=== PATIENT | female | born 1995 | race Caucasian/White ===

== ENCOUNTER 2022-04-22 07:28 | Outpatient (CLI) | payer BC, SELFPAY | END 2022-04-22 07:29 | disposition home or self-care (01) | LOC: AMB 04-24 06:51 | PROVIDERS: PCP Family Medicine; Visit Provider Internal Medicine | DX: R10.9 Unspecified abdominal pain (principal); R11.2 Nausea with vomiting, unspecified | CPT/HCPCS: A0425; A0427 ==

== ENCOUNTER 2022-04-22 07:54 | Emergency (ER) | payer BC, SELFPAY ==
[2022-04-22] VITALS (20 sets, daily range): BP systolic 95–123; BP diastolic 62–88; PULSE 72–111; RESP 16–22; TEMP 36.3; O2SAT 91–99; BMI 21.9
[2022-04-22 08:48] LABS: Basophils Absolute Auto 0.03 K/uL (0.00-0.30); Basophils Percent Auto 0.4 % (0.0-3.0); Eosinophils Absolute Auto 0.03 K/uL (0.00-0.50); Eosinophils Percent Auto 0.4 % (0.0-7.0); Hemoglobin* 12.5 gm/dL (12.0-16.0); Lactate* 0.9 mmol/L (0.5-1.9); Lymphocytes Percent Auto 16.3 % (20-44); Mean Corpuscular HGB Conc 35 gm/dL (32-36); Mean Corpuscular Hemoglobin 33 pg (26-34); Mean Corpuscular Volume 96 fL (80-100); Monocytes Percent Auto 4.1 % (0.0-11.0); Neutrophils Percent Auto 78.8 % (42.0-72.0); Platelet Count* 215 K/uL (140-440); RDW Coefficient of Variation % 12.8 % (11.5-15.5); Red Blood Count 3.76 m/uL (4.00-5.20); White Blood Count* 6.99 K/uL (4.50-11.00)
[2022-04-22] MEDS: 0.9 % SODIUM CHLORIDE 1000 ml 1,000 ML IV (08:50)
[2022-04-22] MEDS: LORazepam 2 MG/ML inj 0.5 MG IVP (08:51)
[2022-04-22] MEDS: SUCRALFATE 1 GM TABLET PO (08:51)
[2022-04-22 08:53] LABS: Slide Review Reflex No
--- NOTE | 2022-04-22 09:04 | ED_ITS ---
HPI - General Adult General Chief complaint: Alcohol/Intoxication Stated complaint: Abdominal pain Time Seen by Provider: 04/22/22 08:04 Source: patient Mode of arrival: EMS Limitations: no limitations History of Present Illness HPI narrative: Patient is a 26-year-old female coming in today complaining of abdominal pain. Tells me that she does have a history of pancreatitis. Also states that she has a history of alcoholism has been binge drinking on a daily basis for quite some time. Last night had multiple drinks and then stopped around 6:00 p.m.. Tells me that she woke up the middle of the night and started vomiting and has not stop vomiting since. Also started having diarrhea at the same time. Denies blood in her stool or vomitus. States that she feels weak, lightheaded, and has diffuse abdominal discomfort. She states that she does feel better after getting fluid in the ambulance. She also received Zofran. She tells me that she has stopped drinking in the past and tells me that she had multiple seizures and was in a coma for 2 weeks. Patient currently is not on any medications and does not see a therapist. She is living at home with her mother. She denies any sick contacts. Related Data Home Medications Medication Instructions Recorded Confirmed levonorgestrel-ethinyl estradiol 1 tab PO DAILY 04/22/22 04/22/22 0.1 mg-20 mcg tablet (Vienva) Allergies Allergy/AdvReac Type Severity Reaction Status Date / Time No Known Drug Allergies Allergy Verified 04/22/22 08:05 Review of Systems Status of ROS: Reports: 10 or more systems reviewed and unremarkable except as noted in History and below PFSH PFS Social History Smoking Status: Current some day smoker What tobacco products do you use: cigarettes Do you use any of these nicotine containing products: None Second hand tobacco smoke exposure: No How often do you have a drink containing alcohol: 4 or more times a week How many standard drinks containing alcohol do you have on a typical day: 5 or 6 How often do you have six or more drinks on one occasion: Daily or almost daily AUDIT-C Alcohol total score: 10 Non-prescribed substance use: denies use Exam Narrative: Exam Narrative: Well-nourished well-developed patient, Tearful. Alert and oriented. Answers questions appropriately. Thoughts are goal oriented and rational. No tangential or magical thinking noted. Patient speaks in full sentences without needing to catch her breath. speech is not slurred or pressured. She is not tremulous. HEENT: Normocephalic atraumatic. Pupils are equally round reactive to light. Extraocular muscles are intact. Conjunctivae are moist without any icterus noted. Moist mucous membranes. Posterior pharynx is normal. Neck is soft without any lymphadenopathy or thyromegaly. No masses are appreciated. Cardiovascular: Heart is regular rate and rhythm S1 and S2 are present without any murmurs. Lungs: Clear to auscultation bilaterally no wheezes rhonchi or rales are appreciated. Patient takes deep breaths without any discomfort. Abdomen: Soft and nondistended with normal bowel sounds. No guarding or rebound. No masses or organomegaly appreciated. She has minimal diffuse abdominal discomfort. Extremities: Bilateral lower extremities are without edema. Normal DP and PT pulses. Skin: Well perfused without any obvious rashes. Const: Vital Signs, click to edit/add: Vital Signs - 24 hr 04/22/22 07:57 04/22/22 09:04 04/22/22 08:12 Temperature 97.4 F L Pulse Rate 108 H Pulse Rate [Pulse Oximeter] 86 Respiratory Rate 22 Blood Pressure 123/88 Blood Pressure [Ri ght Upper Arm] 121/81 Pulse Oximetry 99 99 97 [facility] 04/22/22 08:13 04/22/22 08:15 04/22/22 08:35 Temperature Pulse Rate 96 87 83 Pulse Rate [Pulse Oximeter] Respiratory Rate Blood Pressure 118/78 Blood Pressure [Ri ght Upper Arm] Pulse Oximetry 98 97 95 [facility] 04/22/22 08:36 04/22/22 09:16 04/22/22 09:20 Temperature Pulse Rate 111 H 78 Pulse Rate [Pulse Oximeter] Respiratory Rate Blood Pressure 103/62 Blood Pressure [Ri ght Upper Arm] Pulse Oximetry 98 93 97 [facility] 04/22/22 09:30 04/22/22 09:32 04/22/22 09:45 Temperature Pulse Rate 72 101 H 83 Pulse Rate [Pulse Oximeter] Respiratory Rate Blood Pressure 95/67 Blood Pressure [Ri ght Upper Arm] Pulse Oximetry 97 99 97 Oxygen Delivery Me thod 04/22/22 10:00 04/22/22 10:01 04/22/22 10:15 Temperature Pulse Rate 85 76 74 Pulse Rate [Pulse Oximeter] Respiratory Rate Blood Pressure 113/69 Blood Pressure [Ri ght Upper Arm] Pulse Oximetry 97 98 98 Oxygen Delivery Me thod 04/22/22 10:30 04/22/22 10:31 04/22/22 10:45 Temperature Pulse Rate 87 85 87 Pulse Rate [Pulse Oximeter] Respiratory Rate Blood Pressure 105/69 Blood Pressure [Ri ght Upper Arm] Pulse Oximetry 91 98 98 Oxygen Delivery Me thod Course Course Hospital Course: Patient received L of normal saline, Carafate, Ativan. She did feel much better afterwards although she still had some abdominal discomfort. Her labs were unremarkable, but did show slightly low potassium, elevated total bilirubin of 3.1, lipase just slightly elevated at 334. Urine drug screen positive for benzodiazepines (after receiving Ativan here), and marijuana. Vital Signs Vital signs: Initial Vital Signs Temperature 97.4 F L 04/22/22 07:57 Temperature Source Temporal Artery Scan 04/22/22 07:57 Pulse Rate 86 04/22/22 07:57 Pulse Rhythm 04/22/22 07:57 Respiratory Rate 22 04/22/22 07:57 Blood Pressure 121/81 04/22/22 07:57 Blood Pressure Mean 94 04/22/22 07:57 Blood Pressure Position Supine 04/22/22 07:57 Pulse Oximetry 99 04/22/22 07:57 Oxygen Delivery Method 04/22/22 07:57 Vital Signs Temperature 97.4 F L 04/22/22 07:57 Pulse Rate 86 04/22/22 07:57 Respiratory Rate 22 04/22/22 07:57 Blood Pressure 121/81 04/22/22 07:57 Pulse Oximetry 99 04/22/22 07:57 Oxygen Delivery Method 04/22/22 07:57 Temperature 97.4 F L 04/22/22 07:57 Pulse Rate 87 04/22/22 10:45 Respiratory Rate 22 04/22/22 07:57 Blood Pressure 105/69 04/22/22 10:31 Pulse Oximetry 98 04/22/22 10:45 Oxygen Delivery Method 04/22/22 07:57 Medical Decision Making MDM Narrative Medical decision making narrative: 26-year-old female with vomiting and diarrhea for about 10 hours. She had no episodes of vomiting or diarrhea while she was in our ER today for approximately 4 hours. She has already started looking at alcohol treatment facilities and therapists with her mom. She plans to stay with her mom for a while. We did give her handouts for other facilities to contact as well. Given her history of alcohol withdrawal and seizures, return to the ER if she is not feeling well. Patient states that she is committed to stopping her alcohol use. States that she has a 4-year-old daughter at home that she needs to be present for. Will also send her home with 10 tablets of Ativan. Lab Data Lab results reviewed: Yes I reviewed the patient's lab results Labs: Lab Results 04/22/22 04/22/22 04/22/22 Range/Units 08:30 08:30 08:30 WBC 6.99 (4.50-11.00) K/uL RBC 3.76 L (4.00-5.20) m/uL Hgb 12.5 (12.0-16.0) gm/dL Hct 36.0 (33.0-51.0) % MCV 96 (80-100) fL MCH 33 (26-34) pg MCHC 35 (32-36) gm/dL RDW Coeff of [place] 12.8 (11.5-15.5) % Plt Count 215 (140-440) K/uL Neut % (Auto) 78.8 H (42.0-72.0) % Lymph % (Auto) 16.3 L (20-44) % [place] % (Auto) 4.1 (0.0-11.0) % Eos % (Auto) 0.4 (0.0-7.0) % Baso % (Auto) 0.4 (0.0-3.0) % Neut # (Auto) 5.50 (1.7-7.0) K/uL Lymph # (Auto) 1.10 (0.90-2.90) K/uL [place] # (Auto) 0.30 (0.00-0.90) K/UL Eos # (Auto) 0.03 (0.00-0.50) K/uL Baso # (Auto) 0.03 (0.00-0.30) K/uL Sodium 138 (135-149) mmol/L Potassium 3.3 L (3.6-5.1) mmol/L Chloride 107 (96-114) mmol/L Carbon Dioxide 21 (20-32) mmol/L BUN 5 (5-24) mg/dL Creatinine 0.5 (0.5-1.5) mg/dL Estimated Creat Clear 168.72 Estimated GFR 134 ml/min Glucose 110 (60-115) mg/dL Lactate 0.9 (0.5-1.9) mmol/L Calcium 8.7 (8.4-10.6) mg/dL Total Bilirubin 3.1 H (0.1-1.5) mg/dL Direct Bilirubin 0.0 (0.0-0.5) mg/dL AST 37 H (12-35) U/L ALT 23 (4-35) U/L Alkaline Phosphatase 63 (40-150) U/L C-Reactive Protein < 0.5 L (0.5-1.0) mg/dL Total Protein 7.1 (6.0-8.3) g/dL Albumin 4.3 (3.3-5.0) g/dL Lipase 334 H (23-300) U/L HCG, Qual (Negative) Salicylates < 1.0 L (1.0-10) mg/dL Urine Opiates Screen (Negative) Ur Oxycodone Screen (Negative) Urine Methadone Screen (Negative) Ur Propoxyphene Screen (Negative) Acetaminophen < 10.0 L (10.0-30.0) ug/mL Ur Barbiturates Screen (Negative) U Tricyclic Antidepress (Negative) Ur Phencyclidine Scrn (Negative) Ur Amphetamines Screen (Negative) U Methamphetamines Scrn (Negative) U Benzodiazepines Scrn (Negative) Urine Cocaine Screen (Negative) U Marijuana (THC) Screen (Negative) Ur Drug Screen Comment Ethyl Alcohol < 0.01 L (0.01-0.03) % SARS-CoV-2 (PCR) (Negative) Influenza Type A (PCR) (Negative) Influenza Type B (PCR) (Negative) 04/22/22 04/22/22 04/22/22 Range/Units 08:35 10:37 10:37 WBC (4.50-11.00) K/uL RBC (4.00-5.20) m/uL Hgb (12.0-16.0) gm/dL Hct (33.0-51.0) % MCV (80-100) fL MCH (26-34) pg MCHC (32-36) gm/dL RDW Coeff of [place] (11.5-15.5) % Plt Count (140-440) K/uL Neut % (Auto) (42.0-72.0) % Lymph % (Auto) (20-44) % [place] % (Auto) (0.0-11.0) % Eos % (Auto) (0.0-7.0) % Baso % (Auto) (0.0-3.0) % Neut # (Auto) (1.7-7.0) K/uL Lymph # (Auto) (0.90-2.90) K/uL [place] # (Auto) (0.00-0.90) K/UL Eos # (Auto) (0.00-0.50) K/uL Baso # (Auto) (0.00-0.30) K/uL Sodium (135-149) mmol/L Potassium (3.6-5.1) mmol/L Chloride (96-114) mmol/L Carbon Dioxide (20-32) mmol/L BUN (5-24) mg/dL Creatinine (0.5-1.5) mg/dL Estimated Creat Clear Estimated GFR ml/min Glucose (60-115) mg/dL Lactate (0.5-1.9) mmol/L Calcium (8.4-10.6) mg/dL Total Bilirubin (0.1-1.5) mg/dL Direct Bilirubin (0.0-0.5) mg/dL AST (12-35) U/L ALT (4-35) U/L Alkaline Phosphatase (40-150) U/L C-Reactive Protein (0.5-1.0) mg/dL Total Protein (6.0-8.3) g/dL Albumin (3.3-5.0) g/dL Lipase (23-300) U/L HCG, Qual Negative (Negative) Salicylates (1.0-10) mg/dL Urine Opiates Screen Negative (Negative) Ur Oxycodone Screen Negative (Negative) Urine Methadone Screen Negative (Negative) Ur Propoxyphene Screen Negative (Negative) Acetaminophen (10.0-30.0) ug/mL Ur Barbiturates Screen Negative (Negative) U Tricyclic Antidepress Negative (Negative) Ur Phencyclidine Scrn Negative (Negative) Ur Amphetamines Screen Negative (Negative) U Methamphetamines Scrn Negative (Negative) U Benzodiazepines Scrn POSITIVE A* (Negative) Urine Cocaine Screen Negative (Negative) U Marijuana (THC) Screen POSITIVE A* (Negative) Ur Drug Screen Comment See Note Ethyl Alcohol (0.01-0.03) % SARS-CoV-2 (PCR) Negative SARS-CoV-2 (Negative) Influenza Type A (PCR) Negative PCR FLU A (Negative) Influenza Type B (PCR) Negative PCR FLU B (Negative) ECG Data Attestation: I personally reviewed and interpreted this ECG as follows: (Normal sinus rhythm, pulse 82) Discharge Plan Discharge Clinical Impression: Alcohol use disorder, Diarrhea, Vomiting Patient Disposition: Home w/ Parent or Adult Condition: Improved Additional Instructions: You have been given a prescription for Ativan tablets to take for symptoms of alcohol withdrawal. If you feel like your symptoms are worsening despite these tablets, you should return to the emergency room. Ativan sent to [facility] Prescriptions: No Action levonorgestrel-ethinyl estrad [Vienva] 0.1-20 mg-mcg tablet 1 tab PO DAILY Label Comments: TAKE ONE TABLET BY MOUTH ONE TIME DAILY Follow Up/Referrals: Ashwini Zhang MD [Primary Care Provider] - Stand Alone Forms: [employer] Info Instructions
[2022-04-22 09:10] LABS: Albumin* 4.3 g/dL (3.3-5.0); Chloride* 107 mmol/L (96-114); Sodium* 138 mmol/L (135-149)
[2022-04-22 09:11] LABS: Potassium* 3.3 mmol/L (3.6-5.1)
[2022-04-22 09:13] LABS: Creatinine* 0.5 mg/dL (0.5-1.5); Est. Creatinine Clearance* 168.72; Estimated Glomerular Filt Rate 134 ml/min
[2022-04-22 09:14] LABS: Alanine Aminotransferase* 23 U/L (4-35); Alkaline Phosphatase* 63 U/L (40-150); Aspartate Amino Transferase* 37 U/L (12-35); Bilirubin Total* 3.1 mg/dL (0.1-1.5); Blood Urea Nitrogen* 5 mg/dL (5-24); Calcium* 8.7 mg/dL (8.4-10.6); Carbon Dioxide* 21 mmol/L (20-32); Glucose* 110 mg/dL (60-115); Lipase* 334 U/L (23-300); Total Protein* 7.1 g/dL (6.0-8.3)
[2022-04-22 09:15] LABS: Acetaminophen* < 10.0 ug/mL (10.0-30.0); Ethanol* < 0.01 % (0.01-0.03); Salicylate* < 1.0 mg/dL (1.0-10)
[2022-04-22 09:22] LABS: PCR FLU A Negative PCR FLU A (Negative); PCR FLU B Negative PCR FLU B (Negative)
[2022-04-22 09:39] LABS: SARS PCR* Negative SARS-CoV-2 (Negative)
[2022-04-22 09:39] LABS: C Reactive Protein* < 0.5 mg/dL (0.5-1.0)
[2022-04-22 10:46] LABS: HCG Qualitative* Negative (Negative)
[2022-04-22 10:51] LABS: Amphetamine Screen Urine Negative (Negative); Barbiturate Screen Urine Negative (Negative); Cocaine Screen Urine Negative (Negative); Methadone Screen Urine Negative (Negative); Methamphetamines Screen Urine Negative (Negative); Opiate Screen Urine Negative (Negative); Oxycodone Screen Urine Negative (Negative); Phencyclidine Screen Urine Negative (Negative); Tricyclic Antidepressant Urine Negative (Negative)
[2022-04-22 10:53] LABS: Benzodiazepines Screen Urine POSITIVE (Negative); Cannabinoid Screen Urine POSITIVE (Negative)
--- NOTE | 2022-04-22 10:53 | ED.NURSE ---
note to dr gibson with positive benzos and THC.
== END 2022-04-22 12:04 | disposition home or self-care (01) ==
PROVIDERS: Emergency Provider Family Medicine; PCP Family Medicine
DX: F10.90 Alcohol use, unspecified, uncomplicated (principal); R19.7 Diarrhea, unspecified; R11.10 Vomiting, unspecified
CPT/HCPCS: 36415; 80048; 80076; 80143; 80179; 80306; 82077; 83605; 83690; 84703; 85025; 86140; 87631; 93005; 94761; 96361; 96374; 99284; A9270; J2060; J7030

== ENCOUNTER 2022-07-08 21:02 | Outpatient (CLI) | payer BC, SELFPAY ==
--- OUTSIDE RECORDS SUMMARY | 2022-07-21 04:47 | XMS_ITS | Continuity of Care Document ---
Author Name Unknown Organization [facility] Address [address] [address] [place] [address] Phone Care Team Providers Care Supervisor Fruit Grading Name Role Phone Armando eLzama MD Unavailable Unavailable Allergies, Adverse Reactions, Alerts Substance Reaction Status Criticality No Known Allergies Active No Inform ation Medications Medication Instructions Dosage Effective Dates (start - stop) Status Comments Control Pill ORAL TABLET Take one tablet by mouth daily - Active albuterol sulfate HFA 90 mcg/actuation aerosol inhaler Inhale 1 puff as needed - Active Procedures Procedure Date Office Cons New/estab Mod Advance Directives Directive Yes / No Effective Date File Name No Information Encounters Encounter Description Practice Location Reason(s) For Visit Diagnoses Date Provider Providers Copied on Encounter Office Cons New/estab Mod [facility], [address] [address], [place], [place], [id number], [place] tel:[phone] [facility] GI Symptoms or Concerns (chief complaint) Epigastric pain Lise Roberts. [address] [facility], [facility] [address], [place], [place], [id number], [place]. tel:[phone] Referring Provider: Ashwini Zhang MD, [address] [facility], [place], [address]. tel:[phone] [facility], [address] [address], [place], [place], [id number], [place] tel:[phone] [facility] No Information Nayan Flores. [address] [facility], [facility] [address], [place], [place], [id number], [place]. tel:[phone] Family History Family Member Type Diagnosis Age At Onset Mother Problem (finding) Colon polyps Father Problem (finding) Alcoholism Son Problem (finding) Asthma Mother Problem (finding) Irritable bowel syndrom e Mother Problem (finding) Pancreatitis Mother Problem (finding) Asthma Immunizations Vaccine Date Status Comments SARS-COV-2 (COVID-19) vaccin e, mRNA, spike protein, LNP, preservative free, 30 mcg/0.3mL dose administered Note: [facility] bi-direct ional interface ; Source: Other Registry SARS-COV-2 (COVID-19) vaccin e, mRNA, spike protein, LNP, preservative free, 30 mcg/0.3mL dose administered Note: [facility] bi-direct ional interface ; Source: Other Registry tetanus toxoid, reduced diphtheria toxoid, and acellular pertussis vaccine, adsorbed administered Note: [facility] b i-directional interface ; Source: Other Registry Afluria Qd administered Note: [facility] bi-directional interface ; Source: Other Registry human papilloma virus vaccin e, quadrivalent administered Note: [facility] bi-direct ional interface ; Source: Other Registry varicella virus vaccine administered Note : [facility] bi-directional interface ; Source: Other Registry human papilloma virus vaccin e, quadrivalent administered Note: [facility] bi-direct ional interface ; Source: Other Registry human papilloma virus vaccin e, quadrivalent administered Note: [facility] bi-direct ional interface ; Source: Other Registry tetanus toxoid, reduced diphtheria toxoid, and acellular pertussis vaccine, adsorbed administered Note: [facility] b i-directional interface ; Source: Other Registry Influenza, seasonal, injectable administe red Note: [facility] bi- directional interface ; Source: Other Registry poliovirus vaccine, inactivated administe red Note: [facility] bi- directional interface ; Source: Other Registry measles, mumps and rubella v irus vaccine administered Note: [facility] bi-direct ional interface ; Source: Other Registry diphtheria, tetanus toxoids and acellular pertussis vaccine administered Note: [facility] b i-directional interface ; Source: Other Registry Payers Payer name Insurance type Covered green party ID Authorsondra weiner(s) Ra Gallego [facility] [id number] Social History Type Description Quantity Date Captured Comments Alcohol Use Details No Caffeine Use Details Unknown Tobacco Use Status undefined Smoking Status Former smoker Non-Smoking Tobacco Use Details : No Details Available : No Details Available Sex Female Vital Signs Date / Time: Height Weight BMI Pulse Rate Blood Pressure Temperature Respiratory Rate Body Surface Area Head Circumference Head Circ. Percentile Wt./Ramon. Percentile BMI percentile Pulse Ox Inhaled Ox 8:08 AM 67.00 in 75.659 kg (166.80 lbs) 26.1 2 kg/m eter (2) 83 /min 115/64 mm[Hg] Chief Complaint And Reason For Visit From encounter dated '07/13/2022 08:30'. GI Symptoms or Concerns (chief complaint). Description: Ms. Cano is here at the request of Dr. Jiang discuss recurrent epigastric pain. She has a history of alcohol abuse the pain seems to correlate with binge drinking. She has been hospitalized 3 times with what sounds like alcoholic pancreatitis. She is unsure if she is had CT scans during this time. She said sometimes when she goes to the ER for this pain the lipase is elevated and sometimes not. She is been told that the pain episodes are both alcoholic gastritis and alcoholic pancreatitis. This discomfort has been going on for severalyears. She had an episode in April and then this past weekend. These episodes are much worse pain that is associated with uncontrollable nausea and vomiting. The vomiting will not stop unless she gets to the emergency room. There, it seems that IV fluids are most beneficial. GI cocktail does notseem to help. She was sober for 2 months from sometime in April until the beginning of July. During this period, she had no episodes of pain. It sounds like her mom pancreatitis and had an ERCP at some point. She also notes that she has problems with morning vomiting and diarrhea if she eats verylate at night. She has never had an upper endoscopy. She quit smoking a year ago. Looking at her most recent labs from the emergency room, lipase was elevated minimally in April and normal in July. Reason For Referral Reason For Referral No Information Plan Of Treatment Date Type Action Status Referral Ordered: MRI Pancreas WITH Contrast Appointment date/timeframe: First Available ordered History Of Present Illness Encounter Date Complaint History Of Prese nt Illness GI Symptoms or Concerns Ms. Rula chong is here at the request of Dr. Jiang discuss recurrent epigastric pain. She has a history of alcohol abuse the pain seems to correlate with binge drinking. She has been hospitalized 3 times with what sounds like alcoholic pancreatitis. She is unsure if she is had CT scans during this time. She said sometimes when she goes to the ER for this pain the lipase is elevated and sometimes not. She is been told that the pain episodes are both alcoholic gastritis and alcoholic pancreatitis. This discomfort has been going on for several years. She had an episode in April and then this past weekend. These episodes are much worse pain that is associated with uncontrollable nausea and vomiting. The vomiting will not stop unless she gets to the emergency room. There, it seems that IV fluids are most beneficial. GI cocktail does not seem to help. She was sober for 2 months from sometime in April until the beginning of July. During this period, she had no episodes of pain. It Functional Status Date Functional Assessmen t No Information Instructions Date Instruction Additional Infor mation No Information Assessments Type Assessment Date assessment Epigastric pain Mental Status Date Cognitive Assessment Orientation - [place] ed to time, place, person, situation. Patient Care Teams Name Effective Dates (start - stop) Status Members No Information
== END 2022-07-08 21:03 | disposition home or self-care (01) ==
LOC: AMB 07-21 04:45
PROVIDERS: PCP Family Medicine; Visit Provider Emergency Medicine Emergency Medical Services
DX: F10.129 Alcohol abuse with intoxication, unspecified (principal)
CPT/HCPCS: A0425; A0429

== ENCOUNTER 2022-07-08 21:27 | Emergency (ER) | payer BC, SELFPAY ==
[2022-07-08] MEDS: 0.9 % SODIUM CHLORIDE 500 ML 500 ML IV (21:48)
[2022-07-08] MEDS: ONDANSETRON 2 MG/ML inj 4 MG IVP ×2 (21:48→23:25)
[2022-07-08 21:50] VITALS: BP 108/71; PULSE 98; RESP 18; TEMP 36.7; O2SAT 99; BMI 26.6
--- NOTE | 2022-07-08 21:53 | ED_ITS ---
HPI - Abdominal Pain General Chief Complaint: Abdominal Pain Stated Complaint: ETOH Time Seen by Provider: 07/08/22 21:38 History of Present Illness HPI narrative: This 27-year-old female comes in by ambulance reporting upper epigastric abdominal pain. She has a history of alcohol abuse and pancreatitis. She did have lots of alcohol recently and states that her last drink was this afternoon. She arrives with normal vital signs. Related Data Home Medications Medication Instructions Recorded Confirmed levonorgestrel-ethinyl estradiol 1 tab PO DAILY 07/08/22 07/08/22 0.1 mg-20 mcg tablet (Vienva) Previous Rx's Medication Instructions Recorded amoxicillin 875 mg-potassium 1 tab PO BID 5 days #10 tabs 07/06/22 clavulanate 125 mg tablet polymyxin B sulfate 10,000 1 drp ophthalmic (eye) Q3H #10 mL 07/06/22 unit-trimethoprim 1 mg/mL eye drops (Polytrim) Allergies Allergy/AdvReac Type Severity Reaction Status Date / Time No Known Drug Allergies Allergy Verified 07/08/22 22:02 Review of Systems Status of ROS Reports: 10 or more systems reviewed and unremarkable except as noted in History and below Narrative Constitutional: No fevers, no weight gain or loss. Eyes: No discharge. No vision changes. HENT: No congestion, no sore throat, no ear pain. Cardiovascular: No chest pain, no palpitations. Respiratory: No shortness of breath, no wheezes, no cough. Gastrointestinal: Upper epigastric abdominal pain with nausea and vomiting. Genitourinary: No dysuria, no hematuria. Musculoskeletal: Normal range of motion. Skin: No rashes, no pruritis. Neurological: No dizziness, weakness, sensory change, speech change. Endo/Heme/Allergies: No bruising or bleeding. No polydipsia. Pysch: no suicidality, no anxiety, no insomnia. Alcohol abuse and intoxication. All other systems reviewed and are negative. [facility] PFS Social History Smoking Status: Former smoker What tobacco products do you use: cigarettes Smoking quit date/years: <= 15 years ago Do you use any of these nicotine containing products: None Second hand tobacco smoke exposure: No How often do you have a drink containing alcohol: 4 or more times a week How many standard drinks containing alcohol do you have on a typical day: 5 or 6 How often do you have six or more drinks on one occasion: Daily or almost daily AUDIT-C Alcohol total score: 10 Non-prescribed substance use: marijuana (any form) service: No Exam Narrative: Exam Narrative: Constitutional: Well-developed, well-nourished, no acute distress. HEENT: Normocephalic, atraumatic. Neck: Normal range of motion. Nontender. Supple. Heart: Regular. No murmurs. Normal rate. Intact distal pulses. Lungs: Clear to auscultation. No chest discomfort. No wheezes, rhonchi, or rales. Abdomen: Normal bowel sounds. Tenderness in the upper epigastric region. No rebound tenderness. Genitalia: Deferred. Back: No midline tenderness. Normal range of motion. Extremities: Normal range of motion. No injury. Skin: Intact. No rash. Warm. No erythema or pallor. Neurologic: No altered sensation. No weakness. Alert and oriented. Psychiatric: No suicidality. No anxiety or depression. No insomnia. Nursing notes and vitals signs are reviewed. Const: Vital Signs, click to edit/add: Vital Signs - 24 hr 07/08/22 21:50 07/08/22 22:00 07/08/22 22:01 Temperature 98.0 F Pulse Rate 102 H Pulse Rate [Right Pulse Oximeter] 98 Respiratory Rate 18 16 Blood Pressure 113/49 L Blood Pressure [Ri ght Upper Arm] 108/71 Pulse Oximetry 99 97 99 Oxygen Delivery Me thod Room Air 07/08/22 22:31 07/08/22 23:01 Temperature Pulse Rate 99 95 Pulse Rate [Right Pulse Oximeter] Respiratory Rate 16 16 Blood Pressure 105/66 115/67 Blood Pressure [Ri ght Upper Arm] Pulse Oximetry 100 96 Oxygen Delivery Me thod Course Vital Signs Vital signs: Initial Vital Signs Temperature 98.0 F 07/08/22 21:50 Temperature Source Temporal Artery Scan 07/08/22 21:50 Pulse Rate 98 07/08/22 21:50 Respiratory Rate 18 07/08/22 21:50 Blood Pressure 108/71 07/08/22 21:50 Blood Pressure Mean 83 07/08/22 21:50 Blood Pressure Position Supine 07/08/22 21:50 Pulse Oximetry 99 07/08/22 21:50 Oxygen Delivery Method Room Air 07/08/22 21:50 Vital Signs Temperature 98.0 F 07/08/22 21:50 Pulse Rate 98 07/08/22 21:50 Respiratory Rate 18 07/08/22 21:50 Blood Pressure 108/71 07/08/22 21:50 Pulse Oximetry 99 07/08/22 21:50 Oxygen Delivery Method Room Air 07/08/22 21:50 Temperature 98.0 F 07/08/22 21:50 Pulse Rate 95 07/08/22 23:01 Respiratory Rate 16 07/08/22 23:01 Blood Pressure 115/67 07/08/22 23:01 Pulse Oximetry 96 07/08/22 23:01 Oxygen Delivery Method Room Air 07/08/22 21:50 MDM - Abdominal Pain MDM Narrative Medical decision making narrative: This patient comes in reporting severe upper epigastric abdominal pain. She had alcohol recently and reports similar symptoms in the past after taking alcohol. An IV was established where she received 4 mg of Zofran. Lab results returned with blood alcohol level 0.02. Other lab results are also in normal range. Patient then received a GI cocktail which did not bring much relief of her symptoms. Following this she received 30 mg of Toradol which brought some relief. I did use bedside ultrasound to evaluate her gallbladder and found normal anatomy in the right upper quadrant. The patient then received an IV dose of Dilaudid 0.5 mg and another dose of Zofran. She is okay to return home and encouraged to discontinue use of alcohol as this does not sit well with her. Lab Data Labs: Lab Results 07/08/22 Range/Units 21:45 WBC 12.80 H (4.50-11.00) K/uL RBC 4.22 (4.00-5.20) m/uL Hgb 13.4 (12.0-16.0) gm/dL Hct 39.2 (33.0-51.0) % MCV 93 (80-100) fL MCH 32 (26-34) pg MCHC 34 (32-36) gm/dL RDW Coeff of [place] 11.9 (11.5-15.5) % Plt Count 375 (140-440) K/uL Neut % (Auto) 82.5 H (42.0-72.0) % Lymph % (Auto) 15.6 L (20-44) % [place] % (Auto) 1.2 (0.0-11.0) % Eos % (Auto) 0.1 (0.0-7.0) % Baso % (Auto) 0.3 (0.0-3.0) % Neut # (Auto) 10.60 H (1.7-7.0) K/uL Lymph # (Auto) 2.00 (0.90-2.90) K/uL [place] # (Auto) 0.20 (0.00-0.90) K/UL Eos # (Auto) 0.00 (0.00-0.50) K/uL Baso # (Auto) 0.00 (0.00-0.30) K/uL Sodium 139 (135-149) mmol/L Potassium 3.6 (3.6-5.1) mmol/L Chloride 103 (96-114) mmol/L Carbon Dioxide 15 L (20-32) mmol/L BUN 16 (5-24) mg/dL Creatinine 0.6 (0.5-1.5) mg/dL Estimated Creat Clear 139.38 Estimated GFR 128 ml/min Glucose 117 H (60-115) mg/dL Calcium 9.6 (8.4-10.6) mg/dL Total Bilirubin 0.8 (0.1-1.5) mg/dL Direct Bilirubin 0.2 (0.0-0.5) mg/dL AST 25 (12-35) U/L ALT 22 (4-35) U/L Alkaline Phosphatase 97 (40-150) U/L Total Protein 8.4 H (6.0-8.3) g/dL Albumin 5.2 H (3.3-5.0) g/dL Lipase 36 (23-300) U/L Ethyl Alcohol 0.02 (0.01-0.03) % Discharge Plan Discharge Clinical Impression: Gastritis Patient Disposition: Home w/ Parent or Adult Condition: Stable Additional Instructions: Take medication as needed and directed. Increase diet as tolerated. Avoid alcohol. Follow up with MD or return if worsening. Prescriptions: No Action polymyxin B sulf-trimethoprim [Polytrim] 10,000 unit- 1 mg/mL drops 1 drp ophthalmic (eye) Q3H Qty: 10 0RF Rx Instructions: while awake; do not exceed 6 doses in 24 hours amoxicillin-pot clavulanate 875-125 mg tablet 1 tab PO BID 5 Days Qty: 10 0RF levonorgestrel-ethinyl estrad [Vienva] 0.1-20 mg-mcg tablet 1 tab PO DAILY Follow Up/Referrals: Ashwini Zhang MD [Primary Care Provider] - Stand Alone Forms: [facility] Info Instructions Procedures Ultrasound Biliary exam #1: Anatomical areas examined: gallbladder, long and short axis and common bile duct Indications: RUQ/epigastric pain Exam type: limited abdominal ultrasound; RUQ Description/Findings: Normal exam. No sign of stones or sludge in the gallbladder.
[2022-07-08 21:54] LABS: Basophils Percent Auto 0.3 % (0.0-3.0); Eosinophils Percent Auto 0.1 % (0.0-7.0); Hematocrit 39.2 % (33.0-51.0); Hemoglobin* 13.4 gm/dL (12.0-16.0); Immature Granulocytes Pct Auto 0.3 %; Lymphocytes Percent Auto 15.6 % (20-44); Mean Corpuscular HGB Conc 34 gm/dL (32-36); Mean Corpuscular Hemoglobin 32 pg (26-34); Mean Corpuscular Volume 93 fL (80-100); Monocytes Percent Auto 1.2 % (0.0-11.0); Neutrophils Percent Auto 82.5 % (42.0-72.0); Platelet Count* 375 K/uL (140-440); RDW Coefficient of Variation % 11.9 % (11.5-15.5); Red Blood Count 4.22 m/uL (4.00-5.20)
[2022-07-08 21:59] LABS: Slide Review Reflex No
[2022-07-08 22:00] VITALS: O2SAT 97
[2022-07-08 22:01] VITALS: BP 113/49; PULSE 102; RESP 16; O2SAT 99
--- OUTSIDE RECORDS SUMMARY | 2022-07-08 22:02 | XMS_ITS | Continuity of Care Document ---
Author Name Unknown Organization [facility] Address [address] [address] [place] [address] Phone Care Team Providers Care Soda Fountain Clerk Name Role Phone Mark Escobar MD Unavailabl e Advance Directives Directive Yes / No Effective Date File Name No Information Encounters Encounter Description Practice Location Reason(s) For Visit Diagnoses Date Provider Providers Copied on Encounter [facility], [address] [address], [place], [place], [id number], [place] tel:[phone] [facility] No Information Nayan Flores. [address] [address], [place], [place], [id number], [place]. tel:[phone] Family History Family Member Type Diagnosis Age At Onset No Information Payers Payer name Insurance type Covered democrat ID Authoriza tion(s) No Information Social History Type Description Quantity Date Captured Comments Sex Female Smoking Status No Information Chief Complaint And Reason For Visit No Information Reason For Referral Reason For Referral No Information Plan Of Treatment Date Type Action Status No Information History Of Present Illness Encounter Date Complaint History Of Prese nt Illness No Information Functional Status Date Functional Assessmen t No Information Instructions Date Instruction Additional Infor mation No Information Assessments Type Assessment Date No Information Patient Care Teams Name Effective Dates (start - stop) Status Members No Information
[2022-07-08 22:07] LABS: Albumin* 5.2 g/dL (3.3-5.0); Chloride* 103 mmol/L (96-114); Potassium* 3.6 mmol/L (3.6-5.1); Sodium* 139 mmol/L (135-149)
[2022-07-08 22:09] LABS: Creatinine* 0.6 mg/dL (0.5-1.5); Est. Creatinine Clearance* 139.38; Estimated Glomerular Filt Rate 128 ml/min
[2022-07-08 22:10] LABS: Alanine Aminotransferase* 22 U/L (4-35); Alkaline Phosphatase* 97 U/L (40-150); Aspartate Amino Transferase* 25 U/L (12-35); Bilirubin Direct* 0.2 mg/dL (0.0-0.5); Bilirubin Total* 0.8 mg/dL (0.1-1.5); Blood Urea Nitrogen* 16 mg/dL (5-24); Calcium* 9.6 mg/dL (8.4-10.6); Carbon Dioxide* 15 mmol/L (20-32); Glucose* 117 mg/dL (60-115); Lipase* 36 U/L (23-300); Total Protein* 8.4 g/dL (6.0-8.3)
[2022-07-08 22:11] LABS: Ethanol* 0.02 % (0.01-0.03)
[2022-07-08 22:31] VITALS: BP 105/66; PULSE 99; RESP 16; O2SAT 100
[2022-07-08] MEDS: GI COCKTAIL (VISC LIDO/ANTACID) 30 ML PO (22:31)
[2022-07-08] MEDS: KETOROLAC 30 MG/ML inj IVP (22:45)
[2022-07-08 23:01] VITALS: BP 115/67; PULSE 95; RESP 16; O2SAT 96
[2022-07-08] MEDS: HYDROmorphone 0.5 mg/0.5 ml inj IVP (23:26)
--- NOTE | 2022-07-08 23:40 | ED.NURSE ---
Pt vomited approximately 250 cc of white emesis. Pt had GI cocktail earlier and was unable to tolerate it. Dr. Holman aware and additional zofran given IV.
[2022-07-08 23:51] VITALS: BP 115/74; PULSE 92; O2SAT 92
== END 2022-07-09 00:04 | disposition home or self-care (01) ==
PROVIDERS: Emergency Provider Emergency Medicine Emergency Medical Services; PCP Family Medicine
DX: K29.70 Gastritis, unspecified, without bleeding (principal); F10.10 Alcohol abuse, uncomplicated
CPT/HCPCS: 36415; 80048; 80076; 82077; 83690; 85025; 94761; 96374; 96375; 99283; 99284; A9270; J1170; J1885; J2405; J7120

== ENCOUNTER 2022-08-11 07:56 | Outpatient (CLI) | payer BC, SELFPAY ==
--- NOTE | 2022-08-11 08:15 | CRLHL7_ITS ---
For Patients: As a result of the Century Cures Act, medical imaging exams and procedure reports are released immediately into your electronic medical record. You may view this report before your referring provider. If you have questions, please contact your health care provider. Indication: Epigastric abdominal pain. Technique: MRI of the abdomen without and with intravenous gadolinium. Three plane localizer, 3 plane SSFP, axial T1 weighted in out of phase, axial T2 weighted haste without and with fat suppression, axial diffusion-weighted imaging and ADC map, and pre and post contrast axial and coronal T1 weighted fat-suppressed vibe pulse sequences were obtained. 15 cc of IV dotarem. Comparison: CT of the abdomen and pelvis, 03/19/2021. Findings: There is no pancreatic duct dilation or glandular atrophy. The anterior pararenal space is clear. The liver morphology is non cirrhotic. There is no solid hepatic mass. The hepatic veins, IVC, main portal vein, splenic vein, and SMV are patent. The nephrograms are symmetric. There is no solid renal mass or perinephric fluid. No adrenal mass. Normal marrow signal intensity. No abdominal lymphadenopathy. Biliary tree is normal in caliber. There are no inflammatory changes adjacent to the gallbladder. There is no evidence for steatosis or iron deposition on chemical shift imaging. No arterial phase enhancing liver lesion. There is no washout on the portal venous or equilibrium phases. Impression: 1. No imaging findings are seen to explain epigastric abdominal pain. 2. Normal caliber biliary tree. 3. Non cirrhotic liver morphology. 4. No abdominal lymphadenopathy or ascites. Dictated by Branden Bejarano MD @ 08/14/2022 11:29:47 AM (Electronically Signed)
== END 2022-08-11 07:57 | disposition home or self-care (01) ==
LOC: MRI 07:56
PROVIDERS: PCP Family Medicine; Visit Provider Internal Medicine Gastroenterology
DX: R10.13 Epigastric pain (principal)
CPT/HCPCS: 74183; A9575

== ENCOUNTER 2022-08-22 08:57 | Outpatient (CLI) | payer BC, SELFPAY | END 2022-08-22 08:58 | disposition home or self-care (01) | LOC: AMB 08-24 11:58 | PROVIDERS: PCP Family Medicine; Visit Provider Family Medicine | DX: R10.9 Unspecified abdominal pain (principal); R11.10 Vomiting, unspecified | CPT/HCPCS: A0425; A0429; A0433 ==

== ENCOUNTER 2022-08-22 17:35 | Outpatient (CLI) | payer BC, SELFPAY | END 2022-08-22 17:36 | disposition home or self-care (01) | LOC: AMB 08-24 12:06 | PROVIDERS: PCP Family Medicine; Visit Provider Family Medicine | DX: R25.1 Tremor, unspecified (principal) | CPT/HCPCS: A0425; A0429 ==

== ENCOUNTER 2022-08-22 17:44 | Emergency (ER) | payer BC, SELFPAY ==
[2022-08-22 17:52] VITALS: BP 119/85; PULSE 89; RESP 18; TEMP 36.7; O2SAT 98
--- NOTE | 2022-08-22 18:23 | ED_ITS ---
HPI - General Adult General Chief complaint: Anxiety Stated complaint: Shaking Time Seen by Provider: 08/22/22 18:16 History of Present Illness HPI narrative: This 27-year-old female comes in reporting feeling shaky and anxious. She states she feels like she is going through some kind withdrawal like she had when she was abusing alcohol. She has not had any alcohol for the past 4 months. She did go to [facility] [place] [place] this morning because of abdominal pain and did receive IV doses of narcotic and Zofran. She was discharged at about noon, about 6 hours prior to arrival here. She states that she began feeling shaky as she was being discharged. The abdominal pain is currently not present. She does have follow-up appointment with a GI specialist. She arrives here with normal vital signs. When I came into the room she began to hyperventilate and become more shaky. The nurse noted that she is able to calm down. The patient denies taking any street drugs or other medications. Related Data Home Medications Medication Instructions Recorded Confirmed levonorgestrel-ethinyl estradiol 1 tab PO DAILY 07/08/22 07/08/22 0.1 mg-20 mcg tablet (Vienva) Previous Rx's Medication Instructions Recorded polymyxin B sulfate 10,000 1 drp ophthalmic (eye) Q3H #10 mL 07/06/22 unit-trimethoprim 1 mg/mL eye drops (Polytrim) escitalopram oxalate 10 mg tablet 10 mg PO DAILY #30 tabs 08/22/22 (Lexapro) Allergies Allergy/AdvReac Type Severity Reaction Status Date / Time No Known Drug Allergies Allergy Verified 07/08/22 22:02 Review of Systems Status of ROS: Reports: 10 or more systems reviewed and unremarkable except as noted in History and below Narrative: Constitutional: No fevers, no weight gain or loss. Eyes: No discharge. No vision changes. HENT: No congestion, no sore throat, no ear pain. Cardiovascular: No chest pain, no palpitations. Respiratory: No shortness of breath, no wheezes, no cough. Gastrointestinal: No abdominal pain, no vomiting, no diarrhea. Genitourinary: No dysuria, no hematuria. Musculoskeletal: Normal range of motion. Skin: No rashes, no pruritis. Neurological: No dizziness, weakness, sensory change, speech change. Endo/Heme/Allergies: No bruising or bleeding. No polydipsia. Pysch: no suicidality, no insomnia. She reports anxiety. All other systems reviewed and are negative. [facility] Social History (Updated 07/08/22 @ 23:47 by Lai Holman MD) Smoking Status: Former smoker What tobacco products do you use: cigarettes Smoking quit date/years: <= 15 years ago Do you use any of these nicotine containing products: None Second hand tobacco smoke exposure: No How often do you have a drink containing alcohol: 4 or more times a week How many standard drinks containing alcohol do you have on a typical day: 5 or 6 How often do you have six or more drinks on one occasion: Daily or almost daily AUDIT-C Alcohol total score: 10 Non-prescribed substance use: marijuana (any form) service: No Exam Narrative: Exam Narrative: Constitutional: Well-developed, well-nourished. HEENT: Normocephalic, atraumatic. Neck: Normal range of motion. Nontender. Supple. Heart: Regular. No murmurs. Normal rate. Intact distal pulses. Lungs: Clear to auscultation. No chest discomfort. No wheezes, rhonchi, or rales. Abdomen: Normal bowel sounds. Nontender. No rebound tenderness. Genitalia: Deferred. Back: No midline tenderness. Normal range of motion. Extremities: Normal range of motion. No injury. Skin: Intact. No rash. Warm. No erythema or pallor. Neurologic: No altered sensation. No weakness. Alert and oriented. She is tremulous. Psychiatric: No suicidality. No insomnia. She appears very anxious. Nursing notes and vitals signs are reviewed. Const: Vital Signs, click to edit/add: Vital Signs - 24 hr 08/22/22 17:52 Temperature 98.0 F Pulse Rate [Right Pulse Oximeter] 89 Respiratory Rate 18 Blood Pressure [Ri ght Upper Arm] 119/85 Pulse Oximetry 98 Oxygen Delivery Me thod Room Air Course Vital Signs Vital signs: Initial Vital Signs Temperature 98.0 F 08/22/22 17:52 Temperature Source Temporal Artery Scan 08/22/22 17:52 Pulse Rate 89 08/22/22 17:52 Respiratory Rate 18 08/22/22 17:52 Blood Pressure 119/85 08/22/22 17:52 Blood Pressure Mean 96 08/22/22 17:52 Blood Pressure Position Sitting 08/22/22 17:52 Pulse Oximetry 98 08/22/22 17:52 Oxygen Delivery Method Room Air 08/22/22 17:52 Vital Signs Temperature 98.0 F 08/22/22 17:52 Pulse Rate 89 08/22/22 17:52 Respiratory Rate 18 08/22/22 17:52 Blood Pressure 119/85 08/22/22 17:52 Pulse Oximetry 98 08/22/22 17:52 Oxygen Delivery Method Room Air 08/22/22 17:52 Temperature 98.0 F 08/22/22 17:52 Pulse Rate 89 08/22/22 17:52 Respiratory Rate 18 08/22/22 17:52 Blood Pressure 119/85 08/22/22 17:52 Pulse Oximetry 98 08/22/22 17:52 Oxygen Delivery Method Room Air 08/22/22 17:52 Medical Decision Making MDM Narrative Medical decision making narrative: This patient comes in displaying lots of anxiety with tremors and hyperventilating. She just had a thorough workup this morning at a different facility. I was able to see those records and review those lab results. She had abdominal pain this morning which now is completely gone. Her primary reason for visiting is because of the shaking episodes and hyperventilating which seems to be clear manifestation of anxiety. The patient did receive an oral dose of Ativan 1 mg which brought great relief to her symptoms. She is not taking any medications and is going through therapy and outpatient treatment for alcohol addiction. She has maintain sobriety for 4 months and seems to be doing well in that regard. I did offer a antidepressant antianxiety medicine which may help her as she does admit that she has frequent anxiety symptoms. She is agreeable to give a trial to Lexapro. I encouraged her to follow-up with her primary physician in 2-3 weeks for review. Discharge Plan Discharge Clinical Impression: Acute anxiety Patient Disposition: Home w/ Parent or Adult Condition: Improved Additional Instructions: Take medication as prescribed. Follow up with primary physician in 2-3 weeks to review. Return if worsening. Prescriptions: New escitalopram oxalate [Lexapro] 10 mg tablet 10 mg PO DAILY Qty: 30 2RF No Action polymyxin B sulf-trimethoprim [Polytrim] 10,000 unit- 1 mg/mL drops 1 drp ophthalmic (eye) Q3H Qty: 10 0RF Rx Instructions: while awake; do not exceed 6 doses in 24 hours levonorgestrel-ethinyl estrad [Vienva] 0.1-20 mg-mcg tablet 1 tab PO DAILY Follow Up/Referrals: Ashwini Zhang MD [Primary Care Provider] - Stand Alone Forms: [employer] Gear Info Instructions
[2022-08-22] MEDS: LORazepam 1 MG TABLET PO (18:44)
[2022-08-22 18:45] VITALS: BP 117/83; PULSE 86; RESP 18; O2SAT 99
--- OUTSIDE RECORDS SUMMARY | 2022-08-22 19:03 | XMS_ITS | Continuity of Care Document ---
Author Name Unknown Organization [facility] Address [address] [address] [place] [address] Phone Care Team Providers Care Newsstand Vendor Name Role Phone Mark Escobar MD Unavailable Unavailabl e Allergies, Adverse Reactions, Alerts Substance Reaction Status [...] Diagnoses Date Provider Providers Copied on Encounter [facility], [address] [address], [place], [place], [id number], [place] tel:[phone] [facility] No Information Nayan Flores. [address] [address], [place], [place], [id number], [place]. tel:[phone] Office Cons New/estab Mod [facility], [address] [address], [place], [place], [id number], [place] tel:[phone] [facility] GI Symptoms or Concerns (chief complaint) Epigastric pain Lise Roberts. [address] [facility] [address], [place], [place], [address], [place]. tel:[phone] Referring Provider: Ashwini Zhang MD, [address] [facility], [place], [address]. tel:[phone] [facility], [address] [address], [place], [place], [address], [place] tel:[phone] [facility] No Information Nayan Flores. [address] [facility], [place], [place], [address], [place]. tel:[phone] Family History Family Member Type Diagnosis Age [...] Registry Payers Payer name Insurance type Covered constitution party ID Authoriza tion(s) No Information Social History Type Description Quantity Date Captured Comments Sex Female Smoking Status No Information Chief Complaint And Reason For Visit No Information Reason For Referral Reason For Referral No Information Plan Of Treatment Date Type Action Status Referral Ordered: MRI Pancreas WITH Contrast Appointment date/timeframe: 08/15/2022 ordered Appointment Celia Cano BOOKED Appointment Celia aCno BOOKED History Of Present Illness Encounter Date Complaint [...]
== END 2022-08-22 19:23 | disposition home or self-care (01) ==
PROVIDERS: Emergency Provider Emergency Medicine Emergency Medical Services; PCP Family Medicine
DX: F41.9 Anxiety disorder, unspecified (principal)
CPT/HCPCS: 99283; 99284; A9270

== ENCOUNTER 2022-08-23 07:32 | Emergency (ER) | payer BC, SELFPAY ==
[2022-08-23 07:47] VITALS: BP 118/80; PULSE 102; RESP 22; TEMP 36.4; O2SAT 99; BMI 25.8
[2022-08-23 08:53] LABS: Lactate* 1.7 mmol/L (0.5-1.9)
[2022-08-23 08:56] LABS: Basophils Absolute Auto 0.03 K/uL (0.00-0.30); Basophils Percent Auto 0.3 % (0.0-3.0); Eosinophils Absolute Auto 0.04 K/uL (0.00-0.50); Eosinophils Percent Auto 0.4 % (0.0-7.0); Immature Granulocytes Abs Auto 0.02 K/uL (0.00-0.30); Immature Granulocytes Pct Auto 0.2 %; Mean Corpuscular HGB Conc 34 gm/dL (32-36); Mean Corpuscular Hemoglobin 31 pg (26-34); Mean Corpuscular Volume 92 fL (80-100); Neutrophils Percent Auto 83.1 % (42.0-72.0); Platelet Count* 321 K/uL (140-440); Red Blood Count 4.14 m/uL (4.00-5.20); White Blood Count* 10.82 K/uL (4.50-11.00)
[2022-08-23 08:57] LABS: Slide Review Reflex No
[2022-08-23 09:08] LABS: Albumin* 4.9 g/dL (3.3-5.0); Chloride* 103 mmol/L (96-114)
[2022-08-23 09:09] LABS: Sodium* 136 mmol/L (135-149)
[2022-08-23] MEDS: 0.9 % SODIUM CHLORIDE 1000 ml 1,000 ML IV (09:09)
[2022-08-23] MEDS: ONDANSETRON 2 MG/ML inj 4 MG IVP (09:09)
[2022-08-23 09:11] LABS: Alanine Aminotransferase* 23 U/L (4-35); Alkaline Phosphatase* 75 U/L (40-150); Aspartate Amino Transferase* 28 U/L (12-35); Bilirubin Direct* 0.2 mg/dL (0.0-0.5); Creatinine* 0.6 mg/dL (0.5-1.5); Est. Creatinine Clearance* 139.38; Estimated Glomerular Filt Rate 128 ml/min; Total Protein* 7.7 g/dL (6.0-8.3)
[2022-08-23 09:12] LABS: Blood Urea Nitrogen* 10 mg/dL (5-24); Calcium* 9.6 mg/dL (8.4-10.6); Carbon Dioxide* 20 mmol/L (20-32); Glucose* 135 mg/dL (60-115); Lipase* 33 U/L (23-300)
--- NOTE | 2022-08-23 09:14 | ED_ITS ---
HPI - General Adult General Date Seen: 08/23/22 Chief complaint: Nausea/Vomiting Stated complaint: non stop vomiting Time Seen by Provider: 08/23/22 08:06 Source: patient Mode of arrival: ambulatory Limitations: no limitations History of Present Illness HPI narrative: Patient is a 27-year-old woman with a history of alcohol abuse, reporting for evaluation of nausea and vomiting. She has been having difficulty for several days, she says she was initially seen in [place] day before yesterday, then [facility] [place], then here yesterday afternoon. She has been diagnosed with gastritis and has been given several medications to take but she says she has not been taking them because she has not been able to eat, she was not sure of the timing, essentially several different reasons for why she has not started the medicines that have been prescribed. She does have Zofran at home, but it looks like also was given Reglan and she took Reglan this morning when she woke up and was feeling nauseated with dry heaves again. She received morphine at [facility] yesterday morning and then was given Ativan for anxiety here yesterday. She says she is not currently drinking, she does acknowledges that she uses marijuana although she says it is sporadic. She has been using for the past couple of weeks, as recently as yesterday. She denies a prior diagnosis of cyclic vomiting. She was feeling shaky earlier but has not had a fever. She is not vomiting blood. She has started seeing a counselor at [facility], she says she has an appointment with someone who can prescribe medications at the end of September. She has not pursued any kind of alcohol treatment. Related Data Home Medications Medication Instructions Recorded Confirmed levonorgestrel-ethinyl estradiol 1 tab PO DAILY 07/08/22 07/08/22 0.1 mg-20 mcg tablet (Vienva) lorazepam 1 mg tablet 1 mg PO BID 08/23/22 08/23/22 metoclopramide HCl 10 mg tablet 10 mg PO Q6H PRN nausea/vomiting 08/23/22 08/23/22 ondansetron 4 mg disintegrating 4 mg PO Q8H PRN 08/23/22 08/23/22 tablet sucralfate 1 gram tablet 1 g PO 5XD 08/23/22 08/23/22 Previous Rx's Medication Instructions Recorded polymyxin B sulfate 10,000 1 drp ophthalmic (eye) Q3H #10 mL 07/06/22 unit-trimethoprim 1 mg/mL eye drops (Polytrim) escitalopram oxalate 10 mg tablet 10 mg PO DAILY #30 tabs 08/22/22 (Lexapro) potassium chloride 20 mEq 20 meq PO DAILY #7 tabs 08/23/22 tablet,extended release Allergies Allergy/AdvReac Type Severity Reaction Status Date / Time No Known Drug Allergies Allergy Verified 08/23/22 07:50 Review of Systems Status of ROS: Reports: 10 or more systems reviewed and unremarkable except as noted in History and below [facility] Social History Smoking Status: Former smoker What tobacco products do you use: cigarettes Smoking quit date/years: <= 15 years ago Do you use any of these nicotine containing products: None Second hand tobacco smoke exposure: No How often do you have a drink containing alcohol: never AUDIT-C Alcohol total score: 0 Non-prescribed substance use: marijuana (any form) Non-prescribed substance use details: last marijuana 08/22/22 service: No Exam Narrative: Exam Narrative: Vital signs as noted above. In general, an alert nontoxic woman. She is spitting occasionally into an emesis bag, no vomiting while here. Head: Normocephalic, atraumatic. Eyes: Pupils are equal reactive. Extraocular movements are full. Conjunctivae are normal. ENT: Mucous membranes are moist. Throat is normal. Neck: Supple without lymphadenopathy. Heart: Regular rate and rhythm. No murmur or rub. Lungs: Clear bilaterally. No increased work of breathing, crackles or wheezes. Abdomen: Soft and nontender. No organomegaly. Extremities: Well perfused. No edema. No calf tenderness. Pulses intact. Neurologic: Patient is alert and oriented to person and place. Speech is fluent. Face is symmetric. Moves all extremities equally. Affect: Anxious Skin: Warm and dry. Well perfused. Const: Vital Signs, click to edit/add: Vital Signs - 24 hr 08/23/22 07:47 08/23/22 10:36 Temperature 97.6 F 98.9 F Pulse Rate [Left P ulse Oximeter] 102 H 91 Respiratory Rate 22 22 Blood Pressure [Ri ght Upper Arm] 118/80 130/92 H Pulse Oximetry 99 100 Oxygen Delivery Me thod Room Air Documenting provider has reviewed patient's vital signs: yes Course Course Hospital Course: I elected to recheck some labs and give her some fluids. I do wonder about a possible contribution from marijuana she is using. Other diagnostic considerations include pancreatitis, gastritis, peptic ulcer disease, cholecystitis or biliary colic, bowel obstruction, withdrawal. Labs are notable for a normal white blood cell count and hemoglobin. Her potassium is low at 3, other electrolytes are normal and BUN is 10, creatinine 0.6. Blood sugar is 135. Her total bilirubin is elevated at 2, direct is normal, other LFTs are normal. Alk-phos is 75. Lipase is normal at 33. test is negative. Right upper quadrant ultrasound read as normal by Radiology. She continues to feel bloated and nauseated, but she has not had any vomiting while here. Symptoms may be related to gastritis, plus or minus a component of cyclic vomiting. I have stressed to her that it is extremely important that she take the medications that have been prescribed and recommended to her. She is unsure whether not she has been told to take Prilosec, I suspect that she has, but in any case she is not taking it. I have recommended addition of this medication in addition to the nausea medicines and Carafate that have been previously prescribed. Primary care follow-up next week, GI follow-up/endoscopy would be a consideration if not improving. Strongly advise avoidance of alcohol as well as marijuana. Vital Signs Vital signs: Initial Vital Signs Temperature 97.6 F 08/23/22 07:47 Temperature Source Temporal Artery Scan 08/23/22 07:47 Pulse Rate 102 H 08/23/22 07:47 Respiratory Rate 22 08/23/22 07:47 Blood Pressure 118/80 08/23/22 07:47 Blood Pressure Mean 92 08/23/22 07:47 Blood Pressure Position Sitting 08/23/22 07:47 Pulse Oximetry 99 08/23/22 07:47 Oxygen Delivery Method Room Air 08/23/22 07:47 Vital Signs Temperature 97.6 F 08/23/22 07:47 Pulse Rate 102 H 08/23/22 07:47 Respiratory Rate 22 08/23/22 07:47 Blood Pressure 118/80 08/23/22 07:47 Pulse Oximetry 99 08/23/22 07:47 Oxygen Delivery Method Room Air 08/23/22 07:47 Temperature 98.9 F 08/23/22 10:36 Pulse Rate 91 08/23/22 10:36 Respiratory Rate 22 08/23/22 10:36 Blood Pressure 130/92 H 08/23/22 10:36 Pulse Oximetry 100 08/23/22 10:36 Oxygen Delivery Method Room Air 08/23/22 07:47 Medical Decision Making Lab Data Labs: Lab Results 08/23/22 08/23/22 Range/Units 08:45 10:15 WBC 10.82 (4.50-11.00) K/uL RBC 4.14 (4.00-5.20) m/uL Hgb 13.0 (12.0-16.0) gm/dL Hct 38.0 (33.0-51.0) % MCV 92 (80-100) fL MCH 31 (26-34) pg MCHC 34 (32-36) gm/dL RDW Coeff of [place] 12.0 (11.5-15.5) % Plt Count 321 (140-440) K/uL Neut % (Auto) 83.1 H (42.0-72.0) % Lymph % (Auto) 13.0 L (20-44) % [place] % (Auto) 3.0 (0.0-11.0) % Eos % (Auto) 0.4 (0.0-7.0) % Baso % (Auto) 0.3 (0.0-3.0) % Neut # (Auto) 9.00 H (1.7-7.0) K/uL Lymph # (Auto) 1.40 (0.90-2.90) K/uL [place] # (Auto) 0.30 (0.00-0.90) K/UL Eos # (Auto) 0.04 (0.00-0.50) K/uL Baso # (Auto) 0.03 (0.00-0.30) K/uL Sodium 136 (135-149) mmol/L Potassium 3.0 L (3.6-5.1) mmol/L Chloride 103 (96-114) mmol/L Carbon Dioxide 20 (20-32) mmol/L BUN 10 (5-24) mg/dL Creatinine 0.6 (0.5-1.5) mg/dL Estimated Creat Clear 139.38 Estimated GFR 128 ml/min Glucose 135 H (60-115) mg/dL Lactate 1.7 (0.5-1.9) mmol/L Calcium 9.6 (8.4-10.6) mg/dL Total Bilirubin 2.0 H (0.1-1.5) mg/dL Direct Bilirubin 0.2 (0.0-0.5) mg/dL AST 28 (12-35) U/L ALT 23 (4-35) U/L Alkaline Phosphatase 75 (40-150) U/L Total Protein 7.7 (6.0-8.3) g/dL Albumin 4.9 (3.3-5.0) g/dL Lipase 33 (23-300) U/L HCG, Qual Negative (Negative) Discharge Plan Discharge Clinical Impression: Anxiety, Gastritis, Nausea Patient Disposition: Home, Self-Care Condition: Stable Instructions: Gastritis (DC) Additional Instructions: Take medications as prescribed by previous physicians. I would recommend that you be on a proton pump inhibitor such as Prilosec (omeprazole), which he can buy [id number], if this has not previously been recommended. Use Reglan or Zofran if needed for nausea, Carafate is useful for nausea and abdominal pain as well. Your workup here today is normal including right upper quadrant ultrasound. I would recommend primary care follow-up next week for re- evaluation and consideration of GI follow-up if not improving. Avoid alcohol, avoid marijuana as this can contribute to vomiting. Your potassium is slightly low today so I have prescribed potassium supplement for the next few days. Increase potassium rich foods such as potatoes, spinach, bananas, as able. Prescriptions: New potassium chloride 20 mEq tablet extended release 20 meq PO DAILY Qty: 7 2RF No Action polymyxin B sulf-trimethoprim [Polytrim] 10,000 unit- 1 mg/mL drops 1 drp ophthalmic (eye) Q3H Qty: 10 0RF Rx Instructions: while awake; do not exceed 6 doses in 24 hours levonorgestrel-ethinyl estrad [Vienva] 0.1-20 mg-mcg tablet 1 tab PO DAILY escitalopram oxalate [Lexapro] 10 mg tablet 10 mg PO DAILY Qty: 30 2RF sucralfate 1 gram tablet 1 g PO 5XD lorazepam 1 mg tablet 1 mg PO BID ondansetron 4 mg tablet,disintegrating 4 mg PO Q8H PRN metoclopramide HCl 10 mg tablet 10 mg PO Q6H PRN (Reason: nausea/vomiting) Follow Up/Referrals: Ashwini Zhang MD [Primary Care Provider] - Stand Alone Forms: [facility] Info Instructions
--- NOTE | 2022-08-23 09:22 | CRLHL7_ITS ---
For Patients: As a result of the Century Cures Act, medical imaging exams and procedure reports are released immediately into your electronic medical record. You may view this report before your referring provider. If you have questions, please contact your health care provider. INDICATION: Epigastric abdominal pain. Alcohol abuse. COMPARISON: Correlation is made with an MRI of the abdomen August 11, 2022. Correlation is made with an abdominal pelvic CT March 19, 2021. TECHNIQUE: Real time bull scale imaging was performed of the right upper quadrant. FINDINGS: The patient`s liver is of normal size and has uniform echogenicity. There is a normal appearance of the hepatic IVC and proximal abdominal aorta. There is no evidence of ascites. The gallbladder is of normal size and there is no evidence of intraluminal stones or sludge. The gallbladder wall measures 2.0 mm in thickness. The common bile duct is of normal size and measures 3.0 mm in diameter at the level of the blair hepatis. The pancreas appears normal. There is no evidence of a stone or hydronephrosis within the right kidney. The right kidney measures 11.1 x 4.8 x 4.4 cm. The right renal cortex measures up to 1.3 cm. The proximal abdominal aorta measures 1.9 cm in AP dimension. IMPRESSION: Normal right upper quadrant ultrasound. Dictated by Bsail Staton MD @ 08/23/2022 10:27:09 AM (Electronically Signed)
--- NOTE | 2022-08-23 10:30 | ED.NURSE ---
Pt continues to be nauseated. Uncomfortable. Pressure in her abd. Dr Gates updated.
[2022-08-23 10:31] LABS: HCG Qualitative* Negative (Negative)
[2022-08-23 10:36] VITALS: BP 130/92; PULSE 91; RESP 22; TEMP 37.2; O2SAT 100
[2022-08-23 11:14] VITALS: BP 130/92; PULSE 91; RESP 22; TEMP 37.2
== END 2022-08-23 11:15 | disposition home or self-care (01) ==
PROVIDERS: Emergency Provider Emergency Medicine; PCP Family Medicine
DX: F41.9 Anxiety disorder, unspecified (principal); K29.70 Gastritis, unspecified, without bleeding; R11.0 Nausea
CPT/HCPCS: 36415; 76705; 80048; 80076; 83605; 83690; 84703; 85025; 96374; 99284; A9270; J1630; J2405; J7030

== ENCOUNTER 2022-08-23 15:13 | Emergency (ER) | payer BC, SELFPAY ==
[2022-08-23 15:23] VITALS: BP 120/79; PULSE 100; RESP 22; TEMP 35.9; O2SAT 100; BMI 25.8
[2022-08-23] MEDS: MAG HYDROX/ALUMINUM HYD/SIMETH 30 ML ORAL.SUSP PO ×2 (16:20→17:01)
--- NOTE | 2022-08-23 16:20 | ED_ITS ---
HPI - Abdominal Pain General Chief Complaint: Abdominal Pain Stated Complaint: Abdominal pain again Time Seen by Provider: 08/23/22 15:36 History of Present Illness HPI narrative: This 27-year-old female comes in with severe upper epigastric abdominal pain. She was in [facility] Room yesterday morning with the same complaint. She received fentanyl and morphine in 2 different dosings at that time. She was discharged and then presented here to this emergency department or I saw her because of tremors and shaking with lots of anxiety. She benefited from a tablet of Ativan and was prescribed Lexapro. She returned again this morning with abdominal pain. She had labs done again along with ultrasound which returned normal results. She had had an MRI of her abdomen last month and is set up for a follow-up appointment with GI. She returns again now because of severe upper epigastric abdominal pain. She attempted to take her medicines but vomited and then had lots of pain. Related Data Home Medications Medication Instructions Recorded Confirmed levonorgestrel-ethinyl estradiol 1 tab PO DAILY 07/08/22 07/08/22 0.1 mg-20 mcg tablet (Vienva) lorazepam 1 mg tablet 1 mg PO BID 08/23/22 08/23/22 metoclopramide HCl 10 mg tablet 10 mg PO Q6H PRN nausea/vomiting 08/23/22 08/23/22 ondansetron 4 mg disintegrating 4 mg PO Q8H PRN 08/23/22 08/23/22 tablet sucralfate 1 gram tablet 1 g PO 5XD 08/23/22 08/23/22 Previous Rx's Medication Instructions Recorded polymyxin B sulfate 10,000 1 drp ophthalmic (eye) Q3H #10 mL 07/06/22 unit-trimethoprim 1 mg/mL eye drops (Polytrim) escitalopram oxalate 10 mg tablet 10 mg PO DAILY #30 tabs 08/22/22 (Lexapro) lorazepam 0.5 mg tablet (Ativan) 0.5 mg PO BID PRN #15 tabs 08/23/22 potassium chloride 20 mEq 20 meq PO DAILY #7 tabs 08/23/22 tablet,extended release Allergies Allergy/AdvReac Type Severity Reaction Status Date / Time No Known Drug Allergies Allergy Verified 08/23/22 07:50 Review of Systems Status of ROS Reports: 10 or more systems reviewed and unremarkable except as noted in History and below Narrative Constitutional: No fevers, no weight gain or loss. Eyes: No discharge. No vision changes. HENT: No congestion, no sore throat, no ear pain. Cardiovascular: No chest pain, no palpitations. Respiratory: No shortness of breath, no wheezes, no cough. Gastrointestinal: Upper epigastric abdominal pain. A vomiting episode. Genitourinary: No dysuria, no hematuria. Musculoskeletal: Normal range of motion. Skin: No rashes, no pruritis. Neurological: No dizziness, weakness, sensory change, speech change. Endo/Heme/Allergies: No bruising or bleeding. No polydipsia. Pysch: no suicidality, no insomnia. All other systems reviewed and are negative. [facility] Social History Smoking Status: Former smoker What tobacco products do you use: cigarettes Smoking quit date/years: <= 15 years ago Do you use any of these nicotine containing products: None Second hand tobacco smoke exposure: No How often do you have a drink containing alcohol: never AUDIT-C Alcohol total score: 0 Non-prescribed substance use: marijuana (any form) Non-prescribed substance use details: last marijuana 08/22/22 service: No Exam Narrative: Exam Narrative: Constitutional: Well-developed, well-nourished, no acute distress. HEENT: Normocephalic, atraumatic. Neck: Normal range of motion. Nontender. Supple. Heart: Regular. No murmurs. Normal rate. Intact distal pulses. Lungs: Clear to auscultation. No chest discomfort. No wheezes, rhonchi, or rales. Abdomen: Normal bowel sounds. Tenderness in the upper epigastric region. No rebound tenderness. Genitalia: Deferred. Back: No midline tenderness. Normal range of motion. Extremities: Normal range of motion. No injury. Skin: Intact. No rash. Warm. No erythema or pallor. Neurologic: No altered sensation. No weakness. Alert and oriented. Psychiatric: No suicidality. No anxiety or depression. No insomnia. Nursing notes and vitals signs are reviewed. Const: Vital Signs, click to edit/add: Vital Signs - 24 hr 08/23/22 15:23 Temperature 96.7 F L Pulse Rate [Pulse Oximeter] 100 Respiratory Rate 22 Blood Pressure [Le ft Upper Arm] 120/79 Pulse Oximetry 100 Oxygen Delivery Me thod Room Air Course Vital Signs Vital signs: Initial Vital Signs Temperature 96.7 F L 08/23/22 15:23 Temperature Source Temporal Artery Scan 08/23/22 15:23 Pulse Rate 100 08/23/22 15:23 Pulse Rhythm Regular 08/23/22 15:23 Pulse Strength 0+ Absent 08/23/22 15:23 Respiratory Rate 22 08/23/22 15:23 Blood Pressure 120/79 08/23/22 15:23 Blood Pressure Mean 92 08/23/22 15:23 Blood Pressure Position Supine 08/23/22 15:23 Pulse Oximetry 100 08/23/22 15:23 Oxygen Delivery Method Room Air 08/23/22 15:23 Vital Signs Temperature 96.7 F L 08/23/22 15:23 Pulse Rate 100 08/23/22 15:23 Respiratory Rate 22 08/23/22 15:23 Blood Pressure 120/79 08/23/22 15:23 Pulse Oximetry 100 08/23/22 15:23 Oxygen Delivery Method Room Air 08/23/22 15:23 Temperature 96.7 F L 08/23/22 15:23 Pulse Rate 100 08/23/22 15:23 Respiratory Rate 22 08/23/22 15:23 Blood Pressure 120/79 08/23/22 15:23 Pulse Oximetry 100 08/23/22 15:23 Oxygen Delivery Method Room Air 08/23/22 15:23 MDM - Abdominal Pain MDM Narrative Medical decision making narrative: This patient comes in with significant discomfort in the upper epigastric region. She received an oral dose of Maalox which brought rather significant relief to her symptoms in fiber 10 minutes. I did discuss repeating lab and imaging options with the patient and these were declined in a process of shared decision making. There is clearly an anxiety component related to these symptoms. It seems also that she has a gastritis as the Maalox did bring significant relief. She does have a proton pump inhibitor and has nausea medicine. I did provide prescription for some tablets of Ativan as there is an anxiety component. These can help bridge her symptoms hopefully till the prescription she started for Lexapro hopefully takes affect. This is an ag reeable plan to the patient. At the time of discharge the patient appears safe for outpatient management. The treatment plan is reviewed along with written and verbal return precautions. Reasons to return and the importance of close followup were also reviewed. Discharge Plan Discharge Clinical Impression: Anxiety, Gastritis Patient Disposition: Home w/ Parent or Adult Condition: Improved Additional Instructions: Take medications as needed and directed. Follow up with MD. Return if symptoms are recurrent. Prescriptions: New lorazepam [Ativan] 0.5 mg tablet 0.5 mg PO BID PRNQty: 15 0RF No Action polymyxin B sulf-trimethoprim [Polytrim] 10,000 unit- 1 mg/mL drops 1 drp ophthalmic (eye) Q3H Qty: 10 0RF Rx Instructions: while awake; do not exceed 6 doses in 24 hours levonorgestrel-ethinyl estrad [Vienva] 0.1-20 mg-mcg tablet 1 tab PO DAILY escitalopram oxalate [Lexapro] 10 mg tablet 10 mg PO DAILY Qty: 30 2RF sucralfate 1 gram tablet 1 g PO 5XD lorazepam 1 mg tablet 1 mg PO BID ondansetron 4 mg tablet,disintegrating 4 mg PO Q8H PRN metoclopramide HCl 10 mg tablet 10 mg PO Q6H PRN (Reason: nausea/vomiting) potassium chloride 20 mEq tablet extended release 20 meq PO DAILY Qty: 7 2RF Follow Up/Referrals: Ashwini Zhang MD [Primary Care Provider] - Stand Alone Forms: [facility] Info Instructions
[2022-08-23] MEDS: LORazepam 1 MG TABLET PO (16:29)
[2022-08-23] MEDS: HALOPERIDOL 5 MG/ML INJ IM (17:01)
[2022-08-23 17:04] VITALS: RESP 88; O2SAT 98
--- NOTE | 2022-08-23 17:09 | ED.NURSE ---
Patient has verbalized that she has had some relief from Maalox. She has been up several times walking to the bathroom without difficulty.
== END 2022-08-23 17:34 | disposition home or self-care (01) ==
PROVIDERS: Emergency Provider Emergency Medicine Emergency Medical Services; PCP Family Medicine
DX: F41.9 Anxiety disorder, unspecified (principal)
CPT/HCPCS: 99284; A9270; J1630

== ENCOUNTER 2022-08-25 10:27 | Emergency (ER) | payer BC, SELFPAY ==
[2022-08-25 10:48] VITALS: BP 140/50; PULSE 84; RESP 22; TEMP 37.1; O2SAT 99; BMI 25.8
--- NOTE | 2022-08-25 11:49 | ED_ITS ---
HPI - General Adult General Chief complaint: Abdominal Pain Stated complaint: nonstop vomiting Time Seen by Provider: 08/25/22 11:43 History of Present Illness HPI narrative: Upper abd pain. Has had since Sunday. Has been seen multiple times in the ED. Had an upper GI done today at [facility]. was told to come to the hospital due to the pain. [facility] was going to call and ambulance to take her to the nearest but pt and mom wanted to come fahad to [facility]\. Upper GI showed normal esophagus. Biopsies were taken. Suggested that she be checked for appendicitis. 27-year-old woman presenting to the emergency department with abdominal pain and retching. She has been having recurrent episodes of this near constantly outside of hospital visits over the last 6 days. Underlying history of chronic abdominal issues. Unclear diagnosis though with a history of anxiety and marijuana use. Marijuana use has been regular and last maybe 2 or 3 days ago. Mom notes history of problems with alcohol it sounds as though is sober from this now; I believe the least a year. Abdominal pain and vomiting has been flaring over this last week. This morning was at [facility] to receive upper endoscopy. He knee she had been having these symptoms going in but decision was made to proceed with procedure. No complications were noted. Thought to have gastritis which is not a new diagnosis. Biopsies are pending. Pain and and retching as awoke. Mom says that as soon as the medicines wear off from hospital visit, this starts up again. Pain is in the upper mid abdomen essentially epigastrium as demonstrated. Last visit was hypokalemic. As long as retching has less abdominal pain. Related Data Home Medications Medication Instructions Recorded Confirmed levonorgestrel-ethinyl estradiol 1 tab PO DAILY 07/08/22 08/27/22 0.1 mg-20 mcg tablet (Vienva) lorazepam 1 mg tablet 1 mg PO BID 08/23/22 08/25/22 metoclopramide HCl 10 mg tablet 10 mg PO Q6H PRN nausea/vomiting 08/23/22 08/27/22 ondansetron 4 mg disintegrating 4 mg PO Q8H PRN 08/23/22 08/27/22 tablet sucralfate 1 gram tablet 1 g PO 5XD 08/23/22 08/27/22 Previous Rx's Medication Instructions Recorded escitalopram oxalate 10 mg tablet 10 mg PO DAILY #30 tabs 08/22/22 (Lexapro) lorazepam 0.5 mg tablet (Ativan) 0.5 mg PO BID PRN #15 tabs 08/23/22 potassium chloride 20 mEq 20 meq PO DAILY #7 tabs 08/23/22 tablet,extended release lidocaine HCl 2 % mucosal solution 1 applic mucous membrane BID PRN 08/25/22 #100 mL lorazepam 1 mg tablet 0.5 - 1 mg (0.5 - 1 x 1 mg) PO TID 08/25/22 PRN #12 tabs omeprazole 40 mg capsule,delayed 40 mg PO DAILY #30 caps 08/25/22 release Allergies Allergy/AdvReac Type Severity Reaction Status Date / Time No Known Drug Allergies Allergy Verified 08/27/22 13:34 Review of Systems Status of ROS: Reports: 6 or more systems reviewed and unremarkable except as noted in History and below [facility] Social History Smoking Status: Former smoker What tobacco products do you use: cigarettes Smoking quit date/years: <= 15 years ago Do you use any of these nicotine containing products: None Second hand tobacco smoke exposure: No How often do you have a drink containing alcohol: never AUDIT-C Alcohol total score: 0 Non-prescribed substance use: marijuana (any form) Non-prescribed substance use details: last marijuana 08/26/22 service: No Exam Narrative: Exam Narrative: Turned over to her left side retching regularly into an emesis bag. Not producing anything anymore. Begins to whimpering in apparent pain when the retching begins to subside. [employer] earrings. Skin is warm and dry. Well perfused peripherally. Abdomen is soft with some mild discomfort palpated in the midst of retching in the epigastrium. Mom is sitting by in tears. Const: Vital Signs, click to edit/add: Vital Signs - 24 hr 08/25/22 10:48 Temperature 98.7 F Pulse Rate [Pulse Oximeter] 84 Respiratory Rate 22 Blood Pressure [Ri ght Upper Arm] 140/50 H Pulse Oximetry 99 Oxygen Delivery Me thod Room Air Documenting provider has reviewed patient's vital signs: yes Course Vital Signs Vital signs: Initial Vital Signs Temperature 98.7 F 08/25/22 10:48 Temperature Source Temporal Artery Scan 08/25/22 10:48 Pulse Rate 84 08/25/22 10:48 Respiratory Rate 22 08/25/22 10:48 Blood Pressure 140/50 H 08/25/22 10:48 Blood Pressure Mean 80 08/25/22 10:48 Blood Pressure Position Supine 08/25/22 10:48 Pulse Oximetry 99 08/25/22 10:48 Oxygen Delivery Method Room Air 08/25/22 10:48 Vital Signs Temperature 98.7 F 08/25/22 10:48 Pulse Rate 84 08/25/22 10:48 Respiratory Rate 22 08/25/22 10:48 Blood Pressure 140/50 H 08/25/22 10:48 Pulse Oximetry 99 08/25/22 10:48 Oxygen Delivery Method Room Air 08/25/22 10:48 Temperature 98.7 F 08/25/22 10:48 Pulse Rate 75 08/25/22 13:25 Respiratory Rate 16 08/25/22 13:25 Blood Pressure 134/91 H 08/25/22 13:25 Pulse Oximetry 100 08/25/22 13:25 Oxygen Delivery Method Room Air 08/25/22 13:25 Medical Decision Making MDM Narrative Medical decision making narrative: IV is initiated. I think a lot of this is probably due to anxiety and possibly marijuana use. Has had electrolyte instability/abnormalities before. Would warrant rechecking. Likely dehydrated. Diagnosis today of gastritis. IV is established. Receives normal saline. Given IV lorazepam and improved. Ultimately dosed with droperidol due to further pain complaints. Received a GI cocktail. Was overall improved. Had managed to stop vomiting and was sleeping. See patient discharge plan Medical Records Medical records reviewed: Yes I reviewed the patient's medical records Lab Data Lab results reviewed: Yes I reviewed the patient's lab results Labs: Lab Results 08/25/22 08/25/22 Range/Units 12:25 13:10 WBC 11.99 H (4.50-11.00) K/uL RBC 4.13 (4.00-5.20) m/uL Hgb 12.9 (12.0-16.0) gm/dL Hct 37.7 (33.0-51.0) % MCV 91 (80-100) fL MCH 31 (26-34) pg MCHC 34 (32-36) gm/dL RDW Coeff of [place] 11.8 (11.5-15.5) % Plt Count 301 (140-440) K/uL Neut % (Auto) 83.7 H (42.0-72.0) % Lymph % (Auto) 11.3 L (20-44) % [place] % (Auto) 3.9 (0.0-11.0) % Eos % (Auto) 0.5 (0.0-7.0) % Baso % (Auto) 0.3 (0.0-3.0) % Neut # (Auto) 10.00 H (1.7-7.0) K/uL Lymph # (Auto) 1.40 (0.90-2.90) K/uL [place] # (Auto) 0.50 (0.00-0.90) K/UL Eos # (Auto) 0.10 (0.00-0.50) K/uL Baso # (Auto) 0.00 (0.00-0.30) K/uL Sodium 137 (135-149) mmol/L Potassium 4.3 (3.6-5.1) mmol/L Chloride 104 (96-114) mmol/L Carbon Dioxide 22 (20-32) mmol/L BUN 10 (5-24) mg/dL Creatinine 0.6 (0.5-1.5) mg/dL Estimated Creat Clear 139.38 Estimated GFR 128 ml/min Glucose 130 H (60-115) mg/dL Calcium 9.3 (8.4-10.6) mg/dL Total Bilirubin 1.7 H (0.1-1.5) mg/dL Direct Bilirubin 0.3 (0.0-0.5) mg/dL AST 42 H (12-35) U/L ALT 25 (4-35) U/L Alkaline Phosphatase 61 (40-150) U/L C-Reactive Protein < 0.5 L (0.5-1.0) mg/dL Total Protein 7.8 (6.0-8.3) g/dL Albumin 4.8 (3.3-5.0) g/dL Urine Color Yellow (Yellow) Urine Appearance Clear (Clear) Urine pH 8.0 (5.0-8.5) Ur Specific [place] 1.025 (1.000-1.030) Urine Protein Negative (Negative) Urine Glucose (UA) Negative (Negative) Urine Ketones 1+ A (Negative) Urine Blood Negative (Negative) Urine Nitrite Negative (Negative) Urine Bilirubin Negative (Negative) Urine Urobilinogen 0.2 (0.2-1.0) Ur Leukocyte Esterase Negative (Negative) Urine RBC 0-2 (0-2) Urine WBC 0-2 (0-5) Ur Squamous Epith Cells Few (None-Few) Urine Bacteria None (None) Urine Opiates Screen Negative (Negative) Ur Oxycodone Screen Negative (Negative) Urine Methadone Screen Negative (Negative) Ur Propoxyphene Screen Negative (Negative) Ur Barbiturates Screen Negative (Negative) U Tricyclic Antidepress Negative (Negative) Ur Phencyclidine Scrn Negative (Negative) Ur Amphetamines Screen Negative (Negative) U Methamphetamines Scrn Negative (Negative) U Benzodiazepines Scrn POSITIVE A* (Negative) Urine Cocaine Screen Negative (Negative) U Marijuana (THC) Screen POSITIVE A* (Negative) Ur Drug Screen Comment See Note Ethyl Alcohol < 0.01 L (0.01-0.03) % Discharge Plan Discharge Clinical Impression: Anxiety, Cyclical vomiting Patient Disposition: Home w/ Parent or Adult Condition: Improved Additional Instructions: If you get a flare of this, before things get out of hand, would need to take a Zofran and probably take a lorazepam. Unfortunately this is also similar to having a drink of alcohol. This is a potential problem as you are well aware. Alternatively could try hydroxyzine. For more discomfort with flares, can take liquid antacid/anti-gas which may or may not be combined with the viscous lidocaine that I have sent in for you. You decide. I see that you have Sucralfate on your medication list --do try to take this regularly as prescribed. In addition if you are not already taking it, I have sent in some omeprazole for you. I would take this for 2 weeks and reassess. This is to decrease the acid and is indicated with your diagnosis as (you) report of gastritis as seen on the scope today. Unfortunately marijuana or derivatives, can precipitate further nausea and vomiting, especially when used regularly or chronically. Continue to focus on hydration. Popsicles and Jell-O count. Slow advance of diet over the next 24-36 hours. No straight water on an empty or recently vomited stomach. Diluted juices, soup broths, crackers, rice, toast. 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 Instructions: Can mix 15 mL with equal amount of liquid antacid/anti-gas for stomach pain No Action lorazepam [Ativan] 0.5 mg tablet 0.5 mg PO BID PRNQty: 15 0RF levonorgestrel-ethinyl estrad [Vienva] 0.1-20 mg-mcg tablet 1 tab PO DAILY escitalopram oxalate [Lexapro] 10 mg tablet 10 mg PO DAILY Qty: 30 2RF sucralfate 1 gram tablet 1 g PO 5XD lorazepam 1 mg tablet 1 mg PO BID ondansetron 4 mg tablet,disintegrating 4 mg PO Q8H PRN metoclopramide HCl 10 mg tablet 10 mg PO Q6H PRN (Reason: nausea/vomiting) potassium chloride 20 mEq tablet extended release 20 meq PO DAILY Qty: 7 2RF Hold Instructions: Pt not taking Follow Up/Referrals: Ashwini Zhang MD [Primary Care Provider] - Stand Alone Forms: [id number] Info Instructions
[2022-08-25] MEDS: LORazepam 2 MG/ML inj 1 MG IVP (12:19)
[2022-08-25] MEDS: 0.9 % SODIUM CHLORIDE 1000 ml 1,000 ML IV (12:19)
[2022-08-25 12:31] LABS: Basophils Percent Auto 0.3 % (0.0-3.0); Eosinophils Percent Auto 0.5 % (0.0-7.0); Hematocrit 37.7 % (33.0-51.0); Hemoglobin* 12.9 gm/dL (12.0-16.0); Immature Granulocytes Pct Auto 0.3 %; Lymphocytes Percent Auto 11.3 % (20-44); Mean Corpuscular HGB Conc 34 gm/dL (32-36); Mean Corpuscular Hemoglobin 31 pg (26-34); Mean Corpuscular Volume 91 fL (80-100); Monocytes Percent Auto 3.9 % (0.0-11.0); Neutrophils Percent Auto 83.7 % (42.0-72.0); Platelet Count* 301 K/uL (140-440); RDW Coefficient of Variation % 11.8 % (11.5-15.5); Red Blood Count 4.13 m/uL (4.00-5.20); White Blood Count* 11.99 K/uL (4.50-11.00)
[2022-08-25 12:35] LABS: Slide Review Reflex No
[2022-08-25 12:53] LABS: Albumin* 4.8 g/dL (3.3-5.0); Chloride* 104 mmol/L (96-114)
[2022-08-25 12:54] LABS: Potassium* 4.3 mmol/L (3.6-5.1); Sodium* 137 mmol/L (135-149)
[2022-08-25 12:56] LABS: Bilirubin Direct* 0.3 mg/dL (0.0-0.5); Bilirubin Total* 1.7 mg/dL (0.1-1.5); Carbon Dioxide* 22 mmol/L (20-32); Creatinine* 0.6 mg/dL (0.5-1.5); Est. Creatinine Clearance* 139.38; Estimated Glomerular Filt Rate 128 ml/min; Total Protein* 7.8 g/dL (6.0-8.3)
[2022-08-25 12:57] LABS: Alanine Aminotransferase* 25 U/L (4-35); Alkaline Phosphatase* 61 U/L (40-150); Aspartate Amino Transferase* 42 U/L (12-35); Blood Urea Nitrogen* 10 mg/dL (5-24); Calcium* 9.3 mg/dL (8.4-10.6); Glucose* 130 mg/dL (60-115)
[2022-08-25 13:02] LABS: C Reactive Protein* < 0.5 mg/dL (0.5-1.0); Ethanol* < 0.01 % (0.01-0.03)
[2022-08-25] MEDS: droperidoL 2.5 MG/ML inj 1.25 MG IV (13:21)
[2022-08-25 13:25] VITALS: BP 134/91; PULSE 75; RESP 16; O2SAT 100
[2022-08-25 13:35] LABS: Appearance Urine Clear (Clear); Bilirubin Urine Negative (Negative); Blood Urine Negative (Negative); Color Urine Yellow (Yellow); Glucose Urine Negative (Negative); Ketones Urine 1+ (Negative); Leukocyte Esterase Urine Negative (Negative); Nitrite Urine Negative (Negative); Protein Urine Negative (Negative); Specific Gravity Urine 1.025 (1.000-1.030); Urobilinogen Urine 0.2 (0.2-1.0)
[2022-08-25 13:46] LABS: Amphetamine Screen Urine Negative (Negative); Barbiturate Screen Urine Negative (Negative); Cocaine Screen Urine Negative (Negative); Methadone Screen Urine Negative (Negative); Methamphetamines Screen Urine Negative (Negative); Opiate Screen Urine Negative (Negative); Oxycodone Screen Urine Negative (Negative); Phencyclidine Screen Urine Negative (Negative); Tricyclic Antidepressant Urine Negative (Negative)
[2022-08-25 13:51] LABS: Benzodiazepines Screen Urine POSITIVE (Negative); Cannabinoid Screen Urine POSITIVE (Negative)
[2022-08-25] MEDS: KETOROLAC 30 MG/ML inj IVP (13:59)
[2022-08-25 14:04] LABS: RBC Urine 0-2 (0-2); Squamous Epithelial Cell Urine Few (None-Few); WBC Urine 0-2 (0-5)
[2022-08-25] MEDS: 0.9 % SODIUM CHLORIDE 1000 ml 1,000 ML 6000 ML IV (14:37)
[2022-08-25] MEDS: MAG HYDROX/ALUMINUM HYD/SIMETH 30 ML ORAL.SUSP PO (15:59)
== END 2022-08-25 16:39 | disposition home or self-care (01) ==
PROVIDERS: Emergency Provider Family Medicine; PCP Family Medicine
DX: F41.9 Anxiety disorder, unspecified (principal); R11.15 Cyclical vomiting syndrome unrelated to migraine
CPT/HCPCS: 36415; 80048; 80076; 80306; 81001; 82077; 85025; 86140; 96374; 96375; 99284; A9270; J1790; J1885; J2060; J7030

== ENCOUNTER 2022-08-27 13:21 | Emergency (ER) | payer BC, SELFPAY ==
[2022-08-27 13:29] VITALS: BP 134/84; PULSE 89; RESP 20; TEMP 36.4; O2SAT 98; BMI 25.8
--- NOTE | 2022-08-27 13:53 | ED_ITS ---
HPI - General Adult General Chief complaint: Abdominal Pain Stated complaint: Stomach Pain Time Seen by Provider: 08/27/22 13:29 Source: patient and family Mode of arrival: ambulatory Limitations: no limitations History of Present Illness HPI narrative: 27-year-old female coming in today complaining of abdominal pain. Patient has been seen in our ER for out of the last 5 days with the same complaints. She was also evaluated [facility] [place] well as [facility]. She states that she has had an ultrasound, which was normal, and about 3 weeks ago had an abdominal MRI which was also unremarkable. Repeat lab work shows an elevated bilirubin but no other source that could be causing her pain. There is no evidence of infection or inflammation. She also recently had, 3 days ago, and upper GI which she states biopsies were taken and she is waiting the results. She states that she vomited this morning. She denies fevers. No diarrhea constipation. She finished her period 2 days ago denies . Today she states that she would just wants some pain relief, does not want another workup done and does not want an IV placed. She does have a history of alcohol use disorder, smokes marijuana regularly, last use was yesterday. States that she has several medications at home for gastritis, can not name what they are but states that she has been taking them without much help. Related Data Home Medications Medication Instructions Recorded Confirmed levonorgestrel-ethinyl estradiol 1 tab PO DAILY 07/08/22 08/27/22 0.1 mg-20 mcg tablet (Vienva) lorazepam 1 mg tablet 1 mg PO BID 08/23/22 08/25/22 metoclopramide HCl 10 mg tablet 10 mg PO Q6H PRN nausea/vomiting 08/23/22 08/27/22 ondansetron 4 mg disintegrating 4 mg PO Q8H PRN 08/23/22 08/27/22 tablet sucralfate 1 gram tablet 1 g PO 5XD 08/23/22 08/27/22 Previous Rx's Medication Instructions Recorded escitalopram oxalate 10 mg tablet 10 mg PO DAILY #30 tabs 08/22/22 (Lexapro) lorazepam 0.5 mg tablet (Ativan) 0.5 mg PO BID PRN #15 tabs 08/23/22 potassium chloride 20 mEq 20 meq PO DAILY #7 tabs 08/23/22 tablet,extended release lidocaine HCl 2 % mucosal solution 1 applic mucous membrane BID PRN 08/25/22 #100 mL lorazepam 1 mg tablet 0.5 - 1 mg (0.5 - 1 x 1 mg) PO TID 08/25/22 PRN #12 tabs omeprazole 40 mg capsule,delayed 40 mg PO DAILY #30 caps 08/25/22 release Allergies Allergy/AdvReac Type Severity Reaction Status Date / Time No Known Drug Allergies Allergy Verified 08/27/22 13:34 Review of Systems Status of ROS: Reports: 10 or more systems reviewed and unremarkable except as noted in History and below [facility] Social History Smoking Status: Former smoker What tobacco products do you use: cigarettes Smoking quit date/years: <= 15 years ago Do you use any of these nicotine containing products: None Second hand tobacco smoke exposure: No How often do you have a drink containing alcohol: never AUDIT-C Alcohol total score: 0 Non-prescribed substance use: marijuana (any form) Non-prescribed substance use details: last marijuana 08/26/22 service: No Exam Narrative: Exam Narrative: Well-nourished well-developed patient, acutely anxious and hyperventilating. Alert and oriented x3. Is cooperative. HEENT: Normocephalic atraumatic. Pupils are equally round reactive to light. Extraocular muscles are intact. Conjunctivae are moist without any icterus noted. Moist mucous membranes. Posterior pharynx is normal. Neck is soft without any lymphadenopathy or thyromegaly. No masses are appreciated. Cardiovascular: Heart is regular rate and rhythm S1 and S2 are present without any murmurs. Lungs: Clear to auscultation bilaterally no wheezes rhonchi or rales are appreciated. Patient takes deep breaths without any discomfort. Abdomen: Soft and nondistended with normal bowel sounds. No guarding or rebound. No masses or organomegaly appreciated. She has minimal epigastric tenderness. Negative [place] sign. Extremities: Bilateral lower extremities are without edema. Normal DP and PT pulses. Skin: Well perfused without any obvious rashes. Const: Vital Signs, click to edit/add: Vital Signs - 24 hr 08/27/22 13:29 Temperature 97.6 F Pulse Rate [Pulse Oximeter] 89 Respiratory Rate 20 Blood Pressure [Ri ght Upper Arm] 134/84 Pulse Oximetry 98 Oxygen Delivery Me thod Room Air Course Course Hospital Course: Patient given IM Toradol and Phenergan. Patient stated that this helped her pain and she was feeling much better. State d that she felt tired and was requesting to go home at this time. Vital Signs Vital signs: Initial Vital Signs Temperature 97.6 F 08/27/22 13:29 Temperature Source Temporal Artery Scan 08/27/22 13:29 Pulse Rate 89 08/27/22 13:29 Respiratory Rate 20 08/27/22 13:29 Blood Pressure 134/84 08/27/22 13:29 Blood Pressure Mean 100 08/27/22 13:29 Blood Pressure Position Sitting 08/27/22 13:29 Pulse Oximetry 98 08/27/22 13:29 Oxygen Delivery Method Room Air 08/27/22 13:29 Vital Signs Temperature 97.6 F 08/27/22 13:29 Pulse Rate 89 08/27/22 13:29 Respiratory Rate 20 08/27/22 13:29 Blood Pressure 134/84 08/27/22 13:29 Pulse Oximetry 98 08/27/22 13:29 Oxygen Delivery Method Room Air 08/27/22 13:29 Temperature 97.6 F 08/27/22 13:29 Pulse Rate 89 08/27/22 13:29 Respiratory Rate 20 08/27/22 13:29 Blood Pressure 134/84 08/27/22 13:29 Pulse Oximetry 98 08/27/22 13:29 Oxygen Delivery Method Room Air 08/27/22 13:29 Medical Decision Making MDM Narrative Medical decision making narrative: 27-year-old female chronic abdominal pain, unclear etiology. Patient will be discharged home with time. She already has follow-up scheduled with GI and PCP. Discharge Plan Discharge Clinical Impression: Abdominal pain Patient Disposition: Home w/ Parent or Adult Condition: Improved Additional Instructions: Follow-up with GI for further management. 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 Rx Instructions: Can mix 15 mL with equal amount of liquid antacid/anti-gas for stomach pain levonorgestrel-ethinyl estrad [Vienva] 0.1-20 mg-mcg tablet 1 tab PO DAILY escitalopram oxalate [Lexapro] 10 mg tablet 10 mg PO DAILY Qty: 30 2RF sucralfate 1 gram tablet 1 g PO 5XD lorazepam 1 mg tablet 1 mg PO BID ondansetron 4 mg tablet,disintegrating 4 mg PO Q8H PRN metoclopramide HCl 10 mg tablet 10 mg PO Q6H PRN (Reason: nausea/vomiting) potassium chloride 20 mEq tablet extended release 20 meq PO DAILY Qty: 7 2RF Hold Instructions: Pt not taking Follow Up/Referrals: Ashwini Zhang MD [Primary Care Provider] - Stand Alone [facility] Info Instructions
--- OUTSIDE RECORDS SUMMARY | 2022-08-27 13:56 | XMS_ITS | Continuity of Care Document ---
Author Name Unknown Organization [facility] Address [address] [address] [place] [address] Phone Care Team Providers Care Administration Dean Name Role Phone Rafaela Carrion CRNA Unavailable Unavailable Allergies, Adverse Reactions, Alerts Substance Reaction Status Criticality No Known Allergies Active No Inform ation Medications Medication Instructions Dosage Effective Dates (start - stop) Status Comments sucralfate 1 gram tablet take 1 tablet by oral route 4 times every day on an empty stomach 1 hour before meals and at bedtime 1 G - Active metoclopramide 10 mg tablet take 2 tablet by crushed per J tube route 4 times every day 30 minutes before meals and at bedtime 20 MG - Active lorazepam 0.5 mg tablet take 1 Tablet by oral route 3 times every day as needed 0.5 MG - Active pantoprazole 40 mg tablet,delayed release take 1 tablet by oral route 2 times every day 40 MG - Active albuterol sulfate HFA 90 mcg/actuation aerosol inhaler Inhale 1 puff as needed - Active Control Pill ORAL TABLET Take one tablet by mouth daily - Active ONDANSETRON HCL (unknown strength) take 2 tablet by oral route every 8 hours for 2 days as needed Not Available - No Longer Active albuterol sulfate HFA 90 mcg/actuation aerosol inhaler Inhale 1 puff as needed - No Longer Active Procedures Procedure Date Office Cons New/estab Mod Advance Directives Directive Yes / No Effective Date File Name No Information Encounters Encounter Description Practice Location Reason(s) For Visit Diagnoses Date Provider Providers Copied on Encounter [facility], [address] [address], [place], [place], [id number], [place] tel:[phone] [facility] No Information matthew JAIME Rafaela. [address], [place], [place], [id number], [place]. tel:[phone] Referring Provider: Ronnie Jordan MD, [address], [place], [address] . tel:[phone] [facility], [address] [address], [place], [place], [id number], [place] tel:[phone] [facility] GI Symptoms or Concerns (chief complaint) Gastropathy Nikki Trujillo. [address], [place], [place], [id number], [place]. tel:[phone] Referring Provider: Referral Self. [facility], [address] [address], [place], [place], [id number], [place] tel:[phone] [facility] Epigastric pain Lise Roberts. [address], [place], [place], [address], [place]. tel:[phone] Office Cons New/estab Mod [facility], [address] [address], [place], [place], [id number], [place] tel:[phone] [facility] GI Symptoms or Concerns (chief complaint) Epigastric pain Lise Roberts. [address], [place], [place], [id number], [place]. tel:[phone] Referring Provider: Ashwini Zhang MD, [address] [place] [address], [address]. tel:[phone] [facility], [address] [address], [place], [place], [id number], [place] tel:[phone] [facility] No Information Nayan Flores. [address], [place], [place], [id number], [place]. tel:[phone] Family History Family Member Type Diagnosis Age [...] and rubella v irus vaccine administered Note: [employer] bi-direct ional interface ; Source: Other Registry diphtheria, tetanus toxoids and acellular pertussis vaccine administered Note: [facility] b i-directional interface ; Source: Other Registry Payers Payer name Insurance type Covered constitution party ID Authoriza tiholli(s) Blue Plus [facility] [id number] Social History Type Description Quantity Date Captured Comments Sex Female Smoking Status No Information Chief Complaint And Reason For Visit No Information Reason For Referral Reason For Referral No Information Plan Of Treatment Date Type Action Status Referral Ordered: EGD Appointment date/timeframe: 08/25/2022 ordered Referral Ordered: MRI Pancreas WITH Contrast Appointment date/timeframe: 08/15/2022 ordered Appointment Celia Cano BOOKED History Of Present Illness Encounter Date Complaint History Of Prese nt Illness GI Symptoms or Concerns GI Symptoms or Concerns Ms. Rula chong [...] Information Instructions Date Instruction Additional Infor mation H pylori Related to Gastr opathy NSAIDS List Related to Gastr opathy Assessments Type Assessment Date No Information Patient Care Teams Name Effective Dates (start - stop) Status Members No Information
[2022-08-27] MEDS: PROMETHAZINE 25 MG/ML INJ IM (14:02)
[2022-08-27] MEDS: KETOROLAC 60 MG/2 ML inj IM (14:02)
== END 2022-08-27 14:36 | disposition home or self-care (01) ==
PROVIDERS: Emergency Provider Family Medicine; PCP Family Medicine
DX: R10.9 Unspecified abdominal pain (principal)
CPT/HCPCS: 96372; 99284; J1885; J2550

== ENCOUNTER 2022-08-29 09:49 | Emergency (ER) | payer BC, SELFPAY ==
[2022-08-29 09:53] VITALS: BP 153/95; PULSE 90; RESP 24; TEMP 36.4; O2SAT 100; BMI 25.1
--- NOTE | 2022-08-29 10:04 | ED_ITS ---
HPI - General Adult General Time Seen by Provider: 10:04 Date Seen: 08/29/22 Chief complaint: Abdominal Pain Stated complaint: Abdominal pain Time Seen by Provider: 08/29/22 09:52 Source: patient Mode of arrival: ambulatory Limitations: no limitations History of Present Illness HPI narrative: Celia is a 27-year-old female past medical history includes alcohol abuse, anxiety, chronic abdominal pain presents emergency department via private car with abdominal pain. Patient has been seen at [facility] 4 times for the same, she has also been seen in [address] and [facility], on 08/25 she had an upper endoscopy done at [facility] for ongoing symptoms, on 08/11 she had an MR abdomen which showed no acute abnormalities to explain her p ain, US right upper quadrant ultrasound on 08/23 showed no abnormalities. Patient is currently on omeprazole, Reglan, sucralfate, as well as Lexapro for her medications, patient states she had been doing relatively well until last evening after dinner, she developed some abdominal discomfort similar to previous, pain is like her abdomen is swelling, she took her medications this morning and had 1 episode of nonbloody nonbilious vomitus, she has not vomited since then, however she has had increased pain. She is scheduled to see her primary care provider today at noon. She has not had any fevers or chills, no chest pain or shortness of breath, she denies any urinary or bowel complaints. Patient does have a history of marijuana use, she has not used over the last week, she denies any alcohol use, no other illicit drug use. She was able to get herself to her grandfather's who drove her here. Patient had been doing well prior to this morning. Related Data Home Medications Medication Instructions Recorded Confirmed levonorgestrel-ethinyl estradiol 1 tab PO DAILY 07/08/22 08/27/22 0.1 mg-20 mcg tablet (Vienva) lorazepam 1 mg tablet 1 mg PO BID 08/23/22 08/25/22 metoclopramide HCl 10 mg tablet 10 mg PO Q6H PRN nausea/vomiting 08/23/22 08/27/22 ondansetron 4 mg disintegrating 4 mg PO Q8H PRN 08/23/22 08/27/22 tablet sucralfate 1 gram tablet 1 g PO 5XD 08/23/22 08/27/22 Previous Rx's Medication Instructions Recorded escitalopram oxalate 10 mg tablet 10 mg PO DAILY #30 tabs 08/22/22 (Lexapro) lorazepam 0.5 mg tablet (Ativan) 0.5 mg PO BID PRN #15 tabs 08/23/22 potassium chloride 20 mEq 20 meq PO DAILY #7 tabs 08/23/22 tablet,extended release lidocaine HCl 2 % mucosal solution 1 applic mucous membrane BID PRN 08/25/22 #100 mL lorazepam 1 mg tablet 0.5 - 1 mg (0.5 - 1 x 1 mg) PO TID 08/25/22 PRN #12 tabs omeprazole 40 mg capsule,delayed 40 mg PO DAILY #30 caps 08/25/22 release Allergies Allergy/AdvReac Type Severity Reaction Status Date / Time No Known Drug Allergies Allergy Verified 08/27/22 13:34 Review of Systems Status of ROS: Reports: 10 or more systems reviewed and unremarkable except as noted in History and below PFSH PFSH Social History Smoking Status: Former smoker What tobacco products do you use: cigarettes Smoking quit date/years: <= 15 years ago Do you use any of these nicotine containing products: None Second hand tobacco smoke exposure: No How often do you have a drink containing alcohol: never AUDIT-C Alcohol total score: 0 Non-prescribed substance use: marijuana (any form) Non-prescribed substance use details: last marijuana 08/26/22 service: No Exam Narrative: Exam Narrative: General: Obvious distress, lying on her right side holding her abdomen. HEENT: Pupils equal round reactive to light, extraocular muscles intact Abdomen: Tender to palpation the epigastric region, soft, bowel sounds present Heart: Normal sinus rhythm S1-S2 Muscle skeletal: No extremity weakness Neuro; alert awake and oriented x3 Const: Vital Signs, click to edit/add: Vital Signs - 24 hr 08/29/22 09:53 08/29/22 13:00 Temperature 97.5 F L 96.6 F L Pulse Rate [Right Pulse Oximeter] 90 73 Respiratory Rate 24 20 Blood Pressure [15 3/95] 153/95 H 139/94 H Pulse Oximetry 100 97 Oxygen Delivery Me thod Room Air Room Air Course Course Hospital Course: 10:00 AM: AIDET performed, vitals are normal at this time, did review recent imaging including MR, ultrasound which were normal, patient had recent lab work which showed no abnormalities, symptoms started this morning, patient wishes to make her appointment in 1 hours time, discussed IV versus IM, patient prefers IM at this time, she responded well to droperidol 1.25 mg, plan to repeat lab any labs at this time. Differential diagnosis include but not limited to gastritis, bowel obstruction, appendicitis, aneurysm, ectopic , volvulus, other considerations are PUD, GERD, diverticulitis, UTI, urolithiasis, ovarian cyst torsion as well as other etiologies. Patient states this is similar symptoms from previous no new changes, will treat her symptomatically. Reevaluation(s) Time of Reevaluation #1: 11:00 Reevaluation #1: CBC showed no leukocytosis, neutrophil % is similar to previous, serum test negative, metabolic panel showed a normal renal function potassium mildly low at 3.2, plan to replace potassium chloride tablet 40 mEq, patient continues to have nausea, IM dose Reglan 10 mg. Will plan to get EKG make sure no QT prolongation prior to giving additional medications. 11:30 AM: IV placed since IM dose is not working, 40 mg IV Protonix, given 0.9 normal saline bolus for IV fluids, currently out of GI cocktail, plan to give her 4% lidocaine topical solution orally 7.5 mL since she responded to GI cocktails in the past. ECG shows a sinus rhythm with short MN, no ectopy or acute ST changes, no QT prolongation, BPM of 92, Reevaluation #2: 12:30 PM: Patient was given the above care, she finally settled down, pain improved after the Protonix and GI cocktail, vitals remained stable, pain is controlled significantly, she still wishes to make her appointment primary care provider today, plan with the be discharge, she will continue her current medications, no new changes at this time, return precautions given. Vital Signs Vital signs: Initial Vital Signs Temperature 97.5 F L 08/29/22 09:53 Temperature Source Temporal Artery Scan 08/29/22 09:53 Pulse Rate 90 08/29/22 09:53 Respiratory Rate 24 08/29/22 09:53 Blood Pressure 153/95 H 08/29/22 09:53 Blood Pressure Mean 114 H 08/29/22 09:53 Blood Pressure Position Sitting 08/29/22 09:53 Pulse Oximetry 100 08/29/22 09:53 Oxygen Delivery Method Room Air 08/29/22 09:53 Vital Signs Temperature 97.5 F L 08/29/22 09:53 Pulse Rate 90 08/29/22 09:53 Respiratory Rate 24 08/29/22 09:53 Blood Pressure 153/95 H 08/29/22 09:53 Pulse Oximetry 100 08/29/22 09:53 Oxygen Delivery Method Room Air 08/29/22 09:53 Temperature 96.6 F L 08/29/22 13:00 Pulse Rate 73 08/29/22 13:00 Respiratory Rate 20 08/29/22 13:00 Blood Pressure 139/94 H 08/29/22 13:00 Pulse Oximetry 97 08/29/22 13:00 Oxygen Delivery Method Room Air 08/29/22 13:00 Medical Decision Making Lab Data Labs: Lab Results 08/29/22 Range/Units 10:45 WBC 10.29 (4.50-11.00) K/uL RBC 4.28 (4.00-5.20) m/uL Hgb 13.2 (12.0-16.0) gm/dL Hct 39.1 (33.0-51.0) % MCV 91 (80-100) fL MCH 31 (26-34) pg MCHC 34 (32-36) gm/dL RDW Coeff of [place] 12.3 (11.5-15.5) % Plt Count 279 (140-440) K/uL Neut % (Auto) 78.8 H (42.0-72.0) % Lymph % (Auto) 16.7 L (20-44) % [place] % (Auto) 2.7 (0.0-11.0) % Eos % (Auto) 0.9 (0.0-7.0) % Baso % (Auto) 0.5 (0.0-3.0) % Neut # (Auto) 8.10 H (1.7-7.0) K/uL Lymph # (Auto) 1.70 (0.90-2.90) K/uL [place] # (Auto) 0.30 (0.00-0.90) K/UL Eos # (Auto) 0.09 (0.00-0.50) K/uL Baso # (Auto) 0.05 (0.00-0.30) K/uL Sodium 137 (135-149) mmol/L Potassium 3.2 L (3.6-5.1) mmol/L Chloride 102 (96-114) mmol/L Carbon Dioxide 21 (20-32) mmol/L BUN 16 (5-24) mg/dL Creatinine 0.6 (0.5-1.5) mg/dL Estimated Creat Clear 139.38 Estimated GFR 128 ml/min Glucose 156 H (60-115) mg/dL Calcium 9.4 (8.4-10.6) mg/dL Total Bilirubin 0.9 (0.1-1.5) mg/dL AST 30 (12-35) U/L ALT 23 (4-35) U/L Alkaline Phosphatase 84 (40-150) U/L Total Protein 7.6 (6.0-8.3) g/dL Albumin 5.0 (3.3-5.0) g/dL HCG, Qual Negative (Negative) Discharge Plan Discharge Clinical Impression: Chronic abdominal pain, Vomiting, Chronic hypokalemia Patient Disposition: Home, Self-Care Condition: Improved Instructions: Hypokalemia (ED), Acute Nausea and Vomiting (ED), Abdominal Pain (ED) Additional Instructions: To follow up with primary care provider today as scheduled. To continue with current medications, return if worsening symptoms. 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: Can mix 15 mL with equal amount of liquid antacid/anti-gas for stomach pain levonorgestrel-ethinyl estrad [Vienva] 0.1-20 mg-mcg tablet 1 tab PO DAILY escitalopram oxalate [Lexapro] 10 mg tablet 10 mg PO DAILY Qty: 30 2RF sucralfate 1 gram tablet 1 g PO 5XD lorazepam 1 mg tablet 1 mg PO BID ondansetron 4 mg tablet,disintegrating 4 mg PO Q8H PRN metoclopramide HCl 10 mg tablet 10 mg PO Q6H PRN (Reason: nausea/vomiting) potassium chloride 20 mEq tablet extended release 20 meq PO DAILY Qty: 7 2RF Hold Instructions: Pt not taking Follow Up/Referrals: Ashwini Zhang MD [Primary Care Provider] - Stand [facility]one [facility]
[2022-08-29] MEDS: droperidoL 2.5 MG/ML inj 1.25 MG IM (10:29)
[2022-08-29 10:55] LABS: Basophils Absolute Auto 0.05 K/uL (0.00-0.30); Basophils Percent Auto 0.5 % (0.0-3.0); Eosinophils Absolute Auto 0.09 K/uL (0.00-0.50); Eosinophils Percent Auto 0.9 % (0.0-7.0); Hematocrit 39.1 % (33.0-51.0); Hemoglobin* 13.2 gm/dL (12.0-16.0); Immature Granulocytes Abs Auto 0.04 K/uL (0.00-0.30); Immature Granulocytes Pct Auto 0.4 %; Lymphocytes Percent Auto 16.7 % (20-44); Mean Corpuscular HGB Conc 34 gm/dL (32-36); Mean Corpuscular Hemoglobin 31 pg (26-34); Mean Corpuscular Volume 91 fL (80-100); Monocytes Percent Auto 2.7 % (0.0-11.0); Neutrophils Percent Auto 78.8 % (42.0-72.0); Platelet Count* 279 K/uL (140-440); RDW Coefficient of Variation % 12.3 % (11.5-15.5); Red Blood Count 4.28 m/uL (4.00-5.20); White Blood Count* 10.29 K/uL (4.50-11.00)
[2022-08-29 10:57] LABS: Slide Review Reflex No
[2022-08-29 11:04] LABS: Chloride* 102 mmol/L (96-114)
[2022-08-29 11:05] LABS: Potassium* 3.2 mmol/L (3.6-5.1); Sodium* 137 mmol/L (135-149)
[2022-08-29 11:07] LABS: Aspartate Amino Transferase* 30 U/L (12-35); Bilirubin Total* 0.9 mg/dL (0.1-1.5); Carbon Dioxide* 21 mmol/L (20-32); Creatinine* 0.6 mg/dL (0.5-1.5); Est. Creatinine Clearance* 139.38; Estimated Glomerular Filt Rate 128 ml/min; Total Protein* 7.6 g/dL (6.0-8.3)
[2022-08-29 11:08] LABS: Alanine Aminotransferase* 23 U/L (4-35); Alkaline Phosphatase* 84 U/L (40-150); Blood Urea Nitrogen* 16 mg/dL (5-24); Calcium* 9.4 mg/dL (8.4-10.6); Glucose* 156 mg/dL (60-115)
--- NOTE | 2022-08-29 11:15 | ED.NURSE ---
is wretching. asking for pain meds.
[2022-08-29] MEDS: METOCLOPRAMIDE HCL 5 MG/ML INJ 10 MG IM (11:25)
--- NOTE | 2022-08-29 11:42 | ED.NURSE ---
rocking in the bed. will not take kcl due to gastritis. dr daniel in to talk.
[2022-08-29] MEDS: 0.9 % SODIUM CHLORIDE 1000 ml 1,000 ML IV (11:59)
[2022-08-29] MEDS: PANTOPRAZOLE SODIUM 40 MG INJ IVP (12:07)
[2022-08-29 12:27] LABS: HCG Qualitative Serum* Negative (Negative)
[2022-08-29] MEDS: lidocaine HCL 4 % TOP SOLN 50 ML BOTTLE 7.5 ML PO (12:46)
[2022-08-29] MEDS: MAG HYDROX/ALUMINUM HYD/SIMETH 30 ML ORAL.SUSP 15 ML PO (12:47)
[2022-08-29 13:00] VITALS: BP 139/94; PULSE 73; RESP 20; TEMP 35.9; O2SAT 97
--- NOTE | 2022-08-29 13:12 | ED.NURSE ---
pt prescribed potassium while here, pt refused. Dr mullen with pt not taking potassium.
== END 2022-08-29 13:37 | disposition home or self-care (01) ==
PROVIDERS: Emergency Provider Student in an Organized Health Care Education/Training Program; PCP Family Medicine
DX: R10.9 Unspecified abdominal pain (principal); G89.29 Other chronic pain; R11.10 Vomiting, unspecified; E87.6 Hypokalemia
CPT/HCPCS: 36415; 80053; 84703; 85025; 93005; 96361; 96372; 99283; 99284; A9270; C9113; J1790; J2765; J7030

== ENCOUNTER 2022-08-30 08:39 | Outpatient (CLI) | payer BC, SELFPAY ==
--- OUTSIDE RECORDS SUMMARY | 2022-09-05 10:23 | XMS_ITS | Continuity of Care Document ---
Author Name Unknown Organization [facility] Address [address] [address] [place] [address] Phone Care Team Providers Care Tax Representative Name Role Phone Allyson Hawthorne CRNA Unavailable [...] Diagnoses Date Provider Providers Copied on Encounter [facility], [address] [address], [place], [id number], [place] tel:[phone] [facility] No Information 3 Christoph Valadez. [address] [facility], [place], [place], [address] , [place]. tel: [phone] Referring Provider: Ronnie Jordan MD, [address] [facility] [address], [place], [address] . tel:[phone] [facility], [address] [address], [place], [id number], [place] tel:[phone] [facility] GI Symptoms or Concerns (chief complaint) GastropathyNausea with vomiting, unspecifiedEpigastr ic painDisease of stomach and duodenum, unspecified 3 Nikki Trujillo. [address] [facility], [place], [place], [address] , [place]. tel: [phone] Referring Provider: Referral Self. [facility], [address] [address], [place], [address], [place] tel:[phone] [facility] Epigastric pain 3 Lise Roberts. [address] [facility], [place], [place], [address] , [place]. tel: [phone] Office Cons New/estab Mod [facility], [address] [address], [place], [address], [place] tel:[phone] [facility] GI Symptoms or Concerns (chief complaint) Epigastric pain 3 Lise Roberts. [address] [facility], [place], [id number] , [place]. tel:[phone] Referring Provider: Ashwini Zhang MD, [address] [facility], [place], [address]. tel:[phone] [facility], [address] [address], [place], [address], [place] tel:[phone] [facility] No Information 3 Nayan Flores. [address] [facility], [place], [id number] , [place]. tel:[phone] Family History Family Member Type Diagnosis Age [...] Registry Payers Payer name Insurance type Covered alliance party ID Authoriza tiholli(s) [place] [facility] [id number] Social History Type Description Quantity Date Captured [...]
== END 2022-08-30 08:40 | disposition home or self-care (01) ==
LOC: AMB 09-05 10:22
PROVIDERS: PCP Family Medicine; Visit Provider Family Medicine
DX: R10.9 Unspecified abdominal pain (principal)
CPT/HCPCS: A0425; A0427

== ENCOUNTER 2022-08-30 09:08 | Emergency (ER) | payer BC, SELFPAY ==
[2022-08-30 09:20] VITALS: BP 139/84; PULSE 100; RESP 22; TEMP 36.2; O2SAT 100; BMI 25.8
--- NOTE | 2022-08-30 09:31 | ED.GENADULT ---
HPI - General Adult General Chief complaint: Abdominal Pain Stated complaint: Abdominal pain Time Seen by Provider: 08/30/22 09:24 History of Present Illness HPI narrative: Patient is a 27-year-old female has had chronic abdominal pain, chronic anxiety, marijuana use, cyclic vomiting who presents by ambulance with abdominal pain and episode of vomiting. She was here yesterday and had a workup including negative lab studies, she has had a recent negative MRI scan of her abdomen, negative ultrasound of her abdomen. She denies . She denies fevers, chills, or chest pain or shortness of breath. Patient does say she has intermittent nausea. She reports she has not been doing marijuana recently as she has been told that can cause recurrent abdominal pain. Related Data Home Medications Medication Instructions Recorded Confirmed levonorgestrel-ethinyl estradiol 1 tab PO DAILY 07/08/22 08/30/22 0.1 mg-20 mcg tablet (Vienva) lorazepam 1 mg tablet 1 mg PO BID 08/23/22 08/30/22 metoclopramide HCl 10 mg tablet 10 mg PO Q6H PRN nausea/vomiting 08/23/22 08/30/22 ondansetron 4 mg disintegrating 4 mg PO Q8H PRN 08/23/22 08/30/22 tablet sucralfate 1 gram tablet 1 g PO 5XD 08/23/22 08/30/22 Previous Rx's Medication Instructions Recorded escitalopram oxalate 10 mg tablet 10 mg PO DAILY #30 tabs 08/22/22 (Lexapro) lorazepam 0.5 mg tablet (Ativan) 0.5 mg PO BID PRN #15 tabs 08/23/22 potassium chloride 20 mEq 20 meq PO DAILY #7 tabs 08/23/22 tablet,extended release lidocaine HCl 2 % mucosal solution 1 applic mucous membrane BID PRN 08/25/22 #100 mL lorazepam 1 mg tablet 0.5 - 1 mg (0.5 - 1 x 1 mg) PO TID 08/25/22 PRN #12 tabs omeprazole 40 mg capsule,delayed 40 mg PO DAILY #30 caps 08/25/22 release ketorolac 10 mg tablet 10 mg PO Q8H PRN pain #7 tabs 08/30/22 Allergies Allergy/AdvReac Type Severity Reaction Status Date / Time No Known Drug Allergies Allergy Verified 08/30/22 09:25 Review of Systems Status of ROS: Reports: 10 or more systems reviewed and unremarkable except as noted in History and below PFS PFS Social History Smoking Status: Former smoker What tobacco products do you use: cigarettes Smoking quit date/years: <= 15 years ago Do you use any of these nicotine containing products: None Second hand tobacco smoke exposure: No How often do you have a drink containing alcohol: never AUDIT-C Alcohol total score: 0 Non-prescribed substance use: marijuana (any form) Non-prescribed substance use details: last marijuana 08/26/22 service: No Exam Narrative: Exam Narrative: Objective: Patient appears anxious, alert orient x3, does not appear in lot of pain Vital signs unremarkable afebrile Abdomen is benign soft nontender Pulse regular Lungs clear Extremities without edema neurologic nonfocal Good peripheral perfusion noted Const: Vital Signs, click to edit/add: Vital Signs - 24 hr 08/30/22 09:20 08/30/22 10:09 08/30/22 10:15 Temperature 97.1 F L Pulse Rate 89 86 Pulse Rate [Right Pulse Oximeter] 100 Respiratory Rate 22 Blood Pressure Blood Pressure [Ri ght Upper Arm] 139/84 Pulse Oximetry 100 100 96 Oxygen Delivery Me thod Room Air 08/30/22 11:13 08/30/22 11:14 08/30/22 11:15 Temperature Pulse Rate 85 98 101 H Pulse Rate [Right Pulse Oximeter] Respiratory Rate Blood Pressure 140/102 H Blood Pressure [Ri ght Upper Arm] Pulse Oximetry 99 99 100 Oxygen Delivery Me thod Course Vital Signs Vital signs: Initial Vital Signs Temperature 97.1 F L 08/30/22 09:20 Temperature Source Temporal Artery Scan 08/30/22 09:20 Pulse Rate 100 08/30/22 09:20 Respiratory Rate 22 08/30/22 09:20 Blood Pressure 139/84 08/30/22 09:20 Blood Pressure Mean 102 08/30/22 09:20 Blood Pressure Position Sitting 08/30/22 09:20 Pulse Oximetry 100 08/30/22 09:20 Oxygen Delivery Method Room Air 08/30/22 09:20 Vital Signs Temperature 97.1 F L 08/30/22 09:20 Pulse Rate 100 08/30/22 09:20 Respiratory Rate 22 08/30/22 09:20 Blood Pressure 139/84 08/30/22 09:20 Pulse Oximetry 100 08/30/22 09:20 Oxygen Delivery Method Room Air 08/30/22 09:20 Temperature 97.1 F L 08/30/22 09:20 Pulse Rate 101 H 08/30/22 11:15 Respiratory Rate 22 08/30/22 09:20 Blood Pressure 140/102 H 08/30/22 11:13 Pulse Oximetry 100 08/30/22 11:15 Oxygen Delivery Method Room Air 08/30/22 09:20 Medical Decision Making MDM Narrative Medical decision making narrative: [age] year white female with a history of anxiety, chronic abdominal pain, history of marijuana use in the past, presents with vomiting and stomach pain. She has had a fairly full workup including recent MRI, ultrasound, lab studies. At this time I think it be reasonable to not do additional imaging but would give her IV fluid, will give her IV Zyprexa for hopefully helping her nausea and the pain in her abdomen, and I think it will help with her anxiety as well. She denies . Will check her laboratory studies to make sure these are reassuring. Disposition pending her findings. Addendum: Patient's lab studies are reassuring, she described immune earlier she had stop marijuana but in further questioning she has been using it up until yesterday. I believe she falls into the category of cyclic vomiting syndrome as been chronic cold in her chart in the past. She has had a full workup of her abdomen I think the gil at this point is to stop marijuana in its entirety, and no further use of this. I think it is contributing to her mental health issues as well as her physical health problems. She has appointment to see her regular doctor this afternoon will give her an injection of Toradol to see if that will ease some of her abdominal discomfort and I will send her home with 3 Toradol tablets. Her test was negative her lab studies are all normal including her CRP which is negative. Lab Data Labs: Lab Results 08/30/22 08/30/22 08/30/22 Range/Units 09:29 10:08 10:08 WBC 7.48 (4.50-11.00) K/uL RBC 4.03 (4.00-5.20) m/uL Hgb 12.5 (12.0-16.0) gm/dL Hct 37.1 (33.0-51.0) % MCV 92 (80-100) fL MCH 31 (26-34) pg MCHC 34 (32-36) gm/dL RDW Coeff of [place] 12.2 (11.5-15.5) % Plt Count 242 (140-440) K/uL Neut % (Auto) 73.7 H (42.0-72.0) % Lymph % (Auto) 21.1 (20-44) % [place] % (Auto) 3.9 (0.0-11.0) % Eos % (Auto) 0.5 (0.0-7.0) % Baso % (Auto) 0.4 (0.0-3.0) % Neut # (Auto) 5.50 (1.7-7.0) K/uL Lymph # (Auto) 1.58 (0.90-2.90) K/uL [place] # (Auto) 0.30 (0.00-0.90) K/UL Eos # (Auto) 0.04 (0.00-0.50) K/uL Baso # (Auto) 0.03 (0.00-0.30) K/uL Sodium 135 (135-149) mmol/L Potassium 3.5 L (3.6-5.1) mmol/L Chloride 104 (96-114) mmol/L Carbon Dioxide 21 (20-32) mmol/L BUN 10 (5-24) mg/dL Creatinine 0.6 (0.5-1.5) mg/dL Estimated Creat Clear 128.98 Estimated GFR 128 ml/min Glucose 121 H (60-115) mg/dL Calcium 8.8 (8.4-10.6) mg/dL Total Bilirubin 1.6 H (0.1-1.5) mg/dL Direct Bilirubin 0.0 (0.0-0.5) mg/dL AST 25 (12-35) U/L ALT 21 (4-35) U/L Alkaline Phosphatase 69 (40-150) U/L C-Reactive Protein < 0.5 L (0.5-1.0) mg/dL Total Protein 6.9 (6.0-8.3) g/dL Albumin 4.5 (3.3-5.0) g/dL Amylase 53 Cancelled (18-89) U/L HCG, Qual Negative (Negative) Urine Color (Yellow) Urine Appearance (Clear) Urine pH (5.0-8.5) Ur Specific [place] (1.000-1.030) Urine Protein (Negative) Urine Glucose (UA) (Negative) Urine Ketones (Negative) Urine Blood (Negative) Urine Nitrite (Negative) Urine Bilirubin (Negative) Urine Urobilinogen (0.2-1.0) Ur Leukocyte Esterase (Negative) Urine RBC (0-2) Urine WBC (0-5) Ur Squamous Epith Cells (None-Few) Urine Bacteria (None) Urine Opiates Screen Negative (Negative) Ur Oxycodone Screen Negative (Negative) Urine Methadone Screen Negative (Negative) Ur Propoxyphene Screen Negative (Negative) Ur Barbiturates Screen Negative (Negative) U Tricyclic Antidepress Negative (Negative) Ur Phencyclidine Scrn Negative (Negative) Ur Amphetamines Screen Negative (Negative) U Methamphetamines Scrn Negative (Negative) U Benzodiazepines Scrn POSITIVE A* (Negative) Urine Cocaine Screen Negative (Negative) U Marijuana (THC) Screen POSITIVE A* (Negative) Ur Drug Screen Comment See Note Ethyl Alcohol < 0.01 L (0.01-0.03) % 08/30/22 Range/Units 11:10 WBC (4.50-11.00) K/uL RBC (4.00-5.20) m/uL Hgb (12.0-16.0) gm/dL Hct (33.0-51.0) % MCV (80-100) fL MCH (26-34) pg MCHC (32-36) gm/dL RDW Coeff of [place] (11.5-15.5) % Plt Count (140-440) K/uL Neut % (Auto) (42.0-72.0) % Lymph % (Auto) (20-44) % [place] % (Auto) (0.0-11.0) % Eos % (Auto) (0.0-7.0) % Baso % (Auto) (0.0-3.0) % Neut # (Auto) (1.7-7.0) K/uL Lymph # (Auto) (0.90-2.90) K/uL [place] # (Auto) (0.00-0.90) K/UL Eos # (Auto) (0.00-0.50) K/uL Baso # (Auto) (0.00-0.30) K/uL Sodium (135-149) mmol/L Potassium (3.6-5.1) mmol/L Chloride (96-114) mmol/L Carbon Dioxide (20-32) mmol/L BUN (5-24) mg/dL Creatinine (0.5-1.5) mg/dL Estimated Creat Clear Estimated GFR ml/min Glucose (60-115) mg/dL Calcium (8.4-10.6) mg/dL Total Bilirubin (0.1-1.5) mg/dL Direct Bilirubin (0.0-0.5) mg/dL AST (12-35) U/L ALT (4-35) U/L Alkaline Phosphatase (40-150) U/L C-Reactive Protein (0.5-1.0) mg/dL Total Protein (6.0-8.3) g/dL Albumin (3.3-5.0) g/dL Amylase (18-89) U/L HCG, Qual (Negative) Urine Color Yellow (Yellow) Urine Appearance Clear (Clear) Urine pH 8.0 (5.0-8.5) Ur Specific [place] 1.015 (1.000-1.030) Urine Protein Negative (Negative) Urine Glucose (UA) Negative (Negative) Urine Ketones Trace A (Negative) Urine Blood Negative (Negative) Urine Nitrite Negative (Negative) Urine Bilirubin Negative (Negative) Urine Urobilinogen 0.2 (0.2-1.0) Ur Leukocyte Esterase 1+ A (Negative) Urine RBC 0-2 (0-2) Urine WBC 2-5 (0-5) Ur Squamous Epith Cells Few (None-Few) Urine Bacteria Few A (None) Urine Opiates Screen (Negative) Ur Oxycodone Screen (Negative) Urine Methadone Screen (Negative) Ur Propoxyphene Screen (Negative) Ur Barbiturates Screen (Negative) U Tricyclic Antidepress (Negative) Ur Phencyclidine Scrn (Negative) Ur Amphetamines Screen (Negative) U Methamphetamines Scrn (Negative) U Benzodiazepines Scrn (Negative) Urine Cocaine Screen (Negative) U Marijuana (THC) Screen (Negative) Ur Drug Screen Comment Ethyl Alcohol (0.01-0.03) % Discharge Plan Discharge Clinical Impression: Anxiety, Chronic abdominal pain, Cyclical vomiting, Abdominal pain Patient Disposition: Home w/ Parent or Adult Condition: Stable Additional Instructions: Impaired of that he stop marijuana use, as this may be contributing to her nausea and cyclic vomiting syndrome, and abdominal pain. Recommend you keep your appointment with your doctor this afternoon. Will send home with a few Toradol tablets for stomach pain. Your labs today look reassuring. 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 Instructions: Can mix 15 mL with equal amount of liquid antacid/anti-gas for stomach pain levonorgestrel-ethinyl estrad [Vienva] 0.1-20 mg-mcg tablet 1 tab PO DAILY escitalopram oxalate [Lexapro] 10 mg tablet 10 mg PO DAILY Qty: 30 2RF sucralfate 1 gram tablet 1 g PO 5XD lorazepam 1 mg tablet 1 mg PO BID ondansetron 4 mg tablet,disintegrating 4 mg PO Q8H PRN metoclopramide HCl 10 mg tablet 10 mg PO Q6H PRN (Reason: nausea/vomiting) potassium chloride 20 mEq tablet extended release 20 meq PO DAILY Qty: 7 2RF Hold Instructions: Pt not taking Follow Up/Referrals: Ashwini Zhang MD [Primary Care Provider] - Stand Alone Forms: [facility] Info Instructions
[2022-08-30] MEDS: 0.9 % SODIUM CHLORIDE 1000 ml 1,000 ML 6000 ML IV (09:54)
[2022-08-30] MEDS: OLANZapine 5 MG/ML inj IVP (09:54)
[2022-08-30 10:09] VITALS: PULSE 89; O2SAT 100
[2022-08-30 10:15] VITALS: PULSE 86; O2SAT 96
[2022-08-30 10:23] LABS: Basophils Absolute Auto 0.03 K/uL (0.00-0.30); Basophils Percent Auto 0.4 % (0.0-3.0); Eosinophils Absolute Auto 0.04 K/uL (0.00-0.50); Eosinophils Percent Auto 0.5 % (0.0-7.0); Hematocrit 37.1 % (33.0-51.0); Hemoglobin* 12.5 gm/dL (12.0-16.0); Immature Granulocytes Abs Auto 0.03 K/uL (0.00-0.30); Immature Granulocytes Pct Auto 0.4 %; Lymphocytes Absolute Auto 1.58 K/uL (0.90-2.90); Lymphocytes Percent Auto 21.1 % (20-44); Mean Corpuscular HGB Conc 34 gm/dL (32-36); Mean Corpuscular Hemoglobin 31 pg (26-34); Mean Corpuscular Volume 92 fL (80-100); Monocytes Percent Auto 3.9 % (0.0-11.0); Neutrophils Percent Auto 73.7 % (42.0-72.0); Platelet Count* 242 K/uL (140-440); RDW Coefficient of Variation % 12.2 % (11.5-15.5); Red Blood Count 4.03 m/uL (4.00-5.20); White Blood Count* 7.48 K/uL (4.50-11.00)
[2022-08-30 10:25] LABS: Slide Review Reflex No
[2022-08-30 10:36] LABS: Chloride* 104 mmol/L (96-114)
[2022-08-30 10:37] LABS: Albumin* 4.5 g/dL (3.3-5.0); Sodium* 135 mmol/L (135-149)
[2022-08-30 10:38] LABS: Potassium* 3.5 mmol/L (3.6-5.1)
[2022-08-30 10:40] LABS: Amylase* 53 U/L (18-89); Aspartate Amino Transferase* 25 U/L (12-35); Bilirubin Total* 1.6 mg/dL (0.1-1.5); Blood Urea Nitrogen* 10 mg/dL (5-24); Carbon Dioxide* 21 mmol/L (20-32); Creatinine* 0.6 mg/dL (0.5-1.5); Est. Creatinine Clearance* 128.98; Estimated Glomerular Filt Rate 128 ml/min; Total Protein* 6.9 g/dL (6.0-8.3)
[2022-08-30 10:41] LABS: Alanine Aminotransferase* 21 U/L (4-35); Alkaline Phosphatase* 69 U/L (40-150); Calcium* 8.8 mg/dL (8.4-10.6); Glucose* 121 mg/dL (60-115)
[2022-08-30 10:44] LABS: C Reactive Protein* < 0.5 mg/dL (0.5-1.0); Ethanol* < 0.01 % (0.01-0.03)
[2022-08-30 10:50] LABS: HCG Qualitative Serum* Negative (Negative)
[2022-08-30 11:13] VITALS: BP 140/102; PULSE 85; O2SAT 99
[2022-08-30 11:14] VITALS: PULSE 98; O2SAT 99
[2022-08-30 11:15] VITALS: PULSE 101; O2SAT 100
[2022-08-30] MEDS: KETOROLAC 30 MG/ML inj 60 MG IM (11:22)
[2022-08-30 11:41] LABS: Amphetamine Screen Urine Negative (Negative); Barbiturate Screen Urine Negative (Negative); Cocaine Screen Urine Negative (Negative); Methadone Screen Urine Negative (Negative); Methamphetamines Screen Urine Negative (Negative); Opiate Screen Urine Negative (Negative); Oxycodone Screen Urine Negative (Negative); Phencyclidine Screen Urine Negative (Negative); Tricyclic Antidepressant Urine Negative (Negative)
[2022-08-30 11:43] LABS: Appearance Urine Clear (Clear); Bilirubin Urine Negative (Negative); Blood Urine Negative (Negative); Color Urine Yellow (Yellow); Glucose Urine Negative (Negative); Ketones Urine Trace (Negative); Leukocyte Esterase Urine 1+ (Negative); Nitrite Urine Negative (Negative); Protein Urine Negative (Negative); Specific Gravity Urine 1.015 (1.000-1.030); Urobilinogen Urine 0.2 (0.2-1.0)
[2022-08-30 11:51] LABS: Benzodiazepines Screen Urine POSITIVE (Negative); Cannabinoid Screen Urine POSITIVE (Negative)
[2022-08-30 11:56] LABS: Bacteria Urine Few; RBC Urine 0-2 (0-2); Squamous Epithelial Cell Urine Few (None-Few)
== END 2022-08-30 11:31 | disposition home or self-care (01) ==
PROVIDERS: Emergency Provider Family Medicine; PCP Family Medicine
DX: R10.9 Unspecified abdominal pain (principal); G89.29 Other chronic pain; R11.15 Cyclical vomiting syndrome unrelated to migraine; F41.9 Anxiety disorder, unspecified
CPT/HCPCS: 36415; 80048; 80076; 80306; 81001; 82077; 82150; 84703; 85025; 86140; 87086; 96361; 96372; 96374; 99284; J1885; J7030; S0166

== ENCOUNTER 2022-08-31 09:22 | Outpatient (CLI) | payer BC, SELFPAY ==
--- OUTSIDE RECORDS SUMMARY | 2022-09-05 11:29 | XMS_ITS | Continuity of Care Document ---
Author Name Unknown Organization [facility] Address [address] [address] [place] [address] Phone Care Team Providers Care Software Development Manager Name Role Phone Allyson Hawthorne CRNA Unavailable [...] Diagnoses Date Provider Providers Copied on Encounter [facility], [address] [address], [place], [id number], [place] tel:[phone] [facility] No Information [address] [facility] [address], [place], [place], [address] , [place]. tel: [phone] Referring Provider: Ronnie Jordan MD, [address] [facility] [address], [place], [address] . tel:[phone] [facility], [address] [address], [place], [address], [place] tel:[phone] [facility] GI Symptoms or Concerns (chief complaint) GastropathyNausea with vomiting, unspecifiedEpigastr ic painDisease of stomach and duodenum, unspecified 3 Nik[address] Tru[address]. [address] [facility], [address], [place], [place], [address] , [place]. tel: [phone] Referring Provider: Referral Self. [facility], [address] [address], [place], [address], [place] tel:[phone] [facility] Epigastric pain [address] [facility], [address], [place], [address] , [place]. tel: [phone] Office Cons New/estab Mod [facility], [address] [address], [place], [address], [place] tel:[phone] [facility] GI Symptoms or Concerns (chief complaint) Epigastric pain [address] [facility], [place], [id number] , [place]. tel:[phone] Referring Provider: Ashwini Zhang MD, [address] [facility], [place], [address]. tel:[phone] [facility], [address] [address], [place], [address], [place] tel:[phone] [facility] No Information [address] [facility], [address], [place], [id number] , [place]. tel:[phone] Family History Family Member Type Diagnosis Age [...] type Covered alliance party ID Authoriza tiholli(s) [place] [facility] [id number] Social History Type Description Quantity Date Captured [...]
== END 2022-08-31 09:23 | disposition home or self-care (01) ==
LOC: AMB 09-05 11:27
PROVIDERS: PCP Family Medicine; Visit Provider Family Medicine
DX: R10.9 Unspecified abdominal pain (principal)
CPT/HCPCS: A0425; A0433

== ENCOUNTER 2022-09-01 09:03 | Outpatient (CLI) | payer BC, SELFPAY ==
--- OUTSIDE RECORDS SUMMARY | 2022-09-05 12:03 | XMS_ITS | Continuity of Care Document ---
Author Name Unknown Organization [facility] Address [address] [address] [place] [address] Phone Care Team Providers Care Facilities Specialist Name Role Phone Allyson Hawthorne CRNA Unavailable [...] Diagnoses Date Provider Providers Copied on Encounter [facility], [address] [address], [place], [address], [place] tel:[phone] [facility] No Information 3 Christoph Valadez. [address] [facility], [place], [place], [address] , [place]. tel: [phone] Referring Provider: Ronnie Jordan MD, [address] [facility] [address], [place], [address] . tel:[phone] [facility], [address] [address], [place], [address], [place] tel:[phone] [facility] GI Symptoms or Concerns (chief complaint) GastropathyNausea with vomiting, unspecifiedEpigastr ic painDisease of stomach and duodenum, unspecified 3 Nikki Trujillo. [address] [facility], [place], [place], [address] , [place]. tel: [phone] Referring Provider: Referral Self. [facility], [address] [address], [place], [address], [place] tel:[phone] [facility] Epigastric pain 3 Lise Roberts. [address] [facility], [address], [place], [place], [address] , [place]. tel: [phone] Office Cons New/estab Mod [facility], [address] [address], [place], [address], [place] tel:[phone] [facility] GI Symptoms or Concerns (chief complaint) Epigastric pain 3 Lise Roberts. [address] [facility], [place], [id number] , [place]. tel:[phone] Referring Provider: Ashwini Zhang MD, [address] [facility], [place], [address]. tel:[phone] [facility], [address] [address], [place], [address], [place] tel:[phone] [facility] No Information 3 Nayan Flores. [address] [facility], [address], [place], [address] , [place]. tel:[phone] Family History Family Member Type Diagnosis Age [...] type Covered alliance party ID Authoriza tiholli(s) [place] [facility] [id number] Social History Type Description Quantity Date Captured [...]
== END 2022-09-01 09:04 | disposition home or self-care (01) ==
LOC: AMB 09-05 12:01
PROVIDERS: PCP Family Medicine; Visit Provider Family Medicine
DX: R10.9 Unspecified abdominal pain (principal)
CPT/HCPCS: A0425; A0429

== ENCOUNTER 2022-09-04 09:08 | Outpatient (CLI) | payer BC, SELFPAY | END 2022-09-04 09:09 | disposition home or self-care (01) | LOC: AMB 09-06 11:13 | PROVIDERS: PCP Family Medicine; Visit Provider Emergency Medicine Emergency Medical Services | DX: R10.9 Unspecified abdominal pain (principal) | CPT/HCPCS: A0425; A0433 ==

== ENCOUNTER 2022-09-04 19:02 | Emergency (ER) | payer BC, SELFPAY ==
[2022-09-04 19:07] VITALS: BP 145/92; PULSE 99; RESP 18; TEMP 36.6; O2SAT 100; BMI 25.1
--- NOTE | 2022-09-04 19:44 | ED_ITS ---
HPI - Abdominal Pain General Chief Complaint: Abdominal Pain Stated Complaint: Stomach pain Time Seen by Provider: 09/04/22 19:18 History of Present Illness HPI narrative: This 27-year-old female has recurrent severe abdominal pain that is been present over the past 2-3 weeks. She has had 7 visits to this emergency department in the past 2 weeks. She has been to other emergency department with similar complaints. This morning she was at [facility] and had her labs drawn and was discharged home. She has had repeated tests and labs but no findings to explain her recurrent pain. She has had an ultrasound and an MRI of her abdomen. She was using marijuana but has quit that now in the past week. She is scheduled for a HIDA scan. She states that the pain is reproducible any time she takes food. Related Data Home Medications Medication Instructions Recorded Confirmed levonorgestrel-ethinyl estradiol 1 tab PO DAILY 07/08/22 08/30/22 0.1 mg-20 mcg tablet (Vienva) lorazepam 1 mg tablet 1 mg PO BID 08/23/22 08/30/22 metoclopramide HCl 10 mg tablet 10 mg PO Q6H PRN nausea/vomiting 08/23/22 08/30/22 ondansetron 4 mg disintegrating 4 mg PO Q8H PRN 08/23/22 08/30/22 tablet sucralfate 1 gram tablet 1 g PO 5XD 08/23/22 08/30/22 Previous Rx's Medication Instructions Recorded escitalopram oxalate 10 mg tablet 10 mg PO DAILY #30 tabs 08/22/22 (Lexapro) lorazepam 0.5 mg tablet (Ativan) 0.5 mg PO BID PRN #15 tabs 08/23/22 potassium chloride 20 mEq 20 meq PO DAILY #7 tabs 08/23/22 tablet,extended release lidocaine HCl 2 % mucosal solution 1 applic mucous membrane BID PRN 08/25/22 #100 mL lorazepam 1 mg tablet 0.5 - 1 mg (0.5 - 1 x 1 mg) PO TID 08/25/22 PRN #12 tabs omeprazole 40 mg capsule,delayed 40 mg PO DAILY #30 caps 08/25/22 release ketorolac 10 mg tablet 10 mg PO Q8H PRN pain #7 tabs 08/30/22 hydrocodone 5 mg-acetaminophen 325 1 tab PO Q4-6H PRN pain #20 tabs 07/03/23 mg tablet Allergies Allergy/AdvReac Type Severity Reaction Status Date / Time No Known Drug Allergies Allergy Verified 08/30/22 09:25 Review of Systems Status of ROS Reports: 10 or more systems reviewed and unremarkable except as noted in History and below Narrative Constitutional: No fevers, no weight gain or loss. Eyes: No discharge. No vision changes. HENT: No congestion, no sore throat, no ear pain. Cardiovascular: No chest pain, no palpitations. Respiratory: No shortness of breath, no wheezes, no cough. Gastrointestinal: Upper epigastric abdominal pain that is worse when taking food. Nausea with vomiting. Genitourinary: No dysuria, no hematuria. Musculoskeletal: Normal range of motion. Skin: No rashes, no pruritis. Neurological: No dizziness, weakness, sensory change, speech change. Endo/Heme/Allergies: No bruising or bleeding. No polydipsia. Pysch: no suicidality, no anxiety, no insomnia. All other systems reviewed and are negative. PFSH [facility] Social History Smoking Status: Former smoker What tobacco products do you use: cigarettes Smoking quit date/years: <= 15 years ago Do you use any of these nicotine containing products: None Second hand tobacco smoke exposure: No How often do you have a drink containing alcohol: never AUDIT-C Alcohol total score: 0 Non-prescribed substance use: marijuana (any form) Non-prescribed substance use details: last marijuana 08/26/22 service: No Exam Narrative: Exam Narrative: Constitutional: Well-developed, well-nourished. HEENT: Normocephalic, atraumatic. Neck: Normal range of motion. Nontender. Supple. Heart: Regular. No murmurs. Normal rate. Intact distal pulses. Lungs: Clear to auscultation. No chest discomfort. No wheezes, rhonchi, or rales. Abdomen: Tenderness in the upper epigastric region. No rebound tenderness. Genitalia: Deferred. Back: No midline tenderness. Normal range of motion. Extremities: Normal range of motion. No injury. Skin: Intact. No rash. Warm. No erythema or pallor. Neurologic: No altered sensation. No weakness. Alert and oriented. Psychiatric: No suicidality. No anxiety or depression. No insomnia. Nursing notes and vitals signs are reviewed. Const: Vital Signs, click to edit/add: Vital Signs - 24 hr 09/04/22 19:07 Temperature 97.8 F Pulse Rate [Pulse Oximeter] 99 Respiratory Rate 18 Blood Pressure [Ri ght Upper Arm] 145/92 H Pulse Oximetry 100 Oxygen Delivery Me thod Room Air Course Vital Signs Vital signs: Initial Vital Signs Temperature 97.8 F 09/04/22 19:07 Temperature Source Temporal Artery Scan 09/04/22 19:07 Pulse Rate 99 09/04/22 19:07 Respiratory Rate 18 09/04/22 19:07 Blood Pressure 145/92 H 09/04/22 19:07 Blood Pressure Mean 109 H 09/04/22 19:07 Blood Pressure Position Sitting 09/04/22 19:07 Pulse Oximetry 100 09/04/22 19:07 Oxygen Delivery Method Room Air 09/04/22 19:07 Vital Signs Temperature 97.8 F 09/04/22 19:07 Pulse Rate 99 09/04/22 19:07 Respiratory Rate 18 09/04/22 19:07 Blood Pressure 145/92 H 09/04/22 19:07 Pulse Oximetry 100 09/04/22 19:07 Oxygen Delivery Method Room Air 09/04/22 19:07 Temperature 97.8 F 09/04/22 19:07 Pulse Rate 99 09/04/22 19:07 Respiratory Rate 18 09/04/22 19:07 Blood Pressure 145/92 H 09/04/22 19:07 Pulse Oximetry 100 09/04/22 19:07 Oxygen Delivery Method Room Air 09/04/22 19:07 MDM - Abdominal Pain MDM Narrative Medical decision making narrative: This patient comes back again with recurrent abdominal pain similar to her previous visits. She arrives with normal vital signs but appears to be in significant distress with nausea and abdominal pain. She is scheduled for a HIDA scan. So far there are no findings to explain her recurrent pain. This patient is making sometimes 2 visits a day to emergency department for these same symptoms. I decided to give her an intramuscular injection of Dilaudid 1 mg. She also received a prescription for [place]. She understands that we will not repeat these treatments. This was done giving the benefit of the doubt that the HIDA scan may in fact show some abnormalities that explain why she has postprandial pain. Discharge Plan Discharge Clinical Impression: Abdominal pain Patient Disposition: Home w/ Parent or Adult Condition: Stable Additional Instructions: Take medication as prescribed. Follow up with MD as scheduled. Return if worsening. Prescriptions: New hydrocodone-acetaminophen 5-325 mg tablet 1 tab PO Q4-6H PRN (Reason: pain) Qty: 20 0RF No Action lorazepam [Ativan] 0.5 mg tablet 0.5 mg PO BID PRNQty: 15 0RF omeprazole 40 mg capsule,delayed release(DR/EC) 40 mg PO DAILY Qty: 30 0RF lorazepam 1 mg tablet 0.5 - 1 mg PO TID PRNQty: 12 0RF lidocaine HCl 2 % solution 1 applic mucous membrane BID PRNQty: 100 0RF Hold Instructions: Pt did not picker Rx Instructions: Can mix 15 mL with equal amount of liquid antacid/anti-gas for stomach pain levonorgestrel-ethinyl estrad [Vienva] 0.1-20 mg-mcg tablet 1 tab PO DAILY escitalopram oxalate [Lexapro] 10 mg tablet 10 mg PO DAILY Qty: 30 2RF sucralfate 1 gram tablet 1 g PO 5XD lorazepam 1 mg tablet 1 mg PO BID ondansetron 4 mg tablet,disintegrating 4 mg PO Q8H PRN metoclopramide HCl 10 mg tablet 10 mg PO Q6H PRN (Reason: nausea/vomiting) potassium chloride 20 mEq tablet extended release 20 meq PO DAILY Qty: 7 2RF Hold Instructions: Pt not taking ketorolac 10 mg tablet 10 mg PO Q8H PRN (Reason: pain) Qty: 7 0RF Follow Up/Referrals: Ashwini Zhang MD [Primary Care Provider] - Stand Alone Forms: [facility] Info Instructions
[2022-09-04] MEDS: HYDROmorphone 0.5 mg/0.5 ml inj 1 MG IM (19:46)
--- OUTSIDE RECORDS SUMMARY | 2022-09-04 19:49 | XMS_ITS | Continuity of Care Document ---
Author Name Unknown Organization [facility] Address [address] [address] [place] [address] Phone Care Team Providers Care Biochemical Engineer Name Role Phone Allyson Hawthorne CRNA Unavailable Unavailable Allergies, Adverse Reactions, Alerts [...] - No Longer Active Procedures Procedure Date Ugi Endo; W/bx 1/mx Level Iv-surg Path Gross/micro Office Cons New/estab Mod Advance Directives Directive Yes / No Effective Date File Name No Information Encounters Encounter Description Practice Location Reason(s) For Visit Diagnoses Date Provider Providers Copied on Encounter [facility], [address] [address], [place], [id number], [place] tel:[phone] [facility] No Information 3 Christoph Valadez. [address], [place], [place], [address] , [place]. tel: [phone] Referring Provider: Ronnie Jordan MD, [address], [place], [address] . tel:[phone] [facility], [address] [address], [place], [id number], [place] tel:[phone] [facility] GI Symptoms or Concerns (chief complaint) GastropathyNausea with vomiting, unspecifiedEpigastr ic painDisease of stomach and duodenum, unspecified 3 Nikki Trujillo. [address], [place], [place], [id number] , [place]. tel: [phone] Referring Provider: Referral Self. [facility], [address] [address], [place], [place], [address], [place] tel:[phone] [facility] Epigastric pain 3 Lise Roberts. [address], [place], [place], [address] , [place]. tel: [phone] Office Cons New/estab Mod [facility], [address] [address], [place], [address], [place] tel:[phone] [facility] GI Symptoms or Concerns (chief complaint) Epigastric pain 3 Lise Roberts. [address], [place], [id number] , [place]. tel:[phone] Referring Provider: Ashwini Zhang MD, [address] [facility], [place], [address]. tel:[phone] [facility], [address] [address], [place], [address], [place] tel:[phone] [facility] No Information 3 Nayan Flores. [address], [place], [id number] , [place]. tel:[phone] Family History Family Member Type Diagnosis Age [...] Registry Payers Payer name Insurance type Covered republican ID Authoriza tiholli(s) [place] [facility] [id number] Social History Type Description Quantity Date Captured [...] No Information Instructions Date Instruction Additional Infor aranza H pylori Related to Gastr opathy NSAIDS List Related to Gastr opathy Assessments Type Assessment Date No Information Patient Care Teams Name Effective Dates (start - stop) Status Members No Information
--- NOTE | 2022-09-04 20:23 | PC.NURSE ---
patient DC, instructions give to patient w/o further questions.
--- NOTE | 2022-09-04 20:24 | PC.NURSE ---
patients mom able to drive patient home
== END 2022-09-04 20:17 | disposition home or self-care (01) ==
PROVIDERS: Emergency Provider Emergency Medicine Emergency Medical Services; PCP Family Medicine
DX: R10.9 Unspecified abdominal pain (principal)
CPT/HCPCS: 96372; 99283; 99284; J1170

== ENCOUNTER 2022-11-02 08:48 | Outpatient (CLI) | payer BC, SELFPAY | END 2022-11-02 08:49 | disposition home or self-care (01) | LOC: AMB 11-03 15:22 | PROVIDERS: PCP Family Medicine; Visit Provider Internal Medicine | DX: R10.9 Unspecified abdominal pain (principal) | CPT/HCPCS: A0425; A0427 ==

== ENCOUNTER 2022-11-02 09:10 | Emergency (ER) | payer BC, SELFPAY ==
[2022-11-02 09:20] VITALS: BP 139/94; PULSE 94; RESP 18; TEMP 35.8; O2SAT 100; BMI 25.1
--- NOTE | 2022-11-02 09:34 | CRLHL7_ITS ---
For Patients: As a result of the Century Cures Act, medical imaging exams and procedure reports are released immediately into your electronic medical record. You may view this report before your referring provider. If you have questions, please contact your health care provider. INDICATION: Epigastric pain TECHNIQUE: Axial images were obtained from the diaphragm to the pubic symphysis. Reformats were obtained in the coronal and sagittal plane. IV Contrast: 79 cc Isovue 370 Oral Contrast: None COMPARISON: Abdomen and pelvis CT 03/19/2021 FINDINGS: Lower chest: Unremarkable. Liver: Unremarkable. Normal in size and attenuation. No masses. Gallbladder and bile ducts: Unremarkable. No stones or inflammation. No biliary dilatation. Spleen: Unremarkable. Normal in size without mass. Pancreas: Unremarkable. No mass or inflammation. Adrenal glands: Unremarkable. No nodules. Kidneys: Unremarkable. No masses, stones, or hydronephrosis. Vasculature: Unremarkable. GI tract: The stomach is unremarkable. No dilated loops of large or small intestine. Appendix unremarkable. Colon is decompressed although there is some slight prominence of the colonic wall, especially at the level of hepatic flexure. Pelvis: Unremarkable. Bones: Unremarkable for age. IMPRESSION: 1. Mild prominence of the colonic wall involving the ascending colon and hepatic flexure. This may be due to incomplete distention although the differential diagnosis would include a mild colitis. 2. Otherwise unremarkable abdomen and pelvis CT. Please note that all CT scans at this facility use dose modulation, iterative reconstruction, and/or weight-based dosing when appropriate to reduce radiation dose to as low as reasonably achievable. Dictated by Arcadio Chacon MD @ 11/02/2022 10:53:00 AM (Electronically Signed)
--- NOTE | 2022-11-02 09:41 | ED_ITS ---
HPI - Abdominal Pain General Chief Complaint: Abdominal Pain Stated Complaint: abdominal pain Time Seen by Provider: 11/02/22 09:15 History of Present Illness HPI narrative: Patient is a 27-year-old woman who has made numerous visits to the emergency room both here and in the area for abdominal pain. The abdominal pain generally is left-sided and often in the left upper quadrant. She has had extensive workup including ultrasound CT scans lab work and even a MRI of the abdomen all of which have been nondiagnostic for her etiology. She states she has been feeling actually fairly well eating and drinking normally. She woke this morning with severe 10 out 10 pain in the superior aspect of the left side of her abdomen. She is nauseous but has not thrown up. She has developed diaphoresis. She states that she is not and has had no change in her bowel or bladder. She has had no other recent changes in states her only home medication is Lexapro. Related Data Home Medications Medication Instructions Recorded Confirmed levonorgestrel-ethinyl estradiol 1 tab PO DAILY 07/08/22 08/30/22 0.1 mg-20 mcg tablet (Vienva) lorazepam 1 mg tablet 1 mg PO BID 08/23/22 08/30/22 metoclopramide HCl 10 mg tablet 10 mg PO Q6H PRN nausea/vomiting 08/23/22 08/30/22 ondansetron 4 mg disintegrating 4 mg PO Q8H PRN 08/23/22 08/30/22 tablet sucralfate 1 gram tablet 1 g PO 5XD 08/23/22 08/30/22 Previous Rx's Medication Instructions Recorded escitalopram oxalate 10 mg tablet 10 mg PO DAILY #30 tabs 08/22/22 (Lexapro) lorazepam 0.5 mg tablet (Ativan) 0.5 mg PO BID PRN #15 tabs 08/23/22 potassium chloride 20 mEq 20 meq PO DAILY #7 tabs 08/23/22 tablet,extended release lidocaine HCl 2 % mucosal solution 1 applic mucous membrane BID PRN 08/25/22 #100 mL lorazepam 1 mg tablet 0.5 - 1 mg (0.5 - 1 x 1 mg) PO TID 08/25/22 PRN #12 tabs omeprazole 40 mg capsule,delayed 40 mg PO DAILY #30 caps 08/25/22 release ketorolac 10 mg tablet 10 mg PO Q8H PRN pain #7 tabs 08/30/22 hydrocodone 5 mg-acetaminophen 325 1 tab PO Q4-6H PRN pain #20 tabs 09/04/22 mg tablet Allergies Allergy/AdvReac Type Severity Reaction Status Date / Time No Known Drug Allergies Allergy Verified 11/02/22 10:51 Review of Systems Status of ROS Reports: 10 or more systems reviewed and unremarkable except as noted in History and below PFSH PFS Social History Smoking Status: Former smoker What tobacco products do you use: cigarettes Smoking quit date/years: <= 15 years ago Do you use any of these nicotine containing products: None Second hand tobacco smoke exposure: No How often do you have a drink containing alcohol: never AUDIT-C Alcohol total score: 0 Non-prescribed substance use: marijuana (any form) Non-prescribed substance use details: last marijuana 08/26/22 service: No Exam Narrative: Exam Narrative: EXAM GENERAL: Patient appears diaphoretic in retching EYES: No scleral icterus. THYROID: no thyroid nodules or thyromegaly. LYMPH: No supraclavicular or cervical lymphadenopathy. SKIN: Visible skin seen during exam normal or with benign process only. EXT: No dependent lower extremity pedal edema. HEART: Regular rate and rhythm with no murmurs, rubs, or gallops. LUNGS: Clear to auscultation bilaterally with no crackles or wheezes. ABD: Limited exam as patient refuses to leave the position. Abdomen is generally soft my palpation with hypoactive but present bowel sounds. PSYCH: Good eye contact, speech is not pressured. Neurologic cranial nerves 2-12 were grossly intact no focal defects. Const: Vital Signs, click to edit/add: Vital Signs - 24 hr 11/02/22 09:20 11/02/22 10:17 Temperature 96.5 F L Pulse Rate [Left P ulse Oximeter] 94 87 Respiratory Rate 18 20 Blood Pressure [Ri ght Upper Arm] 139/94 H 121/86 Pulse Oximetry 100 100 Oxygen Delivery Me thod Room Air Room Air Course Course Hospital Course: This time I did review her previous evaluations. CBC urinalysis test comprehensive metabolic panel amylase urinalysis CT abdomen pelvis ordered. Will be starting her with a bolus of normal saline 4 mg of Zofran and 30 mg of IV Toradol. Vital Signs Vital signs: Initial Vital Signs Temperature 96.5 F L 11/02/22 09:20 Temperature Source Temporal Artery Scan 11/02/22 09:20 Pulse Rate 94 11/02/22 09:20 Respiratory Rate 18 11/02/22 09:20 Blood Pressure 139/94 H 11/02/22 09:20 Blood Pressure Mean 109 H 11/02/22 09:20 Blood Pressure Position Sitting 11/02/22 09:20 Pulse Oximetry 100 11/02/22 09:20 Oxygen Delivery Method Room Air 11/02/22 09:20 Vital Signs Temperature 96.5 F L 11/02/22 09:20 Pulse Rate 94 11/02/22 09:20 Respiratory Rate 18 11/02/22 09:20 Blood Pressure 139/94 H 11/02/22 09:20 Pulse Oximetry 100 11/02/22 09:20 Oxygen Delivery Method Room Air 11/02/22 09:20 Temperature 96.5 F L 11/02/22 09:20 Pulse Rate 87 11/02/22 10:17 Respiratory Rate 20 11/02/22 10:17 Blood Pressure 121/86 11/02/22 10:17 Pulse Oximetry 100 11/02/22 10:17 Oxygen Delivery Method Room Air 11/02/22 10:17 MDM - Abdominal Pain MDM Narrative Medical decision making narrative: Patient is a 27-year-old woman with recurrent abdominal pain who presents to the emergency room with abdominal pain. Evaluation does show colitis as well as an elevated white blood cell count. We did treated with normal saline Toradol and Zofran with mild improvement. I did recommend repeatedly that we should admit her for further evaluation and treatment with continued IV fluids and NPO status. She adamantly states that she will not stay in the hospital and would like to go home. I did express my concern with regards to this plan. Ultimately will respect her wishes and discharge home to advance her diet activity as tolerated Tylenol Motrin rest and fluids. I did provide Zofran 0 DT in in [facility] meds. I did recommend close outpatient follow-up with her As well. Differential Diagnosis Differential diagnosis: Likely abdominal pain, acute appendicitis, calculus of kidney, constipation, diverticulitis, endometriosis, gastroenteritis, pancreatitis and small bowel obstruction Lab Data Labs: Lab Results 11/02/22 11/02/22 Range/Units 09:45 10:15 WBC 14.69 H (4.50-11.00) K/uL RBC 3.92 L (4.00-5.20) m/uL Hgb 12.3 (12.0-16.0) gm/dL Hct 36.6 (33.0-51.0) % MCV 93 (80-100) fL MCH 31 (26-34) pg MCHC 34 (32-36) gm/dL RDW Coeff of [place] 13.3 (11.5-15.5) % Plt Count 311 (140-440) K/uL Neut % (Auto) 83.9 H (42.0-72.0) % Lymph % (Auto) 12.9 L (20-44) % [place] % (Auto) 2.5 (0.0-11.0) % Eos % (Auto) 0.2 (0.0-7.0) % Baso % (Auto) 0.2 (0.0-3.0) % Neut # (Auto) 12.30 H (1.7-7.0) K/uL Lymph # (Auto) 1.90 (0.90-2.90) K/uL Spink # (Auto) 0.40 (0.00-0.90) K/UL Eos # (Auto) 0.00 (0.00-0.50) K/uL Baso # (Auto) 0.00 (0.00-0.30) K/uL Abs Immat Gran (auto) 0.00 (0.00-0.30) K/uL Imm/Tot Granulo (auto) 0.3 % Sodium 139 (135-149) mmol/L Potassium 3.5 L (3.6-5.1) mmol/L Chloride 105 (96-114) mmol/L Carbon Dioxide 19 L (20-32) mmol/L Anion Gap 15 (7-15) mEq/L BUN 14 (5-24) mg/dL Creatinine 0.5 (0.5-1.5) mg/dL Estimated Creat Clear 167.26 Estimated GFR 133 ml/min Glucose 192 H (60-115) mg/dL Calcium 9.5 (8.4-10.6) mg/dL Total Bilirubin 1.4 (0.1-1.5) mg/dL AST 27 (12-35) U/L ALT 21 (4-35) U/L Alkaline Phosphatase 91 (40-150) U/L Total Protein 7.6 (6.0-8.3) g/dL Albumin 4.8 (3.3-5.0) g/dL Amylase 57 (18-89) U/L HCG, Qual Negative (Negative) Urine Color Yellow (Yellow) Urine Appearance Clear (Clear) Urine pH 7.0 (5.0-8.5) Ur Specific [place] 1.025 (1.000-1.030) Urine Protein 1+ A (Negative) Urine Glucose (UA) Negative (Negative) Urine Ketones 3+ A (Negative) Urine Blood Negative (Negative) Urine Nitrite Negative (Negative) Urine Bilirubin Negative (Negative) Urine Urobilinogen 0.2 (0.2-1.0) Ur Leukocyte Esterase Negative (Negative) Urine RBC 0-2 (0-2) Urine WBC 0-2 (0-5) Ur Squamous Epith Cells Few (None-Few) Urine Bacteria None (None) Discharge Plan Discharge Clinical Impression: Colitis Patient Disposition: Home, Self-Care Condition: Stable Instructions: Colitis (ED) Additional Instructions: Tylenol Motrin Rest Fluids Advanced diet as tolerated Zofran as needed for nausea. 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: Can mix 15 mL with equal amount of liquid antacid/anti-gas for stomach pain levonorgestrel-ethinyl estrad [Vienva] 0.1-20 mg-mcg tablet 1 tab PO DAILY escitalopram oxalate [Lexapro] 10 mg tablet 10 mg PO DAILY Qty: 30 2RF sucralfate 1 gram tablet 1 g PO 5XD lorazepam 1 mg tablet 1 mg PO BID ondansetron 4 mg tablet,disintegrating 4 mg PO Q8H PRN metoclopramide HCl 10 mg tablet 10 mg PO Q6H PRN (Reason: nausea/vomiting) potassium chloride 20 mEq tablet extended release 20 meq PO DAILY Qty: 7 2RF Hold Instructions: Pt not taking ketorolac 10 mg tablet 10 mg PO Q8H PRN (Reason: pain) Qty: 7 0RF hydrocodone-acetaminophen 5-325 mg tablet 1 tab PO Q4-6H PRN (Reason: pain) Qty: 20 0RF Follow Up/Referrals: Ashwini Zhang MD [Primary Care Provider] - [facility] Info Inst[facility]
[2022-11-02] MEDS: KETOROLAC 30 MG/ML inj IVP (09:50)
[2022-11-02] MEDS: 0.9 % SODIUM CHLORIDE 1000 ml 1,000 ML IV (09:50)
[2022-11-02 10:01] LABS: Basophils Percent Auto 0.2 % (0.0-3.0); Eosinophils Percent Auto 0.2 % (0.0-7.0); Hematocrit 36.6 % (33.0-51.0); Hemoglobin* 12.3 gm/dL (12.0-16.0); Immature Granulocytes Pct Auto 0.3 %; Lymphocytes Percent Auto 12.9 % (20-44); Mean Corpuscular HGB Conc 34 gm/dL (32-36); Mean Corpuscular Hemoglobin 31 pg (26-34); Mean Corpuscular Volume 93 fL (80-100); Monocytes Percent Auto 2.5 % (0.0-11.0); Neutrophils Percent Auto 83.9 % (42.0-72.0); Platelet Count* 311 K/uL (140-440); RDW Coefficient of Variation % 13.3 % (11.5-15.5); Red Blood Count 3.92 m/uL (4.00-5.20); White Blood Count* 14.69 K/uL (4.50-11.00)
[2022-11-02 10:03] LABS: Slide Review Reflex No
[2022-11-02 10:17] VITALS: BP 121/86; PULSE 87; RESP 20; O2SAT 100
[2022-11-02 10:18] LABS: Albumin* 4.8 g/dL (3.3-5.0); Chloride* 105 mmol/L (96-114)
[2022-11-02 10:19] LABS: Potassium* 3.5 mmol/L (3.6-5.1); Sodium* 139 mmol/L (135-149)
[2022-11-02 10:21] LABS: Amylase* 57 U/L (18-89); Anion Gap 15 mEq/L (7-15); Aspartate Amino Transferase* 27 U/L (12-35); Bilirubin Total* 1.4 mg/dL (0.1-1.5); Carbon Dioxide* 19 mmol/L (20-32); Creatinine* 0.5 mg/dL (0.5-1.5); Est. Creatinine Clearance* 167.26; Estimated Glomerular Filt Rate 133 ml/min; Total Protein* 7.6 g/dL (6.0-8.3)
[2022-11-02 10:22] LABS: Alanine Aminotransferase* 21 U/L (4-35); Alkaline Phosphatase* 91 U/L (40-150); Blood Urea Nitrogen* 14 mg/dL (5-24); Calcium* 9.5 mg/dL (8.4-10.6); Glucose* 192 mg/dL (60-115)
[2022-11-02 10:25] LABS: Appearance Urine Clear (Clear); Bilirubin Urine Negative (Negative); Blood Urine Negative (Negative); Color Urine Yellow (Yellow); Glucose Urine Negative (Negative); Ketones Urine 3+ (Negative); Leukocyte Esterase Urine Negative (Negative); Nitrite Urine Negative (Negative); Protein Urine 1+ (Negative); Specific Gravity Urine 1.025 (1.000-1.030); Urobilinogen Urine 0.2 (0.2-1.0)
[2022-11-02 10:37] LABS: HCG Qualitative Serum* Negative (Negative)
[2022-11-02 10:37] LABS: RBC Urine 0-2 (0-2); Squamous Epithelial Cell Urine Few (None-Few); WBC Urine 0-2 (0-5)
[2022-11-02] MEDS: 0.9 % SODIUM CHLORIDE 500 ML 500 ML IV (11:24)
[2022-11-02 12:10] VITALS: TEMP 36.1
[2022-11-02] MEDS: KETOROLAC 15 MG/ML inj IVP (12:10)
[2022-11-02 12:12] VITALS: BP 119/87; PULSE 84; RESP 20; TEMP 36.1; O2SAT 100
--- NOTE | 2022-11-02 12:18 | ED.NURSE ---
Pt is A & Ox4, states still having pain abdomen and has been in pain (MD aware). Pt vitally stable. Refused admission. Right 20G IV removed. Pt requesting to go home. Understand discharge instructions given to her.
== END 2022-11-02 12:18 | disposition home or self-care (01) ==
PROVIDERS: Emergency Provider Internal Medicine; PCP Family Medicine
DX: K52.9 Noninfective gastroenteritis and colitis, unspecified (principal)
CPT/HCPCS: 36415; 74177; 80053; 81003; 81015; 82150; 84703; 85025; 96374; 96375; 99283; 99284; J1885; J7030; J7120; Q9967

== ENCOUNTER 2022-11-03 07:58 | Emergency (ER) | payer BC, SELFPAY ==
[2022-11-03 08:12] VITALS: BP 116/88; PULSE 91; RESP 16; TEMP 36.3; O2SAT 98; BMI 27.4
--- NOTE | 2022-11-03 08:26 | ED_ITS ---
HPI - General Adult General Chief complaint: Abdominal Pain Stated complaint: stomach pain, vomiting Time Seen by Provider: 11/03/22 08:26 History of Present Illness HPI narrative: Patient here yesterday, declined admission to the hospital. Went home, had gatorade and soup and slept well until this morning waking up with 10/10 abdominal pain. Patient has seen Dr. 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 27-year-old woman returning to the emergency department retching. Has had abdominal pain and vomiting since yesterday. After going home from this department, was able to rest but then woke with pain again and vomiting. Suspected to have some degree of cannabis induced abdominal pain and vomiting, otherwise unexplained. Initially noting that she has not been using marijuana, at least indicating last 24 hours, but then does endorse smoking marijuana a couple days ago. She has not had any fever. No hematemesis. Has had extensive evaluations including imaging. Has also seen general surgery. Upon review of records it looks as though ultimately ended up with a HIDA scan and this was pain free, though there was decreased functioning/excretion of the gallbladder. She has not been recommended for surgical intervention. Does not appear that takes prescriptions as prescribed regularly. Being seen in this emergency department later yesterday with similar complaint, was treated with IV fluids, ketorolac, Zofran and did actually receive CT imaging. Looks to have been diagnosed with a colitis. Was recommended for admission but wanted to return home. I do review the CT images where there was some question of colitis though I think that is inconsistent with presentation/clinical picture and I would favor, as also offered, incomplete distention of the colon as explanation for appearance on imaging. Accompanied by appropriately attentive and concerned grandfather. Related Data Home Medications Medication Instructions Recorded Confirmed levonorgestrel-ethinyl estradiol 1 tab PO DAILY 07/08/22 08/30/22 0.1 mg-20 mcg tablet (Vienva) lorazepam 1 mg tablet 1 mg PO BID 08/23/22 08/30/22 metoclopramide HCl 10 mg tablet 10 mg PO Q6H PRN nausea/vomiting 08/23/22 08/30/22 ondansetron 4 mg disintegrating 4 mg PO Q8H PRN 08/23/22 08/30/22 tablet sucralfate 1 gram tablet 1 g PO 5XD 08/23/22 08/30/22 Previous Rx's Medication Instructions Recorded escitalopram oxalate 10 mg tablet 10 mg PO DAILY #30 tabs 08/22/22 (Lexapro) lorazepam 0.5 mg tablet (Ativan) 0.5 mg PO BID PRN #15 tabs 08/23/22 potassium chloride 20 mEq 20 meq PO DAILY #7 tabs 08/23/22 tablet,extended release lidocaine HCl 2 % mucosal solution 1 applic mucous membrane BID PRN 08/25/22 #100 mL lorazepam 1 mg tablet 0.5 - 1 mg (0.5 - 1 x 1 mg) PO TID 08/25/22 PRN #12 tabs omeprazole 40 mg capsule,delayed 40 mg PO DAILY #30 caps 08/25/22 release ketorolac 10 mg tablet 10 mg PO Q8H PRN pain #7 tabs 08/30/22 hydrocodone 5 mg-acetaminophen 325 1 tab PO Q4-6H PRN pain #20 tabs 09/04/22 mg tablet Allergies Allergy/AdvReac Type Severity Reaction Status Date / Time No Known Drug Allergies Allergy Verified 11/02/22 10:51 Review of Systems Status of ROS: Reports: 6 or more systems reviewed and unremarkable except as noted in History and below [facility] Social History Smoking Status: Former smoker What tobacco products do you use: cigarettes Smoking quit date/years: <= 15 years ago Do you use any of these nicotine containing products: None Second hand tobacco smoke exposure: No How often do you have a drink containing alcohol: never AUDIT-C Alcohol total score: 0 Non-prescribed substance use: marijuana (any form) Non-prescribed substance use details: last marijuana 08/26/22 service: No Exam Narrative: Exam Narrative: Seems very uncomfortable in in pain. Audibly retching prior to my arrival in the room. She reaches again rectus some more during our visit. Nothing produced. Brow is furrowed and discomfort. Oropharynx is sticky. Neck is supple without lymphadenopathy. Lungs are clear. Heart is in an elevated rate in a regular rhythm. Abdomen with normal bowel sounds is diffusely quite tender I think especially in the epigastrium and upper left abdomen. No masses. No peritoneal signs apparent. Well-perfused peripherally. Moving all extremities good strength without difficulty. Just appears miserable. Const: Vital Signs, click to edit/add: Vital Signs - 24 hr 11/03/22 08:12 Temperature 97.3 F L Pulse Rate [Right Pulse Oximeter] 91 Respiratory Rate 16 Blood Pressure [Ri ght Upper Arm] 116/88 Pulse Oximetry 98 Oxygen Delivery Me thod Room Air Documenting provider has reviewed patient's vital signs: yes Course Vital Signs Vital signs: Initial Vital Signs Temperature 97.3 F L 11/03/22 08:12 Temperature Source Temporal Artery Scan 11/03/22 08:12 Pulse Rate 91 11/03/22 08:12 Pulse Rhythm Regular 11/03/22 08:12 Respiratory Rate 16 11/03/22 08:12 Blood Pressure 116/88 11/03/22 08:12 Blood Pressure Mean 97 11/03/22 08:12 Blood Pressure Position Sitting 11/03/22 08:12 Pulse Oximetry 98 11/03/22 08:12 Oxygen Delivery Method Room Air 11/03/22 08:12 Vital Signs Temperature 97.3 F L 11/03/22 08:12 Pulse Rate 91 11/03/22 08:12 Respiratory Rate 16 11/03/22 08:12 Blood Pressure 116/88 11/03/22 08:12 Pulse Oximetry 98 11/03/22 08:12 Oxygen Delivery Method Room Air 11/03/22 08:12 Temperature 97.3 F L 11/03/22 08:12 Pulse Rate 84 11/03/22 10:53 Respiratory Rate 16 11/03/22 10:53 Blood Pressure 120/88 11/03/22 10:53 Pulse Oximetry 96 11/03/22 10:53 Oxygen Delivery Method Room Air 11/03/22 10:53 Medical Decision Making MDM Narrative Medical decision making narrative: I have reviewed records in this case including imaging. Seems to have episodic visits maybe 2 to 3 visits in a row and then might be quite sometime before needs another visit to the emergency department. Reviewed my note for what was successful treatment when last I cared for Celia. Vitals are generally well. History of SSRI; is this possibly related to SSRI? Might need to think of this more like an abdominal migraine. Possibly exacerbated by cannabis use. I do not think that further lab evaluation or imaging is likely to be informative at this time. Will focus on symptom relief; breaking this cycle. Will check white count and transaminases, lipase if possible (there is a history of alcohol use/abuse), given concern albeit unlikely, of colitis from yesterday's visit IV was established received normal saline hydration, 0.5 mg of lorazepam and 1.25 mg of droperidol Able to rest, sleep and is much improved. As expected labs are normal Discussed concerns with Celia and her grandfather. Clarified with them surgeons opinion per their notes. See patient discharge plan Medical Records Medical records reviewed: Yes I reviewed the patient's medical records Lab Data Lab results reviewed: Yes I reviewed the patient's lab results Labs: Lab Results 11/03/22 Range/Units 08:58 WBC 9.17 (4.50-11.00) K/uL RBC 4.14 (4.00-5.20) m/uL Hgb 13.2 (12.0-16.0) gm/dL Hct 38.5 (33.0-51.0) % MCV 93 (80-100) fL MCH 32 (26-34) pg MCHC 34 (32-36) gm/dL RDW Coeff of Yesenia 13.4 (11.5-15.5) % Plt Count 281 (140-440) K/uL Neut % (Auto) 80.4 H (42.0-72.0) % Lymph % (Auto) 15.3 L (20-44) % [place] % (Auto) 3.6 (0.0-11.0) % Eos % (Auto) 0.2 (0.0-7.0) % Baso % (Auto) 0.2 (0.0-3.0) % Neut # (Auto) 7.40 H (1.7-7.0) K/uL Lymph # (Auto) 1.40 (0.90-2.90) K/uL [place] # (Auto) 0.30 (0.00-0.90) K/UL Eos # (Auto) 0.02 (0.00-0.50) K/uL Baso # (Auto) 0.02 (0.00-0.30) K/uL Abs Immat Gran (auto) 0.03 (0.00-0.30) K/uL Imm/Tot Granulo (auto) 0.3 % Sodium 140 (135-149) mmol/L Potassium 3.3 L (3.6-5.1) mmol/L Chloride 106 (96-114) mmol/L Carbon Dioxide 21 (20-32) mmol/L Anion Gap 13 (7-15) mEq/L BUN 10 (5-24) mg/dL Creatinine 0.6 (0.5-1.5) mg/dL Estimated Creat Clear 134.18 Estimated GFR 128 ml/min Glucose 130 H (60-115) mg/dL Lactate 1.8 (0.5-1.9) mmol/L Calcium 9.9 (8.4-10.6) mg/dL Magnesium 2.2 (1.5-2.6) mg/dL Total Bilirubin 2.3 H (0.1-1.5) mg/dL Direct Bilirubin 0.0 (0.0-0.5) mg/dL AST 32 (12-35) U/L ALT 22 (4-35) U/L Alkaline Phosphatase 86 (40-150) U/L C-Reactive Protein 0.9 (0.5-1.0) mg/dL Total Protein 8.3 (6.0-8.3) g/dL Albumin 5.1 H (3.3-5.0) g/dL Lipase Cancelled Discharge Plan Discharge Clinical Impression: Abdominal pain, Vomiting Patient Disposition: Home w/ Parent or Adult Condition: Improved Additional Instructions: Slow advance of diet over the next couple of days. I imagine by now you know what foods make this worse and which foods are tolerable. I would focus more on liquids. Consider follow-up with Dr. Salcedo though I do not think this is a surgical issue at this point; you had seen her before and maybe there will be some other insights given recurrence here. Otherwise follow-up with your primary care provider. Do record whether not you are taking the prescribed medications as it helps us know what is working in what isn't and can sometimes be diagnostic. The timing of this pain and vomiting, unless I am not understanding, is suspicious for being triggered by marijuana use. Abdominal migraine might be useful term/concept for you as well. 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: Can mix 15 mL with equal amount of liquid antacid/anti-gas for stomach pain levonorgestrel-ethinyl estrad [Vienva] 0.1-20 mg-mcg tablet 1 tab PO DAILY escitalopram oxalate [Lexapro] 10 mg tablet 10 mg PO DAILY Qty: 30 2RF sucralfate 1 gram tablet 1 g PO 5XD lorazepam 1 mg tablet 1 mg PO BID ondansetron 4 mg tablet,disintegrating 4 mg PO Q8H PRN metoclopramide HCl 10 mg tablet 10 mg PO Q6H PRN (Reason: nausea/vomiting) potassium chloride 20 mEq tablet extended release 20 meq PO DAILY Qty: 7 2RF Hold Instructions: Pt not taking ketorolac 10 mg tablet 10 mg PO Q8H PRN (Reason: pain) Qty: 7 0RF hydrocodone-acetaminophen 5-325 mg tablet 1 tab PO Q4-6H PRN (Reason: pain) Qty: 20 0RF Follow Up/Referrals: Ashwini Zhang MD [Primary Care Provider] - Stand [facility]one [facility]
[2022-11-03 09:01] LABS: Lactate* 1.8 mmol/L (0.5-1.9)
[2022-11-03 09:04] LABS: Basophils Absolute Auto 0.02 K/uL (0.00-0.30); Basophils Percent Auto 0.2 % (0.0-3.0); Eosinophils Absolute Auto 0.02 K/uL (0.00-0.50); Eosinophils Percent Auto 0.2 % (0.0-7.0); Hematocrit 38.5 % (33.0-51.0); Hemoglobin* 13.2 gm/dL (12.0-16.0); Immature Granulocytes Abs Auto 0.03 K/uL (0.00-0.30); Immature Granulocytes Pct Auto 0.3 %; Lymphocytes Percent Auto 15.3 % (20-44); Mean Corpuscular HGB Conc 34 gm/dL (32-36); Mean Corpuscular Hemoglobin 32 pg (26-34); Mean Corpuscular Volume 93 fL (80-100); Monocytes Percent Auto 3.6 % (0.0-11.0); Neutrophils Percent Auto 80.4 % (42.0-72.0); Platelet Count* 281 K/uL (140-440); RDW Coefficient of Variation % 13.4 % (11.5-15.5); Red Blood Count 4.14 m/uL (4.00-5.20); White Blood Count* 9.17 K/uL (4.50-11.00)
[2022-11-03 09:05] LABS: Slide Review Reflex No
[2022-11-03] MEDS: 0.9 % SODIUM CHLORIDE 1000 ml 1,000 ML IV (09:05)
[2022-11-03] MEDS: droperidoL 2.5 MG/ML inj 1.25 MG IV (09:11)
[2022-11-03] MEDS: LORazepam 2 MG/ML inj 0.5 MG IVP (09:11)
[2022-11-03 09:17] LABS: Chloride* 106 mmol/L (96-114)
[2022-11-03 09:18] LABS: Potassium* 3.3 mmol/L (3.6-5.1); Sodium* 140 mmol/L (135-149)
[2022-11-03 09:19] LABS: Albumin* 5.1 g/dL (3.3-5.0)
[2022-11-03 09:20] LABS: Creatinine* 0.6 mg/dL (0.5-1.5); Est. Creatinine Clearance* 134.18; Estimated Glomerular Filt Rate 128 ml/min
[2022-11-03 09:21] LABS: Anion Gap 13 mEq/L (7-15); Bilirubin Total* 2.3 mg/dL (0.1-1.5); Blood Urea Nitrogen* 10 mg/dL (5-24); Calcium* 9.9 mg/dL (8.4-10.6); Carbon Dioxide* 21 mmol/L (20-32); Glucose* 130 mg/dL (60-115); Total Protein* 8.3 g/dL (6.0-8.3)
[2022-11-03 09:22] LABS: Alanine Aminotransferase* 22 U/L (4-35); Alkaline Phosphatase* 86 U/L (40-150); Aspartate Amino Transferase* 32 U/L (12-35); Magnesium* 2.2 mg/dL (1.5-2.6)
[2022-11-03 10:22] LABS: C Reactive Protein* 0.9 mg/dL (0.5-1.0)
[2022-11-03 10:53] VITALS: BP 120/88; PULSE 84; RESP 16; O2SAT 96
== END 2022-11-03 10:55 | disposition home or self-care (01) ==
PROVIDERS: Emergency Provider Family Medicine; PCP Family Medicine
DX: R10.9 Unspecified abdominal pain (principal); R11.10 Vomiting, unspecified
CPT/HCPCS: 36415; 80048; 80076; 83605; 83690; 83735; 85025; 86140; 96374; 96375; 99283; 99284; J1790; J2060; J7030

== ENCOUNTER 2022-11-09 08:04 | Outpatient (CLI) | payer BC, SELFPAY ==
--- OUTSIDE RECORDS SUMMARY | 2022-11-11 13:16 | XMS_ITS | Continuity of Care Document ---
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 [address], [place], [place], [id number] , [place]. tel: [phone] Referring Provider: Ronnie Jordan MD, [address], [place], [address] . tel:[phone] [facility], [address] [address], [place], [id number], [place] tel:[phone] [facility] GI Symptoms or Concerns (chief complaint) GastropathyNausea with vomiting, unspecifiedEpigastr ic painDisease of stomach and duodenum, unspecified 3 Nikki Trujillo. [address], [place], [place], [id number] , [place]. tel: [phone] Referring Provider: Referral Self. [facility], [address] [address], [place], [place], [id number], [place] tel:[phone] [facility] Epigastric pain 3 Lise Roberts. [address], [place], [place], [id number] , [place]. tel: [phone] Office Cons New/estab Mod [facility], [address] [address], [place], [place], [id number], [place] tel:[phone] [facility] GI Symptoms or Concerns (chief complaint) Epigastric pain 3 Lise Roberts. [address], [place], [id number] , [place]. tel:[phone] Referring Provider: Ashwini Zhang MD, [address], [place], [address]. tel:[phone] [facility], [address] [address], [place], [id number], [place] tel:[phone] [facility] No Information 3 Nayan Flores. [address], [place], [id number] , [place]. tel:[phone] Family History Family Member Type Diagnosis Age [...] name Insurance type Covered green party ID Authoriza tiholli(s) [place] [employer] [facility] [id number] Social History Type Description Quantity Date Captured Comments Sex Female Smoking Status No Information Chief Complaint And Reason For Visit No Information Reason For Referral Reason For Referral No Information Plan Of Treatment Date Type Action Status Referral Ordered: EGD Appointment date/timeframe: 08/25/2022 ordered Referral Ordered: MRI Pancreas WITH Contrast Appointment date/timeframe: 08/15/2022 ordered History Of Present Illness Encounter Date [...]
== END 2022-11-09 08:05 | disposition home or self-care (01) ==
PROVIDERS: PCP Family Medicine; Visit Provider Emergency Medicine Emergency Medical Services
DX: R10.9 Unspecified abdominal pain (principal)
CPT/HCPCS: A0425; A0427

== ENCOUNTER 2022-11-09 08:27 | Emergency (ER) | payer BC, SELFPAY ==
[2022-11-09 08:34] VITALS: BP 127/102; PULSE 86; RESP 18; TEMP 36.4; O2SAT 99; BMI 25.1
--- NOTE | 2022-11-09 09:10 | ED_ITS ---
HPI - General Adult General Chief complaint: Nausea/Vomiting Stated complaint: Abdominal pain Time Seen by Provider: 11/09/22 08:58 History of Present Illness HPI narrative: This 27-year-old female has recurrent abdominal pains with vomiting. She has been seen many times in the emergency department here and elsewhere for these similar symptoms. She has similar symptoms today and comes in by ambulance where she received IV doses of Zofran and fentanyl without much relief. She has had CT imaging, MRI, and HIDA scan along with lab results repeatedly with no clear finding that explains these symptoms. She does use marijuana and states that she last used marijuana last night. This is most likely what is causing her symptoms. Related Data Home Medications Medication Instructions Recorded Confirmed levonorgestrel-ethinyl estradiol 1 tab PO DAILY 07/08/22 08/30/22 0.1 mg-20 mcg tablet (Vienva) lorazepam 1 mg tablet 1 mg PO BID 08/23/22 08/30/22 metoclopramide HCl 10 mg tablet 10 mg PO Q6H PRN nausea/vomiting 08/23/22 08/30/22 ondansetron 4 mg disintegrating 4 mg PO Q8H PRN 08/23/22 08/30/22 tablet sucralfate 1 gram tablet 1 g PO 5XD 08/23/22 08/30/22 Previous Rx's Medication Instructions Recorded escitalopram oxalate 10 mg tablet 10 mg PO DAILY #30 tabs 08/22/22 (Lexapro) lorazepam 0.5 mg tablet (Ativan) 0.5 mg PO BID PRN #15 tabs 08/23/22 potassium chloride 20 mEq 20 meq PO DAILY #7 tabs 08/23/22 tablet,extended release lidocaine HCl 2 % mucosal solution 1 applic mucous membrane BID PRN 08/25/22 #100 mL lorazepam 1 mg tablet 0.5 - 1 mg (0.5 - 1 x 1 mg) PO TID 08/25/22 PRN #12 tabs omeprazole 40 mg capsule,delayed 40 mg PO DAILY #30 caps 08/25/22 release ketorolac 10 mg tablet 10 mg PO Q8H PRN pain #7 tabs 08/30/22 hydrocodone 5 mg-acetaminophen 325 1 tab PO Q4-6H PRN pain #20 tabs 09/04/22 mg tablet capsaicin 0.1 % topical cream 1 applic topical BID #42.5 grams 11/09/22 Allergies Allergy/AdvReac Type Severity Reaction Status Date / Time No Known Drug Allergies Allergy Verified 11/02/22 10:51 Review of Systems Status of ROS: Reports: 10 or more systems reviewed and unremarkable except as noted in History and below Narrative: Constitutional: No fevers, no weight gain or loss. Eyes: No discharge. No vision changes. HENT: No congestion, no sore throat, no ear pain. Cardiovascular: No chest pain, no palpitations. Respiratory: No shortness of breath, no wheezes, no cough. Gastrointestinal: Upper epigastric abdominal pain with nausea and vomiting. Genitourinary: No dysuria, no hematuria. Musculoskeletal: Normal range of motion. Skin: No rashes, no pruritis. Neurological: No dizziness, weakness, sensory change, speech change. Endo/Heme/Allergies: No bruising or bleeding. No polydipsia. Pysch: no suicidality, no anxiety, no insomnia. All other systems reviewed and are negative. [facility] Social History Smoking Status: Former smoker What tobacco products do you use: cigarettes Smoking quit date/years: <= 15 years ago Do you use any of these nicotine containing products: None Second hand tobacco smoke exposure: No How often do you have a drink containing alcohol: never AUDIT-C Alcohol total score: 0 Non-prescribed substance use: marijuana (any form) Non-prescribed substance use details: last marijuana 08/26/22 service: No Exam Narrative: Exam Narrative: Constitutional: Well-developed, well-nourished, no acute distress. HEENT: Normocephalic, atraumatic. Neck: Normal range of motion. Nontender. Supple. Heart: Regular. No murmurs. Normal rate. Intact distal pulses. Lungs: Clear to auscultation. No chest discomfort. No wheezes, rhonchi, or rales. Abdomen: Normal bowel sounds. Tenderness in the upper epigastric area. No rebound tenderness. Genitalia: Deferred. Back: No midline tenderness. Normal range of motion. Extremities: Normal range of motion. No injury. Skin: Intact. No rash. Warm. No erythema or pallor. Neurologic: No altered sensation. No weakness. Alert and oriented. Psychiatric: No suicidality. No anxiety or depression. No insomnia. Nursing notes and vitals signs are reviewed. Const: Vital Signs, click to edit/add: Vital Signs - 24 hr 11/09/22 08:34 Temperature 97.6 F Pulse Rate [Pulse Oximeter] 86 Respiratory Rate 18 Blood Pressure [Ri ght Upper Arm] 127/102 H Pulse Oximetry 99 Oxygen Delivery Me thod Room Air High Flow Nasal Cannula Course Vital Signs Vital signs: Initial Vital Signs Temperature 97.6 F 11/09/22 08:34 Temperature Source Temporal Artery Scan 11/09/22 08:34 Pulse Rate 86 11/09/22 08:34 Respiratory Rate 18 11/09/22 08:34 Blood Pressure 127/102 H 11/09/22 08:34 Blood Pressure Mean 110 H 11/09/22 08:34 Pulse Oximetry 99 11/09/22 08:34 Oxygen Delivery Method Room Air, High Flow Nasal Cannula 11/09/22 08:34 Vital Signs Temperature 97.6 F 11/09/22 08:34 Pulse Rate 86 11/09/22 08:34 Respiratory Rate 18 11/09/22 08:34 Blood Pressure 127/102 H 11/09/22 08:34 Pulse Oximetry 99 11/09/22 08:34 Oxygen Delivery Method Room Air, High Flow Nasal Cannula 11/09/22 08:34 Temperature 97.6 F 11/09/22 08:34 Pulse Rate 86 11/09/22 08:34 Respiratory Rate 18 11/09/22 08:34 Blood Pressure 127/102 H 11/09/22 08:34 Pulse Oximetry 99 11/09/22 08:34 Oxygen Delivery Method Room Air, High Flow Nasal Cannula 11/09/22 08:34 Medical Decision Making MDM Narrative Medical decision making narrative: This patient comes in with another episode of upper epigastric abdominal pain with nausea and vomiting. She has been seen many times for these type of symptoms and has had numerous workups which have returned with no findings to definitely explain her symptoms. She does use marijuana and again used it last evening. She states that she has had Haldol in the past and it has helped her. She did receive 5 mg intravenously and this brought relief of her symptoms. I recommended again that she avoid any exposure to marijuana. I recommended using capsaicin cream if symptoms are recurrent. There were no further lab or imaging studies done today. I did discuss this with the patient who agreed that these previous results have all returned with reassuring findings. Discharge Plan Discharge Clinical Impression: Cyclical vomiting Patient Disposition: Home, Self-Care Condition: Improved Additional Instructions: Avoid using marijuana. Use capsaicin cream as needed and directed if symptoms return. Continue other current plans. Follow up with MD or return if worsening. 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 Instructions: Can mix 15 mL with equal amount of liquid antacid/anti-gas for stomach pain levonorgestrel-ethinyl estrad [Vienva] 0.1-20 mg-mcg tablet 1 tab PO DAILY escitalopram oxalate [Lexapro] 10 mg tablet 10 mg PO DAILY Qty: 30 2RF sucralfate 1 gram tablet 1 g PO 5XD lorazepam 1 mg tablet 1 mg PO BID ondansetron 4 mg tablet,disintegrating 4 mg PO Q8H PRN metoclopramide HCl 10 mg tablet 10 mg PO Q6H PRN (Reason: nausea/vomiting) potassium chloride 20 mEq tablet extended release 20 meq PO DAILY Qty: 7 2RF Hold Instructions: Pt not taking ketorolac 10 mg tablet 10 mg PO Q8H PRN (Reason: pain) Qty: 7 0RF hydrocodone-acetaminophen 5-325 mg tablet 1 tab PO Q4-6H PRN (Reason: pain) Qty: 20 0RF Follow Up/Referrals: Ashwini Zhang MD [Primary Care Provider] - Stand Alone Forms: [employer] Info Instructions
[2022-11-09] MEDS: HALOPERIDOL 5 MG/ML INJ IV (09:32)
== END 2022-11-09 10:56 | disposition home or self-care (01) ==
PROVIDERS: Emergency Provider Emergency Medicine Emergency Medical Services; PCP Family Medicine
DX: R11.15 Cyclical vomiting syndrome unrelated to migraine (principal)
CPT/HCPCS: 96374; 99283; 99284; J1630

== ENCOUNTER 2022-11-24 12:17 | Outpatient (CLI) | payer BC, SELFPAY | END 2022-11-24 12:18 | disposition home or self-care (01) | LOC: AMB 11-30 13:56 | PROVIDERS: PCP Family Medicine; Visit Provider Student in an Organized Health Care Education/Training Program | DX: R10.9 Unspecified abdominal pain (principal); R11.2 Nausea with vomiting, unspecified | CPT/HCPCS: A0425; A0433 ==

== ENCOUNTER 2022-12-11 11:21 | Emergency (ER) | payer BC, SELFPAY ==
[2022-12-11 11:39] VITALS: BP 157/104; PULSE 120; RESP 18; TEMP 36.6; O2SAT 99; BMI 24.3
[2022-12-11] MEDS: HALOPERIDOL 5 MG/ML INJ IM (12:13)
[2022-12-11 12:14] VITALS: BP 118/83; PULSE 93; RESP 20; O2SAT 97
--- NOTE | 2022-12-11 12:29 | ED_ITS ---
HPI - Abdominal Pain General Chief Complaint: Abdominal Pain Stated Complaint: Abdominal pain, vomiting Time Seen by Provider: 12/11/22 11:23 History of Present Illness HPI narrative: This 27-year-old female comes in with abdominal pain. She has been seen many times for similar symptoms of abdominal pain with vomiting. She uses marijuana and has been told that this is causing her recurrent symptoms. She states that she continues to use but has decreased frequency of use. I asked her about alcohol and she admits to me now that she is taking alcohol also. She went through treatment I believe and discontinued alcohol use back in April but admits to me today that she is using alcohol again. Her last drink was last night and that is when her pain started. She arrives with persistent upper epigastric pain with self-induced attempts to vomit. Related Data Home Medications Medication Instructions Recorded Confirmed levonorgestrel-ethinyl estradiol 1 tab PO DAILY 07/08/22 08/30/22 0.1 mg-20 mcg tablet (Vienva) lorazepam 1 mg tablet 1 mg PO BID 08/23/22 08/30/22 metoclopramide HCl 10 mg tablet 10 mg PO Q6H PRN nausea/vomiting 08/23/22 08/30/22 ondansetron 4 mg disintegrating 4 mg PO Q8H PRN 08/23/22 08/30/22 tablet sucralfate 1 gram tablet 1 g PO 5XD 08/23/22 08/30/22 Previous Rx's Medication Instructions Recorded escitalopram oxalate 10 mg tablet 10 mg PO DAILY #30 tabs 08/22/22 (Lexapro) lorazepam 0.5 mg tablet (Ativan) 0.5 mg PO BID PRN #15 tabs 08/23/22 potassium chloride 20 mEq 20 meq PO DAILY #7 tabs 08/23/22 tablet,extended release lidocaine HCl 2 % mucosal solution 1 applic mucous membrane BID PRN 08/25/22 #100 mL lorazepam 1 mg tablet 0.5 - 1 mg (0.5 - 1 x 1 mg) PO TID 08/25/22 PRN #12 tabs omeprazole 40 mg capsule,delayed 40 mg PO DAILY #30 caps 08/25/22 release ketorolac 10 mg tablet 10 mg PO Q8H PRN pain #7 tabs 08/30/22 hydrocodone 5 mg-acetaminophen 325 1 tab PO Q4-6H PRN pain #20 tabs 09/04/22 mg tablet capsaicin 0.1 % topical cream 1 applic topical BID #42.5 grams 11/09/22 Allergies Allergy/AdvReac Type Severity Reaction Status Date / Time No Known Drug Allergies Allergy Verified 11/02/22 10:51 Review of Systems Status of ROS Reports: 10 or more systems reviewed and unremarkable except as noted in History and below Narrative Constitutional: No fevers, no weight gain or loss. Eyes: No discharge. No vision changes. HENT: No congestion, no sore throat, no ear pain. Cardiovascular: No chest pain, no palpitations. Respiratory: No shortness of breath, no wheezes, no cough. Gastrointestinal: Upper epigastric abdominal pain. Nausea and vomiting. Genitourinary: No dysuria, no hematuria. Musculoskeletal: Normal range of motion. Skin: No rashes, no pruritis. Neurological: No dizziness, weakness, sensory change, speech change. Endo/Heme/Allergies: No bruising or bleeding. No polydipsia. Pysch: no suicidality, no anxiety, no insomnia. She uses marijuana and admits that she has resumed taking alcohol. All other systems reviewed and are negative. [facility] Social History Smoking Status: Former smoker What tobacco products do you use: cigarettes Smoking quit date/years: <= 15 years ago Do you use any of these nicotine containing products: None Second hand tobacco smoke exposure: No How often do you have a drink containing alcohol: never AUDIT-C Alcohol total score: 0 Non-prescribed substance use: marijuana (any form) Non-prescribed substance use details: last marijuana 08/26/22 service: No Exam Narrative: Exam Narrative: Constitutional: Well-developed, well-nourished, no acute distress. HEENT: Normocephalic, atraumatic. Neck: Normal range of motion. Nontender. Supple. Heart: Regular. No murmurs. Normal rate. Intact distal pulses. Lungs: Clear to auscultation. No chest discomfort. No wheezes, rhonchi, or rales. Abdomen: Upper epigastric pain. Persistent nausea and attempts to vomit. Genitalia: Deferred. Back: No midline tenderness. Normal range of motion. Extremities: Normal range of motion. No injury. Skin: Intact. No rash. Warm. No erythema or pallor. Neurologic: No altered sensation. No weakness. Alert and oriented. Psychiatric: No suicidality. No anxiety or depression. No insomnia. Nursing notes and vitals signs are reviewed. Const: Vital Signs, click to edit/add: Vital Signs - 24 hr 12/11/22 11:39 12/11/22 12:14 12/11/22 13:20 Temperature 97.8 F Pulse Rate [Right Pulse Oximeter] 120 H 93 112 H Respiratory Rate 18 20 20 Blood Pressure [Ri ght Upper Arm] 157/104 H 118/83 140/95 H Pulse Oximetry 99 97 99 Oxygen Delivery Me thod Room Air Room Air Room Air Course Vital Signs Vital signs: Initial Vital Signs Temperature 97.8 F 12/11/22 11:39 Temperature Source Temporal Artery Scan 12/11/22 11:39 Pulse Rate 120 H 12/11/22 11:39 Respiratory Rate 18 12/11/22 11:39 Blood Pressure 157/104 H 12/11/22 11:39 Blood Pressure Mean 121 H 12/11/22 11:39 Blood Pressure Position Sitting 12/11/22 11:39 Pulse Oximetry 99 12/11/22 11:39 Oxygen Delivery Method Room Air 12/11/22 11:39 Vital Signs Temperature 97.8 F 12/11/22 11:39 Pulse Rate 120 H 12/11/22 11:39 Respiratory Rate 18 12/11/22 11:39 Blood Pressure 157/104 H 12/11/22 11:39 Pulse Oximetry 99 12/11/22 11:39 Oxygen Delivery Method Room Air 12/11/22 11:39 Temperature 97.8 F 12/11/22 11:39 Pulse Rate 112 H 12/11/22 13:20 Respiratory Rate 20 12/11/22 13:20 Blood Pressure 140/95 H 12/11/22 13:20 Pulse Oximetry 99 12/11/22 13:20 Oxygen Delivery Method Room Air 12/11/22 13:20 MDM - Abdominal Pain MDM Narrative Medical decision making narrative: This patient comes in again with similar symptoms of abdominal pain, nausea, and vomiting. She has visited many times at this facility and elsewhere for similar symptoms. She states that she continues to use marijuana and admits to me that she is also using alcohol. Through her stay here was noted that she was drinking larger amounts of water and then inducing vomiting by sticking her fingers in her mouth. Initially she received a intramuscular injection of Haldol 5 mg and I stated that we would not be doing IV treatments. When she admitted that she was using alcohol again I did check her blood because of the possibility of pancreatitis. Her lipase returns normal. Her lab results are essentially reassuring. The patient did also receive Maalox Plus. At the time of her discharge she is no longer vomiting and seems more peaceful. I stressed again that her lifestyle is causing these symptoms and encouraged her to discontinue all use of alcohol, marijuana, and to avoid inducing vomiting. Lab Data Labs: Lab Results 12/11/22 12/11/22 Range/Units 12:44 13:12 WBC 8.77 (4.50-11.00) K/uL RBC 4.23 (4.00-5.20) m/uL Hgb 13.5 (12.0-16.0) gm/dL Hct 40.8 (33.0-51.0) % MCV 97 (80-100) fL MCH 32 (26-34) pg MCHC 33 (32-36) gm/dL RDW Coeff of Yesenia 13.9 (11.5-15.5) % Plt Count 196 (140-440) K/uL Neut % (Auto) 81.2 H (42.0-72.0) % Lymph % (Auto) 14.7 L (20-44) % Hettinger % (Auto) 3.0 (0.0-11.0) % Eos % (Auto) 0.1 (0.0-7.0) % Baso % (Auto) 0.5 (0.0-3.0) % Neut # (Auto) 7.10 H (1.7-7.0) K/uL Lymph # (Auto) 1.30 (0.90-2.90) K/uL Hettinger # (Auto) 0.30 (0.00-0.90) K/UL Eos # (Auto) 0.01 (0.00-0.50) K/uL Baso # (Auto) 0.04 (0.00-0.30) K/uL Abs Immat Gran (auto) 0.04 (0.00-0.30) K/uL Imm/Tot Granulo (auto) 0.5 % Sodium 139 (135-149) mmol/L Potassium 3.5 L (3.6-5.1) mmol/L Chloride 104 (96-114) mmol/L Carbon Dioxide 18 L (20-32) mmol/L Anion Gap 17 H (7-15) mEq/L BUN 11 (5-24) mg/dL Creatinine 0.5 (0.5-1.5) mg/dL Estimated Creat Clear 173.51 Estimated GFR 133 ml/min Glucose 121 H (60-115) mg/dL Calcium 9.0 (8.4-10.6) mg/dL Lipase 22 L (23-300) U/L Discharge Plan Discharge Clinical Impression: Cyclical vomiting syndrome Patient Disposition: Home, Self-Care Condition: Improved Additional Instructions: Avoid alcohol and marijuana. Avoid self-induced vomiting. Continue current julieta ns otherwise. Follow up with MD as needed. 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: Can mix 15 mL with equal amount of liquid antacid/anti-gas for stomach pain levonorgestrel-ethinyl estrad [Vienva] 0.1-20 mg-mcg tablet 1 tab PO DAILY escitalopram oxalate [Lexapro] 10 mg tablet 10 mg PO DAILY Qty: 30 2RF sucralfate 1 gram tablet 1 g PO 5XD lorazepam 1 mg tablet 1 mg PO BID ondansetron 4 mg tablet,disintegrating 4 mg PO Q8H PRN metoclopramide HCl 10 mg tablet 10 mg PO Q6H PRN (Reason: nausea/vomiting) potassium chloride 20 mEq tablet extended release 20 meq PO DAILY Qty: 7 2RF Hold Instructions: Pt not taking ketorolac 10 mg tablet 10 mg PO Q8H PRN (Reason: pain) Qty: 7 0RF hydrocodone-acetaminophen 5-325 mg tablet 1 tab PO Q4-6H PRN (Reason: pain) Qty: 20 0RF capsaicin 0.1 % cream 1 applic topical BID Qty: 42.5 0RF Rx Instructions: do not wash area for at least 30 min after application Follow Up/Referrals: Ashwini Zhang MD [Primary Care Provider] - Stand Alone Forms: [employer] Info Instructions
[2022-12-11 12:54] LABS: Basophils Absolute Auto 0.04 K/uL (0.00-0.30); Basophils Percent Auto 0.5 % (0.0-3.0); Eosinophils Absolute Auto 0.01 K/uL (0.00-0.50); Eosinophils Percent Auto 0.1 % (0.0-7.0); Hematocrit 40.8 % (33.0-51.0); Hemoglobin* 13.5 gm/dL (12.0-16.0); Immature Granulocytes Abs Auto 0.04 K/uL (0.00-0.30); Immature Granulocytes Pct Auto 0.5 %; Lymphocytes Percent Auto 14.7 % (20-44); Mean Corpuscular HGB Conc 33 gm/dL (32-36); Mean Corpuscular Hemoglobin 32 pg (26-34); Mean Corpuscular Volume 97 fL (80-100); Neutrophils Percent Auto 81.2 % (42.0-72.0); Platelet Count* 196 K/uL (140-440); RDW Coefficient of Variation % 13.9 % (11.5-15.5); Red Blood Count 4.23 m/uL (4.00-5.20); White Blood Count* 8.77 K/uL (4.50-11.00)
[2022-12-11] MEDS: MAG HYDROX/ALUMINUM HYD/SIMETH 30 ML ORAL.SUSP 15 ML PO (12:54)
[2022-12-11 12:58] LABS: Slide Review Reflex No
[2022-12-11 13:20] VITALS: BP 140/95; PULSE 112; RESP 20; O2SAT 99
[2022-12-11 13:32] LABS: Chloride* 104 mmol/L (96-114); Potassium* 3.5 mmol/L (3.6-5.1); Sodium* 139 mmol/L (135-149)
[2022-12-11 13:35] LABS: Anion Gap 17 mEq/L (7-15); Blood Urea Nitrogen* 11 mg/dL (5-24); Carbon Dioxide* 18 mmol/L (20-32); Creatinine* 0.5 mg/dL (0.5-1.5); Est. Creatinine Clearance* 173.51; Estimated Glomerular Filt Rate 133 ml/min; Glucose* 121 mg/dL (60-115); Lipase* 22 U/L (23-300)
[2022-12-11 14:09] VITALS: BP 141/93; PULSE 112; RESP 20; O2SAT 98
--- NOTE | 2022-12-11 14:10 | ED.NURSE ---
Unable to received UA, attempted multiple times pt stated she does not need to go. Attempted x1 and stated she was unable to get UA and found urine hat out of toilet. Per MD did not need urine and pt can discharge. Pt understands D/C instructions and has not further questions.
== END 2022-12-11 14:14 | disposition home or self-care (01) ==
PROVIDERS: Emergency Provider Emergency Medicine Emergency Medical Services; PCP Family Medicine
DX: R11.15 Cyclical vomiting syndrome unrelated to migraine (principal); F12.90 Cannabis use, unspecified, uncomplicated
CPT/HCPCS: 36415; 80048; 80306; 81001; 83690; 85025; 96372; 99283; 99284; A9270; J1630

== ENCOUNTER 2022-12-19 12:33 | Outpatient (CLI) | payer BC, SELFPAY | END 2022-12-19 12:34 | disposition home or self-care (01) | LOC: AMB 12-23 15:01 | PROVIDERS: PCP Family Medicine; Visit Provider Emergency Medicine | DX: R10.13 Epigastric pain (principal); R11.2 Nausea with vomiting, unspecified | CPT/HCPCS: A0425; A0427 ==

== ENCOUNTER 2023-04-21 17:00 | Emergency (ER) | payer MEDICAID, SELFPAY ==
[2023-04-21 17:07] VITALS: BP 150/124; PULSE 98; RESP 20; TEMP 36.4; O2SAT 98; BMI 26.6
--- NOTE | 2023-04-21 17:16 | ED_ITS ---
HPI - General Adult General Chief complaint: Abdominal Pain Stated complaint: severe stomach pain; vomiting Time Seen by Provider: 04/21/23 17:04 Source: patient Mode of arrival: ambulatory Limitations: no limitations History of Present Illness HPI narrative: 27-year-old female coming in today complaining of abdominal pain and vomiting that started 1st thing upon wakening this morning. Pain is located in the epi gastric region nothing makes it better or worse. She has not been able to eat or drink anything all day today. She states that she has had this exact same thing happened to her many times before. She has had a thorough GI workup including EGD she states. Nothing can be found. She tells me that she has an alcohol use disorder, has been sober for approximately 1 month. She also states that she smokes marijuana periodically, the last time was last night. No measured fevers. No chest pain or shortness of breath. She is on control. Related Data Home Medications Medication Instructions Recorded Confirmed levonorgestrel-ethinyl estradiol 1 tab PO DAILY 07/08/22 04/21/23 0.1 mg-20 mcg tablet (Vienva) lorazepam 1 mg tablet 1 mg PO BID 08/23/22 08/30/22 metoclopramide HCl 10 mg tablet 10 mg PO Q6H PRN nausea/vomiting 08/23/22 08/30/22 ondansetron 4 mg disintegrating 4 mg PO Q8H PRN 08/23/22 04/21/23 tablet sucralfate 1 gram tablet 1 g PO 5XD 08/23/22 08/30/22 Previous Rx's Medication Instructions Recorded escitalopram oxalate 10 mg tablet 10 mg PO DAILY #30 tabs 08/22/22 (Lexapro) lorazepam 0.5 mg tablet (Ativan) 0.5 mg PO BID PRN #15 tabs 08/23/22 potassium chloride 20 mEq 20 meq PO DAILY #7 tabs 08/23/22 tablet,extended release lidocaine HCl 2 % mucosal solution 1 applic mucous membrane BID PRN 08/25/22 #100 mL lorazepam 1 mg tablet 0.5 - 1 mg (0.5 - 1 x 1 mg) PO TID 08/25/22 PRN #12 tabs omeprazole 40 mg capsule,delayed 40 mg PO DAILY #30 caps 08/25/22 release ketorolac 10 mg tablet 10 mg PO Q8H PRN pain #7 tabs 08/30/22 hydrocodone 5 mg-acetaminophen 325 1 tab PO Q4-6H PRN pain #20 tabs 09/04/22 mg tablet capsaicin 0.1 % topical cream 1 applic topical BID #42.5 grams 11/09/22 Allergies Allergy/AdvReac Type Severity Reaction Status Date / Time No Known Drug Allergies Allergy Verified 04/21/23 17:06 Review of Systems Status of ROS: Reports: 10 or more systems reviewed and unremarkable except as noted in History and below [facility] Social History Smoking Status: Former smoker What tobacco products do you use: cigarettes Smoking quit date/years: <= 15 years ago Do you use any of these nicotine containing products: None Second hand tobacco smoke exposure: No How often do you have a drink containing alcohol: monthly or less AUDIT-C Alcohol total score: 1 Non-prescribed substance use: marijuana (any form) Non-prescribed substance use details: last marijuana 08/26/22 service: No Exam Narrative: Exam Narrative: Well-nourished well-developed patient restless and crying in pain. She has already vomited multiple times while she has been here. Alert and oriented x3. Answers questions appropriately and is cooperative. Thoughts are goal oriented and rational. No tangential or magical thinking noted. HEENT: Normocephalic atraumatic. Pupils are equally round reactive to light. Extraocular muscles are intact. Conjunctivae are moist without any icterus noted. Moist mucous membranes. Posterior pharynx is normal. Neck is soft without any lymphadenopathy or thyromegaly. No masses are appreciated. Multiple piercings. Cardiovascular: Heart is regular rate and rhythm S1 and S2 are present without any murmurs. Lungs: Clear to auscultation bilaterally no wheezes rhonchi or rales are appreciated. Patient takes deep breaths without any discomfort. Abdomen: Soft and nondistended with normal bowel sounds. No guarding or rebound. No masses or organomegaly appreciated. Negative [place] sign. Really minimal tenderness on palpation of the epigastric region. Extremities: Bilateral lower extremities are without edema. Skin: Well perfused without any obvious rashes. Const: Vital Signs, click to edit/add: Vital Signs - 24 hr 04/21/23 17:07 Temperature 97.6 F Pulse Rate [Pulse Oximeter] 98 Respiratory Rate 20 [facility] 150/124 H Pulse Oximetry 98 Oxygen Delivery Me thod Room Air Course Course ED Course: IV is established and patient is given IV fluids and droperidol. This did seem to provide some comfort as patient no longer had any more vomiting episodes while she was here which she continued to writhe in bed complaining of pain. I reviewed patient's medical records and it appears that Haldol has helped her pain in the past. Therefore 5 mg of IM Haldol was given as well as oral Carafate. I did do some blood work today to make sure that there was no evidence of infection or inflammation causing her symptoms. CBC was unremarkable and looked largely like it has in the past. Electrolytes were normal. Normal renal function. His glucose is elevated at 165. LFTs were unremarkable. CRP was less than 0.5. Lipase was normal and test was negative. Patient was feeling significantly better after Haldol. Vital Signs Vital signs: Initial Vital Signs Temperature 97.6 F 04/21/23 17:07 Temperature Source Temporal Artery Scan 04/21/23 17:07 Pulse Rate 98 04/21/23 17:07 Respiratory Rate 20 04/21/23 17:07 Blood Pressure 150/124 H 04/21/23 17:07 Blood Pressure Mean 132 H 04/21/23 17:07 Blood Pressure Position Standing 04/21/23 17:07 Pulse Oximetry 98 04/21/23 17:07 Oxygen Delivery Method Room Air 04/21/23 17:07 Vital Signs Temperature 97.6 F 04/21/23 17:07 Pulse Rate 98 04/21/23 17:07 Respiratory Rate 20 04/21/23 17:07 Blood Pressure 150/124 H 04/21/23 17:07 Pulse Oximetry 98 04/21/23 17:07 Oxygen Delivery Method Room Air 04/21/23 17:07 Temperature 97.6 F 04/21/23 17:07 Pulse Rate 98 04/21/23 17:07 Respiratory Rate 20 04/21/23 17:07 Blood Pressure 150/124 H 04/21/23 17:07 Pulse Oximetry 98 04/21/23 17:07 Oxygen Delivery Method Room Air 04/21/23 17:07 Medications Administered Medications: Discontinued Medications Generic Name Dose Route Start Last Admin Trade Name Freq PRN Reason Stop Dose Admin Droperidol 0.625 mg 04/21/23 17:13 04/21/23 17:54 Droperidol 2.5 Mg/Ml Inj IV 04/21/23 17:14 0.625 mg ONCE ONE Administration Haloperidol Lactate 5 mg 04/21/23 19:06 04/21/23 19:19 Haloperidol 5 Mg/Ml Inj IM 04/21/23 19:07 5 mg ONCE ONE Administration Sodium Chloride 1,000 mls @ 1,000 mls/hr 04/21/23 17:15 04/21/23 18:41 0.9 % Sodium Chloride 1000 Ml IV 04/21/23 18:14 Infused .Q1H JANI Infusion Sucralfate 1 gm 04/21/23 18:28 04/21/23 18:58 Sucralfate 1 Gm Tablet PO 04/21/23 18:29 1 gm ONCE ONE Administration Medical Decision Making MDM Narrative Medical decision making narrative: 27-year-old female with recurrent abdominal pain and cyclic vomiting syndrome. Interestingly enough, patient is with a friend today who tells me that she has the exact same symptoms and they have both been told in the past that there symptoms are caused by marijuana use. Symptoms improved after droperidol, Haldol and Carafate. Medical Records Medical records reviewed: Yes I reviewed the patient's medical records Lab Data Lab results reviewed: Yes I reviewed the patient's lab results Labs: Lab Results 04/21/23 04/21/23 Range/Units 17:40 17:48 WBC 11.05 H (4.50-11.00) K/uL RBC 4.36 (4.00-5.20) m/uL Hgb 13.9 (12.0-16.0) gm/dL Hct 40.9 (33.0-51.0) % MCV 94 (80-100) fL MCH 32 (26-34) pg MCHC 34 (32-36) gm/dL RDW Coeff of [place]enia 14.0 (11.5-15.5) % Plt Count 305 (140-440) K/uL Neut % (Auto) 76.3 H (42.0-72.0) % Lymph % (Auto) 19.5 L (20-44) % [place] % (Auto) 3.1 (0.0-11.0) % Eos % (Auto) 0.5 (0.0-7.0) % Baso % (Auto) 0.4 (0.0-3.0) % Neut # (Auto) 8.40 H (1.7-7.0) K/uL Lymph # (Auto) 2.20 (0.90-2.90) K/uL [place] # (Auto) 0.30 (0.00-0.90) K/UL Eos # (Auto) 0.10 (0.00-0.50) K/uL Baso # (Auto) 0.00 (0.00-0.30) K/uL Abs Immat Gran (auto) 0.00 (0.00-0.30) K/uL Imm/Tot Granulo (auto) 0.2 % Sodium 139 (135-149) mmol/L Potassium 4.0 (3.6-5.1) mmol/L Chloride 107 (96-114) mmol/L Carbon Dioxide 17 L (20-32) mmol/L Anion Gap 15 (7-15) mEq/L BUN 16 (5-24) mg/dL Creatinine 0.7 (0.5-1.5) mg/dL Estimated Creat Clear 119.47 Estimated GFR 123 ml/min Glucose 165 H (60-115) mg/dL Lactate 1.8 (0.5-1.9) mmol/L Calcium 10.4 (8.4-10.6) mg/dL Total Bilirubin 1.5 (0.1-1.5) mg/dL Direct Bilirubin 0.2 (0.0-0.5) mg/dL AST 32 (12-35) U/L ALT 16 (4-35) U/L Alkaline Phosphatase 72 (40-150) U/L C-Reactive Protein < 0.5 L (0.5-1.0) mg/dL Total Protein 9.0 H (6.0-8.3) g/dL Albumin 5.3 H (3.3-5.0) g/dL Lipase 27 (23-300) U/L HCG, Qual Negative (Negative) Lab Acknowledgement Test Added Discharge Plan Discharge Clinical Impression: Cannabis use disorder, Cyclic vomiting syndrome Patient Disposition: Home, Self-Care Condition: Improved Additional Instructions: You must stop using marijuana if you want this problem to stop occurring. 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 Rx Instructions: Can mix 15 mL with equal amount of liquid antacid/anti-gas for stomach pain levonorgestrel-ethinyl estrad [Vienva] 0.1-20 mg-mcg tablet 1 tab PO DAILY escitalopram oxalate [Lexapro] 10 mg tablet 10 mg PO DAILY Qty: 30 2RF sucralfate 1 gram tablet 1 g PO 5XD lorazepam 1 mg tablet 1 mg PO BID ondansetron 4 mg tablet,disintegrating 4 mg PO Q8H PRN metoclopramide HCl 10 mg tablet 10 mg PO Q6H PRN (Reason: nausea/vomiting) potassium chloride 20 mEq tablet extended release 20 meq PO DAILY Qty: 7 2RF Hold Instructions: Pt not taking ketorolac 10 mg tablet 10 mg PO Q8H PRN (Reason: pain) Qty: 7 0RF hydrocodone-acetaminophen 5-325 mg tablet 1 tab PO Q4-6H PRN (Reason: pain) Qty: 20 0RF capsaicin 0.1 % cream 1 applic topical BID Qty: 42.5 0RF Rx Instructions: do not wash area for at least 30 min after application Follow Up/Referrals: Ashwini Zhang MD [Primary Care Provider] - [facility]
--- OUTSIDE RECORDS SUMMARY | 2023-04-21 17:24 | XMS_ITS | Clinical Summary ---
Author Name Unknown Organization [email or web address] Address [address] [facility] [place] [address] Phone Care Team Providers Care Ed Case Manager Name Role Phone Ashwini Zhang MD Primary Care Provider [phone] Source Comments [employer] is fully rolled out on [employer]. Last update 08/07/08.[email or web address] Allergies No known active allergies Medications * Be aware that medications may not be up to date as of this document. Always verify current medications with patient. Medication Sig Dispensed Refills Start Date End Date Status levonorgestrel-ethinyl estrad (VIENVA) 0.1-20 mg-mcg oral tablet Take 1 tablet by mouth daily. Active pantoprazole (PROTONIX) 40 mg oral tablet Take 40 mg by mouth daily. Active acetaminophen 325 mg oral tabletIndications:Pain Take 2 tablets (650 mg) by mouth every 6 hours as needed for Moderate Pain. Indications: Pain 20 tablet 04/16/2021 Active alum & mag hydroxide-simeth (MAALOX PLUS) 200-200-20 mg oral suspension Take 30 mL by mouth 3 times daily as needed for GI Upset. 355 mL 04/16/2021 Active naltrexone (REVIA) 50 mg oral TABSIndications:Alcoho l Use Disorder Take 1 tablet (50 mg) by mouth daily. Indications: Abuse or Misuse of Alcohol 30 tablet 2 04/16/2021 Active ondansetron (ZOFRAN ODT) 4 mg oral disintegrating tablet Dissolve 1 tablet (4 mg) in mouth 3 times daily as needed for nausea or vomiting. 20 tablet 08/22/2022 Active Active Problems Problem Noted Date Diagnosed Date COVID-19 04/14/2021 Alcohol-induced pancreatitis ([facility]) 11/13/2019 Swelling of throat 06/26/2017 Immunizations Name Administration Dates Next Due Influenza Vaccine 6 Months through Adult - Prefi lled 04/15/2021 Family History Medical History Relation Name Comments Other Mother familial polypo sis Relation Name Status Comments Mother Social History Tobacco Use Types Packs/Day Years Used Date Smoking Tobacco: Former Smokeless Tobacco: Never Alcohol Use Standard Drinks/Week Comments Yes 0 (1 standard drink = 0.6 oz pur e alcohol) daily 0.5 liter, LD 2 days ago Sex and Gender Information Value Date Recorded Sex Assigned at Not on file Gender Identity Not on file Sexual Orientation Not on file Last Filed Vital Signs Vital Sign Reading Time Taken Comments Blood Pressure 127/86 08/22/2022 12:03 PM CDT Pulse 78 08/22/2022 12:03 PM CDT Temperature 36.7 ??C (98 ??F) 08/22/2022 10:01 AM CDT Respiratory Rate 16 08/22/2022 12:03 PM CDT Oxygen Saturation 98% 08/22/2022 12:03 PM CDT Inhaled Oxygen Concentration - - Weight 65.8 kg (145 lb 1 oz) 04/14/2021 9:51 AM HELP DESK ASSOCIATE Height 170.2 cm (5' 7) 04/14/2021 9:51 AM HELP DESK ASSOCIATE Body Mass Index 22.72 04/14/2021 9:51 AM HELP DESK ASSOCIATE Plan of Treatment Health Maintenance Due Date Last Done Comments Asthma Action Plan 1997 Asthma Control Test 1997 Dental Oral Exam 1997 Dental Prophylaxis 1997 Dental X-Ray: Bitewings 1997 Depression Management 1997 Pneumococcal Vaccine: Pediatrics (0 to 5 Years) and At-Risk Patients (6 to 64 Years) (1 of 2 - PCV) 06/10/2003 Periodontal Maintenance 06/10/2011 HEALTH MAINTENANCE PROTOCOL 2016 INFLUENZA VACCINE 10/03/2022 04/15/2021, , 01/15/2004, Additional history exists COVID-19 Vaccine ( season) 2022 12/02/2020, 11/04/2020 Cervical Cancer Screening Age 21-29 05/08/2023 05/07/2020 PREVENTATIVE VISIT 07/01/2023 06/30/2022 TD/TDAP ADULTS 01/16/2028 01/15/2018, 09/03, 1997, Additional history exists Hepatitis B Vaccines Completed 03/10/1998, 1997, 1997 HIB Completed 10/18/1998, 10/04, 1997 HPV Completed 06/26/2012, 12/03, 09/30/2009 HIV Screening Completed 11/27/2017 Chlamydia & Gonorrhea Screening Discontinued 05/07/2020, 12/04/2017 RSV Infant Immunoglobulin Aged Out No longer eligible based on patient's age to complete this topic Procedures Procedure Name Priority Date/Time Associated Diagnosis Comments PAP TEST Routine 05/07/2020 3:34 PM HELP DESK ASSOCIATE URINE CHLAMYDIA AND NEISSERIAE GONORRHOEAE AMPLIFICATION Routine 05/07/2020 3:34 PM HELP DESK ASSOCIATE HIV COMBO Routine 11/27/2017 9:26 AM CDT from Last 3 Months or Most Recently Relevant to Health Maintenance Advance Directives For more information, please contact: [phone] Latest Code Status on File Code Status Date Activated Date Inactivated Comments Full Code 04/14/2021 9:31 PM 04/16/2021 6:55 PM Question Answer Comments Does the Patient have prefer ences regarding life sustaining measures (these options only apply when the patient has a pulse): Yes Patient will accept intubati on for respiratory deterioration: Unaddressed Patient will accept BiPAP fo r respiratory deterioration: Unaddressed Patient will accept vasopres sors for hypotension: Unaddressed Patient will accept cardiove rsion for unstable rhythm: Unaddressed Discussed Code Status With Whom? Not discussed Code Status History Code Status Date Activated Date Inactivated Comments Full Code 06/26/2017 6:54 PM 07/05/2017 12:16 PM Question Answer Comments Does the Patient have prefer ences regarding life sustaining measures (these options only apply when the patient has a pulse): No Discussed Code Status With Whom? Not discussed Care Teams Ed Case Manager Relationship Specialty Start Date End Date Ashwini Zhang MD [address] [place] [address] PCP - General Family Medicine 06/28/17
--- OUTSIDE RECORDS SUMMARY | 2023-04-21 17:24 | XMS_ITS | Clinical Summary ---
Author Name Unknown Organization [facility] Address [address] [place] [id number] Care Team Providers Care Warehouse Worker 2Nd Shift Name Role Phone Unavailable Primary Care Provider Unavailabl e Source Comments Patient records contain information from all sites at [facility]. For routine questions regarding patient records, call [phone] during business hours, M-F 8:00 AM - 5:00 PM Central Time. Record requests for emergency care only can be directed to [phone] at any time.[facility] Allergies No known active allergies Medications No known medications Immunizations Name Administration Dates Next Due DTaP (Infanrix, Tripedia) 05/30/2002 IPV 05/30/2002 Influenza, Unspecified 01/15/2004 MMR 05/30/2002 Social History Tobacco Use Types Packs/Day Years Used Date Smoking Tobacco: Never Assessed Nutrition Answer Date Recorded Nutrition: EVOO Fat Source Unknown 05/06 Nutrition: Servings of Fruits/Vegetables per Day Not on file 05/06/2020 Dental Answer Date Recorded Dental: Regular Dentist Unknown 05/07/19 21 Sex and Gender Information Value Date Recorded Sex Assigned at Not on file Gender Identity Not on file Sexual Orientation Not on file Plan of Treatment Health Maintenance Due Date Last Done Comments Cervical Cancer Screening 1997 HIV Screening 1997 Hepatitis C Screening 1997 Hepatitis B Vaccines (3 of 3 - 3-dose series) 1997 1997, 1997 COVID-19 Vaccine (3 - 2022- season) 2022 12/02/2020, 11/04/2020 Influenza Vaccine (#1) 2022 , 11/27/2017, 01/15/2004, Additional history exists Depression Screening (Annual PHQ-2) 03/05/2023 DTaP,Tdap,and Td Vaccines (8 - Td or Tdap) 01/16/2028 01/15/2018, 09/30/2009, 05/30/2002, Additional history exists HPV Vaccines Completed 06/26/2012, 06/04, 12/15/2009, Additional history exists Pneumococcal vaccine (0-64 years) Aged Out No longer eligible based on patient's age to complete this topic
--- OUTSIDE RECORDS SUMMARY | 2023-04-21 17:24 | XMS_ITS | Referral Summary ---
Author Name Unknown Organization [facility] Address [address] [place] [id number] Care Team Providers Care Lacing String Cutter Name Role Phone Unavailable Primary Care Provider Unavailabl e Source Comments Patient records contain information from all sites at [facility]. For routine questions regarding patient records, call [phone] during business hours, M-F 8:00 AM - 5:00 PM Central Time. Record requests for emergency care only can be directed to [phone] at any time.[facility] Allergies No known active allergies Medications No [...] Orientation Not on file Plan of Treatment Not on file
--- OUTSIDE RECORDS SUMMARY | 2023-04-21 17:24 | XMS_ITS ---
Author Name Unknown Organization [facility] Address [address] [place] [id number] Care Team Providers Care Commercial Tire Service Technician Name Role Phone Unavailable Unavailable Unavailable Surgery Details Not on file Complications Check Surgery Details section. Procedure Estimated Blood Loss Check Surgery Details section. Procedure Findings Check Surgery Details section. Procedure Specimens Taken Check Surgery Details section.
--- OUTSIDE RECORDS SUMMARY | 2023-04-21 17:24 | XMS_ITS | Clinical Summary ---
Author Name Unknown Organization [facility] Address [place], [place] [address] Care Team Providers Care Hvac Sheet Metal Installer Name Role Phone Ashwini Zhang MD Primary Care Provider [phone] Allergies No known active allergies Medications Medication Sig Dispensed Refills Start Date End Date Status levonorgestrel-ethin yl estrad, 0.1mg-20mcg, (ALESSE-28) 0.1-20 mg-mcg tabletIndications:En counter for counseling regarding contraception Take 1 Tablet by mouth once daily. 84 Tablet 3 06/30/2022 Active albuterol HFA (ProAir HFA) 90 mcg/actuation inhalerIndications:A sthma, unspecified asthma severity, unspecified whether complicated, unspecified whether persistent Inhale 2 Puffs by mouth every 4 hours if needed for Shortness Of Breath or Wheezing. 8.5 g 2 06/30/2022 Active doxycycline (VIBRAMYCIN) 100 mg capsuleIndications:A bscess Take 1 Capsule (100 mg) by mouth two times daily for 14 days. 28 Capsule 0 03/27/2023 04/10/2023 Active Problems Problem Noted Date Diagnosed Date Prediabetes 07/03/2022 Tachycardia 11/15/2019 Acute alcoholic hepatitis 11/15/2019 Macrocytosis without anemia 11/15/2019 At risk for depression 11/15/2019 Alcohol-induced pancreatitis 11/13/2019 Alcohol intoxication 11/13/2019 Alcohol withdrawal 11/13/2019 Elevated LFTs 11/13/2019 Elevated lactic acid level 11/13/2019 Supervision of normal first in second trimester 11/27/2017 Overview: Estimated Date of Delivery: 04/06/18 Patient's last menstrual period was 07/05/2017 (approximate). Last Tdap- 01/15/2018 Last Flu vaccine- 11/27/2017 Glucose (GTT) result- Component Latest Ref Rng & Units 12/31/2017 GLUCOSE,GESTATIONAL 65 - 139 mg/dL 90 No Known Allergies Obstetric History T0 L0 SAB0 TAB0 Ectopic0 Multiple0 Live Births0 # Outcome Date GA Lbr Ramon/2nd Weight Sex Delivery Anes PTL Lv 1 Current Create lab flowsheet for OB labs- Component Latest Ref Rng & Units 11/27/2017 11/27/2017 11/27/2017 9:26 AM 9:26 AM 9:26 AM HEMOGLOBIN 12.0 - 16.0 g/dL 11.2 (L) MCV 80 - 100 fL 98 ANTIBODY SCREEN Negative Negative SPECIMEN EXPIRATION DATE/TIME 11/30/17 23:59 RUBELLA IGG ANTIBODY Positive 3.48 HIV-1/HIV-2 ANTIBODY Non-Reactive Non-Reactive ABORH O Rh Positive HBSAG Nonreactive Nonreactive TREPONEMA PALLIDUM Negative Negative LYME SCREEN W/REFLEX WEST BLOT Negative Negative Past Medical History: Diagnosis Date ? ? ASTHMA 05/10/2007 with uri. ? ? Cannabis abuse, continuous 05/18/2012 ? ? Major depressive disorder, single episode, severe, without mention of psychotic behavior 05/18/2012 ? ? Supervision of normal first in second trimester 11/27/2017 Past Surgical History: Procedure Laterality Date ? ? NO PREVIOUS SURGERY No data on file. 1st Problems (from 11/27/17 to present) No problems associated with this episode. Sumi Burgess, KIKIC.....12/05/2017 8:12 AM Acute hepatitis 05/29/2017 Major depressive disorder, s mónica episode, severe, without mention of psychotic behavior 05/18/2012 Cannabis abuse, continuous 05/18/2012 Unspecified asthma(493.90) 05/10/2007 Resolved Problems Problem Noted Date Diagnosed Date Resolved Date Acute respiratory failure with hypercapnia 05/29/2017 03/18/2018 Alcohol dependence with withdrawal 05/28/2017 03/18/2018 Encounters Date Type Department Care Team Description 04/20/2023 Telephone [facility] [address] [place] [address] [place] Don MD Question (Question ) 04/06/2023 11:15 AM PAVING CONTRACTOR Telemedicine [facility] [address] [place] [address] Estela Guerra [facility] 03/27/2023 1:45 PM PAVING CONTRACTOR Office Visit [facility] [address] [place] [address] [place] Don MD Consult (Cyst-inner part of left thigh ) 03/27/2023 Travel 03/14/2023 2:00 PM PAVING CONTRACTOR Office Visit [facility] [address] [place] [address] Ashwini Zhang MD Cyst (Inner part of left thigh) 03/14/2023 Telephone [facility] [address] [place] [address] [place] Don MD Appointment 03/14/2023 Travel 03/12/2023 2:30 PM PAVING CONTRACTOR Telemedicine [facility] [address] [place] [address] Estela Guerra [facility] 03/08/2023 1:00 PM PAVING CONTRACTOR Office Visit [facility] [address] [place] [address] Alexander Dang, [facility] Visit 03/08/2023 Travel 01/30/2023 2:30 PM PAVING CONTRACTOR [facility] [address] [place] [address] Estela Guerra [facility] 01/22/2023 2:30 PM PAVING CONTRACTOR [facility] [address] [place] [address] Estela Guerra [facility] 01/22/2023 Travel from Last 3 Months Immunizations Name Administration Dates Next Due COVID-19 vaccine ([employer] NTech 30mcg/0.3mL) BONNIE ALLEN 12/02/2020,11/04/2020 DTaP 05/30/2002, 8,1997,07/21 DTaP-HIB (TriHIBIT) 10/18/1998 HIB-HepB (Comvax) 1997,1997 Hepatitis B (Peds) 03/10/1998 Human Papilloma Virus Vaccine 06/26/2012, 010,09/30/2009 04/17/2010 Inactivated Polio Vaccine 05/30/2002,08/1998,1997,07/21 Influenza Virus, Unspecified 04/15/2021 Influenza, IIV3 (Age >=3 years) 01/15/2004,12/30 Influenza, IIV4 11/27/2017 MMR 05/30/2002,10/18/1998 Tdap 01/15/2018,09/30/2009 Varicella Vaccine 06/26/2012,06/16/1998 Family History Medical History Relation Name Comments Good Health Father Diabetes Maternal Grandmother GI Disease Mother familial polypo sis Seizures Paternal Grandmother Good Health Sister Relation Name Status Comments Father Maternal Grandmother Mother Paternal Grandmother Sister Social History Tobacco Use Types Packs/Day Years Used Date Smoking Tobacco: Former Cigarettes 0.3 10.6 0 05/29/2011 - 03/30/2020 Smokeless Tobacco: Never Tobacco Cessation:Counseling Given: Yes Comments:TIP done 06/04/17 Alcohol Use Standard Drinks/Week Comments No 0 (1 standard drink = 0.6 oz pure alcohol) previously 2 bottles shayy whiskey/wk PHQ-2 Answer Date Recorded PHQ-2 TOTAL SCORE 0 06/30/2022 Social Connections Answer Date Recorded Frequency of Communication with Friends and Fami ly Not on file 07/02/2022 Financial Resource Strain Answer Date R ecorded Difficulty of Paying Living Expenses 3 07/01/2021 Difficulty of Paying Living Expenses Not on file 07/01/2021 Food Insecurity Answer Date Recorded Worried About Running Out of Food in the Last Ye ar 1 07/01/2021 Transportation Needs Answer Date Record ed Lack of Transportation (Medical) 1 07/01/2021 Housing Stability Answer Date Recorded Unable to Pay for Housing in the Last Year 1 07/01/2021 Sex and Gender Information Value Date Recorded Sex Assigned at Not on file Gender Identity Not on file Sexual Orientation Not on file Obstetrics History Para Term AB IAB SAB Ectopic Multiple Livin g Live Births 1 1 1 0 0 0 0 0 0 1 1 Date Outcome GA Total Labor Labor/2nd/3rd Weight Sex Delivery Anes PTL Isabel A1 A5 Name Cl in 03/21 Term 37w 5d Vag Suzette ng Last Filed Vital Signs Vital Sign Reading Time Taken Comments Blood Pressure 132/84 03/27/2023 1:47 PM PAVING CONTRACTOR tow er Pulse 111 03/27/2023 1:47 PM PAVING CONTRACTOR Temperature 36.7 ??C (98 ??F) 03/27/2023 1:47 PM PAVING CONTRACTOR Respiratory Rate 22 12/19/2022 2:07 PM CDT Oxygen Saturation 97% 03/27/2023 1:47 PM PAVING CONTRACTOR Inhaled Oxygen Concentration - - Weight 80.3 kg (177 lb) 03/27/2023 1:47 PM PAVING CONTRACTOR Height 170.2 cm (5' 7) 12/19/2022 2:07 PM CDT Body Mass Index 27.72 12/19/2022 2:07 PM CDT Plan of Treatment Upcoming Encounters Date Type Department Care Team (Late st Contact Info) Description 05/01/2023 12:45 PM PAVING CONTRACTOR Office Visit [facility] [address] [place] [address] [place] Don MD [address] [place] [address] 05/07/2023 10:30 AM PAVING CONTRACTOR Office Visit [facility] [address] [place] [address] Derrell Monet MD [address] [place] [address] Health Maintenance Due Date Last Done Comments Pneumococcal series for age 6-64 (1 of 2 - PCV) 06/10/2003 COVID-19 vaccine series (3 - 2022- season) 2022 12/02/2020, 11/04/2020 Influenza for age 9-49 11/03/2022 2, 11/27/2017, 01/15/2004, Additional history exists Pap test for age 21-65 05/08/2023 05/07/2020 BMI (ht and wt on same day) for age 18+ 07/01/2023 06/30/2022, 07/22/2021, 05/20/2018, Additional history exists Depression screening for age 12+ 07/05/2023 07/04/2022, 06/30/2022, 07/01/2021, Additional history exists Tetanus booster 01/16/2028 01/15/2018, 09/30/2009 HPV series for age 9-26 Completed 06/27/19 13, 12/15/2009, 09/30/2009 Hepatitis C screening for ag e 18-79 Completed 05/29/2017 HIV for age 15-65 Completed 11/27/2017 Tdap Completed 01/15/2018, 09/30/2009 Procedures Procedure Name Priority Date/Time Associated Diagnosis Comments AEROBIC BACTERIAL CULTURE, STAIN Routine 03/14/2023 2:40 PM PAVING CONTRACTOR Infected sebaceous cyst of skin from Last 3 Months Results * (ABNORMAL) AEROBIC BACTERIAL CULTURE, STAIN (03/14/2023 2:40 PM PAVING CONTRACTOR) CULTURE RESULT(A) 03/18/2023 12:29 PM PAVING CONTRACTOR [facility] CULTURE 1+ Mixed fide present 03/18/2023 12:29 PM PAVING CONTRACTOR [facility] GRAM STAIN No PMNs 03/18/2023 12:29 PM PAVING CONTRACTOR [facility] GRAM STAIN 1+ RBCs 03/18/2023 12:29 PM PAVING CONTRACTOR [facility] GRAM STAIN No Epithelial cells 03/18/2023 12:29 PM PAVING CONTRACTOR [facility] GRAM STAIN No organisms seen 03/18/2023 12:29 PM PAVING CONTRACTOR [facility] Other (Other) Non-Blood / Unknown 03/14/2023 2:40 PM PAVING CONTRACTOR 03/14/2023 2:56 PM PAVING CONTRACTOR Narrative [facility] - 03/18/2023 12:29 PM PAVING CONTRACTOR Mixed Fide; No Staphylococcus aureus, beta-Strep, Strep. pneumoniae, or Pseudomonas aeruginosa Ashwini Zhang MD MICROBIOLOGY [facility] [address] [place] [address], [place] from Last 3 Months Advance Directives Latest Code Status on File Code Status Date Activated Date Inactivated Comments Full Code 11/13/2019 5:06 AM 11/19/2019 3:19 PM Question Answer Comments Code Status Discussion: Discussed Code Status History Code Status Date Activated Date Inactivated Comments Full Code 05/28/2017 2:59 PM 06/05/2017 4:30 PM Question Answer Comments Code Status Discussion: Not Discussed Full Code 05/17/2012 5:33 PM 05/23/2012 1:39 PM Care Teams Hvac Sheet Metal Installer Relationship Specialty Start Date End Date Ashwini Zhang MD [address] [place] [address] PCP - General Family Practice 11/23/17
--- OUTSIDE RECORDS SUMMARY | 2023-04-21 17:24 | XMS_ITS | Referral Summary ---
Author Name Unknown Organization [employer] [facility] Address [address] [facility] [address] Phone Care Team Providers Care Twenty One Dealer Name Role Phone Ashwini Zhang MD Primary Care Provider [phone] Source Comments [employer] is fully rolled out on On[facility]. Last update 08/07/08.[facility] Allergies No known active allergies Medications * [...] Months through Adult - Prefi lled 04/15/2021 Social History Tobacco Use Types Packs/Day Years [...] (145 lb 1 oz) 04/14/2021 9:51 AM COUNTY SURVEYOR Height 170.2 cm (5' 7) 04/14/2021 9:51 AM COUNTY SURVEYOR Body Mass Index 22.72 04/14/2021 9:51 AM COUNTY SURVEYOR Plan of Treatment Not on file Procedures Procedure Name Priority Date/Time Associated Diagnosis Comments PAP TEST Routine 05/07/2020 3:34 PM COUNTY SURVEYOR URINE CHLAMYDIA AND NEISSERIAE GONORRHOEAE AMPLIFICATION Routine 05/07/2020 3:34 PM COUNTY SURVEYOR HIV COMBO Routine 11/27/2017 9:26 AM CDT from Last 3 Months or Most Recently Relevant to Health Maintenance Advance Directives For more information, please contact: [phone] Latest Code Status on File Code Status [...] Status With Whom? Not discussed Care Teams Twenty One Dealer Relationship Specialty Start Date End Date Ashwini Zhang MD [address] [place] [address] PCP - General Family Medicine 06/28/17
--- OUTSIDE RECORDS SUMMARY | 2023-04-21 17:24 | XMS_ITS | Encounter Summary ---
Author Name Unknown Organization [facility][Note 3] Address [address] [place] [address] Phone Care Team Providers Care Drafter Civil Engineering Name Role Phone Ashwini Zhang MD Primary Care Provider [phone] Reason for Visit * Reason Comments Abdominal Pain Vomiting Encounter Details Date Type Department Care Team (Late st Contact Info) Description 08/22/2022 9:55 AM CDT - 08/22/2022 1:17 PM CDT Emergency [facility] Department [address] [place] [address] Waldo Hodge MD [address] [facility] [address] [place], [place] [address] Generalized abdominal pain Discharge Disposition: Discharged to home or self care (routine discharge) Social History Tobacco Use Types Packs/Day Years Used Date Smoking Tobacco: Former Smokeless Tobacco: Never Alcohol Use Standard Drinks/Week Comments Yes 0 (1 standard drink = 0.6 oz pur e alcohol) daily 0.5 liter, LD 2 days ago Sex and Gender Information Value Date Recorded Sex Assigned at Not on file Gender Identity Not on file Sexual Orientation Not on file documented as of this encounter Last Filed Vital Signs Vital Sign Reading Time Taken Comments Blood Pressure 127/86 08/22/2022 12:03 PM CDT Pulse 78 08/22/2022 12:03 PM CDT Temperature 36.7 ??C (98 ??F) 08/22/2022 10:01 AM CDT Respiratory Rate 16 08/22/2022 12:03 PM CDT Oxygen Saturation 98% 08/22/2022 12:03 PM CDT Inhaled Oxygen Concentration - - Weight - - Height - - Body Mass Index - - documented in this encounter Discharge Instructions * Discharge Instructions* Meli Hannah RN - 08/22/2022 1:01 PM CDT You have been treated today for abdominal pain and nausea. As we discussed: Your evaluation was reassuring, we found no major issues. You are being discharged with prescription for zofran. Please try to take your other medications asprescribed as well. Please call your GI doc to try and get your appointment rescheduled. Please call your primary care physician (PCP) to make an appointment for follow- up visit in 2-3 days. If you do not have a regular doctor or cannot get in to see your doctor, you can make an appointment with the [facility] ([phone]). Return to the emergency department with any new, worsening or concerning symptoms It was a pleasure caring for you today! documented in this encounter Medications at Time of Discharge Medication Sig Dispensed Refills Start Date End Date ondansetron (ZOFRAN ODT) 4 mg oral disintegrating tablet Dissolve 1 tablet (4 mg) in mouth 3 times daily as needed for nausea or vomiting. 20 tablet 08/22/2022 acetaminophen 325 mg oral tabletIndications:Pain Take 2 tablets (650 mg) by mouth every 6 hours as needed for Moderate Pain. Indications: Pain 20 tablet 04/16/2021 alum & mag hydroxide-simeth (MAALOX PLUS) 200-200-20 mg oral suspension Take 30 mL by mouth 3 times daily as needed for GI Upset. 355 mL 04/16/2021 naltrexone (REVIA) 50 mg oral TABSIndications:Alcohol Use Disorder Take 1 tablet (50 mg) by mouth daily. Indications: Abuse or Misuse of Alcohol 30 tablet 2 04/16/2021 levonorgestrel-ethinyl estrad (VIENVA) 0.1-20 mg-mcg oral tablet Take 1 tablet by mouth daily. pantoprazole (PROTONIX) 40 mg oral tablet Take 40 mg by mouth daily. documented as of this encounter ED Notes * Mari Garcia RN - 08/22/2022 10:46 AM CDT Pt stood to go to the restroom and became pale, diaphoretic , and tremulous. Pt's mother states that is what happened when she tried to take her to her clinic appointment today. States she has had anMRI of her pancreas, is on carafate, prevacid, and reglan * Corrie Meeks MD - 08/22/2022 10:19 AM CDT Images from the original note were not included. ED Provider Note Celia Cano : 1995 Sex: female Patient Arrival Date and Time: 08/22/2022 9:55 AM HPI Celia Cano is a 27 y.o. female with PMH alcohol use disorder, MDD, alcohol-induced pancreatitis, gastritis who presents with abdominal pain and nausea/vomiting. The patient reports having gradually worsening mid-abdominal pain that first began 3 days ago but is significantly worse this morning, non- radiating. The patient describes the pain as sharp in character and 10/10 in severity. Reports that it feels different than her prior episodes of pancreatitis. Reports she no longer drinks alcohol after learning that it causes pancreatitis. Patient was supposed to see a GI specialist later today but says that she had to cancel it due to her severe pain. Reports she has not eaten anything since yesterday. Patient has tried her [employer] reglan, sucralfate, and tylenol without improvement. Along with the pain, the patient has experienced nausea and vomiting. Patient is passing gas, last BM yesterday and was normal for the patient. No hx of abdominal surgeries or hernias. The patient denies h aving fever, diarrhea, constipation, hematochezia or melena, chest pain, shortness of breath, back pain, dysuria, hematuria, headache, fatigue or weakness, or skin changes. Per chart review, patient only recently seen in the [facility] ED on 08/20/2022 for abdominal pain, diagnosed with gastritis and discharged with Carafate, Protonix, and Reglan. MRI was ordered by JULIO AKBAR given her recurrent pancreatitis and completed on 08/11/22, which was unremarkable. MDM / ED Course Problems Addressed 1 or more chronic illnesses with severe exacerbation, progression, or side effects of treatment Data considered External notes reviewed and summarized, Tests Ordered, Additional tests considered but not ordered, and Additional history obtained from Parent(s) Risk of patient management Prescription drug management, Decision regarding hospitalization, and Parenteral controlled substances Upon presentation, patient was hemodynamically stable with normal vital signs, afebrile, non-toxic appearing, in significant discomfort due to pain. Exam notable for diffuse abdominal tenderness without rebound or guarding, no evidence of a acute abdomen at this time. Patient given IV Dilaudid, Zofran, and droperidol with significant improvement in symptoms. 1 L D5 NS bolus administered. ED Course as of 08/23/22 1425 Tue Aug 22, 2022 1122 Creatinine: 0.75 1122 BICARB(!): 19 Mildly decreased, likely 2/2 emesis 1123 WBC(!): 11.21 Likely reactive 1140 Lipase: 17 Workup included CBC which was reassuring without leukocytosis or anemia. ED CHEM without gross metabolic derangements, creatinine not elevated, electrolytes within normal limits. Patient's LFTs and lipase were within normal limits, and no significant RUQ pain on exam, decreasing the likelihood of he patic/gallbladder and pancreatic etiology. Patient non-distended and passing gas, low suspicion foracute bowel obstruction. No guarding or rebound tenderness to suggest perforated viscous. Considered CT abd/pelvis but the patient was not felt to have any indications for advanced imaging at this time given the duration of symptoms and lack of red flags or peritoneal signs, as well as recent advanced imaging with MRI. Given stable clinical picture with significant symptomatic improvement, reassuring exam and labs, patient deemed appropriate for outpatient follow-up. Patient tolerating PO and ambulating independently. Patient discharged with zofran and encouraged to continue taking her [employer] protonix, sucralfate. Follow up with PCP GI. Discussed this plan with the patient, including complications and return precautions, and patient expressed understanding and agreement to the plan. The patient was discharged home in stable condition after all questions were answered. Impression 1. Generalized abdominal pain Disposition and Plan Discharge to home Follow up with PCP GI Strict ED return precautions discussed with patient Pertinent Physical Exam findings: Physical Exam BP 127/86 (Cuff Location: Right Arm, Patient Position: Sitting) Pulse 78 Temp 36.7 ??C (98 ??F) Resp 16 SpO2 98% Constitutional: Awake, alert, non-toxic appearing, severely uncomfortable from pain but NAD. Pulm: Non-labored respirations on RA, speaking in complete sentences. Lungs CTAB, without rales, rhonchi, or wheezing. CV: RRR. No murmurs or rubs appreciated. Distal pulses intact. No lower extremity edema. ABD: Soft, non-distended, diffusely tender to palpation without guarding or rebound. Negative London's sign. Renal: No CVA tenderness. Skin: Normal skin color and turgor. No pallor or jaundice noted. No rashes or lesions. Corrie Meeks MD, 08/23/2022 2:25 PM PGY-2 Emergency Medicine Resident * Mari Garcia RN - 08/22/2022 10:16 AM CDT EMS states pt has been to multiple ED's for nausea vomiting and abdominal pain, came from [place]. Had an appointment with GI specialists today in [place] but her mother cancelled and rescheduled the appointment this morning per pt because I looked so bad and she has a history of pancreatitis and she thought I might have it because I can't stop throwing up. Pt dry heaving and crying during interview. * Josefa Hernandez - 08/22/2022 9:55 AM CDT Bed: B11 Expected date: Expected time: Means of arrival: Comments: 331 27yo abd pain documented in this encounter Miscellaneous Notes * ED Faculty Note - Waldo Hodge MD - 08/22/2022 10:02 AM CDT Images from the original note were not included. ED Faculty Attestation and Note Celia Cano : 1995 Sex: female Patient Arrival Date and Time: 08/22/2022 9:55 AM FACULTY ATTESTATION I Waldo Hodge MD, personally saw the patient, performed critical or gil portions of the service, and discussed the care with the resident MDM / ED Course Celia Cano presented to the emergency department with abdominal discomfort. She reports a few months of abdominal pain. She has been seen multiple times in emergency departments. She is followed up with [place] [facility] Dr. Lezama. She was scheduled to see a different provider sendy rodriguez But due to escalating pain she elected to be seen in the emergency department once again. She was seen recently in [place] emergency department she has also been to [facility]. She reports there was some concern for pancreatitis but she had imaging of her pancreas and this was unremarkable. She does not drink alcohol after learning can cause pancreatitis. She does occasionally smoke marijuana. This has not changed. Associated with the pain she has had frequent nausea and vomiting. She was seen in the emergency department 2 days ago and prescribed a PPI and Carafate. Per notes: MRI was completed on 08/11/2022 which showed no findings to explain the epigastric pain normal caliber biliary tree noncirrhotic, liver morphology no abdominal lymphadenopathy or ascites. Exam: Appears uncomfortable. Tearful. BP 118/82 (Cuff Location: Right Arm, Patient Position: Sitting) Pulse 87 Temp 36.7 ??C (98 ??F) Resp 18 SpO2 100% HEENT: Head normocephalic, atraumatic. Pupils reactive. Oropharynx without intraoral lesions. Neck supple. Cardiovascular normal rate Respiratory: Normal effort Abdomen soft, tender in the upper abdomen with greatest tenderness in the epigastric region. MS: normal tone bulk and strength. Neurologic faces symmetrical. Moves all extremities x4 Skin: Exposed skin unremarkable. ED course: ED work-up initiated Laboratory studies Droperidol administered for nausea and anxiolysis with excellent results Problems Addressed / DDx 1 or more chronic illnesses with severe exacerbation, progression, or sideeffects of treatment Data considered Tests Ordered, Additional tests considered but not ordered, and Independent interpretation of studies Risk of patient management Decision regarding hospitalization IMPRESSION No diagnosis found. Waldo Hodge MD, 08/22/2022 10:02 AM documented in this encounter Plan of Treatment Not on file documented as of this encounter Procedures Procedure Name Priority Date/Time Associated Diagnosis Comments PC LAB GLUCOSE SERUM STAT 08/22/2022 10:55 AM CDT PC LAB CBC W/DIFF & PLT STAT 08/22/2022 10:55 AM CDT LIPASE STAT 08/22/2022 10:55 AM CDT PANEL HEPATIC FUNCTION STAT 08/22/2022 10:55 AM CDT documented in this encounter Results * (ABNORMAL) PANEL HEPATIC FUNCTION (08/22/2022 10:55 AM CDT) Total Protein 7.6 6.4 - 8.3 g/dL [facility] Albumin 4.9 3.8 - 5.1 g/dL [facility] Bili Total 1.4(H) <=1.2 mg/dL [facility] Bili Direct na <=0.3 mg/dL [facility] Comment:BILID = <0.2. Accura cy of result suspect due to hemolysis. Alk Phos 80 35 - 104 IU/L [facility] ALT (SGPT) na <=33 IU/L [facility] Comment:ALT = 16. Accuracy o f result suspect due to hemolysis. AST(SGOT) na 5 - 40 IU/L [facility] Comment:AST = 24. Accuracy o f result suspect due to hemolysis. Blood 08/22/2022 10:5 5 AM CDT 08/22/2022 11:03 AM CDT Waldo Hodge MD LABORATORY [facility] [address] [address] * LIPASE (08/22/2022 10:55 AM CDT) Lipase 17 13 - 60 IU/L [facility] Blood 08/22/2022 10:5 5 AM CDT 08/22/2022 11:03 AM CDT Waldo Hodge MD LABORATORY [facility] [address] [address] * (ABNORMAL) CBC WITH PLTS/AUTO DIFF (08/22/2022 10:55 AM CDT) WBC 11.21(H) 4.00 - 10.00 k/cmm [facility] RBC 4.37 3.90 - 5.20 m/cmm [facility] Hgb 13.5 11.5 - 15.7 g/dL [facility] Hematocrit 40.9 34.0 - 45.0 % [facility] MCV 93.6 80.0 - 100.0 fL [facility] MCH 30.9 25.0 - 32.0 pg [facility] MCHC 33.0 31.0 - 36.0 g/dL [facility] RDW 12.2 11.5 - 14.5 % [facility] Plt 337 150 - 400 k/cmm [facility] MPV 11.2 6.5 - 12.5 fL [facility] NRBC 0.0 0.0 - 0.0 % [facility] Automated Abs Neutrophil 8.81(H) 1.70 - 6.50 k/cmm [facility] Comment:Preliminary ANC, Fin al Result to Follow Abs Immature Granulocyte 0.04 0.00 - 0.09 k/cmm [facility] Comment:The Immature Granulo cyte Absolute count contains metamyelocytes and myelocytes. Abs Neutrophil 8.81(H) 1.70 - 6.50 k/cmm [facility] Abs Lymphocyte 1.91 0.80 - 4.00 k/cmm [facility] Abs Monocyte 0.36 0.20 - 1.00 k/cmm [facility] Abs Eosinophil 0.05 0.00 - 0.60 k/cmm [facility] Abs Basophil 0.04 0.00 - 0.20 k/cmm [facility] Blood 08/22/2022 10:5 5 AM CDT 08/22/2022 11:04 AM CDT Waldo Hodge MD LABORATORY [facility] [address] [address] * (ABNORMAL) ED CHEMISTRY LABS(NA,K,CL,CO2,GLU,CREAT,CA-IONIZED,ANION GAP) (08/22/2022 10:55 AM CDT) Sodium 144 135 - 148 mEq/L [facility] Chloride 108 92 - 108 mEq/L [facility] AnGap 17(H) 8 - 16 mEq/L [facility] Glucose 140(H) 70 - 100 mg/dL [facility] ICA, Actual 4.26(L) 4.40 - 5.20 mg/dL [facility] ICA, pH Corrected 4.56 4.40 - 5.20 mg/dL [facility] Creatinine 0.75 0.50 - 1.00 mg/dL [facility] BICARB 19(L) 22 - 26 mEq/L [facility] eGFR (2020 CKD-EPI) 113 >=60 ml/min/1.7 3m2 [facility] Comment: The estimated glomerular filtration rate (eGFR) was calculated using the CKD-EPI 2020 creatinine equation, which does not include race as a factor. This equation is validated in individuals 18 years of age and older, and eGFR is normalized to a body surface area of 1.73m^2. Potassium na 3.5 - 5.3 mEq/L [facility] Comment:K = 3.5. Result susp ect due to hemolysis. Blood 08/22/2022 10:5 5 AM CDT 08/22/2022 11:01 AM CDT Waldo Hodge MD LABORATORY [facility] [address] [address] documented in this encounter Visit Diagnoses Diagnosis Generalized abdominal pain- Primary Abdominal pain, generalized documented in this encounter Administered Medications Inactive Administered Medications - up to 3 most recent administrations Medication Order MAR Action Action Date Dose Rate Site dextrose 5% - NaCl 0.9% 1,000 mL bolus Intravenous, Administer over 60 Minutes, IV BOLUS, 1 dose, On Sun08/22/22 at 1135 New Bag 08/22/2022 11:57 AM CDT 1000 mL /hr droperidol (INAPSINE) 2.5 mg/mL injection 5 mg 5 mg, IV Push, ONE TIME, 1 dose, On Sun08/22/22 at 1035 Given 08/22/2022 10:54 AM CDT 5 mg HYDROmorphone PF (DILAUDID) 1 mg/mL injection 1 mg 1 mg, IV Push, ONE TIME, 1 dose, On Sun08/22/22 at 1030 Given 08/22/2022 10:54 AM CDT 1 mg ondansetron (ZOFRAN) 4 mg/2 mL injection 4 mg 4 mg, IV Push, ONE TIME, 1 dose, On Sun08/22/22 at 1030 Given 08/22/2022 10:53 AM CDT 4 mg documented in this encounter Active and Recently Administered Medications Times are shown in CDT. Scheduled Medication Order 08/20/2022 08/21/2022 08/22/2022 dextrose 5% - NaCl 0.9% 1,000 mL bolus (COMPLETED) Intravenous, Administer over 60 Minutes, IV BOLUS, 1 dose, On Sun08/22/22 at 1135 1157 (New Bag - Prov ider: Mari Garcia RN)1307 (Infusion completed - Provider: Meli Hannah RN) droperidol (INAPSINE) 2.5 mg/mL injection 5 mg (COMPLETED) 5 mg, IV Push, ONE TIME, 1 dose, On Sun08/22/22 at 1035 1054 (Given - Provid er: Hawa Muro RN) HYDROmorphone PF (DILAUDID) 1 mg/mL injection 1 mg (COMPLETED) 1 mg, IV Push, ONE TIME, 1 dose, On Sun08/22/22 at 1030 1054 (Given - Provid er: Hawa Muro RN) ondansetron (ZOFRAN) 4 mg/2 mL injection 4 mg (COMPLETED) 4 mg, IV Push, ONE TIME, 1 dose, On Sun08/22/22 at 1030 1053 (Given - Provid er: Hawa Muro RN) documented in this encounter Care Teams Drafter Civil Engineering Relationship Specialty Start Date End Date Ashwini Zhang MD [address] [place] [address] PCP - General Family Medicine 06/28/17 documented as of this encounter
--- OUTSIDE RECORDS SUMMARY | 2023-04-21 17:25 | XMS_ITS | Continuity of Care Document ---
Author Name Unknown Organization [facility] Address [address] [address] [place] [address] Phone Care Team Providers Care Retoucher Name Role Phone Allyson Hawthorne CRNA Unavailable [...] Diagnoses Date Provider Providers Copied on Encounter [facility], [address] [address], [place], [place], [id number], [place] tel:[phone] [facility] No Information 3 Christoph Valadez. [address], [place], [place], [id number] , [place]. tel: [phone] Referring Provider: Ronnie Jordan MD, [address] [facility] [address], [place], [address] . tel:[phone] [facility], [address] [address], [place], [place], [id number], [place] tel:[phone] [facility] GI Symptoms or Concerns (chief complaint) GastropathyNausea with vomiting, unspecifiedEpigastr ic painDisease of stomach and duodenum, unspecified 3 Nikki Trujillo. [address] [facility] [address], [place], [place], [id number] , [place]. tel: [phone] Referring Provider: Referral Self, USE FOR SELF REFERRALS. [facility], [address] [address], [place], [place], [id number], [place] tel:[phone] [facility] Epigastric pain 3 Lise Roberts. [address] [facility] [address], [place], [place], [id number] , [place]. tel: [phone] Office Cons New/estab Mod [facility], [address] [address], [place], [place], [id number], [place] tel:[phone] [facility] GI Symptoms or Concerns (chief complaint) Epigastric pain 3 Lise Roberts. [address] [facility], [place], [place], [id number] , [place]. [phone] Referring Provider: Ashwini Zhang MD, [address] [facility], [place], [address]. tel:[phone] [facility], [address] [address], [place], [place], [address], [place] tel:[phone] [facility] No Information 3 Nayan Flores. [address] [facility], [place], [id number] , [place]. [phone] Family History Family Member Type Diagnosis Age [...] Registry Payers Payer name Insurance type Covered libertarian ID Authoriza tiholli(s) [facility] [id number] Social History Type Description Quantity Date Captured [...]
--- OUTSIDE RECORDS SUMMARY | 2023-04-21 17:25 | XMS_ITS | Referral Summary ---
Author Name Unknown Organization [facility] Address [address] [place] [address] Care Team Providers Care Soda Flaker Name Role Phone [facility] Primary Care Provider Medications Medication Sig Dispensed Refills Start Date End Date Status ALBUTEROL IN 0 Active Fluticasone Furoate (ARNUITY ELLIPTA IN) 0 Active oxymetazoline (AFRIN) 0.05 % spray [place] 2 sprays into both nostrils 2 times daily 0 Active nicotine (NICODERM CQ) 7 MG/24HR [address] 1 patch onto the skin every 24 hours 0 Active HEXYLRESORCINOL MT 0 Active methylPREDNISolone (MEDROL DOSEPAK) 4 MG tablet Follow package instructions 21 tablet 0 06/19/2017 Active Social History Tobacco Use Types Packs/Day Years Used Date Smoking Tobacco: Every Day Alcohol Use Standard Drinks/Week Comments Yes 0 (1 standard drink = 0.6 oz pur e alcohol) Sex and Gender Information Value Date Recorded Sex Assigned at Not on file Gender Identity Not on file Sexual Orientation Not on file Last Filed Vital Signs Vital Sign Reading Time Taken Comments Blood Pressure 101/75 06/19/2017 1:02 AM CDT Pulse 108 06/18/2017 11:46 PM CDT Temperature 37.6 ??C (99.6 ??F) 06/18/2017 11:46 PM C DT Respiratory Rate 16 06/19/2017 1:05 AM CDT Oxygen Saturation 100% 06/19/2017 1:03 AM CDT Inhaled Oxygen Concentration - - Weight - - Height - - Body Mass Index - - Plan of Treatment Not on file Care Teams Soda Flaker Relationship Specialty Start Date End Date [facility] [address] [place] [address] PCP - General 06/19/17
--- OUTSIDE RECORDS SUMMARY | 2023-04-21 17:25 | XMS_ITS | Clinical Summary ---
Author Name Unknown Organization [facility] Address [address] [place] [address] Care Team Providers Care Environmental Field Technician Name Role Phone [facility] Primary Care Provider Medications Medication Sig Dispensed Refills Start Date End Date Status ALBUTEROL IN 0 Active Fluticasone Furoate (ARNUITY ELLIPTA IN) 0 Active oxymetazoline (AFRIN) 0.05 % spray [place] 2 sprays into both nostrils 2 times [...] of Treatment Not on file Care Teams Environmental Field Technician Relationship Specialty Start Date End Date [facility] [address] [place] [address] PCP - General 06/19/17
[2023-04-21 17:45] LABS: Lactate* 1.8 mmol/L (0.5-1.9)
[2023-04-21 17:47] LABS: Basophils Percent Auto 0.4 % (0.0-3.0); Eosinophils Percent Auto 0.5 % (0.0-7.0); Hematocrit 40.9 % (33.0-51.0); Hemoglobin* 13.9 gm/dL (12.0-16.0); Immature Granulocytes Pct Auto 0.2 %; Lymphocytes Percent Auto 19.5 % (20-44); Mean Corpuscular HGB Conc 34 gm/dL (32-36); Mean Corpuscular Hemoglobin 32 pg (26-34); Mean Corpuscular Volume 94 fL (80-100); Monocytes Percent Auto 3.1 % (0.0-11.0); Neutrophils Percent Auto 76.3 % (42.0-72.0); Platelet Count* 305 K/uL (140-440); Red Blood Count 4.36 m/uL (4.00-5.20); White Blood Count* 11.05 K/uL (4.50-11.00)
[2023-04-21 17:48] LABS: Slide Review Reflex No
[2023-04-21] MEDS: 0.9 % SODIUM CHLORIDE 1000 ml 1,000 ML IV (17:54)
[2023-04-21] MEDS: droperidoL 2.5 MG/ML inj 0.625 MG IV (17:54)
[2023-04-21 18:01] LABS: Albumin* 5.3 g/dL (3.3-5.0); Chloride* 107 mmol/L (96-114)
[2023-04-21 18:02] LABS: Sodium* 139 mmol/L (135-149)
[2023-04-21 18:04] LABS: Creatinine* 0.7 mg/dL (0.5-1.5); Est. Creatinine Clearance* 119.47; Estimated Glomerular Filt Rate 123 ml/min
[2023-04-21 18:05] LABS: Alanine Aminotransferase* 16 U/L (4-35); Alkaline Phosphatase* 72 U/L (40-150); Anion Gap 15 mEq/L (7-15); Aspartate Amino Transferase* 32 U/L (12-35); Bilirubin Direct* 0.2 mg/dL (0.0-0.5); Bilirubin Total* 1.5 mg/dL (0.1-1.5); Blood Urea Nitrogen* 16 mg/dL (5-24); Calcium* 10.4 mg/dL (8.4-10.6); Carbon Dioxide* 17 mmol/L (20-32); Glucose* 165 mg/dL (60-115); Lipase* 27 U/L (23-300)
--- NOTE | 2023-04-21 18:07 | ED.NURSE ---
Patient more difficult IV start related to current medical condition. For pain management and discomfort, patient felt it helpful to ambulate in the hallway. She began sitting in the guerin beds and wheelchairs. At that time, directed the patient to walk around in her room as it is the stabilization room with plenty of space for ambulation. Patient provided reassurance and ice chips. Patient was noted to be drinking a bottle of water and also sticking her index and middle finger into the back of her throat to induce vomiting as it felt better to get it out. Educated patient to not drink water at this time (especially with her history of pancreatitis) and that she should not induce vomiting with her fingers either. IV fluids initiated and nausea medication administered. Provided her with a warm blanket. Urine Hcg test changed to blood test as patient was brought into the bathroom but unable to void.
[2023-04-21 18:10] LABS: C Reactive Protein* < 0.5 mg/dL (0.5-1.0)
[2023-04-21 18:28] LABS: HCG Qualitative Serum* Negative (Negative)
--- NOTE | 2023-04-21 18:41 | ED.NURSE ---
Assessed patient, notified her that carafate was ordered for her upper abdominal pain. She was sleeping at the time of assessment and woke her to provide an update. She thanked me for the update.
[2023-04-21] MEDS: SUCRALFATE 1 GM TABLET PO (18:58)
[2023-04-21] MEDS: HALOPERIDOL 5 MG/ML INJ IM (19:19)
== END 2023-04-21 20:39 | disposition home or self-care (01) ==
PROVIDERS: Emergency Provider Family Medicine; PCP Family Medicine
DX: F12.988 Cannabis use, unspecified with other cannabis-induced disorder (principal); R11.15 Cyclical vomiting syndrome unrelated to migraine
CPT/HCPCS: 36415; 80048; 80076; 81025; 83605; 83690; 84703; 85025; 86140; 96372; 99283; 99284; A9270; J1630; J1790; J7030

== ENCOUNTER 2023-05-18 08:57 | Emergency (ER) | payer MEDICAID, SELFPAY ==
[2023-05-18] VITALS (17 sets, daily range): BP systolic 112–130; BP diastolic 71–84; PULSE 62–112; RESP 18; TEMP 37; O2SAT 96–100; BMI 26.6
--- NOTE | 2023-05-18 09:37 | ED.NAVMDI ---
HPI - Nausea/Vomiting/Diarrhea General Time Seen by Provider: 09:37 Date Seen: 05/18/23 Chief complaint: Nausea/Vomiting Stated complaint: vomiting Time Seen by Provider: 05/18/23 09:37 Source: patient and RN notes reviewed Mode of arrival: ambulatory Limitations: no limitations History of Present Illness HPI Narrative: This 27-year-old female is coming in with unrelenting nausea and vomiting. She has been diagnosed with cyclical vomiting. She has used marijuana and alcohol in the past, these have been exacerbated since for her. She states she is really trying to stay away from using. She is tearful, states she has really not been able to eat or drink anything all week. Symptoms started Sunday. No fevers or chills. She really has not had any stool production over the last couple of days but is not eating anything. She is tearful, crying. She is tried Zofran and Maalox at home. She states there is no chance for . She was last in on 04/21/2019 for, prior to that was in December of 2022. Related Data Home Medications Medication Instructions Recorded Confirmed levonorgestrel-ethinyl estradiol 1 tab PO DAILY 07/08/22 05/18/23 0.1 mg-20 mcg tablet (Vienva) lorazepam 1 mg tablet 1 mg PO BID 08/23/22 05/18/23 metoclopramide HCl 10 mg tablet 10 mg PO Q6H PRN nausea/vomiting 08/23/22 08/30/22 ondansetron 4 mg disintegrating 4 mg PO Q8H PRN 08/23/22 05/18/23 tablet Previous Rx's Medication Instructions Recorded escitalopram oxalate 10 mg tablet 10 mg PO DAILY #30 tabs 08/22/22 (Lexapro) lorazepam 0.5 mg tablet (Ativan) 0.5 mg PO BID PRN #15 tabs 08/23/22 lidocaine HCl 2 % mucosal solution 1 applic mucous membrane BID PRN 08/25/22 #100 mL lorazepam 1 mg tablet 0.5 - 1 mg (0.5 - 1 x 1 mg) PO TID 08/25/22 PRN #12 tabs omeprazole 40 mg capsule,delayed 40 mg PO DAILY #30 caps 08/25/22 release ketorolac 10 mg tablet 10 mg PO Q8H PRN pain #7 tabs 08/30/22 hydrocodone 5 mg-acetaminophen 325 1 tab PO Q4-6H PRN pain #20 tabs 09/04/22 mg tablet capsaicin 0.1 % topical cream 1 applic topical BID #42.5 grams 11/09/22 olanzapine 5 mg tablet (Zyprexa) 5 mg PO BID PRN #10 tabs 05/18/23 omeprazole 40 mg capsule,delayed 40 mg PO DAILY #14 caps 05/18/23 release Allergies Allergy/AdvReac Type Severity Reaction Status Date / Time No Known Drug Allergies Allergy Verified 05/18/23 09:06 Review of Systems Status of ROS: Reports: 6 or more systems reviewed and unremarkable except as noted in History and below [facility] Social History Smoking Status: Former smoker What tobacco products do you use: cigarettes Smoking quit date/years: <= 15 years ago Do you use any of these nicotine containing products: None Second hand tobacco smoke exposure: No How often do you have a drink containing alcohol: monthly or less AUDIT-C Alcohol total score: 1 Non-prescribed substance use: marijuana (any form) service: No Exam Const: Vital Signs, click to edit/add: Vital Signs - 24 hr 05/18/23 09:01 05/18/23 10:40 05/18/23 10:45 Temperature 98.6 F Pulse Rate 81 82 Pulse Rate [Pulse Oximeter] 112 H Respiratory Rate 18 Blood Pressure Blood Pressure [Ri ght Upper Arm] 130/84 Pulse Oximetry 97 99 98 Oxygen Delivery Me thod Room Air 05/18/23 11:00 05/18/23 11:05 05/18/23 11:26 Temperature Pulse Rate 68 77 79 Pulse Rate [Pulse Oximeter] Respiratory Rate Blood Pressure Blood Pressure [Ri ght Upper Arm] Pulse Oximetry 96 96 99 Oxygen Delivery Me thod 05/18/23 11:28 05/18/23 11:28 05/18/23 11:30 Temperature Pulse Rate 75 75 69 Pulse Rate [Pulse Oximeter] Respiratory Rate Blood Pressure 120/79 120/79 Blood Pressure [Ri ght Upper Arm] Pulse Oximetry 97 97 98 Oxygen Delivery Me thod 05/18/23 11:45 05/18/23 12:00 05/18/23 12:01 Temperature Pulse Rate 69 64 66 Pulse Rate [Pulse Oximeter] Respiratory Rate Blood Pressure 112/71 Blood Pressure [Ri ght Upper Arm] Pulse Oximetry 97 97 98 Oxygen Delivery Me thod This 27-year-old female is alert, interactive, no parents stressed. Is tearful at times. She is certainly very pleasant and cooperative. Sclera clear, conjugate gaze with equal pupils. Symmetrical facial function. Lips are normal, does have piercings. Tongue oral mucosa is dry. Speech is normal, able speak in complete sentences. Lungs are clear, good air entry, no wheezing or crackles. CV regular rhythm but slightly fast, normal S1-S2, no S3-S4. Abdomen is soft, nondistended, no rebound or guarding, no organomegaly. Skin visualized without rash. Patient was ambulatory into the ED of her own accord. Documenting provider has reviewed patient's vital signs: yes Course Course ED Course: Patient looks mildly dry, is slightly tachycardic. Will initiate IV fluids with a L of lactated Ringer's. Will treat her symptoms with 5 mg IV Zyprexa. Will check some baseline labs on her. Abdomen is very benign, do not think that this represents any intra-abdominal pathology or anything surgical. Do not feel she needs any imaging at this time. Reevaluation(s) Time of Reevaluation #1: 11:19 Reevaluation #1: Patient is still nauseated, was up to the bathroom. Will give a 2 L of LR, 4 mg IV Zofran. Labs are stable, not indicative of any concerning underlying changes. Feel this represents patient's cyclic vomiting. Time of Reevaluation #2: 12:28 Reevaluation #2: Patient's nausea is reportedly improved. She is complaining of little abdominal discomfort. Will give her 15 mg IV Toradol, likely discharge to home soon. Time of Reevaluation #3: 13:29 Reevaluation #3: Patient is just receiving her IV Protonix. Unfortunately, our pharmacy is out of Carafate. She overall is improved. We discussed sending a few Zyprexa oral tablets to the pharmacy as well as initiating a 2 week course of omeprazole. She understands I do want her to follow up with her primary care provider next week in clinic. Vital Signs Vital signs: Initial Vital Signs Temperature 98.6 F 05/18/23 09:01 Temperature Source Temporal Artery Scan 05/18/23 09:01 Pulse Rate 112 H 05/18/23 09:01 Respiratory Rate 18 05/18/23 09:01 Blood Pressure 130/84 05/18/23 09:01 Blood Pressure Mean 99 05/18/23 09:01 Blood Pressure Position Sitting 05/18/23 09:01 Pulse Oximetry 97 05/18/23 09:01 Oxygen Delivery Method Room Air 05/18/23 09:01 Vital Signs Temperature 98.6 F 05/18/23 09:01 Pulse Rate 112 H 05/18/23 09:01 Respiratory Rate 18 05/18/23 09:01 Blood Pressure 130/84 05/18/23 09:01 Pulse Oximetry 97 05/18/23 09:01 Oxygen Delivery Method Room Air 05/18/23 09:01 Temperature 98.6 F 05/18/23 09:01 Pulse Rate 66 05/18/23 12:01 Respiratory Rate 18 05/18/23 09:01 Blood Pressure 112/71 05/18/23 12:01 Pulse Oximetry 98 05/18/23 12:01 Oxygen Delivery Method Room Air 05/18/23 09:01 Medications Administered Medications: Discontinued Medications Generic Name Dose Route Start Last Admin Trade Name Freq PRN Reason Stop Dose Admin Lactated Ringer's 1,000 mls @ 1,000 mls/hr 05/18/23 09:41 05/18/23 11:20 Lactated Ringers 1000 Ml IV 05/18/23 10:40 Infused .Q1H ONE Infusion Lactated Ringer's 1,000 mls @ 1,000 mls/hr 05/18/23 11:17 05/18/23 11:28 Lactated Ringers 1000 Ml IV 05/18/23 12:16 1,000 mls/hr .Q1H ONE Administration Olanzapine 5 mg 05/18/23 09:41 05/18/23 10:15 Olanzapine 5 Mg/Ml Inj IVP 05/18/23 09:42 5 mg ONCE ONE Administration Ondansetron HCl 4 mg 05/18/23 11:17 05/18/23 11:28 Ondansetron 2 Mg/Ml Inj IVP 05/18/23 11:18 4 mg ONCE ONE Administration MDM - Nausea/Vomiting/Diarrhea Lab Data Attestation: I reviewed the patient's lab results. Labs: Lab Results 05/18/23 Range/Units 10:00 WBC 8.95 (4.50-11.00) K/uL RBC 4.59 (4.00-5.20) m/uL Hgb 14.5 (12.0-16.0) gm/dL Hct 41.6 (33.0-51.0) % MCV 91 (80-100) fL MCH 32 (26-34) pg MCHC 35 (32-36) gm/dL RDW Coeff of [place] 12.8 (11.5-15.5) % Plt Count 282 (140-440) K/uL Neut % (Auto) 78.4 H (42.0-72.0) % Lymph % (Auto) 17.1 L (20-44) % [place] % (Auto) 4.1 (0.0-11.0) % Eos % (Auto) 0.1 (0.0-7.0) % Baso % (Auto) 0.2 (0.0-3.0) % Neut # (Auto) 7.00 (1.7-7.0) K/uL Lymph # (Auto) 1.50 (0.90-2.90) K/uL [place] # (Auto) 0.40 (0.00-0.90) K/UL Eos # (Auto) 0.01 (0.00-0.50) K/uL Baso # (Auto) 0.02 (0.00-0.30) K/uL Abs Immat Gran (auto) 0.01 (0.00-0.30) K/uL Imm/Tot Granulo (auto) 0.1 % Sodium 136 (135-149) mmol/L Potassium 3.5 L (3.6-5.1) mmol/L Chloride 97 (96-114) mmol/L Carbon Dioxide 25 (20-32) mmol/L Anion Gap 14 (7-15) mEq/L BUN 22 (5-24) mg/dL Creatinine 0.7 (0.5-1.5) mg/dL Estimated Creat Clear 119.47 Estimated GFR 123 ml/min Glucose 139 H (60-115) mg/dL Lactate 1.8 (0.5-1.9) mmol/L Calcium 10.6 (8.4-10.6) mg/dL Total Bilirubin 1.9 H (0.1-1.5) mg/dL AST 30 (12-35) U/L ALT 22 (4-35) U/L Alkaline Phosphatase 72 (40-150) U/L Total Protein 9.1 H (6.0-8.3) g/dL Albumin 5.5 H (3.3-5.0) g/dL HCG, Qual Negative (Negative) Discharge Plan Discharge Clinical Impression: Cyclic vomiting syndrome Patient Disposition: Home, Self-Care Condition: Stable Instructions: Cyclic Vomiting Syndrome (ED) Additional Instructions: Take omeprazole daily, this can help decrease acid and stomach irritation. Can use Zofran and or Zyprexa per prescription instructions for any ongoing symptoms of your cyclical vomiting. Take frequent small sips of fluids every 5-10 minutes while awake, this will help not overload your stomach. You need to schedule a clinic follow-up with your primary care provider next week, consider referral to Gastroenterology if you have ongoing issues. Need to refrain from alcohol and marijuana. 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 Instructions: Can mix 15 mL with equal amount of liquid antacid/anti-gas for stomach pain levonorgestrel-ethinyl estrad [Vienva] 0.1-20 mg-mcg tablet 1 tab PO DAILY escitalopram oxalate [Lexapro] 10 mg tablet 10 mg PO DAILY Qty: 30 2RF lorazepam 1 mg tablet 1 mg PO BID ondansetron 4 mg tablet,disintegrating 4 mg PO Q8H PRN metoclopramide HCl 10 mg tablet 10 mg PO Q6H PRN (Reason: nausea/vomiting) ketorolac 10 mg tablet 10 mg PO Q8H PRN (Reason: pain) Qty: 7 0RF hydrocodone-acetaminophen 5-325 mg tablet 1 tab PO Q4-6H PRN (Reason: pain) Qty: 20 0RF capsaicin 0.1 % cream 1 applic topical BID Qty: 42.5 0RF Rx Instructions: do not wash area for at least 30 min after application Follow Up/Referrals: Ashwini Zhang MD [Primary Care Provider] - Stand Alone [facility]: [facility] Info Instructions
[2023-05-18 10:09] LABS: Lactate* 1.8 mmol/L (0.5-1.9)
[2023-05-18] MEDS: LACTATED RINGERS 1000 ML 1,000 ML IV ×2 (10:10→11:28)
[2023-05-18 10:13] LABS: Basophils Absolute Auto 0.02 K/uL (0.00-0.30); Basophils Percent Auto 0.2 % (0.0-3.0); Eosinophils Absolute Auto 0.01 K/uL (0.00-0.50); Eosinophils Percent Auto 0.1 % (0.0-7.0); Hematocrit 41.6 % (33.0-51.0); Hemoglobin* 14.5 gm/dL (12.0-16.0); Immature Granulocytes Abs Auto 0.01 K/uL (0.00-0.30); Immature Granulocytes Pct Auto 0.1 %; Lymphocytes Percent Auto 17.1 % (20-44); Mean Corpuscular HGB Conc 35 gm/dL (32-36); Mean Corpuscular Hemoglobin 32 pg (26-34); Mean Corpuscular Volume 91 fL (80-100); Monocytes Percent Auto 4.1 % (0.0-11.0); Neutrophils Percent Auto 78.4 % (42.0-72.0); Platelet Count* 282 K/uL (140-440); RDW Coefficient of Variation % 12.8 % (11.5-15.5); Red Blood Count 4.59 m/uL (4.00-5.20); White Blood Count* 8.95 K/uL (4.50-11.00)
[2023-05-18 10:14] LABS: Slide Review Reflex No
[2023-05-18] MEDS: OLANZapine 5 MG/ML inj IVP (10:15)
[2023-05-18 10:26] LABS: Albumin* 5.5 g/dL (3.3-5.0); Chloride* 97 mmol/L (96-114); Potassium* 3.5 mmol/L (3.6-5.1); Sodium* 136 mmol/L (135-149)
[2023-05-18 10:28] LABS: Bilirubin Total* 1.9 mg/dL (0.1-1.5); Creatinine* 0.7 mg/dL (0.5-1.5); Est. Creatinine Clearance* 119.47; Estimated Glomerular Filt Rate 123 ml/min
[2023-05-18 10:29] LABS: Alanine Aminotransferase* 22 U/L (4-35); Alkaline Phosphatase* 72 U/L (40-150); Anion Gap 14 mEq/L (7-15); Aspartate Amino Transferase* 30 U/L (12-35); Blood Urea Nitrogen* 22 mg/dL (5-24); Calcium* 10.6 mg/dL (8.4-10.6); Carbon Dioxide* 25 mmol/L (20-32); Glucose* 139 mg/dL (60-115); Total Protein* 9.1 g/dL (6.0-8.3)
[2023-05-18 10:35] LABS: HCG Qualitative Serum* Negative (Negative)
[2023-05-18] MEDS: ONDANSETRON 2 MG/ML inj 4 MG IVP (11:28)
[2023-05-18] MEDS: KETOROLAC 15 MG/ML inj IVP (13:25)
[2023-05-18] MEDS: PANTOPRAZOLE SODIUM 40 MG INJ 80 MG IVP (13:28)
== END 2023-05-18 13:49 | disposition home or self-care (01) ==
PROVIDERS: Emergency Provider Family Medicine; PCP Family Medicine
DX: R11.15 Cyclical vomiting syndrome unrelated to migraine (principal)
CPT/HCPCS: 36415; 80053; 83605; 84703; 85025; 96374; 96375; 99283; 99284; C9113; J1885; J2405; J7120

== ENCOUNTER 2023-08-06 18:49 | Observation (INO) | payer BC, SELFPAY ==
[2023-08-06 18:55] VITALS: BP 138/98; PULSE 82; RESP 18; TEMP 36.4; O2SAT 99; BMI 27.4
--- NOTE | 2023-08-06 19:09 | ED_ITS ---
HPI - Nausea/Vomiting/Diarrhea General Chief complaint: Nausea/Vomiting Stated complaint: Vomiting Time Seen by Provider: 08/06/23 18:58 History of Present Illness HPI Narrative: This 28-year-old female comes in reporting abdominal pain with vomiting throughout the day today. She has a history of cyclical vomiting syndrome related to marijuana use. She states that she did use marijuana last night but also reports that she relapsed and began using alcohol. Her last drink by her report was last evening. Related Data Home Medications ?Medication ?Instructions ?Recorded ?Confirmed levonorgestrel-ethinyl estradiol 1 tab PO DAILY 07/08/22 05/18/23 0.1 mg-20 mcg tablet (Vienva) lorazepam 1 mg tablet 1 mg PO BID 08/23/22 05/18/23 metoclopramide HCl 10 mg tablet 10 mg PO Q6H PRN nausea/vomiting 08/23/22 ondansetron 4 mg disintegrating 4 mg PO Q8H PRN 08/23/22 05/18/23 tablet Previous Rx's ?Medication ?Instructions ?Recorded escitalopram oxalate 10 mg tablet 10 mg PO DAILY #30 tabs 08/22/22 (Lexapro) lorazepam 0.5 mg tablet (Ativan) 0.5 mg PO BID PRN #15 tabs 08/23/22 lidocaine HCl 2 % mucosal solution 1 applic mucous membrane BID PRN 08/25/22 #100 mL lorazepam 1 mg tablet 0.5 - 1 mg (0.5 - 1 x 1 mg) PO TID 08/25/22 PRN #12 tabs omeprazole 40 mg capsule,delayed 40 mg PO DAILY #30 caps 08/25/22 release ketorolac 10 mg tablet 10 mg PO Q8H PRN pain #7 tabs 08/30/22 hydrocodone 5 mg-acetaminophen 325 1 tab PO Q4-6H PRN pain #20 tabs 09/04/22 mg tablet capsaicin 0.1 % topical cream 1 applic topical BID #42.5 grams 11/09/22 olanzapine 5 mg tablet (Zyprexa) 5 mg PO BID PRN #10 tabs 05/18/23 omeprazole 40 mg capsule,delayed 40 mg PO DAILY #14 caps 05/18/23 release Allergies Allergy/AdvReac Type Severity Reaction Status Date / Time No Known Drug Allergies Allergy Verified 08/06/23 22:55 Review of Systems Status of ROS: Reports: 10 or more systems reviewed and unremarkable except as noted in History and below Narrative: Constitutional: No fevers, no weight gain or loss. Eyes: No discharge. No vision changes. HENT: No congestion, no sore throat, no ear pain. Cardiovascular: No chest pain, no palpitations. Respiratory: No shortness of breath, no wheezes, no cough. Gastrointestinal: Upper epigastric abdominal pain. Nausea with persistent vomiting. Genitourinary: No dysuria, no hematuria. Musculoskeletal: Normal range of motion. Skin: No rashes, no pruritis. Neurological: No dizziness, weakness, sensory change, speech change. Endo/Heme/Allergies: No bruising or bleeding. No polydipsia. Pysch: no suicidality, no anxiety, no insomnia. All other systems reviewed and are negative. [facility] Social History Smoking Status: Former smoker What tobacco products do you use: cigarettes Smoking quit date/years: <= 15 years ago Do you use any of these nicotine containing products: None Second hand tobacco smoke exposure: No How often do you have a drink containing alcohol: monthly or less How often do you have six or more drinks on one occasion: Less than monthly AUDIT-C Alcohol total score: 2 Non-prescribed substance use: marijuana (any form) service: No Exam Narrative: Exam Narrative: Constitutional: Well-developed, well-nourished. HEENT: Normocephalic, atraumatic. Neck: Normal range of motion. Nontender. Supple. Heart: Regular. No murmurs. Normal rate. Intact distal pulses. Lungs: Clear to auscultation. No chest discomfort. No wheezes, rhonchi, or rales. Abdomen: Normal bowel sounds. Tenderness in the upper epigastric region. No rebound tenderness. Genitalia: Deferred. Back: No midline tenderness. Normal range of motion. Extremities: Normal range of motion. No injury. Skin: Intact. No rash. Warm. No erythema or pallor. Neurologic: No altered sensation. No weakness. Alert and oriented. Psychiatric: No suicidality. No anxiety or depression. No insomnia. Nursing notes and vitals signs are reviewed. Const: Vital Signs, click to edit/add: Vital Signs - 24 hr 08/06/23 18:55 08/06/23 22:35 08/06/23 23:02 Temperature 97.5 F L 99.1 F 98.8 F Pulse Rate [Right Pulse Oximeter] 82 114 H 115 H Respiratory Rate 18 18 18 Blood Pressure [Ri ght Upper Arm] 138/98 H 184/114 H 145/85 H Pulse Oximetry 99 96 97 Oxygen Delivery Me thod Room Air Room Air Room Air 08/07/23 00:02 08/07/23 00:07 Temperature 99.1 F 99.1 F Pulse Rate [Right Pulse Oximeter] 114 H Respiratory Rate 18 Blood Pressure [Ri ght Upper Arm] 157/100 H Pulse Oximetry 97 Oxygen Delivery Me thod Room Air Course Vital Signs Vital signs: Initial Vital Signs Temperature 97.5 F L 08/06/23 18:55 Temperature Source Temporal Artery Scan 08/06/23 18:55 Pulse Rate 82 08/06/23 18:55 Respiratory Rate 18 08/06/23 18:55 Blood Pressure 138/98 H 08/06/23 18:55 Blood Pressure Mean 111 H 08/06/23 18:55 Blood Pressure Position Sitting 08/06/23 18:55 Pulse Oximetry 99 08/06/23 18:55 Oxygen Delivery Method Room Air 08/06/23 18:55 Vital Signs Temperature 97.5 F L 08/06/23 18:55 Pulse Rate 82 08/06/23 18:55 Respiratory Rate 18 08/06/23 18:55 Blood Pressure 138/98 H 08/06/23 18:55 Pulse Oximetry 99 08/06/23 18:55 Oxygen Delivery Method Room Air 08/06/23 18:55 Temperature 99.1 F 08/07/23 00:07 Pulse Rate 114 H 08/07/23 00:07 Respiratory Rate 18 08/07/23 00:07 Blood Pressure 157/100 H 08/07/23 00:07 Pulse Oximetry 97 08/07/23 00:07 Oxygen Delivery Method Room Air 08/07/23 00:07 Medications Administered Medications: Discontinued Medications Generic Name Dose Route Start Last Admin Trade Name Freq PRN Reason Stop Dose Admin Acetaminophen 1,000 mg 08/06/23 21:04 08/06/23 21:51 Acetaminophen 500 Mg Tablet PO 08/06/23 21:05 1,000 mg ONCE ONE Administration Haloperidol Lactate 5 mg 08/06/23 19:07 08/06/23 19:45 Haloperidol 5 Mg/Ml Inj IV 08/06/23 19:08 5 mg ONCE ONE Administration Sodium Chloride 1,000 mls @ 1,000 mls/hr 08/06/23 19:15 08/07/23 00:02 0.9 % Sodium Chloride 1000 Ml IV 08/06/23 20:14 Infused .Q1H JANI Infusion Sodium Chloride 1,000 mls @ 1,000 mls/hr 08/06/23 21:15 08/07/23 00:03 0.9 % Sodium Chloride 1000 Ml IV 08/06/23 22:14 Infused .Q1H JANI Infusion Sodium Chloride 500 mls @ 500 mls/hr 08/06/23 21:48 08/07/23 00:03 0.9 % Sodium Chloride 500 Ml IV 08/06/23 22:47 Infused .Q1H ONE Infusion Piperacillin Sod/Tazobactam 100 mls @ 200 mls/hr 08/06/23 21:48 08/07/23 00:03 Sod 3.375 gm/ Sodium Chloride IVPB 08/06/23 21:49 Infused ONCE ONE Infusion Ondansetron HCl 4 mg 08/06/23 19:07 08/06/23 19:16 Ondansetron 2 Mg/Ml Inj IVP 08/06/23 19:08 4 mg ONCE ONE Administration MDM - Nausea/Vomiting/Diarrhea MDM Narrative Medical decision making narrative: This patient came in with persistent nausea and vomiting which she has had in the past with cyclical vomiting syndrome secondary to marijuana usage. She states that she has also been taking alcohol as she has relapsed. She reports taking alcohol daily over the last couple days and her last drink was last evening. She is not showing any sign of withdrawal symptoms or tremors. An IV was established where the patient did receive 5 mg of Haldol and 4 mg of Zofran. This brought good control of her nausea and vomiting. She is complaining of upper epigastric abdominal pain and wonders if she might have pancreatitis. She arrived here with a temperature at 97.5? but recheck of her temperature showed a reading of 100.5? F. At this point a rule out sepsis workup was initiated. Her lactate returns at 3.8. The patient did receive 2.5 L of normal saline intravenously which is a bit more than 30 milligrams/kilogram. Her white count returns elevated around 17,000. Her lipase is is in normal range. Her liver enzymes are in normal range. Alcohol level is not detected. I decided to do a CT scan of her abdomen and pelvis seeing that she does have leukocytosis and elevated lactate level. She is not having any other symptoms other than upper epigastric abdominal pain. I did speak with the overnight physician on-call who agrees to her admission. This was Dr. Martinez. Lab Data Labs: Lab Results 08/06/23 08/06/23 08/06/23 Range/Units 19:45 21:25 23:00 WBC 16.94 H (4.50-11.00) K/uL RBC 4.01 (4.00-5.20) m/uL Hgb 12.9 (12.0-16.0) gm/dL Hct 38.2 (33.0-51.0) % MCV 95 (80-100) fL MCH 32 (26-34) pg MCHC 34 (32-36) gm/dL RDW Coeff of [place] 13.3 (11.5-15.5) % Plt Count 282 (140-440) K/uL Neut % (Auto) 92.9 H (42.0-72.0) % Lymph % (Auto) 4.8 L (20-44) % [place] % (Auto) 1.5 (0.0-11.0) % Eos % (Auto) 0.1 (0.0-7.0) % Baso % (Auto) 0.1 (0.0-3.0) % Neut # (Auto) 15.70 H (1.7-7.0) K/uL Lymph # (Auto) 0.80 L (0.90-2.90) K/uL [place] # (Auto) 0.30 (0.00-0.90) K/UL Eos # (Auto) 0.00 (0.00-0.50) K/uL Baso # (Auto) 0.00 (0.00-0.30) K/uL Abs Immat Gran (auto) 0.10 (0.00-0.30) K/uL Imm/Tot Granulo (auto) 0.6 % Sodium 136 (135-149) mmol/L Potassium 3.9 (3.6-5.1) mmol/L Chloride 100 (96-114) mmol/L Carbon Dioxide 20 (20-32) mmol/L Anion Gap 16 H (7-15) mEq/L BUN 15 (5-24) mg/dL Creatinine 0.5 (0.5-1.5) mg/dL Estimated Creat Clear 172.00 Estimated GFR 133 ml/min Glucose 148 H (60-115) mg/dL Lactate 3.8 H 3.5 H (0.5-1.9) mmol/L Calcium 9.6 (8.4-10.6) mg/dL Total Bilirubin 1.6 H (0.1-1.5) mg/dL Direct Bilirubin 0.4 (0.0-0.5) mg/dL AST 33 (12-35) U/L ALT 59 H (4-35) U/L Alkaline Phosphatase 126 (40-150) U/L Total Protein 9.0 H (6.0-8.3) g/dL Albumin 5.4 H (3.3-5.0) g/dL Lipase 18 L (23-300) U/L Urine Color Yellow (Yellow) Urine Appearance Clear (Clear) Urine pH 6.0 (5.0-8.5) Ur Specific [place] 1.025 (1.000-1.030) Urine Protein Negative (Negative) Urine Glucose (UA) Negative (Negative) Urine Ketones Trace A (Negative) Urine Blood Trace-intact A (Negative) Urine Nitrite Negative (Negative) Urine Bilirubin Negative (Negative) Urine Urobilinogen 0.2 (0.2-1.0) Ur Leukocyte Esterase Negative (Negative) Urine RBC 0-2 (0-2) Urine WBC 0-2 (0-5) Ur Squamous Epith Cells Few (None-Few) Urine Bacteria None (None) Ethyl Alcohol < 0.01 L (0.01-0.03) % Imaging Data CT scan - abdomen: Radiologist's impression: 1. No acute abdominal pelvic pathology. The etiology of the patient`s abdominal pain is not elucidated on this examination. 2. Small hiatal hernia. 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: Can mix 15 mL with equal amount of liquid antacid/anti-gas for stomach pain olanzapine [Zyprexa] 5 mg tablet 5 mg PO BID PRNQty: 10 0RF omeprazole 40 mg capsule,delayed release(DR/EC) 40 mg PO DAILY Qty: 14 0RF levonorgestrel-ethinyl estrad [Vienva] 0.1-20 mg-mcg tablet 1 tab PO DAILY escitalopram oxalate [Lexapro] 10 mg tablet 10 mg PO DAILY Qty: 30 2RF lorazepam 1 mg tablet 1 mg PO BID ondansetron 4 mg tablet,disintegrating 4 mg PO Q8H PRN metoclopramide HCl 10 mg tablet 10 mg PO Q6H PRN (Reason: nausea/vomiting) ketorolac 10 mg tablet 10 mg PO Q8H PRN (Reason: pain) Qty: 7 0RF hydrocodone-acetaminophen 5-325 mg tablet 1 tab PO Q4-6H PRN (Reason: pain) Qty: 20 0RF capsaicin 0.1 % cream 1 applic topical BID Qty: 42.5 0RF Rx Instructions: do not wash area for at least 30 min after application Follow Up/Referrals: Ashwini Zhang MD [Primary Care Provider] -
--- OUTSIDE RECORDS SUMMARY | 2023-08-06 19:12 | XMS_ITS | Referral Summary ---
Author Organization [facility] Address [address] [place] [id number] Care Team Providers Care Tool Coordinator Name Role Phone Unavailable Primary Care Provider Unavailabl e Source Comments Patient records contain information from all sites at [facility]. For routine questions regarding patient records, call [phone] during business hours, M-F 8:00 AM - 5:00 PM Central Time. Record requests for emergency care only can be directed to [phone] at any time.[facility] Allergies No known active allergies Medications [...]
--- OUTSIDE RECORDS SUMMARY | 2023-08-06 19:12 | XMS_ITS | Clinical Summary ---
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 [facility] Primary Care Provider Medications Medication Sig Dispensed Refills Start Date End Date Status ALBUTEROL IN Active Fluticasone Furoate (ARNUITY ELLIPTA IN) Active oxymetazoline (AFRIN) 0.05 % spray [place] 2 sprays into both nostrils 2 times daily Active nicotine (NICODERM CQ) 7 MG/24HR [address] 1 patch onto the skin every 24 hours Active HEXYLRESORCINOL MT Active methylPREDNISolone (MEDROL DOSEPAK) 4 MG tablet Follow package instructions 21 tablet 06/19/2017 Active Social History Tobacco Use Types [...] of Treatment Not on file Care Teams 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
--- OUTSIDE RECORDS SUMMARY | 2023-08-06 19:12 | XMS_ITS | Continuity of Care Document ---
Author Organization [facility] Address [address] [address] [place] [address] Phone Care Team Providers Care Coke Still Cleaner Name Role Phone Allyson Hawthorne CRNA Unavailable [...] Diagnoses Date Provider Providers Copied on Encounter [facility], [address] [address], [place], [place], [id number], [place] tel:[phone] [facility] No Information 3 Christoph Valadez. [address] [facility], [place], [place], [id number] , [place]. tel: [phone] Referring Provider: Ronnie Jordan MD, [address] [facility] [address], [place], [address] . tel:[phone] [facility], [address] [address], [place], [place], [id number], [place] tel:[phone] [facility] GI Symptoms or Concerns (chief complaint) GastropathyNausea with vomiting, unspecifiedEpigastr ic painDisease of stomach and duodenum, unspecified 3 Nikki Trujillo. [address] [facility], [address], [place], [place], [address] , [place]. tel: [phone] Referring Provider: Referral Self, USE FOR SELF REFERRALS. [facility], [address] [address], [place], [place], [address], [place] tel:[phone] [facility] Epigastric pain 3 Lise Roberts. [address] [facility], [place], [place], [address] , [place]. tel: [phone] Office Cons New/estab Mod [facility], [address] [address], [place], [place], [address], [place] tel:[phone] [facility] GI Symptoms or Concerns (chief complaint) Epigastric pain 3 Lise Roberts. [address] [facility], [address], [place], [id number] , [place]. tel:[phone] Referring Provider: Ashwini Zhang MD, [address] [facility], [place], [address]. tel:[phone] [facility], [address] [address], [place], [place], [id number], [place] tel:[phone] [facility] No Information Nayan Flores. [address] [facility], [address], [place], [id number] , [place]. tel:[phone] Family History Family Member Type Diagnosis Age [...] Insurance type Covered republican ID Authoriza tiholli(s) [facility] [id number] Social History Type Description Quantity Date Captured [...]
--- OUTSIDE RECORDS SUMMARY | 2023-08-06 19:12 | XMS_ITS | Clinical Summary ---
Author Organization [facility] Address [address] [place] [address] Phone Care Team Providers Care Transit Mixer Operator Name Role Phone Ashwini Zhang MD Primary Care Provider [phone] Source Comments Cupple is fully rolled out on [employer]. Last update 08/07/08.[facility] Allergies No known active allergies Medications * [...] (145 lb 1 oz) 04/14/2021 9:51 AM ASSEMBLER [employer] Height 170.2 cm (5' 7) 04/14/2021 9:51 AM [employer]SEMBLER [employer] Body Mass Index 22.72 04/14/2021 9:51 AM ASSEMBLER [employer] Plan of Treatment Health Maintenance Due Date Last Done Comments Asthma Action Plan 1997 Asthma Control Test 1997 Dental Oral Exam 1997 Dental Prophylaxis 1997 Dental X-Ray: Bitewings 1997 Depression Management 1997 Imm: Pneumonia Peds or At-Risk less than 65 years (1 of 2 - PCV) 06/10/2003 Periodontal Maintenance 06/10/2011 HEALTH MAINTENANCE PROTOCOL 2016 INFLUENZA VACCINE 10/03/2022 04/15/2021, , 01/15/2004, Additional history exists COVID-19 Vaccine ( season) 2022 12/02/2020, 11/04/2020 Cervical Cancer Screening Age 21-29 05/08/2023 05/07/2020 PREVENTATIVE VISIT 07/01/2023 06/30/2022 TD/TDAP ADULTS 01/16/2028 01/15/2018, 09/03, 1997, Additional history exists Imm: HepB Completed 03/10/1998, 10/04, 1997 HIB Completed 10/18/1998, 10/04, 1997 HPV Completed 06/26/2012, 12/03, 09/30/2009 HIV Screening Completed 11/27/2017 Chlamydia & Gonorrhea Screening Discontinued 05/07/2020, 12/04/2017 RSV Immunoglobulin Aged Out No longer eligible based on patient's age to complete this topic Procedures Procedure Name Priority Date/Time Associated Diagnosis Comments PAP TEST Routine 05/07/2020 3:34 PM [employer] URINE CHLAMYDIA AND NEISSERIAE GONORRHOEAE AMPLIFICATION Routine 05/07/2020 3:34 PM [employer] HIV COMBO Routine 11/27/2017 9:26 AM CDT from Last 3 Months or Most Recently Relevant to Health Maintenance Advance Directives For more information, please contact: [phone] * Full Code (Latest Code Status on File) Date Activated Date Inactivated Comments 04/14/2021 9:31 PM 04/16/2021 6:55 PM Question Answer Comments Does the Patient have prefer ences regarding life sustaining measures (these options only apply when the patient has a pulse): Yes Patient will accept intubation for respiratory d eterioration: Unaddressed Patient will accept BiPAP for respiratory deteri oration: Unaddressed Patient will accept vasopressors for hypotension : Unaddressed Patient will accept cardioversion for unstable r hythm: Unaddressed Discussed Code Status With Whom? Not discussed * Full Code Date Activated Date Inactivated Comments 06/26/2017 6:54 PM 07/05/2017 12:16 PM Question Answer Comments Does the Patient have prefer ences regarding life sustaining measures (these options only apply when the patient has a pulse): No Discussed Code Status With Whom? Not discussed Care Teams Transit Mixer Operator Relationship Specialty Start Date End Date Ashwini Zhang MD [address] [place] [address] PCP - General Family Medicine 06/28/17
--- OUTSIDE RECORDS SUMMARY | 2023-08-06 19:12 | XMS_ITS | Referral Summary ---
Author Organization [facility] Address [address] [place] [address] Care Team Providers Care Senior Solutions Consultant Name Role Phone [facility] Primary Care Provider Medications Medication Sig Dispensed Refills Start Date End Date Status ALBUTEROL IN Active Fluticasone Furoate (ARNUITY ELLIPTA IN) Active oxymetazoline (AFRIN) 0.05 % spray [place] 2 sprays into both nostrils 2 times [...] of Treatment Not on file Care Teams Senior Solutions Consultant Relationship Specialty Start Date End Date [facility] [address] [place] [address] PCP - General 06/19/17
--- OUTSIDE RECORDS SUMMARY | 2023-08-06 19:12 | XMS_ITS ---
Author Organization [facility] Address [address] [place] [address] Care Team Providers Care Software Integrator Name Role Phone Unavailable Unavailable Unavailable Surgery Details Not on file Complications Check Surgery Details section. Procedure Estimated Blood Loss Check Surgery Details section. Procedure Findings Check Surgery Details section. Procedure Specimens Taken Check Surgery Details section.
--- OUTSIDE RECORDS SUMMARY | 2023-08-06 19:12 | XMS_ITS | Clinical Summary ---
Author Organization [facility] Address [place], [place] [address] Care Team Providers Care Accountant Helper Name Role Phone Ashwini Zhang MD Primary Care Provider [phone] Allergies No known active allergies Medications Medication Sig Dispensed Refills Start Date End Date Status albuterol HFA (ProAir HFA) 90 mcg/actuation inhalerIndications: Asthma, unspecified asthma severity, unspecified whether complicated, unspecified whether persistent Inhale 2 Puffs by mouth every 4 hours if needed for Shortness Of Breath or Wheezing. 8.5 g 2 06/30/2022 Active escitalopram oxalate (LEXAPRO) 20 mg tabletIndications:M ajor depressive disorder, recurrent, moderate (HC),Social anxiety disorder,Generalize d anxiety disorder Take 1 Tablet (20 mg) by mouth once daily. Further refills will be prescribed during an appointment 30 Tablet 2 06/12/2023 09/10/2023 Active hydrOXYzine HCL (ATARAX) 10 mg tabletIndications:S ocial anxiety disorder,Generalize d anxiety disorder Take 0.5-2 Tablets (5-20 mg) by mouth 4 times daily if needed for Anxiety (sleep). wait 1 hour between doses 120 Tablet 2 06/12/2023 Active levonorgestrel-ethi nyl estrad, 0.1mg-20mcg, (Vienva) 0.1-20 mg-mcg tabletIndications:E ncounter for counseling regarding contraception TAKE ONE TABLET BY MOUTH ONE TIME DAILY 84 Tablet 2 06/27/2023 Active Active Problems Problem Noted Date Diagnosed Date Social anxiety disorder 06/12/2023 Generalized anxiety disorder 06/12/2023 Amphetamine use disorder, mi ld, in sustained remission since 201405/15/2023 Major depressive disorder, recurrent, moderate 0 05/15/2023 Cannabis use disorder, severe, dependence 2023 Chronic hypokalemia 05/08/2023 Colitis 05/08/2023 Gastritis 05/08/2023 Retropharyngeal abscess 05/08/2023 Vaginal delivery 05/08/2023 Cyclic vomiting syndrome 05/08/2023 Alcohol use disorder, severe, dependence 024 Cannabis hyperemesis syndrom e concurrent with and due to cannabis abuse 05/08/2023 Prediabetes 07/03/2022 COVID-19 04/14/2021 Tachycardia 11/15/2019 Acute alcoholic hepatitis 11/15/2019 Macrocytosis without anemia 11/15/2019 Alcohol-induced pancreatitis 11/13/2019 Alcohol withdrawal 11/13/2019 Elevated LFTs 11/13/2019 [...] No problems associated with this episode. Sumi Burgess RNC.....12/05/2017 8:12 AM Alcohol withdrawal seizure with delirium 018 Delirium tremens 05/03/2017 Unspecified asthma(493.90) 05/10/2007 Resolved Problems Problem Noted Date Diagnosed Date Resolved Date Alcohol use disorder, severe, dependence 06/12/2023 06/12/2023 Cannabis use disorder, severe, dependence 06/12/2023 06/12/2023 Alcoholism 05/08/2023 05/08/2023 At risk for depression 11/15/201905/07 Alcohol intoxication 11/13/2019 024 Acute respiratory failure with hypercapnia 05/29/2017 03/18/2018 Acute hepatitis 05/29/2017 05/08/2023 Alcohol dependence with withdrawal 05/28/2017 03/18/2018 History of major depressive disorder, single episode, severe, without mention of psychotic behavior 05/18/2012 05/15/2023 Cannabis abuse, continuous 05/18/2012 0 05/08/2023 Encounters Date Type Department Care Team Description 07/09/2023 11:00 AM CDT Telemedicine [facility] [address] [place] [address] Estela Guerra, [facility] 06/26/2023 Refill [facility] [address] [place] [address] Ashwini Zhang MD Refill Request (Vienva) 06/12/2023 9:30 AM CDT Office Visit [facility] [address] [place] [address] Derrell Monet MD Medication Management (Hasn't noticed any change with starting the lexapro) 06/12/2023 Travel 05/22/2023 3:45 PM CDT Office Visit [facility] [address] [place] [address] Taylor Don MD Follow Up (Left inner buttock incision-draining) 05/22/2023 Travel 05/15/2023 8:30 AM CDT Office Visit [facility] [address] [place] [address] Derrell Monet MD Medication Management (Things are the same) 05/15/2023 Travel 05/14/2023 9:00 AM CDT Telemedicine [facility] [address] [place] [address] Estela Guerra PATTERN REPAIR PERSON 05/07/2023 10:30 AM CERTIFIED TECHNICIAN Office Visit [facility] [address] [place] [address] Derrell Monet MD Mental Health Intake (Diagnosis consult, referred by addiction medicine) 05/07/2023 Travel from Last 3 Months Immunizations Name Administration Dates Next Due COVID-19 vaccine (MiCursada NTVYou 30mcg/0.3mL) PF, MDV 12/02/2020,11/04/2020 DTaP 05/30/2002, 8,1997,07/21 DTaP-HIB (TriHIBIT) 10/18/1998 HIB-HepB (Comvax) 1997,1997 Hepatitis B (Peds) 03/10/1998 Human Papilloma Virus Vaccine 06/26/2012, 010,09/30/2009 04/17/2010 Inactivated Polio Vaccine 05/30/2002,08/1998,1997,07/21 Influenza Virus, Unspecified 04/15/2021 Influenza, IIV3 (Age >=3 years) 01/15/2004,12/30 Influenza, IIV4 11/27/2017 MMR 05/30/2002,10/18/1998 Tdap 01/15/2018,09/30/2009 Varicella Vaccine 06/26/2012,06/16/1998 Family History Medical History Relation Name Comments Alcoholism Father Drug Abuse Father methamphetamine s Good Health Father Alcoholism Maternal Grandfather Alcoholism Maternal Grandmother Diabetes Maternal Grandmother Asthma Mother Drug Abuse Mother methamphetamine s GI Disease Mother familial polypo sis Alcoholism Paternal Grandmother Seizures Paternal Grandmother Good Health Sister Asthma Son Relation Name Status Comments Father Maternal Grandfather Maternal Grandmother Mother Paternal Grandmother Sister Son Alive Social History Tobacco Use Types Packs/Day Years Used Date Smoking Tobacco: Former Cigarettes 0.3 10.9 0 05/29/2011 - 03/30/2020 Smokeless Tobacco: Never Tobacco Cessation:Counseling Given: Yes Comments:TIP done 06/04/17 Alcohol Use Standard Drinks/Week Comments No 0 (1 standard drink = 0.6 oz pure alcohol) quit in 03/2023, previously 2 bottles shayy whiskey/wk PHQ-2 Answer Date Recorded PHQ-2 TOTAL SCORE 2 06/12/2023 Social Connections Answer Date Recorded Frequency of [...] Name Cl in 03/21 Term 37w 5d M Vag Suzette ng Cal Last Filed Vital Signs Vital Sign Reading Time Taken Comments Blood Pressure 103/66 06/12/2023 9:33 AM CDT Pulse 80 06/12/2023 9:33 AM CDT Temperature 36.7 ??C (98 ??F) 03/27/2023 1:47 PM CERTIFIED TECHNICIAN Respiratory Rate 22 12/19/2022 2:07 PM CDT Oxygen Saturation 97% 05/22/2023 3:39 PM CDT Inhaled Oxygen Concentration - - Weight 81.6 kg (180 lb) 06/12/2023 9:33 AM CDT Height 170.2 cm (5' 7) 05/07/2023 10:36 AM CERTIFIED TECHNICIAN Body Mass Index 28.19 05/07/2023 10:36 AM CERTIFIED TECHNICIAN Plan of Treatment Upcoming Encounters Date Type Department Care Team (Late st Contact Info) Description 08/16/2023 9:30 AM CDT Office Visit [facility] [address] [place] [facility] [address] Derrell Monet MD [address] [place] [address] Health Maintenance Due Date Last Done Comments Pneumococcal series for age 6-64 (1 of 2 - PCV) 06/10/2003 COVID-19 vaccine series (3 - season) 2022 12/02/2020, 11/04/2020 Pap test for age 21-65 05/08/2023 05/07/2020 Influenza for age 9-49 11/04/2023 , 11/27/2017, 01/15/2004, Additional history exists BMI (ht and wt on same day) for age 18+ 05/06/2024 05/07/2023, 06/30/2022, 07/22/2021, Additional history exists Depression screening for age 12+ 06/11/2024 06/12/2023, 05/15/2023, 05/14/2023, Additional history exists Tetanus booster 01/16/2028 01/15/2018, 09/30/2009 HPV series for age 9-26 Completed 06/27/19 13, 12/15/2009, 09/30/2009 Hepatitis C screening for ag e 18-79 Completed 05/29/2017 HIV for age 15-65 Completed 11/27/2017 Tdap Completed 01/15/2018, 09/30/2009 Procedures Procedure Name Priority Date/Time Associated Diagnosis Comments LIVESTOCK COUNTER THIN PREP PAP SCREEN IMAGED Routine 05/07/2020 3:34 PM CERTIFIED TECHNICIAN Screening for cervical cancer ANTI HIV 1/2 Routine 11/27/2017 9:26 AM CDT Supervision of normal first in second trimester ACUTE HEPATITIS PANEL HOLLIS 05/29/2017 2:10 AM CDT from Last 3 Months or Most Recently Relevant to Health Maintenance Results * LIVESTOCK COUNTER THIN PREP PAP SCREEN IMAGED [[id number]] (05/07/2020 3:34 PM CERTIFIED TECHNICIAN) Case Report Gynecologic Cytology Report ? Case: [id number] ? Authorizing Provider: ??Ashwini Zhang MD ? Collected: ? 05/07/2020 1534 ? Ordering Location: ? [facility] ?? Received: ?05/07/2020 1549 ? Clinic ? First Screen: ?Reji Adams ? Specimen: ?LIVESTOCK COUNTER ThinPrep Vial Screening, Cervical ? 05/17/2020 2:28 PM [facility]T [facility] [place] [facility]AL [facility] INTERPRETATION/ RESULT NEGATIVE FOR INTRAEPITHELIAL LESION OR MALIGNANCY (NIL) (none) 05/17/2020 2:28 PM CDT [facility] NISM(S) Shift in mitchell suggestive of bacterial vaginosis 05/17/2020 2:28 PM CDT [facility] SPECIMEN ADEQUACY Satisfactory for evaluation Endocervical component present 05/17/2020 2:28 PM CDT [facility] HPV REQUEST HPV if ASCUS 05/17/2020 2:28 PM CDT [facility] Date of LMP Hormonally Suppressed 05/17/2020 2:28 PM CDT [facility] Last Pap Date first 05/17/2020 2:28 PM CDT [facility] Last Pap Result First Pap/Unknown 2:28 PM CDT [facility] Abnormal Pap or [place] Bx in last 5 years No 05/17/2020 2:28 PM CDT [facility] Menstrual Status Irregular Periods 05/17/2020 2:28 PM CDT [facility] [place] Bx Done Today No 05/17/2020 2:28 PM CDT [facility] Additional Information None given 05/17/2020 2:28 PM CDT [facility] Comment: Cytology is screened at [facility] - [address] [address] and [facility] - [address] [place] [address] and [facility] - [address] [place] [address] Interpreted at [facility] - [address] [address] Automated Review Successful 05/17/2020 2:28 PM CDT [facility] Comment:Specimen processed s uccessfully by automated dental office coordinator device, ThinPrep Imaging System, [employer] Note The pap test is a screening technique, not a diagnostic procedure. It is used primarily to screen for squamous cancers and precursor lesions. Published studies have shown that it is subject to both false negative and false positive results. The pap test should not be used as the sole means to diagnose or exclude pre-malignant and malignant lesions. 05/17/2020 2:28 PM CDT [facility] Other (Cervical) Non-Blood / Unknown 05/07/2020 3:34 PM CERTIFIED TECHNICIAN 05/07/2020 3:49 PM CERTIFIED TECHNICIAN Ashwini Zhang MD PATHOLOGY/CYTOLOGY Performing Organization Address [facility] Co de Phone Number [facility] [address] * ANTI HIV 1/2 (11/27/2017 9:26 AM CDT) HIV-1/HIV-2 ANTIBODY Non-Reacti ve Non-Reacti ve 11/27/2017 5:29 PM CDT [facility] Comment:HIV-1 p24 and HIV-1/ HIV-2 Ab not detected. Blood BLOOD SPECIMEN / Unknown Venipuncture / Unknown 11/27/2017 9:26 AM CDT 11/27/2017 9:26 AM CDT Deisy Pelayo REQUIREMENTS MANAGER SEND OUTS Performing Organization Address [facility] Co de Phone Number [facility] [address] [place] [address], * ACUTE HEPATITIS PANEL (05/29/2017 2:10 AM CDT) HEPATITIS C ANTIBODY Non-Reactive Non-Reactive 05/29/2017 3:37 AM CDT [facility] Comment:Antibodies to HCV no t detected; does not exclude the possibility of exposure to HCV. IGM ANTI HAV Non-Reactive Non-Reactive 05/30/19 18 3:37 AM CDT [facility] HBSAG Nonreactive Nonreactive 05/29/2017 3:37 AM CDT [facility] EN[facility] IGM ANTI HBC Non-Reactive Non-Reactive 05/30/19 18 3:37 AM CDT [facility]-C ENTRAL LABORATORY Blood BLOOD SPECIMEN / Unknown Venipuncture / Unknown 05/29/2017 2:10 AM CDT 05/29/2017 2:16 AM CDT Narrative [facility]-CENTRAL LABORATORY - 05/29/2017 3:37 AM CDT Anti-HBc IgM not detected. Does not exclude the possibility of exposure to or infection with HBV. Dawn Portillo MD SEND OUTS [facility] [address] [place] [address], from Last 3 Months or Most Recently Relevant to Health Maintenance Advance Directives * Full Code (Latest Code Status on File) Date Activated Date Inactivated Comments 11/13/2019 5:06 AM 11/19/2019 3:19 PM Question Answer Comments Code Status Discussion: Discussed * Full Code Date Activated Date Inactivated Comments 05/28/2017 2:59 PM 06/05/2017 4:30 PM Question Answer Comments Code Status Discussion: Not Discussed * Full Code Date Activated Date Inactivated Comments 05/17/2012 5:33 PM 05/23/2012 1:39 PM Care Teams Accountant Helper Relationship Specialty Start Date End Date Ashwini Zhang MD [address] [place] [address] PCP - General Family Practice 11/23/17
--- OUTSIDE RECORDS SUMMARY | 2023-08-06 19:12 | XMS_ITS | Referral Summary ---
Author Organization [facility] Address [address] [place] [address] Phone Care Team Providers Care Advance Scout Name Role Phone Ashwini Zhang MD Primary Care Provider [phone] Source Comments [employer] is fully rolled out on [employer]. Last update 08/07/08.[facility] Allergies No known active allergies Medications * [...] (145 lb 1 oz) 04/14/2021 9:51 AM SENIOR PRODUCTION MANAGER Height 170.2 cm (5' 7) 04/14/2021 9:51 AM SENIOR PRODUCTION MANAGER Body Mass Index 22.72 04/14/2021 9:51 AM SENIOR PRODUCTION MANAGER Plan of Treatment Not on file Procedures Procedure Name Priority Date/Time Associated Diagnosis Comments PAP TEST Routine 05/07/2020 3:34 PM SENIOR PRODUCTION MANAGER URINE CHLAMYDIA AND NEISSERIAE GONORRHOEAE AMPLIFICATION Routine 05/07/2020 3:34 PM SENIOR PRODUCTION MANAGER HIV COMBO Routine 11/27/2017 9:26 AM CDT from Last 3 Months or Most Recently Relevant to Health Maintenance Advance Directives For more information, please contact: [phone] * Full Code (Latest Code Status on [...] Status With Whom? Not discussed Care Teams Advance Scout Relationship Specialty Start Date End Date Ashwini Zhang MD [address] [place] [address] PCP - General Family Medicine 06/28/17
--- OUTSIDE RECORDS SUMMARY | 2023-08-06 19:12 | XMS_ITS | Clinical Summary ---
Author Organization [facility] Address [address] [place] [address] Care Team Providers Care Bat Boy/Girl Name Role Phone Unavailable Primary Care Provider Unavailabl e Source Comments Patient records contain information from all sites at [facility]. For routine questions regarding patient records, call [phone] during business hours, M-F 8:00 AM - 5:00 PM Central Time. Record requests for emergency care only can be directed to [phone] at any time.[facility] Allergies No known active allergies Medications [...] 3-dose series) 1997 1997, 1997 COVID-19 Vaccine ( season) 2022 12/02/2020, 11/04/2020 Influenza Vaccine (#1) [...]
[2023-08-06] MEDS: ONDANSETRON 2 MG/ML inj 4 MG IVP (19:16)
[2023-08-06] MEDS: HALOPERIDOL 5 MG/ML INJ IV (19:45)
[2023-08-06 19:50] LABS: Basophils Percent Auto 0.1 % (0.0-3.0); Eosinophils Percent Auto 0.1 % (0.0-7.0); Hematocrit 38.2 % (33.0-51.0); Hemoglobin* 12.9 gm/dL (12.0-16.0); Immature Granulocytes Pct Auto 0.6 %; Lymphocytes Percent Auto 4.8 % (20-44); Mean Corpuscular HGB Conc 34 gm/dL (32-36); Mean Corpuscular Hemoglobin 32 pg (26-34); Mean Corpuscular Volume 95 fL (80-100); Monocytes Percent Auto 1.5 % (0.0-11.0); Neutrophils Percent Auto 92.9 % (42.0-72.0); Platelet Count* 282 K/uL (140-440); RDW Coefficient of Variation % 13.3 % (11.5-15.5); Red Blood Count 4.01 m/uL (4.00-5.20); White Blood Count* 16.94 K/uL (4.50-11.00)
[2023-08-06 19:56] LABS: Slide Review Reflex No
[2023-08-06] MEDS: 0.9 % SODIUM CHLORIDE 1000 ml 1,000 ML IV ×2 (19:58→20:00)
[2023-08-06 20:10] LABS: Chloride* 100 mmol/L (96-114); Potassium* 3.9 mmol/L (3.6-5.1); Sodium* 136 mmol/L (135-149)
[2023-08-06 20:11] LABS: Albumin* 5.4 g/dL (3.3-5.0)
[2023-08-06 20:13] LABS: Anion Gap 16 mEq/L (7-15); Blood Urea Nitrogen* 15 mg/dL (5-24); Carbon Dioxide* 20 mmol/L (20-32); Creatinine* 0.5 mg/dL (0.5-1.5); Estimated Glomerular Filt Rate 133 ml/min; Glucose* 148 mg/dL (60-115)
[2023-08-06 20:14] LABS: Alanine Aminotransferase* 59 U/L (4-35); Alkaline Phosphatase* 126 U/L (40-150); Aspartate Amino Transferase* 33 U/L (12-35); Bilirubin Direct* 0.4 mg/dL (0.0-0.5); Bilirubin Total* 1.6 mg/dL (0.1-1.5); Calcium* 9.6 mg/dL (8.4-10.6); Lipase* 18 U/L (23-300)
[2023-08-06 20:15] LABS: Ethanol* < 0.01 % (0.01-0.03)
[2023-08-06 20:45] VITALS: BP 158/99; PULSE 118; RESP 18; TEMP 38.1; O2SAT 97
[2023-08-06] MEDS: 0.9 % SODIUM CHLORIDE 500 ML 500 ML IV (21:00)
[2023-08-06 21:37] LABS: Lactate* 3.8 mmol/L (0.5-1.9)
--- NOTE | 2023-08-06 21:49 | CRLHL7_ITS ---
For Patients: As a result of the Century Cures Act, medical imaging exams and procedure reports are released immediately into your electronic medical record. You may view this report before your referring provider. If you have questions, please contact your health care provider. INDICATION: Abdominal pain. TECHNIQUE: Multiplanar CT examination of the abdomen and pelvis was performed after the administration of 89 mL Isovue 370 intravenous contrast. COMPARISON: None. FINDINGS: Lower chest: No focal consolidation. Normal heart size. No pleural effusions or pneumothorax. Small hiatal hernia. Liver: Unremarkable. Gallbladder: Unremarkable. Biliary: Unremarkable. Pancreas: Within normal limits. Spleen: Unremarkable. Adrenal glands: Unremarkable. Renal/ureters/bladder: Normal in size and symmetrically enhancing. No obstructive uropathy. No hydronephrosis or obstructive urinary calculi. No suspicious renal masses. The ureters appear unremarkable. The bladder is within normal limits. Pelvis: Uterus is unremarkable. No adnexal masses. Gastrointestinal: No bowel wall thickening or bowel obstruction. Normal appendix. No significant colonic diverticulosis. Mild colonic stool burden. Vasculature: No aortic aneurysm. The portal vein remains patent. No significant atherosclerotic calcifications. Lymph nodes: No pathologic lymphadenopathy by size criteria. Peritoneum: No free fluid or pneumoperitoneum. No drainable fluid collections. Abdominal wall/soft tissues: Unremarkable. Bones: No acute osseous abnormalities. IMPRESSION: 1. No acute abdominal pelvic pathology. The etiology of the patient`s abdominal pain is not elucidated on this examination. 2. Small hiatal hernia. Please note that all CT scans at this facility use dose modulation, iterative reconstruction, and/or weight-based dosing when appropriate to reduce radiation dose to as low as reasonably achievable. Dictated by Janusz Hall MD @ 08/06/2023 11:53:12 PM (Electronically Signed)
[2023-08-06] MEDS: ACETAMINOPHEN 500 MG TABLET 1000 MG PO (21:51)
[2023-08-06] MEDS: PIPERACILLIN/TAZOBACTAM 3.375 GM in 0.9 % SODIUM CHLORIDE Mini-bag 100 ML IVPB (22:00)
[2023-08-06 22:35] VITALS: BP 184/114; PULSE 114; RESP 18; TEMP 37.3; O2SAT 96
[2023-08-06 23:01] LABS: Lactate* 3.5 mmol/L (0.5-1.9)
[2023-08-06 23:02] VITALS: BP 145/85; PULSE 115; RESP 18; TEMP 37.1; O2SAT 97
[2023-08-06 23:03] LABS: Appearance Urine Clear (Clear); Bilirubin Urine Negative (Negative); Blood Urine Trace-intact (Negative); Color Urine Yellow (Yellow); Glucose Urine Negative (Negative); Ketones Urine Trace (Negative); Leukocyte Esterase Urine Negative (Negative); Nitrite Urine Negative (Negative); Protein Urine Negative (Negative); Specific Gravity Urine 1.025 (1.000-1.030); Urobilinogen Urine 0.2 (0.2-1.0)
[2023-08-06 23:14] LABS: RBC Urine 0-2 (0-2); Squamous Epithelial Cell Urine Few (None-Few); WBC Urine 0-2 (0-5)
[2023-08-07] VITALS (13 sets, daily range): BP systolic 123–157; BP diastolic 76–100; PULSE 94–116; RESP 14–24; TEMP 37.1–37.4; O2SAT 93–98; BMI 27.7
[2023-08-07 01:01] LABS: PCR FLU A Negative PCR FLU A (Negative); PCR FLU B Negative PCR FLU B (Negative); PCR RSV Negative PCR RSV (Negative); SARS PCR* Negative SARS-CoV-2 (Negative)
--- NOTE | 2023-08-07 01:01 | PC.NURSE ---
Report given to floor, pt denies pain or n/V. grandfather with pt. pt feels warm to touch, diaphoretic and red/flushed cheeks but afebrile with temporal and oral recheck.
[2023-08-07] MEDS: ONDANSETRON 2 MG/ML inj 4 MG IVP ×2 (02:29→09:41)
--- NOTE | 2023-08-07 02:35 | W.PM.TELEH&P ---
Telehealth- H&P: HPI History of Present Illness Date Seen: 08/07/23 Chief complaint: Vomiting Narrative: Celia Cano is seen as an Interactive Telehealth visit. Celia Cano is a 28 year old male who is Seen in her hospital room air [facility]. She is seen with the assistance of nursing staff. She has been admitted through the emergency room. Her grandfather is present on the interview and exam. She tells me she has been working on sobriety has been sober for the last few months but over the last couple nights she has been drinking and smoking marijuana. when she went to bed last night she was feeling fine when she woke up this morning she was nauseated had epigastric discomfort. It was quite severe she could not keep anything down so she came into the emergency room. She was felt to have possible more marijuana hyperemesis syndrome in the ER. She does state warm showers seem to make her feel better. She was treated with Haldol and Zofran which improved her vomiting. However she is then spiked a fever. And had a lactic acid as well as an elevated white count. There was concern about possible underlying secondary sepsis. She was given Zosyn. She has now been admitted for further evaluation and treatment. She has also been given multiple boluses of fluid. She tells me she is currently feeling better. Her abdominal pain is resolved. Her nausea is improved. She does not have any other complaints or concerns. Review of Systems Narrative: A complete review of systems was performed positive pertinent and negatives in the history of present illness. [facility] Medical History (Updated 08/07/23 @ 02:41 by Castillo Martinez DO) Marijuana use ?F12.90 - Cannabis use, unspecified, uncomplicated (ICD-10) History of alcohol abuse ?F10.11 - Alcohol abuse, in remission (ICD-10) Reactive airway disease ?J45.909 - Unspecified asthma, uncomplicated (ICD-10) Surgical History (Updated 08/07/23 @ 02:00 by Castillo Martinez DO) History of neck surgery ?Z98.890 - Other specified postprocedural states (ICD-10) Family History (Updated 08/07/23 @ 02:02 by Castillo Martinez DO) Mother Fibromyalgia Reactive airway disease Social History What is your current living situation?: I presently have a place to live Problems where you live: no known problems Problems where you live details: n/a In the past 12 months, utilities in danger of being shut off: no In past 12 months, lack of transportation kept you from medical appts, meetings, work, or getting things needed for daily living: no In the past 12 mos, have been you worried that your food would run out before you had money to buy more?: never true In the past 12 mos, the food you bought just didn't last and you didn't have money to buy more?: never true Smoking Status: Former smoker What tobacco products do you use: cigarettes Smoking quit date/years: <= 15 years ago Do you use any of these nicotine containing products: None Second hand tobacco smoke exposure: No How often do you have a drink containing alcohol: monthly or less Alcohol type: hard liquor Alcohol type details: Been sober for a few months and recently relapsed How often do you have six or more drinks on one occasion: Less than monthly AUDIT-C Alcohol total score: 2 Non-prescribed substance use: marijuana (any form) Caffeine: No How often does anyone, including family, friends and others, physically hurt you: never How often does anyone, including family, friends and others, insult or talk down to you: never How often does anyone, including family, friends and others, threaten you with harm: never How often does anyone, including family, friends and others, scream or curse at you: never service: No Meds Home Medications and Allergies Home Medications ?Medication ?Instructions ?Recorded ?Confirmed ?Type levonorgestrel-ethinyl estradiol 1 tab PO DAILY 07/08/22 05/18/23 History 0.1 mg-20 mcg tablet (Vienva) lorazepam 1 mg tablet 1 mg PO BID 08/23/22 05/18/23 History metoclopramide HCl 10 mg tablet 10 mg PO Q6H PRN nausea/vomiting 08/23/22 08/30/22 History ondansetron 4 mg disintegrating 4 mg PO Q8H PRN 08/23/22 05/18/23 History tablet Allergies Allergy/AdvReac Type Severity Reaction Status Date / Time No Known Drug Allergies Allergy Verified 08/06/23 22:55 Exam Narrative Exam Narrative: Physical Exam GENERAL: ?vital signs reviewed, well developed and nourished, in no distress HEENT: pupils are equal round and reactive to light, extraocular movements are grossly within normal limits and oral mucosa is moist. NECK: Supple without lymphadenopathy or thyromegaly according to nursing staff examination observation HEART: Regular rate and rhythm without any rubs, murmurs, or gallops. LUNGS: Clear to auscultation bilaterally with good air movement throughout ABDOMEN: Observation from nurse assisted exam, abdomen appears soft, nontender, and nondistended with Positive bowel sounds noted. EXTREMITIES: Strength and sensation is observed to be grossly within normal limits in the upper and lower extremities.? No focal strength deficit is observed. SKIN:? Observed warm and dry with color normal Const Vital Signs, click to edit/add: Vital Signs - 24 hr 08/06/23 18:55 08/06/23 20:45 08/06/23 22:35 Temperature 97.5 F L 100.5 F H 99.1 F Pulse Rate [Pulse Oximeter] Pulse Rate [Right Pulse Oximeter] 82 118 H 114 H Respiratory Rate 18 18 18 Blood Pressure [Left Arm] Blood Pressure [Right Upper Arm] 138/98 H 158/99 H 184/114 H Pulse Oximetry 99 97 96 Oxygen Delivery Method Room Air Room Air 08/06/23 23:02 08/07/23 00:02 08/07/23 00:07 Temperature 98.8 F 99.1 F 99.1 F Pulse Rate [Pulse Oximeter] Pulse Rate [Right Pulse Oximeter] 115 H 114 H Respiratory Rate 18 18 Blood Pressure [Left Arm] Blood Pressure [Right Upper Arm] 145/85 H 157/100 H Pulse Oximetry 97 97 Oxygen Delivery Method Room Air Room Air 08/07/23 01:04 08/07/23 01:04 Temperature 98.7 F Pulse Rate [Pulse Oximeter] 94 Pulse Rate [Right Pulse Oximeter] Respiratory Rate Blood Pressure [Left Arm] 139/93 H Blood Pressure [Right Upper Arm] Pulse Oximetry 96 95 Oxygen Delivery Method Room Air Room Air Hospitalist - H&P: Result Labs Labs: Short CBC 08/06/23 Range/Units 19:45 WBC 16.94 H (4.50-11.00) K/uL Hgb 12.9 (12.0-16.0) gm/dL Hct 38.2 (33.0-51.0) % Plt Count 282 (140-440) K/uL BMP 08/06/23 19:45 Sodium 136 Potassium 3.9 Chloride 100 Carbon Dioxide 20 BUN 15 Creatinine 0.5 Glucose 148 H Calcium 9.6 Liver Function 08/06/23 Range/Units 19:45 Total Bilirubin 1.6 H (0.1-1.5) mg/dL Direct Bilirubin 0.4 (0.0-0.5) mg/dL AST 33 (12-35) U/L ALT 59 H (4-35) U/L Alkaline Phosphatase 126 (40-150) U/L Albumin 5.4 H (3.3-5.0) g/dL Urine 08/06/23 Range/Units 23:00 Urine Color Yellow (Yellow) Urine Appearance Clear (Clear) Urine pH 6.0 (5.0-8.5) Ur Specific [place] 1.025 (1.000-1.030) Urine Protein Negative (Negative) Urine Glucose (UA) Negative (Negative) Assessment and Plan Assessment and plan (1) Nausea & vomiting: Status: Acute (2) Cannabis 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 At this point we will treat conservatively. CT scan of the abdomen is reassuring. Zofran will be available for nausea and vomiting. IV fluids. Will advance her diet as tolerated. At this point I do not see any signs of bowel obstruction or other sinister causes of nausea and vomiting. Possible cannabis hyperemesis syndrome?patient does smoke marijuana. She does tell me warm showers help with this. She has been told this before. This may be playing a role in her vomiting. Alcohol use?patient had remained sober for last couple months but has been drinking. Currently showing no signs of alcohol withdrawal. Will place on alcohol withdrawal protocol. Encourage patient discontinue alcohol Fever?etiology unclear does not appear to be COVID or influenza. CT of the abdomen unrevealing. She does not seem to have any signs of infection. At this point we will continue to observe I do not think we need to continue antibiotics. Certainly could be septic but her findings could be explained simply from vomiting. We did talk about holding antibiotics versus giving, after thorough discussion organ to hold antibiotics since we do not know what we are treating. If patient develops a fever or becomes hypotensive then empiric antibiotics could be reconsidered. Lactic acidosis?vomiting alcohol. No signs of active infection we will continue to follow we will plan to recheck in the morning. Leukocytosis?query acute demargination and not secondary to infection for now hold off antibiotics. No evidence of active bacterial infection at the moment. Will continue to watch her very closely. DVT prophylaxis will not be started as I anticipate a short hospital stay. CODE STATUS was discussed on admission patient wishes to be a full code. Telehealth: Statement Statement Telehealth Visit: Today's History and Physical is provided via interactive telehealth by Castillo Martinez DO.? Patient is located at [facility].? Provider is located at [facility].? Nursing staff assisted with the patient's exam. The visit being done today meets criteria for a telehealth visit and the patient or patient?s parent/guardian is aware the visit is a telehealth visit. Camera Start Time: 01:54 Camera End Time: 02:10
[2023-08-07] MEDS: LACTATED RINGERS 1000 ML 1,000 ML 75 ML IV ×2 (03:26→17:42)
[2023-08-07] MEDS: PANTOPRAZOLE SODIUM 40 MG INJ IVP (03:50)
--- NOTE | 2023-08-07 07:30 | P.IMPN_ITS ---
Progress Note: A&P Assessment and plan (1) Nausea & vomiting: Problem details: Abdominal pain has resolved Multifactorial combination of marijuana hyperemesis syndrome in combination with alcohol use. At this point we will treat conservatively. CT scan of the abdomen is reassuring. Zofran or Compazine p.r.n. for nausea and vomiting. Continue IV fluids. ADAT Status: Acute (2) Cannabis hyperemesis syndrome concurrent with and due to cannabis dep endence: Problem details: Has been told she has this in the past. Warm showers help. Cessation discussed Status: Acute (3) Alcohol use: Problem details: Previously reported to be sober over the last few months. On admission, ETOH <0.01, showing no signs of alcohol withdrawal Continue CIWA Thiamine, MVI, folic acid Cessation discussed Status: Acute (4) Fever: Problem details: 1 temperature > 100? recorded. Continue to monitor Status: Acute (5) Lactic acidosis: Problem details: In setting of vomiting, alcohol use. No evidence of acute infection currently Resolved Status: Acute (6) Leukocytosis: Problem details: Resolved. Only 1 temperature > 100? in last 24 hours. Lactate down to 1.2 from 3.5. BC x2 pending Agree with deferring further antibiotics at this time, monitoring, likely not sepsis Status: Acute (7) Hypokalemia: Problem details: Potassium 3.3, in setting of acute vomiting, alcohol use Will replace with IV bumps this morning given recurrence of vomiting Will check magnesium level Recheck in the morning Status: Acute (8) Hyperglycemia: Problem details: Glucose noted to consistently be elevated over last year. A1c ordered Status: Acute Time Spent With Patient Total time spent: Total time spent caring for the patient today was 45 minutes. This includes time spent for the visit reviewing the chart, time spent during the visit, time spent after the visit and documentation and planning in coordination of care. Subjective Date Seen: 08/07/23 Interval history: Patient reports feeling better this morning. No further abdominal pain. Continues with intermittent nausea, no further vomiting. Denies diarrhea. Denies headache or dizziness. Denies chest pain or shortness of breath. Is going to try a bland breakfast this morning. Exam Narrative: Exam Narrative: PHYSICAL EXAM General: Pleasant, mildly anxious, NAD HEENT: Normocephalic, atraumatic, sclera white, EOMI, oral mucosa moist Cardiovascular: RRR, S1S2. No pitting edema Pulmonary: CTA bilaterally without rhonchi, rales, expiratory wheezes. No dyspnea Abdominal: Soft, nondistended, NTTP Neurological: Alert, answering questions appropriately, cranial nerves intact, no focal findings Extremities: No gross joint deformity or swelling. AROMI. Neurovascularly intact Skin: Warm, dry. Const: Vital Signs, click to edit/add: Vital Signs - 24 hr 08/06/23 18:55 08/06/23 20:45 08/06/23 22:35 Temperature 97.5 F L 100.5 F H 99.1 F Pulse Rate [Pulse Oximeter] Pulse Rate [Right Pulse Oximeter] 82 118 H 114 H Respiratory Rate 18 18 18 Blood Pressure [Le ft Arm] Blood Pressure [Ri ght Upper Arm] 138/98 H 158/99 H 184/114 H Pulse Oximetry 99 97 96 [facility] Room Air 08/06/23 23:02 08/07/23 00:02 08/07/23 00:07 Temperature 98.8 F 99.1 F 99.1 F Pulse Rate [Pulse Oximeter] Pulse Rate [Right Pulse Oximeter] 115 H 114 H Respiratory Rate 18 18 Blood Pressure [Le ft Arm] Blood Pressure [Ri ght Upper Arm] 145/85 H 157/100 H Pulse Oximetry 97 97 Oxygen Delivery Ak thod Room Air Room Air 08/07/23 01:04 08/07/23 01:04 08/07/23 04:30 Temperature 98.7 F 99.0 F Pulse Rate [Pulse Oximeter] 94 101 H Pulse Rate [Right Pulse Oximeter] Respiratory Rate 24 Blood Pressure [Le ft Arm] 139/93 H 144/98 H Blood Pressure [Ri ght Upper Arm] Pulse Oximetry 96 95 98 Oxygen Delivery Ak thod Room Air Room Air Room Air 08/07/23 05:46 Temperature 99.1 F Pulse Rate [Pulse Oximeter] 100 Pulse Rate [Right Pulse Oximeter] Respiratory Rate 20 Blood Pressure [Le ft Arm] 140/88 H Blood Pressure [Ri ght Upper Arm] Pulse Oximetry 98 Oxygen Delivery Ak thod Room Air Labs Labs: Laboratory Results - last 24 hr 08/06/23 08/06/23 08/06/23 19:45 21:25 23:00 WBC 16.94 H RBC 4.01 Hgb 12.9 Hct 38.2 MCV 95 MCH 32 MCHC 34 RDW Coeff of [place] 13.3 Plt Count 282 Neut % (Auto) 92.9 H Lymph % (Auto) 4.8 L [place] % (Auto) 1.5 Eos % (Auto) 0.1 Baso % (Auto) 0.1 Neut # (Auto) 15.70 H Lymph # (Auto) 0.80 L [place] # (Auto) 0.30 Eos # (Auto) 0.00 Baso # (Auto) 0.00 Abs Immat Gran (auto) 0.10 Imm/Tot Granulo (auto) 0.6 Sodium 136 Potassium 3.9 Chloride 100 Carbon Dioxide 20 Anion Gap 16 H BUN 15 Creatinine 0.5 Estimated Creat Clear 172.00 Estimated GFR 133 Glucose 148 H Lactate 3.8 H 3.5 H Calcium 9.6 Total Bilirubin 1.6 H Direct Bilirubin 0.4 AST 33 ALT 59 H Alkaline Phosphatase 126 Total Protein 9.0 H Albumin 5.4 H Lipase 18 L Urine Color Yellow Urine Appearance Clear Urine pH 6.0 Ur Specific [place] 1.025 Urine Protein Negative Urine Glucose (UA) Negative Urine Ketones Trace A Urine Blood Trace-intact A Urine Nitrite Negative Urine Bilirubin Negative Urine Urobilinogen 0.2 Ur Leukocyte Esterase Negative Urine RBC 0-2 Urine WBC 0-2 Ur Squamous Epith Cells Few Urine Bacteria None Ethyl Alcohol < 0.01 L SARS-CoV-2 (PCR) Influenza Type A (PCR) Influenza Type B (PCR) RSV (PCR) 08/07/23 00:15 WBC RBC Hgb Hct MCV MCH MCHC RDW Coeff of [place] Plt Count Neut % (Auto) Lymph % (Auto) [place] % (Auto) Eos % (Auto) Baso % (Auto) Neut # (Auto) Lymph # (Auto) [place] # (Auto) Eos # (Auto) Baso # (Auto) Abs Immat Gran (auto) Imm/Tot Granulo (auto) Sodium Potassium Chloride Carbon Dioxide Anion Gap BUN Creatinine Estimated Creat Clear Estimated GFR Glucose Lactate Calcium Total Bilirubin Direct Bilirubin AST ALT Alkaline Phosphatase Total Protein Albumin Lipase Urine Color Urine Appearance Urine pH Ur Specific [place] Urine Protein Urine Glucose (UA) Urine Ketones Urine Blood Urine Nitrite Urine Bilirubin Urine Urobilinogen Ur Leukocyte Esterase Urine RBC Urine WBC Ur Squamous Epith Cells Urine Bacteria Ethyl Alcohol SARS-CoV-2 (PCR) Negative SARS-CoV-2 Influenza Type A (PCR) Negative PCR FLU A Influenza Type B (PCR) Negative PCR FLU B RSV (PCR) Negative PCR RSV
--- NOTE | 2023-08-07 08:17 | PC.NURSE ---
Patient arrived from [facility] at 0101 accompanied by her grandfather. Patient pleasant, alert and oriented. Independent in room. PRN Zofran effective for nausea and retching. Denied pain.?
[2023-08-07 08:42] LABS: Basophils Absolute Auto 0.01 K/uL (0.00-0.30); Basophils Percent Auto 0.1 % (0.0-3.0); Hematocrit 35.9 % (33.0-51.0); Hemoglobin* 11.9 gm/dL (12.0-16.0); Immature Granulocytes Abs Auto 0.05 K/uL (0.00-0.30); Immature Granulocytes Pct Auto 0.5 %; Mean Corpuscular HGB Conc 33 gm/dL (32-36); Mean Corpuscular Hemoglobin 32 pg (26-34); Mean Corpuscular Volume 96 fL (80-100); Monocytes Percent Auto 4.5 % (0.0-11.0); Neutrophils Percent Auto 80.9 % (42.0-72.0); Platelet Count* 319 K/uL (140-440); RDW Coefficient of Variation % 13.7 % (11.5-15.5); Red Blood Count 3.76 m/uL (4.00-5.20); White Blood Count* 10.23 K/uL (4.50-11.00)
[2023-08-07 08:45] LABS: Slide Review Reflex No
[2023-08-07 08:55] LABS: Lactate* 1.2 mmol/L (0.5-1.9)
[2023-08-07 08:59] LABS: Chloride* 107 mmol/L (96-114); Sodium* 138 mmol/L (135-149)
[2023-08-07 09:00] LABS: Albumin* 4.4 g/dL (3.3-5.0); Potassium* 3.3 mmol/L (3.6-5.1)
[2023-08-07 09:02] LABS: Anion Gap 6 mEq/L (7-15); Carbon Dioxide* 25 mmol/L (20-32); Creatinine* 0.5 mg/dL (0.5-1.5); Est. Creatinine Clearance* 178.19; Estimated Glomerular Filt Rate 133 ml/min
[2023-08-07 09:03] LABS: Aspartate Amino Transferase* 23 U/L (12-35); Bilirubin Direct* 0.2 mg/dL (0.0-0.5); Bilirubin Total* 1.9 mg/dL (0.1-1.5); Blood Urea Nitrogen* 9 mg/dL (5-24); Calcium* 8.6 mg/dL (8.4-10.6); Glucose* 118 mg/dL (60-115); Total Protein* 7.4 g/dL (6.0-8.3)
[2023-08-07 09:04] LABS: Alanine Aminotransferase* 16 U/L (4-35); Alkaline Phosphatase* 112 U/L (40-150)
[2023-08-07 09:07] LABS: HCG Qualitative Serum* Negative (Negative)
[2023-08-07 11:11] LABS: Hemoglobin A1C* 4.8 % (0-5.6)
[2023-08-07] MEDS: MULTIVITAMIN/MINERALS 1 TABLET 1 TAB PO (11:24)
[2023-08-07] MEDS: THIAMINE 100 MG TABLET PO (11:24)
[2023-08-07] MEDS: FOLIC ACID 1 MG TABLET PO (11:24)
[2023-08-07 11:38] LABS: Magnesium* 2.2 mg/dL (1.5-2.6)
--- NOTE | 2023-08-07 13:47 | PC.NURSE ---
End of shift-- Pt has been pleasant and cooperative. Alert and oriented. VSS and highest temp this shift 99.0F. CIWAs 2 and 0 today. LS CTA. Pt had 1x emesis today following breakfast and was given Zofran with stated relief. She c/o some abdominal pain at that time, took a shower and stated relief following. She has declined to attempt any more food at this time. Pt is currently resting in bed.
--- NOTE | 2023-08-07 19:36 | PC.NURSE ---
Shift note: pt up indept in room. Pt tolerating regular foods w/o n/v. CIWA=1. IV patent
[2023-08-08 03:00] VITALS: BP 122/81; PULSE 93; RESP 16; TEMP 36.9; O2SAT 94
[2023-08-08] MEDS: PANTOPRAZOLE SODIUM 40 MG INJ IVP (03:38)
[2023-08-08] MEDS: ONDANSETRON 2 MG/ML inj 4 MG IVP ×2 (05:40→11:57)
[2023-08-08] MEDS: hydrOXYzine pamoate 25 MG CAPSULE PO (05:42)
[2023-08-08] MEDS: PROCHLORPERAZINE 5 MG/ML VIAL IV (05:50)
[2023-08-08] MEDS: LORazepam 2 MG/ML inj 1 MG IVP (06:31)
--- NOTE | 2023-08-08 06:39 | PC.NURSE ---
End of shift report 1900--0700: Alert and oriented x 4. Ate 75% of dinner. CIWA's 0 this shift. At 0545 patient report sudden onset of severe abdominal pain with nausea and vomiting, patient vomiting water that she has been drinking this AM. PRN zofran administered without relief, compazine administered after no results. Patient in the shower x 3 for abdominal pain and N & V. Aqua k pad placed in bed as patient reports its the heat from the shower that helps with the pain. call center nurse Dr. Anderson called and updated with ineffective results from medications, new orders received for Ativan 1mg STAT and 1mg Q6H PRN for nausea and vomiting.
[2023-08-08 07:49] LABS: Chloride* 104 mmol/L (96-114); Sodium* 138 mmol/L (135-149)
[2023-08-08 07:52] LABS: Creatinine* 0.6 mg/dL (0.5-1.5); Est. Creatinine Clearance* 148.49; Estimated Glomerular Filt Rate 127 ml/min
[2023-08-08 07:53] LABS: Anion Gap 7 mEq/L (7-15); Blood Urea Nitrogen* 8 mg/dL (5-24); Calcium* 8.7 mg/dL (8.4-10.6); Carbon Dioxide* 27 mmol/L (20-32); Glucose* 131 mg/dL (60-115)
[2023-08-08 08:29] VITALS: BP 129/96; PULSE 85; RESP 16; O2SAT 96
[2023-08-08 08:30] LABS: Hematocrit 36.3 % (33.0-51.0); Hemoglobin* 12.1 gm/dL (12.0-16.0); Mean Corpuscular HGB Conc 33 gm/dL (32-36); Mean Corpuscular Hemoglobin 32 pg (26-34); Mean Corpuscular Volume 96 fL (80-100); Platelet Count* 266 K/uL (140-440); Red Blood Count 3.77 m/uL (4.00-5.20); White Blood Count* 7.05 K/uL (4.50-11.00)
[2023-08-08 08:32] LABS: Slide Review Reflex No
[2023-08-08] MEDS: PROMETHAZINE 25 MG/ML INJ 12.5 MG IM (10:06)
[2023-08-08] MEDS: POTASSIUM BICARB 25 MEQ EFFERVESCENT TAB 50 MEQ PO (10:06)
--- NOTE | 2023-08-08 12:47 | PC.NURSE ---
The patient discharged home with her grandfather.... the patient was nauseous prior to discharge... 4mg of zofran was given via IV prior to removing her IV. Prescriptions were sent to [facility] in [place]. All questions were answered.Discharge paper work was provided. Vivian SWANSON BSN
--- NOTE | 2023-08-08 13:33 | P.DS_ITS ---
DS: Providers Provider Date Seen: 08/08/23 Date of admission: 08/07/23 00:56 Primary care physician: Ashwini Zhang MD Admitting Clinician: Castillo Martinez DO Attending Physician on discharge: ALLIE Santos, [facility] Date of Discharge: 08/08/23 DS: Diagnosis Discharge Diagnosis (1) Nausea & vomiting: Status: Acute Problem details: This is acute on chronic, recurrent, in the setting of ongoing marijuana use and alcohol misuse. Patient reports it is further dependent on what she eats or drinks outside of these substances. Abdominal pain intermittent. CT scan reassuring. Will need to continue to work with PCP for management. Encouraged cessation of substances. Discharged home with [facility] la[facility]. 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 Warm showers help. Cessation discussed (3) Alcohol use: Status: Acute Problem details: Previously reported to be sober over the last few months. On admission, ETOH <0.01, showing no signs of alcohol withdrawal. CIWA scores remained 0. Continue thiamine and MVI on discharge. Cessation encouraged. business services sales agent consulted, offering further resources. (4) Fever: Status: Acute Problem details: Only one fever on admission, no recurrence. No evidence of infectious etiology. (5) Lactic acidosis: Status: Acute Problem details: In setting of vomiting, alcohol use. No evidence of acute infection currently Resolved (6) Leukocytosis: Status: Acute Problem details: Resolved. Only 1 temperature > 100? in last 24 hours. Lactate down to 1.2 from 3.5. BC x2 NGTD. Received 1 dose IV antibiotics in ED, further antibiotic therapy deferred. (7) Hypokalemia: Status: Acute Problem details: Also acute on chronic recurrent in setting of substance abuse, recurrent hyperemesis. Potassium 3.0 on day of discharge. Received 50 mEq potassium citrate and discharged with potassium chloride 20 mEq b.i.d. x4 doses. Recheck with PCP. (8) Hyperglycemia: Status: Acute Problem details: Glucose noted to consistently be elevated over last year. A1c 4.8. DS: Summary Hospital Course Hospital Course: [age] year old female past medical history significant for recurrent hyperemesis, marijuana use, alcohol abuse was admitted to the medical floor for further management acute on chronic recurrent abdominal pain, nausea, vomiting in setting of substance abuse. Course of care and details as noted above. Overall, symptomatically improved, with recurrence of nausea vomiting throughout hospital course. Managed with warm showers, IV antiemetics. Discharged with oral Zofran. Encouraging cessation. Close follow-up with PCP for ongoing management. Remainder of chronic medical comorbidities were monitored and managed with home medications. Status at Discharge Overall status at discharge: patient is back to baseline Time Spent with Patient Time attestation: Total time spent providing and/or coordinating discharge services: Time spent: Greater than 30 minutes Exam Narrative: Exam Narrative: PHYSICAL EXAM General: Pleasant, conversant, NAD Cardiovascular: RRR Pulmonary: No dyspnea Neurological: Alert, answering questions appropriately Skin: Warm, dry. Const: Vital Signs, click to edit/add: Vital Signs - 24 hr 08/07/23 15:00 08/07/23 19:00 08/07/23 23:00 Temperature 99.4 F 98.7 F 98.8 F Pulse Rate [Bilate ral Apical] 109 H 99 Pulse Rate [Pulse Oximeter] 99 95 Respiratory Rate 18 18 18 Blood Pressure [Le ft Arm] 125/88 131/86 123/83 Pulse Oximetry 95 93 95 Oxygen Delivery Me thod Room Air Room Air Room Air 08/07/23 23:00 08/08/23 03:00 08/08/23 08:29 Temperature 98.5 F Pulse Rate [Bilate ral Apical] Pulse Rate [Pulse Oximeter] 99 93 85 Respiratory Rate 18 16 16 Blood Pressure [Le ft Arm] 122/81 129/96 H Pulse Oximetry 94 96 Oxygen Delivery Me thod Room Air Room Air DS: Data Data Completed and Pending Labs on day of discharge: Labs from last 24 hours 08/08/23 07:00 WBC 7.05 RBC 3.77 L Hgb 12.1 Hct 36.3 MCV 96 MCH 32 MCHC 33 Plt Count 266 Sodium 138 Potassium 3.0 L Chloride 104 Carbon Dioxide 27 Anion Gap 7 BUN 8 Creatinine 0.6 Estimated Creat Clear 148.49 Estimated GFR 127 Glucose 131 H Calcium 8.7 Preliminary micro results at discharge 08/06/23 22:00 Blood Culture - Preliminary Blood NO GROWTH AFTER 24 HOURS 08/06/23 21:25 Blood Culture - Preliminary Blood NO GROWTH AFTER [address] scan - abdomen: Attestation: I have reviewed the pertinent imaging results. Radiologist's impression: Multiplanar CT examination of the abdomen and pelvis was performed after the administration of 89 mL Isovue 370 intravenous contrast. COMPARISON: None. FINDINGS: Lower chest: No focal consolidation. Normal heart size. No pleural effusions or pneumothorax. Small hiatal hernia. Liver: Unremarkable. Gallbladder: Unremarkable. Biliary: Unremarkable. Pancreas: Within normal limits. Spleen: Unremarkable. Adrenal glands: Unremarkable. Renal/ureters/bladder: Normal in size and symmetrically enhancing. No obstructive uropathy. No hydronephrosis or obstructive urinary calculi. No suspicious renal masses. The ureters appear unremarkable. The bladder is within normal limits. Pelvis: Uterus is unremarkable. No adnexal masses. Gastrointestinal: No bowel wall thickening or bowel obstruction. Normal appendix. No significant colonic diverticulosis. Mild colonic stool burden. Vasculature: No aortic aneurysm. The portal vein remains patent. No significant atherosclerotic calcifications. Lymph nodes: No pathologic lymphadenopathy by size criteria. Peritoneum: No free fluid or pneumoperitoneum. No drainable fluid collections. Abdominal wall/soft tissues: Unremarkable. Bones: No acute osseous abnormalities. IMPRESSION: 1. No acute abdominal pelvic pathology. The etiology of the patient`s abdominal pain is not elucidated on this examination. 2. Small hiatal hernia. Discharge Plan Discharge Disposition: Home, Self-Care Date of Admission: 08/07/23 00:56 Attending Provider on Discharge: Kelly Lanza Primary Care Provider: Ashwini Zhang Condition: Improved Anticipated Discharge Date/Time: 08/08/23 10:01 Discharge Medications: New thiamine mononitrate (vit B1) [Vitamin B-1 (mononitrate)] 100 mg Tablet 100 mg PO DAILY Qty: 60 0RF ondansetron 4 mg tablet,disintegrating 4 mg PO TID PRN (Reason: nausea and vomiting) Qty: 10 0RF potassium chloride [Klor-Con M20] 20 mEq tablet,ER particles/crystals 20 meq PO BID Qty: 4 0RF Continued levonorgestrel-ethinyl estrad [Vienva] 0.1-20 mg-mcg tablet 1 tab PO DAILY hydroxyzine HCl 10 mg tablet 5 - 20 mg PO QID PRN (Reason: anxiety) escitalopram oxalate 20 mg tablet 20 mg PO DAILY Discharge Orders: Discharge Order (Routine); Ordered 08/08/23 Ordered By: Kelly Lanza Patient Education: Potassium Chloride (By mouth), Thiamine (By mouth), Ondansetron (By mouth), Cannabis Use Disorder (GEN), Alcohol Use Disorder (GEN) Additional Instructions: You are encouraged to maintain sobriety which in turn will help reduce recurrence of abdominal pain, nausea, and vomiting. You should take a multivitamin daily. Continue to take thiamine daily. Your potassium is low, chronically, take 4 more doses of oral potassium. Follow-up with PCP for recheck. Activity Level: No Restrictions Discharge Diet: Regular Follow Up Appointments: Ashwini Zhang MD [Primary Care Provider] - 08/17/23 12:45 pm [facility] abdominal pain, hyperemesis, THC use, alcohol use. ) Forms: [employer] Info Instructions
== END 2023-08-08 12:10 | disposition home or self-care (01) ==
LOC: ED 08-07 00:14 → MEDSURG 08-07 01:01
PROVIDERS: Physician Assistant; Admitting Provider Internal Medicine; Emergency Provider Emergency Medicine Emergency Medical Services; PCP Family Medicine; Visit Provider Internal Medicine
DX: R11.2 Nausea with vomiting, unspecified (principal); F12.288 Cannabis dependence with other cannabis-induced disorder; Z78.9 Other specified health status; R50.9 Fever, unspecified; E87.20 Acidosis, unspecified; D72.829 Elevated white blood cell count, unspecified; E87.6 Hypokalemia; R73.9 Hyperglycemia, unspecified
CPT/HCPCS: 36415; 74177; 80048; 80076; 81001; 82077; 83036; 83605; 83690; 83735; 84703; 85025; 85027; 87040; 87631; 96361; 96365; 96366; 96372; 96375; 96376; 99285; A9153; A9270; C9113; G0378; J0780; J1630; J2060; J2405; J2543; J2550; J7030; J7120; Q9967

== ENCOUNTER 2023-08-10 12:44 | Emergency (ER) | payer BC, SELFPAY ==
--- NOTE | 2023-08-10 12:57 | ED.NURSE ---
Pt called back for triage and directed to triage room. Pt states, I can't when offered the chair in triage room. Pt informed of necessity of triage at this time to provide medical screening and care. Pt also informed that we did not have any available beds at this time, but offered a wheelchair. Pt declined and sat on ground in doorway. Pt offered wheelchair again by charge nurse, Marcy. Pt shook her head and stood up unassisted and ambulated independently with belongings out of ED. Pt did not sign refusal of services form upon exit of ED.
[2023-08-10 13:42] VITALS: BP 135/110; PULSE 102; RESP 22; TEMP 36.1; O2SAT 98
--- NOTE | 2023-08-10 13:52 | ED_ITS ---
HPI - General Adult General Date Seen: 08/10/23 Chief complaint: Abdominal Pain Stated complaint: Released from CCU recent vomiting Time Seen by Provider: 08/10/23 13:06 History of Present Illness HPI narrative: 28-year-old female presented to the ER today with complaint of vomiting. She initially presented to triage. She apparently had some dramatic behavior (according to the triage nurse) and laid on the floor. She then left the triage [place] and when outside delay in the grass. Her parents came and a sister into their car and they drove her back to the door. She was assisted in a wheelchair back to ER room 7. She was room there and I was taking and the triage report from the triage nurse. While this was occurring the patient again left. She got up and walked out from room 7. She left without being seen by medical provider. Related Data Home Medications ?Medication ?Instructions ?Recorded ?Confirmed levonorgestrel-ethinyl estradiol 1 tab PO DAILY 07/08/22 08/07/23 0.1 mg-20 mcg tablet (Vienva) escitalopram oxalate 20 mg tablet 20 mg PO DAILY 08/07/23 08/07/23 hydroxyzine HCl 10 mg tablet 5 - 20 mg PO QID PRN anxiety 08/07/23 08/07/23 Previous Rx's ?Medication ?Instructions ?Recorded ondansetron 4 mg disintegrating 4 mg PO TID PRN nausea and 08/08/23 tablet vomiting 0 days #10 tabs potassium chloride 20 mEq 20 meq PO BID #4 tabs 08/08/23 tablet,extended release(part/cryst) (Klor-Con M) thiamine mononitrate (vit B1) 100 100 mg PO DAILY #60 tabs 08/08/23 mg tablet (Vitamin B-1 (mononitrate)) Allergies Allergy/AdvReac Type Severity Reaction Status Date / Time No Known Drug Allergies [facility] Verified 08/06/23 22:55 [facility] Medical History (Updated 08/08/23 @ 13:39 by Kelly Lanza PA-C) Marijuana use ?F12.90 - Cannabis use, unspecified, uncomplicated (ICD-10) History of alcohol abuse ?F10.11 - Alcohol abuse, in remission (ICD-10) Reactive airway disease ?J45.909 - Unspecified asthma, uncomplicated (ICD-10) Surgical History (Updated 08/07/23 @ 02:00 by Castillo Martinez DO) History of neck surgery ?Z98.890 - Other specified postprocedural states (ICD-10) Family History (Updated 08/07/23 @ 02:02 by Castillo Martinez DO) Mother Fibromyalgia Reactive airway disease Social History What is your current living situation?: I presently have a place to live Problems where you live: no known problems Problems where you live details: n/a In the past 12 months, utilities in danger of being shut off: no In past 12 months, lack of transportation kept you from medical appts, meetings, work, or getting things needed for daily living: no In the past 12 mos, have been you worried that your food would run out before you had money to buy more?: never true In the past 12 mos, the food you bought just didn't last and you didn't have m oney to buy more?: never true Smoking Status: Former smoker What tobacco products do you use: cigarettes Smoking quit date/years: <= 15 years ago Do you use any of these nicotine containing products: None Second hand tobacco smoke exposure: No How often do you have a drink containing alcohol: monthly or less Alcohol type: hard liquor Alcohol type details: Been sober for a few months and recently relapsed How often do you have six or more drinks on one occasion: Less than monthly AUDIT-C Alcohol total score: 2 Non-prescribed substance use: marijuana (any form) Caffeine: No How often does anyone, including family, friends and others, physically hurt you : never How often does anyone, including family, friends and others, insult or talk down to you: never How often does anyone, including family, friends and others, threaten you with harm: never How often does anyone, including family, friends and others, scream or curse at you: never service: No Exam Const: Vital Signs, click to edit/add: Vital Signs - 24 hr 08/10/23 13:42 Temperature 97.0 F L Pulse Rate [Pulse Oximeter] 102 H Respiratory Rate 22 Blood Pressure [Le ft Upper Arm] 135/110 H Pulse Oximetry 98 Oxygen Delivery Me thod Room Air Course Vital Signs Vital signs: Initial Vital Signs Temperature 97.0 F L 08/10/23 13:42 Temperature Source Temporal Artery Scan 08/10/23 13:42 Pulse Rate 102 H 08/10/23 13:42 Pulse Rhythm Regular 08/10/23 13:42 Respiratory Rate 22 08/10/23 13:42 Blood Pressure 135/110 H 08/10/23 13:42 Blood Pressure Mean 118 H 08/10/23 13:42 Blood Pressure Position Supine 08/10/23 13:42 Pulse Oximetry 98 08/10/23 13:42 Oxygen Delivery Method Room Air 08/10/23 13:42 Vital Signs Temperature 97.0 F L 08/10/23 13:42 Pulse Rate 102 H 08/10/23 13:42 Respiratory Rate 22 08/10/23 13:42 Blood Pressure 135/110 H 08/10/23 13:42 Pulse Oximetry 98 08/10/23 13:42 Oxygen Delivery Method Room Air 08/10/23 13:42 Temperature 97.0 F L 08/10/23 13:42 Pulse Rate 102 H 08/10/23 13:42 Respiratory Rate 22 08/10/23 13:42 Blood Pressure 135/110 H 08/10/23 13:42 Pulse Oximetry 98 08/10/23 13:42 Oxygen Delivery Method Room Air 08/10/23 13:42 Discharge Plan Discharge Prescriptions: No Action levonorgestrel-ethinyl estrad [Vienva] 0.1-20 mg-mcg tablet 1 tab PO DAILY hydroxyzine HCl 10 mg tablet 5 - 20 mg PO QID PRN (Reason: anxiety) escitalopram oxalate 20 mg tablet 20 mg PO DAILY thiamine mononitrate (vit B1) [Vitamin B-1 (mononitrate)] 100 mg Tablet 100 mg PO DAILY Qty: 60 0RF ondansetron 4 mg tablet,disintegrating 4 mg PO TID PRN (Reason: nausea and vomiting) Qty: 10 0RF potassium chloride [Klor-Con M20] 20 mEq tablet,ER particles/crystals 20 meq PO BID Qty: 4 0RF Follow Up/Referrals: Ashwini Zhang MD [Primary Care Provider] -
== END 2023-08-10 13:57 | disposition left against medical advice (07) ==
PROVIDERS: Emergency Provider Emergency Medicine; PCP Family Medicine
DX: Z53.21 Procedure and treatment not carried out due to patient leaving prior to being seen by health care provider (principal)
CPT/HCPCS: 99281

== ENCOUNTER 2023-11-07 09:03 | Emergency (ER) | payer BC, SELFPAY ==
[2023-11-07 09:22] VITALS: BP 129/79; PULSE 86; RESP 24; TEMP 35.7; O2SAT 99; BMI 31.3
--- NOTE | 2023-11-07 09:48 | ED_ITS ---
HPI - General Adult General Chief complaint: Nausea/Vomiting Stated complaint: abd pain & severe vomiting x2 days Time Seen by Provider: 11/07/23 09:08 History of Present Illness HPI narrative: Patient reports a few days of cyclical nausea, vomiting and abdominal pain. Does state she is smoking marijuana in attempt to abstain for alcohol abuse. 28-year-old woman presenting to the emergency department with complaint of vomiting over the last couple of days. Lots of abdominal pain as well. Underlying history of cyclic vomiting. Does have a history of alcohol abuse as well as cannabis use that is continuing to do in lieu of alcohol. Latest episode of vomiting seems to be going on for couple of days. No fever. No hematemesis. She does have medications available particularly dissolvable Zofran but can not seem to locate the bottle right now. Accompanied by a ppropriately concerned and involved grandfather Related Data Home Medications ?Medication ?Instructions ?Recorded ?Confirmed levonorgestrel-ethinyl estradiol 1 tab PO DAILY 07/08/22 08/07/23 0.1 mg-20 mcg tablet (Vienva) escitalopram oxalate 20 mg tablet 20 mg PO DAILY 08/07/23 08/07/23 hydroxyzine HCl 10 mg tablet 5 - 20 mg PO QID PRN anxiety 08/07/23 08/07/23 Previous Rx's ?Medication ?Instructions ?Recorded ondansetron 4 mg disintegrating 4 mg PO TID PRN nausea and 08/08/23 tablet vomiting 0 days #10 tabs potassium chloride 20 mEq 20 meq PO BID #4 tabs 08/08/23 tablet,extended release(part/cryst) (Klor-Con M) thiamine mononitrate (vit B1) 100 100 mg PO DAILY #60 tabs 08/08/23 mg tablet (Vitamin B-1 (mononitrate)) famotidine 40 mg tablet 40 mg PO DAILY #30 tabs 11/07/23 hyoscyamine sulfate 0.125 mg 1 - 2 mg (8 - 16 x 0.125 mg) PO 11/07/23 disintegrating tablet Q4H PRN Abdominal cramping #20 tabs ondansetron 4 mg disintegrating 4 mg PO Q4H PRN nausea and 11/07/23 tablet vomiting #20 tabs Allergies Allergy/AdvReac Type Severity Reaction Status Date / Time No Known Drug Allergies Allergy Verified 08/06/23 22:55 Review of Systems Status of ROS: Reports: 6 or more systems reviewed and unremarkable except as noted in History and below PFSH PFS Medical History Marijuana use ?F12.90 - Cannabis use, unspecified, uncomplicated (ICD-10) History of alcohol abuse ?F10.11 - Alcohol abuse, in remission (ICD-10) Reactive airway disease ?J45.909 - Unspecified asthma, uncomplicated (ICD-10) Surgical History History of neck surgery ?Z98.890 - Other specified postprocedural states (ICD-10) Family History Mother Fibromyalgia Reactive airway disease Social History What is your current living situation?: I presently have a place to live Problems where you live: no known problems Problems where you live details: n/a In the past 12 months, utilities in danger of being shut off: no In past 12 months, lack of transportation kept you from medical appts, meetings, work, or getting things needed for daily living: no In the past 12 mos, have been you worried that your food would run out before you had money to buy more?: never true In the past 12 mos, the food you bought just didn't last and you didn't have money to buy more?: never true Smoking Status: Former smoker What tobacco products do you use: cigarettes Smoking quit date/years: <= 15 years ago Do you use any of these nicotine containing products: None Second hand tobacco smoke exposure: No How often do you have a drink containing alcohol: monthly or less Alcohol type: hard liquor Alcohol type details: Been sober for a few months and recently relapsed How often do you have six or more drinks on one occasion: Less than monthly AUDIT-C Alcohol total score: 2 Non-prescribed substance use: marijuana (any form) Caffeine: No How often does anyone, including family, friends and others, physically hurt you : never How often does anyone, including family, friends and others, insult or talk down to you: never How often does anyone, including family, friends and others, threaten you with harm: never How often does anyone, including family, friends and others, scream or curse at you: never service: No Exam Narrative: Exam Narrative: Arrives moaning in a wheelchair to the room. Emesis bag nearby. Intermittent retching. Does look fatigued. Answers questions though without notable difficulty. Breathing easily. Lungs are clear. Heart in regular rate and rhythm. Abdomen is soft. I do not smell ketones. Oropharynx is moist though she has been just vomiting/spitting. Skin is warm and dry. Evidence of recent self-harm behavior. Const: Vital Signs, click to edit/add: Vital Signs - 24 hr 11/07/23 09:22 Temperature 96.3 F L Pulse Rate [Pulse Oximeter] 86 Respiratory Rate 24 Blood Pressure [Le ft Upper Arm] 129/79 Pulse Oximetry 99 Oxygen Delivery Me thod Room Air Documenting provider has reviewed patient's vital signs: yes Course Vital Signs Vital signs: Initial Vital Signs Temperature 96.3 F L 11/07/23 09:22 Temperature Source Temporal Artery Scan 11/07/23 09:22 Pulse Rate 86 11/07/23 09:22 Respiratory Rate 24 11/07/23 09:22 Blood Pressure 129/79 11/07/23 09:22 Blood Pressure Mean 95 11/07/23 09:22 Pulse Oximetry 99 11/07/23 09:22 Oxygen Delivery Method Room Air 11/07/23 09:22 Vital Signs Temperature 96.3 F L 11/07/23 09:22 Pulse Rate 86 11/07/23 09:22 Respiratory Rate 24 11/07/23 09:22 Blood Pressure 129/79 11/07/23 09:22 Pulse Oximetry 99 11/07/23 09:22 Oxygen Delivery Method Room Air 11/07/23 09:22 Temperature 96.3 F L 11/07/23 09:22 Pulse Rate 86 11/07/23 09:22 Respiratory Rate 24 11/07/23 09:22 Blood Pressure 129/79 11/07/23 09:22 Pulse Oximetry 99 11/07/23 09:22 Oxygen Delivery Method Room Air 11/07/23 09:22 Medical Decision Making MDM Narrative Medical decision making narrative: After exam I leave the room to place orders per usual. Celia and grandfather who accompanies her here informs that Celia would rather go home and try to do this at home as opposed to a receiving an IV and other treatments here. I returned to discuss and this is confirmed. Will make some Zofran again available and given the cramping was described perhaps some dissolvable hyoscyamine would be helpful. See patient discharge plan for further discussion Medical Records Medical records reviewed: Yes I reviewed the patient's medical records Discharge Plan Discharge Clinical Impression: Cyclical vomiting, Abdominal pain Patient Disposition: Home w/ Parent or Adult Condition: Unchanged Additional Instructions: Slow advance of diet as able over the next 36 hours. Diluted juices, soup broth, rice, crackers, toast. Sending in prescriptions of dissolvable ondansetron for nausea, dissolvable hyoscyamine for cramping, and famotidine for stomach burning Prescriptions: New ondansetron 4 mg tablet,disintegrating 4 mg PO Q4H PRN (Reason: nausea and vomiting) Qty: 20 0RF hyoscyamine sulfate 0.125 mg tablet,disintegrating 1 - 2 mg PO Q4H PRN (Reason: Abdominal cramping) Qty: 20 0RF famotidine 40 mg tablet 40 mg PO DAILY Qty: 30 0RF No Action levonorgestrel-ethinyl estrad [Vienva] 0.1-20 mg-mcg tablet 1 tab PO DAILY hydroxyzine HCl 10 mg tablet 5 - 20 mg PO QID PRN (Reason: anxiety) escitalopram oxalate 20 mg tablet 20 mg PO DAILY thiamine mononitrate (vit B1) [Vitamin B-1 (mononitrate)] 100 mg Tablet 100 mg PO DAILY Qty: 60 0RF ondansetron 4 mg tablet,disintegrating 4 mg PO TID PRN (Reason: nausea and vomiting) Qty: 10 0RF potassium chloride [Klor-Con M20] 20 mEq tablet,ER particles/crystals 20 meq PO BID Qty: 4 0RF Follow Up/Referrals: Ashwini Zhang MD [Primary Care Provider] - Stand Alone Forms: [facility] Info Instructions
--- OUTSIDE RECORDS SUMMARY | 2023-11-07 10:06 | XMS_ITS | Referral Summary ---
Author Organization [facility] Address [address] [place] [id number] Care Team Providers Care Regional Account Manager Name Role Phone Unavailable Primary Care Provider Unavailabl e Source Comments Patient records contain information from all sites at [facility]. For routine questions regarding patient records, call [phone] during business hours, M-F 8:00 AM - 5:00 PM Central Time. Record requests for emergency care only can be directed to [phone] at any time.[facility] Allergies No known active allergies Medications No [...]
--- OUTSIDE RECORDS SUMMARY | 2023-11-07 10:06 | XMS_ITS ---
Author Organization [facility] Address [address] [place] [id number] Care Team Providers Care Manager Of Production Name Role Phone Unavailable Unavailable Unavailable Surgery Details Not on file Complications Check Surgery Details section. Procedure Estimated Blood Loss Check Surgery Details section. Procedure Findings Check Surgery Details section. Procedure Specimens Taken Check Surgery Details section.
--- OUTSIDE RECORDS SUMMARY | 2023-11-07 10:06 | XMS_ITS | Clinical Summary ---
Author Organization [facility] Address [address] [place] [id number] Care Team Providers Care Sprayer Operator Name Role Phone Unavailable Primary Care Provider Unavailabl e Source Comments Patient records contain information from all sites at [facility]. For routine questions regarding patient records, call [phone] during business hours, M-F 8:00 AM - 5:00 PM Central Time. Record requests for emergency care only can be directed to [phone] at any time.[facility] Allergies No known active allergies Medications No [...] COVID-19 Vaccine ( season) 2022 12/02/2020, 11/04/2020 Depression Screening (Annual PHQ-2) 03/05/2023 Influenza Vaccine (#1) 2023 , 11/27/2017, 01/15/2004, Additional history exists DTaP,Tdap,and Td Vaccines (8 - Td or Tdap) 01/16/2028 01/15/2018, 09/30/2009, 05/30/2002, Additional history exists HPV Vaccines Completed 06/26/2012, 06/04, 12/15/2009, Additional history exists Pneumococcal vaccine (0-64 years) Aged Out No longer eligible based on patient's age to complete this topic
--- OUTSIDE RECORDS SUMMARY | 2023-11-07 10:06 | XMS_ITS | Clinical Summary ---
Author Organization [facility] Address [address] [place] [address] Phone Care Team Providers Care Barber Name Role Phone Ashwini Zhang MD Primary Care Provider [phone] Source Comments [employer] is fully rolled out on [employer]. Last update 08/07/08.[facility] Allergies No known active allergies Medications * [...] pancreatitis (HHS) 11/13/2019 Swelling of throat 06/26/2017 Encounters Date Type Department Care Team Description 08/10/2023 3:46 PM CDT - 08/10/2023 6:41 PM CDT Emergency [facility] Emergency Department [address] [place] [address] Robert Mccormack MD Discharge Disposition: Discharged to home or self care 08/10/2023 Travel from Last 3 Months Immunizations Name Administration Dates Next Due Influenza [...] Sign Reading Time Taken Comments Blood Pressure 152/86 08/10/2023 3:55 PM CDT Pulse 114 08/10/2023 3:55 PM CDT Temperature 36.8 ??C (98.2 ??F) 08/10/2023 3:55 PM CD T Respiratory Rate 18 08/10/2023 3:55 PM CDT Oxygen Saturation 100% 08/10/2023 3:55 PM CDT Inhaled Oxygen Concentration - - Weight 65.8 kg (145 lb 1 oz) 04/14/2021 9:51 AM SOLID DIE CUTTER Height 170.2 cm (5' 7) 04/14/2021 9:51 AM SOLID DIE CUTTER Body Mass Index 22.72 04/14/2021 9:51 AM SOLID DIE CUTTER Plan of Treatment Health Maintenance Due Date Last Done Comments Asthma Action Plan 1997 Asthma Control Test 1997 Dental Oral Exam 1997 Dental Prophylaxis 1997 Dental X-Ray: Bitewings 1997 Depression Management 1997 Imm: Pneumonia Peds or At-Risk less than 65 years (1 of 2 - PCV) 06/10/2003 Periodontal Maintenance 06/10/2011 HEALTH MAINTENANCE PROTOCOL 2016 Cervical Cancer Screening Age 21-29 05/08/2023 05/07/2020 PREVENTATIVE VISIT 07/01/2023 06/30/2022 Imm: COVID-19 ( season) 2023 12/02/2020, 11/04/2020 Imm: Flu (#1) 11/04/2023 04/15/2021, 11/04, 01/15/2004, Additional history exists Imm: DTaP/Tdap (8 - Td or Tdap) 01/16/2028 01/15/2018, 09/30/2009, 05/30/2002, Additional history exists Imm: Zoster (1 of 2) 06/10/2047 Imm: HepB Completed 03/10/1998, 10/04, 1997 Imm: Hib Completed 10/18/1998, 10/04, 1997 Imm: HPV Completed 06/26/2012, 12/03, 09/30/2009 HIV Screening Completed 11/27/2017 Chlamydia & Gonorrhea Screening Discontinued 05/07/2020, 12/04/2017 Imm: HepA Aged Out No longer eligi ble based on patient's age to complete this topic Imm: Meningitis Aged Out No longer el igible based on patient's age to complete this topic Procedures Procedure Name Priority Date/Time Associated Diagnosis Comments ETHANOL (ETOH) LEVEL, BLOOD STAT 08/10/2023 4:36 PM CDT PC ELECTROLYTES PANEL STAT 08/10/2023 4:36 PM CDT PC LAB CBC W/DIFF & PLT STAT 08/10/2023 4:36 PM CDT LIPASE STAT 08/10/2023 4:36 PM CDT PANEL HEPATIC FUNCTION STAT 08/10/2023 4:36 PM CDT from Last 3 Months Results * (ABNORMAL) ED CHEMISTRY LABS(NA,K,CL,CO2,GLU,CREAT,CA-IONIZED,ANION GAP) (08/10/2023 4:36 PM CDT) Sodium 141 135 - 148 mmol/L [facility] Chloride 100 92 - 108 mmol/L [facility] AnGap 18(H) 8 - 16 mmol/L [facility] Glucose 146(H) 70 - 100 mg/dL [facility] ICA, Actual 4.38(L) 4.40 - 5.20 mg/dL [facility] ICA, pH Corrected 4.66 4.40 - 5.20 mg/dL [facility] Creatinine <0.57 0.50 - 1.00 mg/dL [facility] BICARB 23 22 - 26 mEq/L [facility] eGFR (2020 CKD-EPI) >120 >=60 ml/min/1.7 3m2 [facility] Comment: The estimated glomerular filtration rate (eGFR) was calculated using the CKD-EPI 2020 creatinine equation, which does not include race as a factor. This equation is validated in individuals 18 years of age and older, and eGFR is normalized to a body surface area of 1.73m^2. Potassium 3.6 3.5 - 5.3 mmol/L [facility] Blood 08/10/2023 4:36 PM CDT 08/10/2023 4:46 PM CDT Robert Mccormack MD LABORATORY [facility] [address] [address] * (ABNORMAL) CBC WITH PLTS/AUTO DIFF (08/10/2023 4:36 PM CDT) WBC 17.99(H) 4.00 - 10.00 k/cmm [facility] RBC 3.99 3.90 - 5.20 m/cmm [facility] Hgb 12.8 11.5 - 15.7 g/dL [facility] Hematocrit 37.7 34.0 - 45.0 % [facility] MCV 94.5 80.0 - 100.0 fL [facility] MCH 32.1(H) 25.0 - 32.0 pg [facility] MCHC 34.0 31.0 - 36.0 g/dL [facility] RDW 13.2 11.5 - 14.5 % [facility] Plt 306 150 - 400 k/cmm [facility] MPV 11.2 6.5 - 12.5 fL [facility] Automated Abs Neutrophil 16.12(H) 1.70 - 6.50 k/cmm [facility] Comment:Preliminary ANC, Fin al Result to Follow Abs Immature Granulocyte 0.22(H) 0.00 - 0.09 k/cmm [facility] Comment:The Immature Granulo cyte Absolute count contains metamyelocytes and myelocytes. Abs Neutrophil 16.12(H) 1.70 - 6.50 k/cmm [facility] Abs Lymphocyte 1.20 0.80 - 4.00 k/cmm [facility] Abs Monocyte 0.40 0.20 - 1.00 k/cmm [facility] Abs Eosinophil 0.00 0.00 - 0.60 k/cmm [facility] Abs Basophil 0.05 0.00 - 0.20 k/cmm [facility] Blood 08/10/2023 4:36 PM CDT 08/10/2023 4:58 PM CDT Robert Mccormack MD LABORATORY Performing Organization Address City/[facility] Co de Phone Number [facility] [place] [phone] * LIPASE (08/10/2023 4:36 PM CDT) [facility] Lipase 13 13 - 60 IU/L [facility] Blood 08/10/2023 4:36 PM CDT 08/10/2023 4:58 PM CDT Robert Mccormack MD LABORATORY Performing Organization Address City/[facility] Co de Phone Number [facility] [place] [phone] * PANEL HEPATIC FUNCTION (08/10/2023 4:36 PM CDT) Pathologist [facility] Total Protein 8.0 6.4 - 8.3 g/dL [facility] Albumin 4.8 3.8 - 5.1 g/dL [facility] Bili Total 0.5 <=1.2 mg/dL [facility] Bili Direct na <=0.3 mg/dL [facility] Comment:BILID= <0.2. Accurac y of result suspect due to hemolysis. Alk Phos 103 35 - 104 IU/L [facility] Comment:No reference range e stablished for patients <18 years old. ALT (SGPT) 17 <=33 IU/L [facility] AST(SGOT) 25 5 - 40 IU/L [facility] Blood 08/10/2023 4:36 PM CDT 08/10/2023 4:58 PM CDT Robert Mccormack MD LABORATORY Performing Organization Address City/[facility] Co de Phone Number [facility] [address] [address] * ETHANOL (ETOH) LEVEL, BLOOD (08/10/2023 4:36 PM CDT) Ethanol Negative Negative g/dL [facility] Blood 08/10/2023 4:36 PM CDT 08/10/2023 4:58 PM CDT Robert Mccormack MD LABORATORY Performing Organization Address [facility] Co de Phone Number [facility] [address] [address] from Last 3 Months Advance Directives For more information, please contact: [phone] * Full Code (Latest Code Status on [...] Status With Whom? Not discussed Care Teams Barber Relationship Specialty Start Date End Date Ashwini Zhang MD [address] [place] [address] PCP - General Family Medicine 06/28/17
--- OUTSIDE RECORDS SUMMARY | 2023-11-07 10:07 | XMS_ITS | Referral Summary ---
Author Organization [facility] Address [address] [place] [id number] Care Team Providers Care Coat Ironer Hand Name Role Phone [facility] Primary Care Provider Medications Medication Sig Dispensed Refills Start Date End Date Status ALBUTEROL IN Active Fluticasone Furoate (ARNUITY ELLIPTA IN) Active oxymetazoline (AFRIN) 0.05 % spray [place] 2 sprays into both nostrils 2 times [...] of Treatment Not on file Care Teams Coat Ironer Hand Relationship Specialty Start Date End Date [facility] [address] [place] [address] PCP - General 06/19/17
--- OUTSIDE RECORDS SUMMARY | 2023-11-07 10:07 | XMS_ITS | Referral Summary ---
Author Organization [facility] Address [address] [place] [address] Phone Care Team Providers Care Geriatric Nursing Assistant Name Role Phone Ashwini Zhang MD Primary Care Provider [phone] Source Comments [employer] is fully rolled out on [employer]. Last update 08/07/08.[employer] Encounters Date Type Department Care Team Description 08/10/2023 Travel 08/10/2023 3:46 PM CDT - 08/10/2023 6:41 PM CDT Emergency [facility] Emergency Department [address] [address] [place] [address] Robert Mccormack MD Discharge Disposition: Discharged to home or self care from Last 3 Months Allergies No known active allergies Medications * [...] (145 lb 1 oz) 04/14/2021 9:51 AM CIRCULATION LIBRARIAN Height 170.2 cm (5' 7) 04/14/2021 9:51 AM CIRCULATION LIBRARIAN Body Mass Index 22.72 04/14/2021 9:51 AM CIRCULATION LIBRARIAN Plan of Treatment Not on file Procedures [...] CDT) Sodium 141 135 - 148 mmol/L [facility] Chloride 100 92 - 108 mmol/L [facility] AnGap 18(H) 8 - 16 mmol/L [facility] Glucose 146(H) 70 - 100 mg/dL [facility] ICA, Actual 4.38(L) 4.40 - 5.20 mg/dL [facility] ICA, pH Corrected 4.66 4.40 - 5.20 mg/dL [facility] Creatinine <0.57 0.50 - 1.00 mg/dL [facility] BICARB 23 22 - 26 mEq/L [facility] eGFR (2020 CKD-EPI) >120 >=60 ml/min/1.7 3m2 [facility] Comment: The estimated glomerular filtration rate (eGFR) was calculated using the CKD-EPI 2020 creatinine equation, which does not include race as a factor. This equation is validated in individuals 18 years of age and older, and eGFR is normalized to a body surface area of 1.73m^2. Potassium 3.6 3.5 - 5.3 mmol/L [facility] Blood 08/10/2023 4:36 PM CDT 08/10/2023 4:46 PM CDT Robert Mccormack MD LABORATORY [facility] [address] [address] * (ABNORMAL) CBC WITH PLTS/AUTO DIFF (08/10/2023 4:36 PM CDT) WBC 17.99(H) 4.00 - 10.00 k/cmm [facility] RBC 3.99 3.90 - 5.20 m/cmm [facility] Hgb 12.8 11.5 - 15.7 g/dL [facility] Hematocrit 37.7 34.0 - 45.0 % [facility] MCV 94.5 80.0 - 100.0 fL [facility] MCH 32.1(H) 25.0 - 32.0 pg [facility] MCHC 34.0 31.0 - 36.0 g/dL [facility] RDW 13.2 11.5 - 14.5 % [facility] Plt 306 150 - 400 k/cmm [facility] MPV 11.2 6.5 - 12.5 fL [facility] Automated Abs Neutrophil 16.12(H) 1.70 - 6.50 k/cmm [facility] Comment:Preliminary ANC, Fin al Result to Follow Abs Immature Granulocyte 0.22(H) 0.00 - 0.09 k/cmm [facility] Comment:The Immature Granulo cyte Absolute count contains metamyelocytes and myelocytes. Abs Neutrophil 16.12(H) 1.70 - 6.50 k/cmm [facility] Abs Lymphocyte 1.20 0.80 - 4.00 k/cmm [facility] Abs Monocyte 0.40 0.20 - 1.00 k/cmm [facility] Abs Eosinophil 0.00 0.00 - 0.60 k/cmm [facility] Abs Basophil 0.05 0.00 - 0.20 k/cmm [facility] Blood 08/10/2023 4:36 PM CDT 08/10/2023 4:58 PM CDT Robert Mccormack MD LABORATORY Performing Organization Address City/[facility] Co de Phone Number [facility] [address] [address] * LIPASE (08/10/2023 4:36 PM CDT) Lipase 13 13 - 60 IU/L [facility] Blood 08/10/2023 4:36 PM CDT 08/10/2023 4:58 PM CDT Robert Mccormack MD LABORATORY Performing Organization Address [facility]/ZIP Co de Phone Number [facility] [address] [address] * PANEL HEPATIC FUNCTION (08/10/2023 4:36 PM CDT) Total Protein 8.0 6.4 - 8.3 g/dL [facility] Albumin 4.8 3.8 - 5.1 g/dL [facility] Bili Total 0.5 <=1.2 mg/dL [facility] Bili Direct na <=0.3 mg/dL [facility] Comment:BILID= <0.2. Accurac y of result suspect due to hemolysis. Alk Phos 103 35 - 104 IU/L [facility] Comment:No reference range e stablished for patients <18 years old. ALT (SGPT) 17 <=33 IU/L [facility] AST(SGOT) 25 5 - 40 IU/L [facility] Blood 08/10/2023 4:36 PM CDT 08/10/2023 4:58 PM CDT Robert Mccormack MD LABORATORY Performing Organization Address City/[facility]/ZIP Co de Phone Number [facility] [address] [address] * ETHANOL (ETOH) LEVEL, BLOOD (08/10/2023 4:36 PM CDT) Ethanol Negative Negative g/dL [facility] Blood 08/10/2023 4:36 PM CDT 08/10/2023 4:58 PM CDT Robert Mccormack MD LABORATORY Performing Organization Address City/[facility]/ZIP Co de Phone Number [facility] [address] [address] from Last 3 Months Advance Directives For more information, please contact: [phone] * Full Code (Latest Code Status on [...] Status With Whom? Not discussed Care Teams Geriatric Nursing Assistant Relationship Specialty Start Date End Date Ashwini Zhang MD [address] [place] [address] PCP - General Family Medicine 06/28/17
--- OUTSIDE RECORDS SUMMARY | 2023-11-07 10:07 | XMS_ITS | Encounter Summary ---
Author Organization [facility] Address [address] [facility] [place] [address] Phone Care Team Providers Care Automobile Carpets Molder Name Role Phone Ashwini Zhang MD Primary Care Provider [phone] Encounter Details Date Type Department Care Team (Latest Contact Info) Description 08/10/2023 Travel Social History Tobacco Use Types Packs/Day Years [...] on file documented as of this encounter Plan of Treatment Not on file documented as of this encounter Visit Diagnoses Not on filedocumented in this encounter Care Teams Automobile Carpets Molder Relationship Specialty Start Date End Date Ashwini Zhang MD [address] [place] [address] PCP - General Family Medicine 06/28/17 documented as of this encounter
--- OUTSIDE RECORDS SUMMARY | 2023-11-07 10:07 | XMS_ITS | Clinical Summary ---
Author Organization [facility] Address [address] [place] [id number] Care Team Providers Care Outpatient Coder Name Role Phone [facility] Primary Care Provider Medications Medication Sig Dispensed Refills Start Date End Date Status ALBUTEROL IN Active Fluticasone Furoate (ARNUITY ELLIPTA IN) Active oxymetazoline (AFRIN) 0.05 % spray [place] 2 sprays into both nostrils 2 times [...] of Treatment Not on file Care Teams Outpatient Coder Relationship Specialty Start Date End Date [facility] [address] [place] [address] PCP - General 06/19/17
--- OUTSIDE RECORDS SUMMARY | 2023-11-07 10:07 | XMS_ITS | Clinical Summary ---
Author Organization [employer] [facility] Address [place], [place] [address] Care Team Providers Care Environmental Health Safety Manager Name Role Phone Ashwini Zhang MD Primary Care Provider [phone] Allergies No known active allergies Medications Medication Sig Dispensed Refills Start Date End Date Status albuterol HFA (ProAir HFA) 90 mcg/actuation inhalerIndications: Asthma, unspecified asthma severity, unspecified whether complicated, unspecified whether persistent Inhale 2 Puffs by mouth every 4 hours if needed for Shortness Of Breath or Wheezing. 8.5 g 2 06/30/2022 Active levonorgestrel-ethi nyl estrad, 0.1mg-20mcg, (Vienva) 0.1-20 mg-mcg tabletIndications:E ncounter for counseling regarding contraception TAKE ONE TABLET BY MOUTH ONE TIME DAILY 84 Tablet 2 06/27/2023 Active hydrOXYzine HCL (ATARAX) 10 mg tabletIndications:S ocial anxiety disorder,Generalize d anxiety disorder Take 0.5-2 Tablets (5-20 mg) by mouth 4 times daily if needed for Anxiety (sleep). wait 1 hour between doses 120 Tablet 11 11/01/2023 Active hydrOXYzine HCL (ATARAX) 10 mg tabletIndications:G eneralized anxiety disorder,Social anxiety disorder Take 0.5-2 Tablets (5-20 mg) by mouth 4 times daily if needed for Anxiety (sleep). wait 1 hour between doses 120 Tablet 08/21/2023 Discontinue d(*Medicati on adjustment) Hospital, Clinic, or Other Facility Administered Medication Ordered Dose Route Frequency Start Date End Date Status naltrexone ER (VIVITROL) intramuscular injection 380 mgIndications:Alcohol use disorder, severe, dependence (HC) 380 mg IM Q 4 WEEKS (28 days) 10/03/2023 09/03/2024 Active Active Problems Problem Noted Date Diagnosed [...] present) No problems associated with this episode. JOE Aranda.....12/05/2017 8:12 AM Delirium tremens 05/03/2017 Unspecified asthma(493.90) 05/10/2007 Resolved Problems Problem Noted Date Diagnosed Date Resolved Date Alcohol use disorder, severe, dependence 06/12/2023 06/12/2023 Cannabis use disorder, severe, dependence 06/12/2023 06/12/2023 Alcoholism 05/08/2023 05/08/2023 At risk for depression 11/15/201905/07 Alcohol intoxication 11/13/2019 024 Acute respiratory failure with hypercapnia 05/29/2017 03/18/2018 Acute hepatitis 05/29/2017 05/08/2023 Alcohol dependence with withdrawal 05/28/2017 03/18/2018 Alcohol withdrawal seizure with delirium 05/03/2017 08/17/2023 History of major depressive disorder, single episode, severe, without mention of psychotic behavior 05/18/2012 05/15/2023 Cannabis abuse, continuous 05/18/2012 0 05/08/2023 Encounters Date Type Department Care Team Description 11/01/2023 8:30 AM CDT Office Visit [facility] [address] [place] [address] [place] [address] Derrell Monet MD Medication Management (Things are going good,/Had a bulge from getting the vitriol injection/Still going to treatment 3 days a week) 11/01/2023 Travel 10/22/2023 Telephone [facility] [place] [address] Derrell Monet MD Late Cancel Appointment 10/19/2023 9:00 AM CDT Telemedicine [facility] [address] [place] [address] AspAlize gallegos, [facility] Mental Health Intake (No vitals taken) 10/19/2023 Travel 10/17/2023 Telephone [facility] [address] [place] [address] Alize Iglesias, [facility] Late Cancel Appointment 10/02/2023 Telephone [facility] [address] [place] [address] Derrell Monet MD Late Cancel Appointment (no daycare ) 09/25/2023 9:00 AM CDT Office Visit [address] [address] Derrell Monet MD Medication Management (Things are the same, has been rough, still sober) 09/24/2023 3:15 PM CDT Nurse/Clinic Staff Only [address] [address] Immunization/Injecti on (NALTREXONE INJECTION PER DR. MONET ) 09/24/2023 Travel 09/24/[address] [address] Derrell Monet MD Medication Management (Naltrexone (VIVITROL)) 09/20/2023 10:30 AM CDT Office Visit [address] [address] Derrell Monet MD Medication Management 09/20/2023 Travel 09/12/[address] [address] Derrell Monet MD Injection (Medication) (Naltrexone) 09/04/2023 1:00 PM CDT Office Visit [address] [address] Derrell Monet MD Follow Up; Medication Management (feeling, umm, kind of the same) 09/04/2023 Travel 08/30/2023 Telephone [facility] [address] [place] [address] Derrell Moent MD Prior Authorization (VIVITROL 380 mg intramuscular injection (CLOSED/MEDICAL BENEFIT)) 08/30/[address] [address] Derrell Monet MD 08/27/2023 1:00 PM CDT Office Visit [address] [address] Derrell Monet MD Follow Up; Medication Management (feeling, the same) 08/27/2023 11:00 AM CDT Telemedicine [facility] [address] [place] [address] Estela Guerra [facility] 08/27/2023 Travel 08/20/2023 2:00 PM CDT Office Visit [facility] [address] [place] [address] Derrell Monet MD Medication Management (Things have not changed) 08/20/[address] [address] Derrell Monet MD Medication Management (Unable to fill medications) 08/20/2023 Travel 08/17/2023 12:45 PM CDT Office Visit [facility] [address] [place] [address] Ashwini Zhang MD Hospital F/U 08/17/2023 Telephone [facility] [address] [place] [address] Ashwini Zhang MD 08/16/2023 9:30 AM CDT Office Visit [address] [address] Derrell Monet MD Follow Up; Medication Management (I'm feeling good today) 08/16/2023 Travel 08/09/2023 Orders Only [facility] Scanner 1 scan: (1-Ord) INCOMING RECORDS-CT, [facility], 08/09/2023 08/09/2023 Orders Only [facility] Scanner 1 scan: (1-Ord) INCOMING RECORDS-LABS, [facility] , 08/09/2023 08/09/2023 Telephone [facility] [address] [place] [address] Ashwini Zhang MD Medication Management from Last 3 Months Immunizations Name Administration Dates Next Due COVID-19 vaccine (TimeGenius[employer] NTech 30mcg/0.3mL) PFMDV 12/02/2020,11/04/2020 DTaP 05/30/2002, 8,1997,07/21 DTaP-HIB (TriHIBIT) 10/18/1998 [...] Used Date Smoking Tobacco: Former Cigarettes 0.3 11.2 0 05/29/2011 - 03/30/2020 Smokeless Tobacco: Never Tobacco Cessation:Counseling Given: Yes Comments:TIP done 06/04/17 Alcohol Use Standard Drinks/Week Comments Not Currently 77 (1 standard drink = 0.6 oz pure alcohol) last drink 09/17/23 / hc 0.5 l of vodka daily PHQ-2 Answer Date Recorded PHQ-2 TOTAL SCORE 0 11/01/2023 Social Connections Answer Date Recorded Frequency of [...] Outcome GA Total Labor Labor/2nd/3rd Weight Sex Type Anes PTL Isabel A1 A5 Name Clin 03/21 Term 37w 5d M Vag Living [place] Last Filed Vital Signs Vital Sign Reading Time Taken Comments Blood Pressure 104/60 11/01/2023 8:35 AM CDT Pulse 93 09/25/2023 9:02 AM CDT Temperature 36.7 ??C (98 ??F) 03/27/2023 1:47 PM IRONWORKER APPRENTICE Respiratory Rate 22 12/19/2022 2:07 PM CDT Oxygen Saturation 96% 08/17/2023 12:45 PM CDT Inhaled Oxygen Concentration - - Weight 90.3 kg (199 lb) 11/01/2023 8:35 AM CDT Height 170.2 cm (5' 7) 09/20/2023 10:26 AM CDT Body Mass Index 31.17 09/20/2023 10:26 AM CDT Plan of Treatment Upcoming Encounters Date Type Department Care Team (Late st Contact Info) Description 11/22/2023 8:30 AM CDT Office Visit [facility] [place] [address] [address] Derrell Monet MD [address] [place] [address] 11/26/2023 8:45 AM CDT Nurse/Clinic Staff Only [facility] [address] [place] [address] Health Maintenance Due Date Last Done Comments Pneumococcal series for age 6-64 (1 of 2 - PCV) 06/10/2003 Pap test for age 21-65 05/08/2023 05/07/2020 COVID-19 vaccine series (3 - 2022- season) 2023 12/02/2020, 11/04/2020 Influenza for age 9-49 11/04/2023 , 11/27/2017, 01/15/2004, Additional history exists BMI (ht and wt on same day) for age 18+ 09/19/2024 09/20/2023, 05/07/2023, 06/30/2022, Additional history exists Depression screening for age 12+ 10/31/2024 11/01/2023, 10/22/2023, 10/19/2023, Additional history exists Tetanus booster 01/16/2028 01/15/2018, 09/30/2009 HPV series for age 9-26 Completed 06/27/19 13, 12/15/2009, 09/30/2009 Hepatitis C screening for ag e 18-79 Completed 05/29/2017 HIV for age 15-65 Completed 11/27/2017 Tdap Completed 01/15/2018, 09/30/2009 Procedures Procedure Name Priority Date/Time Associated Diagnosis Comments RED CELL MORPHOLOGY Routine 08/17/2023 1 :28 PM CDT Hospital discharge follow-up Alcohol use disorder Cannabis abuse, continuous Abdominal pain, epigastric PLATELET ESTIMATE Routine 08/17/2023 1:2 8 PM CDT Hospital discharge follow-up Alcohol use disorder Cannabis abuse, continuous Abdominal pain, epigastric MANUAL DIFFERENTIAL Routine 08/17/2023 1 :28 PM CDT Hospital discharge follow-up Alcohol use disorder Cannabis abuse, continuous Abdominal pain, epigastric CBC WITH AUTO DIFFERENTIAL Routine 08/17/2023 1:28 PM CDT Hospital discharge follow-up Alcohol use disorder Cannabis abuse, continuous Abdominal pain, epigastric CBC WITH AUTO DIFFERENTIAL Routine 08/17/2023 1:28 PM CDT Hospital discharge follow-up Alcohol use disorder Cannabis abuse, continuous Abdominal pain, epigastric LIPASE Routine 08/17/2023 1:28 PM CDT Hospital discharge follow-up Alcohol use disorder Cannabis abuse, continuous Abdominal pain, epigastric COMP METABOLIC PANEL Routine 08/17/2023 1:28 PM CDT Hospital discharge follow-up Alcohol use disorder Cannabis abuse, continuous Abdominal pain, epigastric SCAN CORRESP-LABORATORY RESULTS 08/09/2023 12:00 AM CDT SCAN CORRESP-IMAGING 08/09/2023 12:00 AM CDT SHEEPSKIN PICKLER THIN PREP PAP SCREEN IMAGED Routine 05/07/2020 3:34 PM IRONWORKER APPRENTICE Screening for cervical cancer ANTI HIV 1/2 Routine 11/27/2017 9:26 AM CDT Supervision of normal first in second trimester ACUTE HEPATITIS PANEL HOLLIS 05/29/2017 2:10 AM CDT from Last 3 Months or Most Recently Relevant to Health Maintenance Results * (ABNORMAL) CBC WITH AUTO DIFFERENTIAL (08/17/2023 1:28 PM CDT) Pathologist [facility] WHITE BLOOD COUNT 10.2 4.5 - 11.0 thou/cu mm 08/17/2023 2:03 PM CDT [facility] RED BLOOD COUNT 3.75(L) 4.00 - 5.20 mil/cu mm 08/17/2023 2:03 PM CDT [facility] HEMOGLOBIN 12.3 12.0 - 16.0 g/dL 08/17/2023 2:03 PM CDT [facility] HEMATOCRIT 36.5 33.0 - 51.0 % 08/17/2023 2:03 PM CDT [facility] MCV 97 80 - 100 fL 08/17/2023 2:03 PM CDT [facility] MCH 32.8 26.0 - 34.0 pg 08/17/2023 2:03 PM CDT [facility] MCHC 33.7 32.0 - 36.0 g/dL 08/17/2023 2:03 PM CDT [facility] RDW 13.7 11.5 - 15.5 % 08/17/2023 2:03 PM CDT [facility] PLATELET COUNT 306 140 - 440 thou/cu mm 08/17/2023 2:03 PM CDT [facility] MPV 9.9 6.5 - 11.0 fL 08/17/2023 2:03 PM CDT [facility] Blood BLOOD SPECIMEN / Unknown Butterfly / Unknown 08/17/2023 1:28 PM CDT 08/17/2023 1:28 PM CDT Ashwini Zhang MD HEMATOLOGY Performing Organization Address City/[facility]/ZIP Co de Phone Number [facility] [address] [place] [address], [place] [phone] * RED CELL MORPHOLOGY (08/17/2023 1:28 PM CDT) RBC COMMENT RBC morphology appears normal RBC morphology appears normal, RBC morphology within normal limits for newborns. 08/17/2023 2:03 PM CDT [facility] Blood BLOOD SPECIMEN / Unknown Butterfly / Unknown 08/17/2023 1:28 PM CDT 08/17/2023 1:28 PM CDT Ashwini Zhang MD HEMATOLOGY [facility] [address] [place] [address], [place] [phone] * PLATELET ESTIMATE (08/17/2023 1:28 PM CDT) PLATELET ESTIMATE Adequate Adequate, No estimate 08/17/2023 2:03 PM CDT [facility] Blood BLOOD SPECIMEN / Unknown Butterfly / Unknown 08/17/2023 1:28 PM CDT 08/17/2023 1:28 PM CDT Ashwini Zhang MD HEMATOLOGY Performing Organization Address [facility] Co de Phone Number [facility] [address] [place] [phone], * (ABNORMAL) MANUAL DIFFERENTIAL (08/17/2023 1:28 PM CDT) % NEUTROPHILS 71.0 % 08/17/2023 2:03 PM CDT [facility] % LYMPHOCYTES 24.0 % 08/17/2023 2:03 PM CDT [facility] % MONOCYTES 4.0 % 08/17/2023 2:03 PM CDT [facility] % EOSINOPHILS 1.0 % 08/17/2023 2:03 PM CDT [facility] % BASOPHILS 0.0 % 08/17/2023 2:03 PM CDT [facility] NEUTROPHILS ABSOLUTE 7.2(H) 1.7 - 7.0 thou/cu mm 08/17/2023 2:03 PM CDT [facility] LYMPHOCYTES ABSOLUTE 2.4 0.9 - 2.9 thou/cu mm 08/17/2023 2:03 PM CDT [facility] MONOCYTES ABSOLUTE 0.4 <0.9 thou/cu mm 08/17/2023 2:03 PM CDT [facility] EOSINOPHILS ABSOLUTE 0.1 <0.5 thou/cu mm 08/17/2023 2:03 PM CDT [facility] BASOPHILS ABSOLUTE 0.0 <0.3 thou/cu mm 08/17/2023 2:03 PM CDT [facility] Blood BLOOD SPECIMEN / Unknown Butterfly / Unknown 08/17/2023 1:28 PM CDT 08/17/2023 1:28 PM CDT Ashwini Zhang MD HEMATOLOGY [facility] [address] [place] [address], [place] [phone] * LIPASE (08/17/2023 1:28 PM CDT) LIPASE 17.4 13.0 - 60.0 IU/L 08/18/2023 1:31 AM CDT [facility] Blood BLOOD SPECIMEN / Unknown Butterfly / Unknown 08/17/2023 1:28 PM CDT 08/17/2023 1:28 PM CDT Ashwini Zhang MD CHEMISTRY [facility] [address] [place] [address], * (ABNORMAL) COMP METABOLIC PANEL (08/17/2023 1:28 PM CDT) SODIUM 136 136 - 145 mmol/L 08/18/2023 12:29 AM CDT [facility] POTASSIUM 4.7 3.5 - 5.1 mmol/L 08/18/2023 12:29 AM T [facility] CHLORIDE 98 98 - 107 mmol/L 08/18/2023 12:29 AM CDT [facility] CO2,TOTAL 25 22 - 29 mmol/L 08/18/2023 12:29 AM T [facility] ANION GAP 13 5 - 18 08/18/2023 12:29 AM T [facility] GLUCOSE 102(H) 70 - 99 mg/dL 08/18/2023 12:29 AM T [facility] CALCIUM 9.9 8.6 - 10.0 mg/dL 08/18/2023 12:29 AM T [facility] BUN 21(H) 6 - 20 mg/dL 08/18/2023 12:29 AM T [facility] CREATININE 0.57 0.50 - 0.90 mg/dL 08/18/2023 12:29 AM CDT [facility] BUN/CREAT RATIO 37(H) 10 - 20 12:29 AM CDT [facility] eGFR >90 >90 mL/min/1.7 3m2 08/18/2023 12:29 AM CDT [facility] Comment:As of 2021, eG FR is calculated by the CKD-EPI creatinine equation without race adjustment. ??eGFR can be influenced by muscle mass, exercise, and diet. ??The reported eGFR is an estimation only and is only applicable if the renal function is stable. ALBUMIN 4.7 4.0 - 4.9 g/dL 08/18/2023 12:29 AM CDT [facility] PROTEIN,TOTAL 7.2 6.0 - 8.0 g/dL 08/18/2023 12:29 AM CDT [facility] BILIRUBIN,TOTAL 0.4 0.0 - 1.2 mg/dL 08/18/2023 12:29 AM CDT [facility] ALK PHOSPHATASE 103 35 - 104 IU/L 08/18/2023 12:29 AM CDT [facility] ALT (SGPT) 17 10 - 35 IU/L 08/18/2023 12:29 AM CDT [facility] AST (SGOT) 22 10 - 35 IU/L 08/18/2023 12:29 AM CDT [facility] Blood BLOOD SPECIMEN / Unknown Butterfly / Unknown 08/17/2023 1:28 PM CDT 08/17/2023 1:28 PM CDT Ashwini Zhang MD CHEMISTRY [facility] [address] [place] [address], * SCAN CORRESP-LABORATORY RESULTS (08/09/2023 12:00 AM CDT) Scanner OTHER * SCAN CORRESP-IMAGING (08/09/2023 12:00 AM CDT) Anatomical Region Laterality Modality Other Scanner OTHER * SHEEPSKIN PICKLER THIN PREP PAP SCREEN IMAGED [[id number]] (05/07/2020 3:34 PM IRONWORKER APPRENTICE) Case Report Gynecologic Cytology Report ? Case: [id number] ? Authorizing Provider: ??Ashwini Zhang MD ? Collected: ? 05/07/2020 1534 ? Ordering Location: ? [facility] [place] ?? Received: ?05/07/2020 1549 ? Clinic ? First Screen: ?Reji Adams ? Specimen: ?SHEEPSKIN PICKLER ThinPrep Vial Screening, Cervical ? 05/17/2020 2:28 PM CDT [facility] ENTRAL LABORATORY INTERPRETATION/ RESULT NEGATIVE FOR INTRAEPITHELIAL LESION OR MALIGNANCY (NIL) (none) 05/17/2020 2:28 PM CDT [facility] NISM(S) Shift in mitchell suggestive of bacterial vaginosis 05/17/2020 2:28 PM CDT [facility] SPECIMEN ADEQUACY Satisfactory for evaluation Endocervical component present 05/17/2020 2:28 PM CDT [facility] HPV REQUEST HPV if ASCUS 05/17/2020 2:28 PM CDT [facility] Date of LMP Hormonally Suppressed 05/17/2020 2:28 PM CDT [facility] Last Pap Date first 05/17/2020 2:28 PM CDT [facility] Last Pap Result First Pap/Unknown 2:28 PM CDT [facility] Abnormal Pap or [place] Bx in last 5 years No 05/17/2020 2:28 PM CDT [facility] Menstrual Status Irregular Periods 05/17/2020 2:28 PM CDT [facility] [place] Bx Done Today No 05/17/2020 2:28 PM CDT [facility] Additional Information None given 05/17/2020 2:28 PM CDT [facility] Comment: Cytology is screened at [facility] - [address], [place] [address] and [facility] - [address] [place] [address] and [facility] - [address] [place] [address] Interpreted at [facility] - [address], [place] [address] Automated Review Successful 05/17/2020 2:28 PM CDT [facility] Comment:Specimen processed s uccessfully by automated napper runner device, ThinPrep Imaging System, [employer] Note The pap test is a [...] and malignant lesions. 05/17/2020 2:28 PM CDT [facility] Other (Cervical) Non-Blood / Unknown 05/07/2020 3:34 PM IRONWORKER APPRENTICE 05/07/2020 3:49 PM IRONWORKER APPRENTICE Ashwini Zhang MD PATHOLOGY/CYTOLOGY Performing Organization Address City/[facility]/ZIP Co de Phone Number [facility] [address] [place] [address] * ANTI HIV 1/2 (11/27/2017 9:26 AM CDT) Pathologist [facility] HIV-1/HIV-2 ANTIBODY Non-Reacti ve Non-Reacti ve 11/27/2017 5:29 PM CDT [facility] Comment:HIV-1 p24 and HIV-1/ HIV-2 Ab not detected. Blood BLOOD SPECIMEN / Unknown Venipuncture / Unknown 11/27/2017 9:26 AM CDT 11/27/2017 9:26 AM CDT Deisy Pelayo BEHAVIORAL HEALTH CARE COORDINATOR SEND OUTS Performing Organization Address [facility] Co de Phone Number [facility] [address] * ACUTE HEPATITIS PANEL (05/29/2017 2:10 AM CDT) HEPATITIS C ANTIBODY Non-Reactive Non-Reactive 05/29/2017 3:37 AM CDT [facility] Comment:Antibodies to HCV no t detected; does not exclude the possibility of exposure to HCV. IGM ANTI HAV Non-Reactive Non-Reactive 05/30/19 18 3:37 AM CDT [facility] HBSAG Nonreactive Nonreactive 05/29/2017 3:37 AM CDT [facility] IGM ANTI HBC Non-Reactive Non-Reactive 05/30/19 18 3:37 AM CDT [facility] Blood BLOOD SPECIMEN / Unknown Venipuncture / Unknown 05/29/2017 2:10 AM CDT 05/29/2017 2:16 AM CDT Narrative [facility] - 05/29/2017 3:37 AM CDT Anti-HBc IgM not detected. Does not exclude the possibility of exposure to or infection with HBV. Dawn Portillo MD SEND OUTS [facility] [address] [place] [address], from Last 3 Months or Most Recently [...] 5:33 PM 05/23/2012 1:39 PM Care Teams Environmental Health Safety Manager Relationship Specialty Start Date End Date Ashwini Zhang MD [address] [place] [address] PCP - General Family Practice 11/23/17
--- OUTSIDE RECORDS SUMMARY | 2023-11-07 10:07 | XMS_ITS | Encounter Summary ---
Author Organization [facility] Address [address] [place] [address] Phone Care Team Providers Care Behavior Specialist Name Role Phone Ashwini Zhang MD Primary Care Provider [phone] Reason for Visit * Reason Comments Abdominal Pain Encounter Details Date Type Department Care Team (Late st Contact Info) Description 08/10/2023 3:46 PM CDT - 08/10/2023 6:41 PM CDT Emergency [facility] Emergency Department [address] [place], [place] [id number] Robert Mccormack MD [address], [place] [id number] Discharge Disposition: Discharged to home or self care Social History Tobacco Use Types Packs/Day Years [...] Index - - documented in this encounter Medications at Time [...] as of this encounter ED Notes * Kortney Dumont RN - 08/10/2023 4:36 PM CDT RESTRICTED RECIPIENT PROGRAM Blue Plus (BCBS) Restricted Recipient Program: [phone] Patient restricted AWAY from [facility] recommend required medical screen exam (MSE) and transfer ED unable to write for discharge medications for this patient patient should follow-up with [facility] Discuss LIMITATIONS of the ED for this restricted patient AFTER required medical screen (patient may choose to leave and transfer to their preferred care system) PMI: [id number] Restriction dates: Hospital: [facility] [phone] Clinic: [facility] [phone] Provider: Ashwini Zhang MD Pharmacy: [id number] Reason for restrictions: Referrals: Kortney Dumont ED RN Clinical Coordinator Telmed[employer]: ED Clinical Coordinator Email: ED Clinical Coordinator * Joy Bell RN - 08/10/2023 3:54 PM CDT Pt arrives with vomiting and abdominal pain since 10am today. Pt with hx of pancreatitis and liver problems. States she hasn't had an alcohol since Sunday. Was recently at [facility] from Sunday-Sunday documented in this encounter Miscellaneous Notes * ED Triage Provider Note - Robert Mccormack MD - 08/10/2023 3:56 PM CDT Images from the original note were not included. ED Triage Faculty Provider Note Celia Cano : 1995 Sex: female Patient Arrival Date and Time: 08/10/2023 3:46 PM HPI and Pertinent Exam 28 y.o. female presents for constant vomiting and upper abdominal pain since 1000 today. 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 Also notes history of alcohol withdrawal and seizures. Patient was admitted from 08/06/23 to 08/08/23 in hospital with low potassium levels. Last drink was 08/05/23. I saw the patient and performed a medical screening evaluation upon arrival DISPOSITION Patient to await placement in Team Center Scribed for Robert Mccormack MD by Estrellita Mueller Scribe, 08/10/2023 3:58 PM I, Robert Mccormack MD have reviewed the initial documentation provided by the scribe and affirm that it is an accurate restatement of my dictated record of services. Signed: Robert Mccormack MD, 15:58 08/10/2023 documented in this encounter Plan of Treatment Not on file documented as of this encounter Procedures Procedure Name Priority Date/Time Associated Diagnosis Comments PC ELECTROLYTES PANEL STAT 08/10/2023 4:36 PM CDT PC LAB CBC W/DIFF & PLT STAT 08/10/2023 4:36 PM CDT LIPASE STAT 08/10/2023 4:36 PM CDT PANEL HEPATIC FUNCTION STAT 08/10/2023 4:36 PM CDT ETHANOL (ETOH) LEVEL, BLOOD STAT 08/10/2023 4:36 PM CDT documented in this encounter Results * ETHANOL (ETOH) LEVEL, BLOOD (08/10/2023 4:36 PM CDT) Ethanol Negative Negative g/dL [facility] LAB Blood 08/10/2023 4:36 PM CDT 08/10/2023 4:58 PM CDT Robert Mccormack MD LABORATORY [facility] LAB [address] [address] * (ABNORMAL) ED CHEMISTRY LABS(NA,K,CL,CO2,GLU,CREAT,CA-IONIZED,ANION GAP) (08/10/2023 4:36 PM CDT) Sodium 141 135 - 148 mmol/L [facility] LAB Chloride 100 92 - 108 mmol/L [facility] LAB AnGap 18(H) 8 - 16 mmol/L [facility] LAB Glucose 146(H) 70 - 100 mg/dL [facility] LAB ICA, Actual 4.38(L) 4.40 - 5.20 mg/dL [facility] LAB ICA, pH Corrected 4.66 4.40 - 5.20 mg/dL [facility] LAB Creatinine <0.57 0.50 - 1.00 mg/dL [facility] LAB BICARB 23 22 - 26 mEq/L [facility] LAB eGFR (2020 CKD-EPI) >120 >=60 ml/min/1.7 3m2 [facility] LAB Comment: The estimated glomerular filtration rate (eGFR) was calculated using the CKD-EPI 2020 creatinine equation, which does not include race as a factor. This equation is validated in individuals 18 years of age and older, and eGFR is normalized to a body surface area of 1.73m^2. Potassium 3.6 3.5 - 5.3 mmol/L [facility] LAB Blood 08/10/2023 4:36 PM CDT 08/10/2023 4:46 PM CDT Robert Mccormack MD LABORATORY [facility] [address] [address] * (ABNORMAL) CBC WITH PLTS/AUTO DIFF (08/10/2023 4:36 PM CDT) WBC 17.99(H) 4.00 - 10.00 k/cmm [facility] RBC 3.99 3.90 - 5.20 m/cmm [facility] Hgb 12.8 11.5 - 15.7 g/dL [facility] Hematocrit 37.7 34.0 - 45.0 % [facility] MCV 94.5 80.0 - 100.0 fL [facility] MCH 32.1(H) 25.0 - 32.0 pg [facility] MCHC 34.0 31.0 - 36.0 g/dL [facility] RDW 13.2 11.5 - 14.5 % [facility] Plt 306 150 - 400 k/cmm [facility] MPV 11.2 6.5 - 12.5 fL [facility] Automated Abs Neutrophil 16.12(H) 1.70 - 6.50 k/cmm [facility] Comment:Preliminary ANC, Fin al Result to Follow Abs Immature Granulocyte 0.22(H) 0.00 - 0.09 k/cmm [facility] Comment:The Immature Granulo cyte Absolute count contains metamyelocytes and myelocytes. Abs Neutrophil 16.12(H) 1.70 - 6.50 k/cmm [facility] Abs Lymphocyte 1.20 0.80 - 4.00 k/cmm [facility] Abs Monocyte 0.40 0.20 - 1.00 k/cmm [facility] Abs Eosinophil 0.00 0.00 - 0.60 k/cmm [facility] Abs Basophil 0.05 0.00 - 0.20 k/cmm [facility] Blood 08/10/2023 4:36 PM CDT 08/10/2023 4:58 PM CDT Robert Mccormack MD LABORATORY [facility] [address] [address] * LIPASE (08/10/2023 4:36 PM CDT) Lipase 13 13 - 60 IU/L [facility] Blood 08/10/2023 4:36 PM CDT 08/10/2023 4:58 PM CDT Robert Mccormack MD LABORATORY Performing Organization Address [facility] Co de Phone Number [facility] [address] [address] * PANEL HEPATIC FUNCTION (08/10/2023 4:36 PM CDT) Total Protein 8.0 6.4 - 8.3 g/dL [facility] Albumin 4.8 3.8 - 5.1 g/dL [facility] Bili Total 0.5 <=1.2 mg/dL [facility] Bili Direct na <=0.3 mg/dL [facility] Comment:BILID= <0.2. Accurac y of result suspect due to hemolysis. Alk Phos 103 35 - 104 IU/L [facility] Comment:No reference range e stablished for patients <18 years old. ALT (SGPT) 17 <=33 IU/L [facility] AST(SGOT) 25 5 - 40 IU/L [facility] Blood 08/10/2023 4:36 PM CDT 08/10/2023 4:58 PM CDT Robert Mccormack MD LABORATORY Performing Organization Address [facility]/ZIP Co de Phone Number [facility] [address] [address] documented in this encounter Visit Diagnoses Diagnosis Left before treatment completed- Primary Personal history of noncompliance with medical treatment, presenting hazards to health documented in this encounter Administered Medications Inactive Administered Medications - up to 3 most recent administrations Medication Order MAR Action Action Date Dose Rate Site OLANZapine (ZyPREXA) injection 2.5 mg 2.5 mg, IV Push, ONE TIME, 1 dose, On Sun08/10/23 at 1640 Given 08/10/2023 4:41 PM CDT 2.5 mg documented in this encounter Active and Recently Administered Medications Times are shown in CDT. Scheduled Medication Order 08/08/2023 08/09/2023 08/10/2023 OLANZapine (ZyPREXA) injection 2.5 mg (COMPLETED) 2.5 mg, IV Push, ONE TIME, 1 dose, On Sun08/10/23 at 1640 1641 (Given - Provid er: Roslyn Mercer RN) documented in this encounter Care Teams Behavior Specialist Relationship Specialty Start Date End Date Ashwini Zhang MD [address] [place] [address] PCP - General Family Medicine 06/28/17 documented as of this encounter
== END 2023-11-07 10:14 | disposition home or self-care (01) ==
LOC: ED 10:05
PROVIDERS: Emergency Provider Family Medicine; PCP Family Medicine
DX: R11.15 Cyclical vomiting syndrome unrelated to migraine (principal); R10.9 Unspecified abdominal pain
CPT/HCPCS: 99283; 99284

== ENCOUNTER 2024-02-26 08:02 | Emergency (ER) | payer BC, SELFPAY ==
[2024-02-26 08:09] VITALS: BP 115/74; PULSE 135; RESP 18; TEMP 36.4; O2SAT 96; BMI 28.2
--- NOTE | 2024-02-26 08:17 | ED_ITS ---
HPI - Allergic Reaction General Time Seen by Provider: 08:17 Date Seen: 02/26/24 Chief complaint: Allergic Reaction Stated complaint: Poss allergic reaction Time Seen by Provider: 02/26/24 08:11 Source: patient, RN notes reviewed and old records reviewed Mode of arrival: ambulatory Limitations: no limitations History of Present Illness HPI narrative: Patient is a very pleasant 28-year-old female with a history of alcohol abuse, cannabis hyper emesis who comes to the emergency room today for evaluation regarding the onset of hives. She notes that the started yesterday and thought perhaps that it was the new sent needs that her grandma gave her for laundry as this has never happened to her before. She notes that has gotten worse and the hives have now spread to the rest of her body and she feels like her throat is may be closing. Last night she stated that her tongue was swollen but that has gone down. She does note that she has recently relapsed with her sobriety and is drinking quite a bit. She denies any abdominal pain today ordered diarrhea. She has not had any fever chills. No one else has this current skin condition. For she denies any new medications or recent antibiotics or any new foods. She is breathing without difficulty. Related Data Home Medications ?Medication ?Instructions ?Recorded ?Confirmed levonorgestrel-ethinyl estradiol 1 tab PO DAILY 07/08/22 01/25/24 0.1 mg-20 mcg tablet (Vienva) escitalopram oxalate 20 mg tablet 20 mg PO DAILY 08/07/23 01/25/24 hydroxyzine HCl 10 mg tablet 5 - 20 mg PO QID PRN anxiety 08/07/23 01/25/24 Previous Rx's ?Medication ?Instructions ?Recorded potassium chloride 20 mEq 20 meq PO BID #4 tabs 08/08/23 tablet,extended release(part/cryst) (Klor-Con M) thiamine mononitrate (vit B1) 100 100 mg PO DAILY #60 tabs 08/08/23 mg tablet (Vitamin B-1 (mononitrate)) famotidine 40 mg tablet 40 mg PO DAILY #30 tabs 11/07/23 azithromycin 250 mg tablet See Rx Instructions PO .COMPLEX #6 01/25/24 (Zithromax Z-Italo) tabs prednisone 20 mg tablet See Rx Instructions PO QDAY Cough 11/22/24 #10 tabs prednisone 20 mg tablet 20 mg PO BID #6 tabs 02/26/24 Allergies Allergy/AdvReac Type Severity Reaction Status Date / Time No Known Drug Allergies Allergy Verified 01/25/24 09:20 Review of Systems Status of ROS Reports: 6 or more systems reviewed and unremarkable except as noted in History and below Const Denies: fever or chills ENMT Reports: throat swelling; Denies: difficulty swallowing or nasal congestion Cardio Denies: chest pain or shortness of breath with exertion Resp Denies: shortness of breath or cough GI Denies: difficulty swallowing Denies: painful urination Integ/Breast Reports: rash, itching and redness Allergy/Immuno Reports: throat swelling PFSH PFSH Medical History Marijuana use ?F12.90 - Cannabis use, unspecified, uncomplicated (ICD-10) History of alcohol abuse ?F10.11 - Alcohol abuse, in remission (ICD-10) Reactive airway disease ?J45.909 - Unspecified asthma, uncomplicated (ICD-10) Surgical History History of neck surgery ?Z98.890 - Other specified postprocedural states (ICD-10) Family History Mother Fibromyalgia Reactive airway disease Social History What is your current living situation?: I presently have a place to live Problems where you live: no known problems Problems where you live details: n/a In the past 12 months, utilities in danger of being shut off: no In past 12 months, lack of transportation kept you from medical appts, meetings, work, or getting things needed for daily living: no In the past 12 mos, have been you worried that your food would run out before you had money to buy more?: never true In the past 12 mos, the food you bought just didn't last and you didn't have money to buy more?: never true Smoking Status: Former smoker What tobacco products do you use: cigarettes Smoking quit date/years: <= 15 years ago Do you use any of these nicotine containing products: None Second hand tobacco smoke exposure: No How often do you have a drink containing alcohol: monthly or less Alcohol type: hard liquor Alcohol type details: Been sober for a few months and recently relapsed How often do you have six or more drinks on one occasion: Less than monthly AUDIT-C Alcohol total score: 2 Non-prescribed substance use: marijuana (any form) Caffeine: No How often does anyone, including family, friends and others, physically hurt you : never How often does anyone, including family, friends and others, insult or talk down to you: never How often does anyone, including family, friends and others, threaten you with harm: never How often does anyone, including family, friends and others, scream or curse at you: never service: No Exam Narrative: Exam Narrative: Celia is alert and oriented. She is nontoxic in appearance but when I enter the room she is itching her arms. Her face is without any swelling in oral cavity with moist mucous membranes. Nose edema in the posterior oropharynx. Neck is supple without lymphadenopathy. She has a normal voice. She is not repeatedly clearing her throat. Heart is with a tachycardic rate but normal rhythm. Lungs are clear in all lung wan. Abdomen is soft. She has raised hives in various sizes on her abdomen upper arms axilla and in her groin. No vesicles are noted. These areas are erythematous in color. Const: Vital Signs, click to edit/add: Vital Signs - 24 hr 02/26/24 08:09 Temperature 97.5 F L Pulse Rate [Pulse Oximeter] 135 H Respiratory Rate 18 Blood Pressure [Ri ght Upper Arm] 115/74 Pulse Oximetry 96 Oxygen Delivery Me thod Room Air Documenting provider has reviewed patient's vital signs: yes Course Course ED Course: Differential diagnosis includes but is not limited to contact dermatitis, food allergy, alteration of liver function tests, atypical pneumonia. At this time patient has no respiratory complaints and has clear lung sounds. Will check CBC, LFTs. Will give Benadryl 50 mg IM, prednisone 60 mg p.o. and Pepcid 20 mg p.o.. Reevaluation(s) Reevaluation #1: At 0900 hours patient had significant clearing of the hives. Waiting her labs at this time. Resolution of the tightening sensation in her throat and lips. Vital Signs Vital signs: Initial Vital Signs Temperature 97.5 F L 12/24/24 08:09 Temperature Source Temporal Artery Scan 02/26/24 08:09 Pulse Rate 135 H 02/26/24 08:09 Respiratory Rate 18 02/26/24 08:09 Blood Pressure 115/74 02/26/24 08:09 Blood Pressure Mean 87 02/26/24 08:09 Blood Pressure Position Sitting 02/26/24 08:09 Pulse Oximetry 96 02/26/24 08:09 Oxygen Delivery Method Room Air 02/26/24 08:09 Vital Signs Temperature 97.5 F L 02/26/24 08:09 Pulse Rate 135 H 02/26/24 08:09 Respiratory Rate 18 02/26/24 08:09 Blood Pressure 115/74 02/26/24 08:09 Pulse Oximetry 96 02/26/24 08:09 Oxygen Delivery Method Room Air 02/26/24 08:09 Temperature 97.5 F L 02/26/24 08:09 Pulse Rate 135 H 02/26/24 08:09 Respiratory Rate 18 02/26/24 08:09 Blood Pressure 115/74 02/26/24 08:09 Pulse Oximetry 96 02/26/24 08:09 Oxygen Delivery Method Room Air 02/26/24 08:09 Medications Administered Medications: Discontinued Medications Generic Name Dose Route Start Last Admin Trade Name Freq PRN Reason Stop Dose Admin Diphenhydramine HCl 50 mg 02/26/24 08:25 02/26/24 08:38 Diphenhydramine 50 Mg/Ml Inj IM 02/26/24 08:26 50 mg ONCE ONE Administration Famotidine 20 mg 02/26/24 08:25 02/26/24 08:37 Famotidine 20 Mg Tablet PO 02/26/24 08:26 20 mg ONCE ONE Administration Prednisone 60 mg 02/26/24 08:25 02/26/24 08:37 Prednisone 20 Mg Tablet PO 02/26/24 08:26 60 mg ONCE ONE Administration MDM - Allergic Reaction MDM Narrative Medical decision making narrative: 1. Allergic reaction-at this time the only new substance that Celia has been exposed to is scent beads that she puts in her laundry. Will have her avoid this for now. Would like her to continue an antihistamine in the form of Benadryl for Zyrtec over the next 24 hours. Prednisone 20 mg p.o. b.i.d. was sent to the pharmacy for 3 additional days of steroid use. 2. History of alcohol abuse-bilirubin elevated at 1.8 otherwise no significant alteration of liver function test. Patient is advised to avoid alcoholic specially over the next 24 hours with the use of antihistamines and steroids. Patient tells me that she does have an appointment for mental and chemical health intake and assessment and is excited about that. 3. Disposition-home at this time. Recommend alcohol abstinence. Return for worsening symptoms or onset of new symptoms. Medical Records Attestation: I reviewed the patient's medical records. Lab Data Attestation: I reviewed the patient's lab results. Labs: Lab Results 02/26/24 Range/Units 08:45 WBC 13.44 H (4.50-11.00) K/uL RBC 4.47 (4.00-5.20) m/uL Hgb 14.3 (12.0-16.0) gm/dL Hct 42.4 (33.0-51.0) % MCV 95 (80-100) fL MCH 32 (26-34) pg MCHC 34 (32-36) gm/dL RDW Coeff of Yesenia 14.4 (11.5-15.5) % Plt Count 310 (140-440) K/uL Neut % (Auto) 86.6 H (42.0-72.0) % Lymph % (Auto) 9.4 L (20-44) % Brooks % (Auto) 3.0 (0.0-11.0) % Eos % (Auto) 0.7 (0.0-7.0) % Baso % (Auto) 0.2 (0.0-3.0) % Neut # (Auto) 11.60 H (1.7-7.0) K/uL Lymph # (Auto) 1.30 (0.90-2.90) K/uL Brooks # (Auto) 0.40 (0.00-0.90) K/UL Eos # (Auto) 0.10 (0.00-0.50) K/uL Baso # (Auto) 0.00 (0.00-0.30) K/uL Abs Immat Gran (auto) 0.00 (0.00-0.30) K/uL Imm/Tot Granulo (auto) 0.1 % Sodium 137 (135-149) mmol/L Potassium 3.8 (3.6-5.1) mmol/L Chloride 107 (96-114) mmol/L Carbon Dioxide 18 L (20-32) mmol/L Anion Gap 12 (7-15) mEq/L BUN 14 (5-24) mg/dL Creatinine 0.7 (0.5-1.5) mg/dL Estimated Creat Clear 118.43 Estimated GFR 122 ml/min Glucose 130 H (60-115) mg/dL Calcium 9.1 (8.4-10.6) mg/dL Total Bilirubin 1.8 H (0.1-1.5) mg/dL AST 48 H (12-35) U/L ALT 16 (4-35) U/L Alkaline Phosphatase 92 (40-150) U/L Total Protein 7.3 (6.0-8.3) g/dL Albumin 4.7 (3.3-5.0) g/dL Discharge Plan Discharge Clinical Impression: Allergic reaction Qualifiers: Encounter type: initial encounter Qualified Code(s): T78.40XA - Allergy, unspecified, initial encounter Patient Disposition: Home, Self-Care Condition: Improved Instructions: General Allergic Reaction (ED) Additional Instructions: Continue an antihistamine for the next 24 hours. Benadryl 50 mg every 6 hours last dose tomorrow morning. Or Zyrtec 10 mg every 12 hours last dose tomorrow. Please do not use alcohol while using antihistamines as this may cause your heart to race. Would also recommend prednisone 20 mg twice a day for 3 more days. This was sent to the pharmacy Avoid any scented detergent at this time. Return to the emergency room for worsening symptoms. Prescriptions: New prednisone 20 mg tablet 20 mg PO BID Qty: 6 0RF No Action prednisone 20 mg tablet See Rx Instructions PO QDAY Qty: 10 0RF Rx Instructions: Two p.o. as single dose x5 days. azithromycin [Zithromax Z-Italo] 250 mg tablet See Rx Instructions PO .COMPLEX Qty: 6 0RF Rx Instructions: For 250 mg dose pack: take 500 mg today (day 1), then 250 mg for 4 days (days 2-5) PO famotidine 40 mg tablet 40 mg PO DAILY Qty: 30 0RF levonorgestrel-ethinyl estrad [Vienva] 0.1-20 mg-mcg tablet 1 tab PO DAILY hydroxyzine HCl 10 mg tablet 5 - 20 mg PO QID PRN (Reason: anxiety) escitalopram oxalate 20 mg tablet 20 mg PO DAILY thiamine mononitrate (vit B1) [Vitamin B-1 (mononitrate)] 100 mg Tablet 100 mg PO DAILY Qty: 60 0RF potassium chloride [Klor-Con M20] 20 mEq tablet,ER particles/crystals 20 meq PO BID Qty: 4 0RF Follow Up/Referrals: Ashwini Zhang MD [Primary Care Provider] - Stand Alone [facility] Instructions
[2024-02-26] MEDS: predniSONE 20 MG TABLET 60 MG PO (08:37)
[2024-02-26] MEDS: FAMOTIDINE 20 MG TABLET PO (08:37)
[2024-02-26] MEDS: diphenhydrAMINE 50 MG/ML inj IM (08:38)
[2024-02-26 08:56] LABS: Basophils Percent Auto 0.2 % (0.0-3.0); Eosinophils Percent Auto 0.7 % (0.0-7.0); Hematocrit 42.4 % (33.0-51.0); Hemoglobin* 14.3 gm/dL (12.0-16.0); Immature Granulocytes Pct Auto 0.1 %; Lymphocytes Percent Auto 9.4 % (20-44); Mean Corpuscular HGB Conc 34 gm/dL (32-36); Mean Corpuscular Hemoglobin 32 pg (26-34); Mean Corpuscular Volume 95 fL (80-100); Neutrophils Percent Auto 86.6 % (42.0-72.0); Platelet Count* 310 K/uL (140-440); RDW Coefficient of Variation % 14.4 % (11.5-15.5); Red Blood Count 4.47 m/uL (4.00-5.20); White Blood Count* 13.44 K/uL (4.50-11.00)
[2024-02-26 08:57] LABS: Slide Review Reflex No
[2024-02-26 09:23] LABS: Albumin* 4.7 g/dL (3.3-5.0); Chloride* 107 mmol/L (96-114); Sodium* 137 mmol/L (135-149)
[2024-02-26 09:24] LABS: Potassium* 3.8 mmol/L (3.6-5.1)
[2024-02-26 09:26] LABS: Alanine Aminotransferase* 16 U/L (4-35); Alkaline Phosphatase* 92 U/L (40-150); Anion Gap 12 mEq/L (7-15); Aspartate Amino Transferase* 48 U/L (12-35); Bilirubin Total* 1.8 mg/dL (0.1-1.5); Blood Urea Nitrogen* 14 mg/dL (5-24); Carbon Dioxide* 18 mmol/L (20-32); Creatinine* 0.7 mg/dL (0.5-1.5); Est. Creatinine Clearance* 118.43; Estimated Glomerular Filt Rate 122 ml/min; Glucose* 130 mg/dL (60-115); Total Protein* 7.3 g/dL (6.0-8.3)
[2024-02-26 09:27] LABS: Calcium* 9.1 mg/dL (8.4-10.6)
== END 2024-02-26 09:39 | disposition home or self-care (01) ==
PROVIDERS: Emergency Provider Family Medicine; PCP Family Medicine
DX: L50.0 Allergic urticaria (principal)
CPT/HCPCS: 36415; 80053; 85025; 96372; 99284; A9270; J1200; J7512